=== PATIENT | female | born 1950 | race Caucasian/White ===

== ENCOUNTER 2020-11-04 17:17 | Outpatient (CLI) | payer MEDICARE, SELFPAY ==
--- NOTE | ~2020-11-04 | MM_ITS ---
EXAMINATION: MM screening norris BI w moni HISTORY: Screening TECHNIQUE: Craniocaudal and mediolateral oblique 3-D tomosynthesis images were obtained and synthetic 2-D images were generated. CAD analysis was submitted and interpreted. COMPARISON: No prior mammogram is available for comparison at this institution. BREAST PARENCHYMAL COMPOSITION: There are scattered areas of fibroglandular density. FINDINGS: There is a low-density mass in the medial aspect of the right breast. There are scattered b enign-appearing relatively monomorphic breast calcifications. There are no suspicious areas of diana ectural distortion. IMPRESSION: 1. Low-density mass right breast. 2. Additional spot compression and mediolateral views with follow-up breast ultrasound recommended. BI-RADS Category 0: Incomplete: Needs additional imaging evaluation. Reviewed, dictated and finalized at location A. IMPRESSION: 1. Low-density mass right breast. 2. Additional spot compression and mediolateral views with follow-up breast ult rasound recommended. BI-RADS Category 0: Incomplete: Needs additional imaging evaluation.
== END 2020-11-04 17:18 | disposition home or self-care (01) ==
DX: Z12.31 Encounter for screening mammogram for malignant neoplasm of breast (principal); R92.8 Other abnormal and inconclusive findings on diagnostic imaging of breast
CPT/HCPCS: 77063; 77067

== ENCOUNTER 2020-11-20 12:40 | Outpatient (CLI) | payer MEDICARE, SELFPAY ==
--- NOTE | ~2020-11-20 | MMUS_ITS ---
EXAMINATION: MM diagnostic mammo unilat RT, US breast RT complete HISTORY: Low density right breast mass reported in medial aspect right breast on 11/04/2020 screening mammogram TECHNIQUE: Additional 3-D tomosynthesis images of the right breast were performed and synthetic 2-D i mages were generated. CAD analysis was submitted and interpreted. High resolution complete right tianna st ultrasound was performed. COMPARISON: 11/04/2020 bilateral digital screening mammogram FINDINGS: MAMMOGRAPHIC FINDINGS: Approximately 12 x 16 mm low-density circumscribed opacity is noted in the central right breast. Scattered benign calcifications. There is a biopsy marker. ULTRASOUND: There are several cysts: 12:00 1 cm from nipple: 16 x 17 x 6.4 mm parallel sonolucency with through transmission, consistent w ith cyst 8:00 3 cm from nipple: 4.9 x 4.8 x 4.7 mm cyst with through transmission posterior enhancement 10:00 1 cm from nipple: 4.7 x 3.9 x 4.0 mm simple cyst with through transmission and posterior enhanc ement. No suspicious solid lesion or suspicious shadowing is identified. IMPRESSION: 1. No mammographic evidence of malignancy 2. Annual mammographic screening is recommended BI-RADS Category 2: Benign finding(s). Reviewed, dictated and finalized at location A. IMPRESSION: 1. No mammographic evidence of malignancy 2. Annual mammographic screening is recommended BI-RADS Category 2: Benign finding(s).
== END 2020-11-20 12:41 | disposition home or self-care (01) ==
DX: R92.8 Other abnormal and inconclusive findings on diagnostic imaging of breast (principal)
CPT/HCPCS: 76641; 77065

== ENCOUNTER 2020-11-28 07:43 | Outpatient (CLI) | payer MEDICARE, SELFPAY ==
--- NOTE | ~2020-11-28 | DEXA_ITS ---
Bone Density Report Name: Sophia Sánchez I Age: 70 Sex: Female Ethnicity: White Date of : 1950 Indication: postmenopausal; prior fracture; asthma or emphysema; Referring Provider: Ervin Clark Study: Bone densitometry was performed. Exam Date: November 28, 2020 Accession number: [id number] Bone Density: Region BMD T-score Z-score Classification AP Spine (L2, L3) 0.844 -1.9 0.2 Osteopenia Femoral Neck (Left) 0.573 -2.5 -0.7 Osteoporosis Total Hip (Left) 0.735 -1.7 -0.2 Osteopenia Total Hip Bilateral Avg 0.769 -1.5 0.1 Osteopenia Femoral Neck (Right) 0.707 -1.3 0.5 Osteopenia Total Hip (Right) 0.801 -1.2 0.3 Osteopenia World Health Organization criteria for BMD impression classify patients as: Normal (T-score at or above -1.0), Osteopenia (T-score between -1.0 and -2.5), or Osteoporosis (T-score at or below -2.5). 10-year Fracture Risk: FRAX not reported because: Some T-score for Spine Total or Hip Total or Femoral Neck at or below -2.5 Clinical Information Provided by Patient: Has had a low trauma fracture Has used the following medications: Vitamin D Has the following medical conditions: Asthma or Emphysema Patient maximum height was 65 Menopause Age: 58 No regular weight bearing exercise Onset of menses at age 17 Number of children 3 Impression: The patient has established osteoporosis, based on the Left Femoral Neck T-score and the existence of a prior fracture. The patient has risk factors, including: previous fracture. Discussion: HIGH RISK OF FRACTURE. BONE DENSITY IS UNDESIRABLY LOW AT ONE OR MORE SKELETAL SITES, CONSISTENT WITH POSTMENOPAUSAL OSTEOPOROSIS. This patient's lowest T-score, in a patient who has previously fractured, meets the World Health Organization's (WHO) criteria for severe osteoporosis. In untreated patients, the risk of osteoporotic fracture increases approximately two-fold for each 1.0 SD decrease in T-score. Low bone density is not the only risk factor for fracture; also consider factors such as patient's age, frailty or poor health, risk of falling, risk of injury, previous osteoporotic fracture, family history of osteoporosis, cigarette smoking, low body weight, etc. Not everyone with low bone mineral density has osteoporosis; osteomalacia and other metabolic bone disorders should also be considered. Patients who have osteoporosis should be evaluated for specific diseases and conditions (secondary causes) that may cause or contribute to bone loss. The [place] [employer]ocrinologists (AACE) and National Osteoporosis Foundation (NOF) recommend pharmacologic intervention for all postmenopausal women whose T-score is in this range. The patient should follow a healthful lifestyle (good nutrition with adequate calcium and vitamin D, and appropriate weight-bearing exercise).
== END 2020-11-28 07:44 | disposition home or self-care (01) ==
DX: Z78.0 Asymptomatic menopausal state (principal); M85.89 Other specified disorders of bone density and structure, multiple sites; M81.0 Age-related osteoporosis without current pathological fracture
CPT/HCPCS: 77080

== ENCOUNTER 2021-10-28 18:26 | Emergency (ER) | payer MEDICARE, MEDICAID, SELFPAY ==
[2021-10-28] VITALS (15 sets, daily range): BP systolic 119–170; BP diastolic 67–104; PULSE 85–94; RESP 13–21; TEMP 36.6; O2SAT 90–98
--- NOTE | ~2021-10-28 | CT_ITS ---
EXAMINATION: CT abdomen pelvis w con DATE: 10/28/2021 20:02 INDICATION: epigastric pain TECHNIQUE: Computed tomography (CT) of the abdomen and pelvis was performed with 100 mL Omnipaque-350 intravenous contrast. Automated exposure control and iterative reconstruction technique were employe d. The dose-length product was 1240.17 mGy-cm. COMPARISON: None FINDINGS: Lower thorax: Mild senescent changes, otherwise clear lungs. Mild coronary artery calcifications. Sma ll hiatal hernia. Liver: Normal. Biliary/Gallbladder: Cholelithiasis. No bile duct dilation. Spleen: Normal. Pancreas: No mass or duct dilation. Adrenals:No mass. Kidneys: Subcentimeter right upper pole angiomyolipoma. 1.3 cm nephrolith and a right lower pole evangelista x multiple additional punctate calcifications present in the right lower pole. GI tract: Distal esophageal wall edema as can be seen with esophagitis. No small or large bowel dilat ion. Appendix not confidently visualized and possibly surgically absent. Mesentery/Peritoneum: No ascites, mass, or free air. Retroperitoneum: No mass. Pelvis: Pelvic organs are within normal limits. Bones/Soft Tissues: Soft tissues and body wall unremarkable. Moderate wedge compression deformity of L1. Additional Findings: None. IMPRESSION: Esophagitis. Right nephrolithiasis, without obstructive uropathy. Moderate L1 compression fracture, l ikely chronic unless accompanied by acute pain/tenderness. Reviewed, dictated and finalized at location K. IMPRESSION: Esophagitis. Right nephrolithiasis, without obstructive uropathy. Moderate L1 c ompression fracture, likely chronic unless accompanied by acute pain/tenderness .
--- NOTE | 2021-10-28 18:46 | ECG_ITS ---
Measurements Intervals [place] Rate: 90 P: 55 [place]: 150 QRS: 25 QRSD: 81 T: 85 QT: 350 QTc: 430 Interpretive Statements SINUS RHYTHM NONSPECIFIC T-WAVE ABNORMALITY NO PREVIOUS ECG AVAILABLE FOR COMPARISON Electronically Signed On 10-28-2021 21:21:33 CDT by Jenny Simons M.D.
[2021-10-28 18:59] LABS: Basophils Absolute Auto 0.1 K/mm3 (0.0-0.1); Basophils Percent Auto 0.8 % (0.2-1.2); Eosinophils Absolute Auto 0.2 K/mm3 (0-0.3); Eosinophils Percent Auto 2.8 % (0-4.4); Hematocrit 38.8 % (37.0-47.0); Hemoglobin 12.4 g/dL (12.0-15.0); Immature Granulocyte Absolute 0.05 K/mm3 (0.00-0.031); Immature Granulocyte Percent A 0.6 % (0-0.5); Lymphocytes Absolute Auto 2.73 K/mm3 (0.9-3.2); Lymphocytes Percent Auto 31.5 % (18.3-44.2); Mean Corpuscular Hemoglobin 31.7 pg (26-34); Mean Corpuscular Volume 99.2 fl (80-100); Mean Platelet Volume 9.2 fl (7.4-10.4); Monocytes Absolute Auto 0.9 K/mm3 (0.1-0.6); Monocytes Percent Auto 10.3 % (2.6-8.5); Neutrophils Absolute Auto 4.7 K/mm3 (1.3-6.7); Platelet Count Result 264 k/mm3 (150-375); Red Blood Count 3.91 M/mm3 (4.2-5.4); Red Cell Distribution Width 11.9 % (11.5-14.5); White Blood Count 8.7 K/mm3 (4.5-10.0)
[2021-10-28 19:11] LABS: Alanine Aminotransferase 32 U/L (4-35); Alkaline Phosphatase 102 U/L (38-126); Anion Gap 6 mmol/L (8-16); Aspartate Amino Transferase 36 U/L (14-36); Bilirubin,Total 0.1 mg/dL (0.2-1.3); Blood Urea Nitrogen 17 mg/dL (7-17); Calcium 8.6 mg/dL (8.4-10.2); Carbon Dioxide 27 mmol/L (22-30); Chloride 104 mmol/L (98-107); Estimated CRCL calculation 74 ml/min; Estimated Glomerular Filt Rate > 60; Glucose 125 mg/dL (65-110); Lipase 62 U/L (23-300); Sodium 137 mmol/L (137-145)
[2021-10-28 19:55] LABS: Add Urine Microscopic? YES; Appearance Urine Cloudy (Clear); Bacteria Urine Trace /hpf; Bilirubin Urine Negative (Negative); Blood Urine Negative (Negative); Color Urine Yellow (Yellow); Glucose Urine UA Negative (Negative); Ketones Urine Trace mg/dL (Negative); Leukocyte Esterase Ur 2+ LEU/UL (Negative); Mucus Urine Rare /lpf; Nitrate Urine Negative (Negative); Protein Urine 1+ mg/dL (Negative); Specific Grav Ur 1.025 (1.001-1.035); Squamous Epithelial Cell Urine Few /hpf (Few); WBC Urine 31-50 /hpf
[2021-10-28 20:10] LABS: Troponin I < 0.012 ng/mL (0.000-0.034)
--- NOTE | 2021-10-28 20:51 | ED.ABDPAIN ---
HPI - Abdominal Pain General Chief Complaint: Abdominal Pain Stated Complaint: RUQ pain x 2 days Time Seen by Provider: 10/28/21 18:44 Source: patient and family Mode of arrival: EMS Limitations: no limitations History of Present Illness HPI narrative: 70-year-old with a history of hypertension, hyperlipidemia, GERD, anxiety chr. back pain here with complaints of having upper abdominal pain for past 2 days. She denies any nausea or vomiting. She states that pain starts in the epigastric area wraps around her right upper abdomen. No history of fever or chills. Denies any cough or shortness of breath. Pertinent past history: other (GERD) Location: epigastric and RUQ Quality: aching Radiation: RUQ Associated symptoms: denies other symptoms Related Data Allergies Allergy/AdvReac Type Severity Reaction Status Date / Time No Known Allergies Allergy Verified 10/28/21 19:23 Review of Systems Review of Systems: All systems reviewed & are unremarkable except as noted in HPI and below Constitutional: Constitutional: Reports no additional constitutional complaints Eyes: Eyes: Reports no additional eye complaints ENT: Reports system reviewed and no additional complaints, except as documented Cardiovascular: Cardiovascular: Reports no additional cardiovascular complaints Respiratory: Respiratory: Reports no additional respiratory complaints Gastrointestinal: Gastrointestinal: Reports as per HPI Genitourinary: Genitourinary: Reports no additional female genitourinary complaints Musculoskeletal: Musculoskeletal: Reports no additional musculoskeletal complaints Neurologic: Reports system reviewed and no additional complaints, except as documented Exam Narrative: GENERAL: Well-appearing, well-nourished, and in no acute distress. HEAD: Normocephalic, atraumatic. EYES: PERRLA and EOMI. NECK: Supple. CHEST: Clear to auscultation. No respiratory distress. HEART: Regular rate and rhythm. No murmur heard. Normal peripheral pulses. ABDOMEN: Soft, Mild Epigastric tenderness , nondistended, normal active bowel sounds. EXTREMITIES: Normal range of motion. No edema. SKIN: Warm, dry, no rash. NEURO: No focal deficits. Alert and oriented x3. PSYCH: Normal mood and affect. Course Course Emergency Course: Patient comfortably laying on bed in no discomfort she presently has no pain. I discussed lab work, CT findings with the patient and her daughter who is at the bedside. She is presently taking omeprazole daily for her GERD I recommended her that she needs to follow-up with the gastroenterology for upper GI. Also recommended her to continue home medications. Vital Signs Vital signs: Vital Signs Temperature 36.6 C 10/28/21 18:36 Pulse Rate 88 10/28/21 18:36 Respiratory Rate 20 10/28/21 18:36 Blood Pressure 131/67 10/28/21 18:36 Pulse Oximetry 95 10/28/21 18:36 Temperature 36.6 C 10/28/21 18:36 Pulse Rate 91 10/28/21 18:47 Respiratory Rate 16 10/28/21 18:47 Blood Pressure 154/78 H 10/28/21 18:47 Pulse Oximetry 98 10/28/21 18:47 MDM - Abdominal Pain Lab Data Result diagrams: 10/28/21 18:51 10/28/21 18:51 Labs: Lab Results 10/28/21 10/28/21 10/28/21 Range/Units 18:49 18:51 18:51 WBC 8.7 (4.5-10.0) K/mm3 RBC 3.91 L (4.2-5.4) M/mm3 Hgb 12.4 (12.0-15.0) g/dL Hct 38.8 (37.0-47.0) % MCV 99.2 (80-100) fl MCH 31.7 (26-34) pg MCHC 32.0 (32-36) g/dl RDW 11.9 (11.5-14.5) % Plt Count 264 (150-375) k/mm3 MPV 9.2 (7.4-10.4) fl Immature Gran % (Auto) 0.6 H (0-0.5) % Neut % (Auto) 54.0 (45.5-73.1) % Lymph % (Auto) 31.5 (18.3-44.2) % [place] % (Auto) 10.3 H (2.6-8.5) % Eos % (Auto) 2.8 (0-4.4) % Baso % (Auto) 0.8 (0.2-1.2) % Lymph # (Auto) 2.73 (0.9-3.2) K/mm3 [place] # (Auto) 0.9 H (0.1-0.6) K/mm3 Eos # (Auto) 0.2 (0-0.3) K/mm3 Baso # (Auto) 0.1 (0.0-0.1) K/mm3 Abs Immat G
== END 2021-10-28 21:10 ==
PROVIDERS: Emergency Provider Family Medicine
DX: K20.90 Esophagitis, unspecified without bleeding (principal); R10.13 Epigastric pain; I10 Essential (primary) hypertension; E78.5 Hyperlipidemia, unspecified; K21.9 Gastro-esophageal reflux disease without esophagitis
CPT/HCPCS: 36415; 74177; 80053; 81001; 83690; 84484; 85025; 87086; 93005; 99284; Q9967

== ENCOUNTER 2022-02-09 00:13 | Day surgery (SDC) | payer MEDICARE, MEDICAID, SELFPAY ==
[2022-01-21 15:48] VITALS: BMI 37.6
[2022-02-09 06:24] VITALS: BP 151/102; PULSE 106; RESP 18; TEMP 36.4; O2SAT 94
[2022-02-09] MEDS: LACTATED RINGERS 1,000 ML 150 ML IV CONT (06:39)
--- NOTE | 2022-02-09 07:23 | WPDANESEPPF ---
Anes - Initial Pre Proc Eval Procedure: Operation Date: 02/09/22 07:30 Proposed Procedures p Esophagogastroduodenoscopy & Screening Colonoscopy - Timbo Morales MD Date/Time: 02/09/22 07:23 Surgeon: Timbo Morales MD Pre Op Diagnosis: epophagitis, neoplasm screening Patient Data Age: 71 Gender: F Height: 1.65 m Weight: 104.5 kg Last Vital Signs Temp 97.5 F L 02/09/22 06:24 Pulse 106 H 02/09/22 06:24 Resp 18 02/09/22 06:24 BP 151/102 H 02/09/22 06:24 Pulse Ox 94 02/09/22 06:24 O2 Del Method Room Air 02/09/22 06:24 Allergies Allergy/AdvReac Type Severity Reaction Status Date / Time No Known Allergies Allergy Verified 02/09/22 06:22 Home Medications Medication Instructions Recorded Confirmed Type albuterol sulfate 90 mcg/actuation 1 inh inhalation Q4H PRN Dyspnea 12/03/21 01/21/22 History aerosol inhaler alendronate 70 mg tablet 70 mg PO WEEKLY 12/03/21 01/21/22 History aspirin 81 mg tablet,delayed 81 mg PO DAILY 12/03/21 01/21/22 History release atorvastatin 20 mg tablet 20 mg PO DAILY 12/03/21 01/21/22 History calcium carbonate-vitamin D3 500 1 tablet PO DAILY 12/03/21 01/21/22 History mg(1,250 mg)-600 unit chewable tablet celecoxib 100 mg capsule 100 mg PO BID 12/03/21 01/21/22 History duloxetine 60 mg capsule,delayed 60 mg PO DAILY 12/03/21 01/21/22 History release gabapentin 300 mg capsule 300 mg PO TID 12/03/21 01/21/22 History nitroglycerin 0.4 mg sublingual 0.4 mg sublingual Q5M PRN Chest 12/03/21 01/21/22 History tablet Pain oxybutynin chloride 15 mg 15 mg PO DAILY 12/03/21 01/21/22 History tablet,extended release 24 hr risperidone 1 mg tablet 1 mg PO HS 12/03/21 01/21/22 History tramadol 50 mg tablet 50 mg PO BID 12/03/21 01/21/22 History sodium sul 1.479 gram-potas ch See Rx Instructions PO PER PKG DIR 12/04/21 01/21/22 Rx 0.188 gram-magnes sul 0.225 gram #24 tabs tablet (Sutab) cyclobenzaprine 5 mg tablet 5 mg PO TID 01/21/22 01/21/22 History metoprolol tartrate 25 mg tablet 25 mg PO DAILY 01/21/22 01/21/22 History omeprazole 40 mg capsule,delayed 40 mg PO DAILY 01/21/22 01/21/22 History release trazodone 150 mg tablet 150 mg PO HS 01/21/22 01/21/22 History Patient hx anesthesia problems: none Family hx anesthesia problems: none Results Review: All pre-operative results and documents have been reviewed as part of the pre-operative evaluation. [facility] Past Medical History Medical History (Updated 12/03/21 @ 14:19 by Timbo Morales MD) Abnormal CT of the chest Anxiety Arthritis Colon cancer screening Depression Osteoporosis Thyroid disorder Vertigo Family History Family History (Updated 12/03/21 @ 13:59 by Fanny Combs CMA) Father Hypertension Mother Heart disease Depression Social History Social History (Updated 12/03/21 @ 14:00 by Fanny Combs CMA) Smoking status: Never smoker Alcohol intake: current Drinks per week: 1 Alcohol use details: very rare Substance use: never Substance use type: does not use Living arrangements: assisted living Spiritual care concerns: No Anes - Eval Final PreProcedure Day of Procedure 02/09/22 07:23 Patient weight: obese Heart: regular rate and rhythm Lungs: clear to auscultation Airway: Mallampati scale class III Neurological: alert and oriented Last oral intake: >/= 8 hours ASA classification: III Emergent: no Anesthetic plan: proceed Anesthesia type and monitoring: general GIVS and standard monitoring Results Review: All pre-operative results and documents have been reviewed as part of the pre-operative evaluation. Informed Consent: The patient's anesthetic plan and its attendant risks and benefits were discussed with the patient/family/POA. Questions were solicited and answers provided to the satisfaction of the patient/family/POA.
--- NOTE | 2022-02-09 07:30 | PM.HPGS ---
History of Present Illness History of Present Illness Consent: Risks, benefits, and alternatives have been discussed and questions answered. Patient agrees to proceed with procedure. Chief complaint: epophagitis, neoplasm screening Narrative: Sophia Sánchez is a 71 year old female with chest pain, CT scan showed esophagitis but better with pepcid and omeprazole, also due to have colonoscopy Review of Systems Constitutional: Constitutional: Denies headache(s) and Denies weakness Eyes: Eyes: Denies blurry vision ENT: Reports Normal hearing present, Denies headache(s) and Denies neck pain Cardiovascular: Cardiovascular: Denies chest pain and Denies dyspnea Respiratory: Respiratory: Denies dyspnea Gastrointestinal: Gastrointestinal: Reports no additional gastrointestinal complaints Genitourinary: Genitourinary: Denies dysuria Musculoskeletal: Musculoskeletal: Denies neck pain Integumentary/Breasts: Skin/Breast: Denies dry skin Neurologic: Reports Normal hearing present, Denies headache(s) and Denies weakness Psychiatric: Psychiatric: Denies anxiety Endocrine: Endocrine: Denies change in body appearance Hematologic/Lymphatic: Hematologic/Lymphatic: Denies easy bleeding Allergic/Immunologic: Allergic/Immunologic: Denies urticaria PMFSH Past Medical History Medical History (Updated 12/03/21 @ 14:19 by Timbo Morales MD) Abnormal CT of the chest Anxiety Arthritis Colon cancer screening Depression Osteoporosis Thyroid disorder Vertigo Family History Family History (Updated 12/03/21 @ 13:59 by Fanny Combs CMA) Father Hypertension Mother Heart disease Depression Social History Social History (Updated 12/03/21 @ 14:00 by Fanny Combs CMA) Smoking status: Never smoker Alcohol intake: current Drinks per week: 1 Alcohol use details: very rare Substance use: never Substance use type: does not use Living arrangements: assisted living Spiritual care concerns: No Meds Home Medications and Allergies Home Medications Medication Instructions Recorded Confirmed Type albuterol sulfate 90 mcg/actuation 1 inh inhalation Q4H PRN Dyspnea 12/03/21 01/21/22 History aerosol inhaler alendronate 70 mg tablet 70 mg PO WEEKLY 12/03/21 01/21/22 History aspirin 81 mg tablet,delayed 81 mg PO DAILY 12/03/21 01/21/22 History release atorvastatin 20 mg tablet 20 mg PO DAILY 12/03/21 01/21/22 History calcium carbonate-vitamin D3 500 1 tablet PO DAILY 12/03/21 01/21/22 History mg(1,250 mg)-600 unit chewable tablet celecoxib 100 mg capsule 100 mg PO BID 12/03/21 01/21/22 History duloxetine 60 mg capsule,delayed 60 mg PO DAILY 12/03/21 01/21/22 History release gabapentin 300 mg capsule 300 mg PO TID 12/03/21 01/21/22 History nitroglycerin 0.4 mg sublingual 0.4 mg sublingual Q5M PRN Chest 12/03/21 01/21/22 History tablet Pain oxybutynin chloride 15 mg 15 mg PO DAILY 12/03/21 01/21/22 History tablet,extended release 24 hr risperidone 1 mg tablet 1 mg PO HS 12/03/21 01/21/22 History tramadol 50 mg tablet 50 mg PO BID 12/03/21 01/21/22 History sodium sul 1.479 gram-potas ch See Rx Instructions PO PER PKG DIR 12/04/21 01/21/22 Rx 0.188 gram-magnes sul 0.225 gram #24 tabs tablet (Sutab) cyclobenzaprine 5 mg tablet 5 mg PO TID 01/21/22 01/21/22 History metoprolol tartrate 25 mg tablet 25 mg PO DAILY 01/21/22 01/21/22 History omeprazole 40 mg capsule,delayed 40 mg PO DAILY 01/21/22 01/21/22 History release trazodone 150 mg tablet 150 mg PO HS 01/21/22 01/21/22 History Allergies Allergy/AdvReac Type Severity Reaction Status Date / Time No Known Allergies Allergy Verified 02/09/22 06:22 Vital Signs Vital Signs - 24 hr 02/09/22 06:24 Temperature 97.5 F L Pulse Rate 106 H Respiratory Rate 18 Blood Pressure 151/102 H Pulse Oximetry 94 Oxygen Delivery Room Air Exam Const: General: comfortable and no acute distress HE
[2022-02-09 07:57] VITALS: BP 135/78; PULSE 94; RESP 14; O2SAT 98
[2022-02-09 08:07] VITALS: BP 135/74; PULSE 91; RESP 14; O2SAT 98
[2022-02-09 08:17] VITALS: BP 155/81; PULSE 87; RESP 15; O2SAT 98
--- NOTE | 2022-02-09 09:04 | SUR.OPER ---
EGD: Start 07:34 End 07:38 Colon: Start 07:43 End 07:55
== END 2022-02-09 08:49 | disposition home or self-care (01) ==
PROVIDERS: Visit Provider Internal Medicine Gastroenterology
PROC: 0DJ08ZZ Inspection of Upper Intestinal Tract, Via Natural or Artificial Opening Endoscopic (ICD-10-PCS; CPT 43235; principal; 2022-02-09 07:30)
DX: Z12.11 Encounter for screening for malignant neoplasm of colon (principal); K21.9 Gastro-esophageal reflux disease without esophagitis; R07.89 Other chest pain; K21.00 Gastro-esophageal reflux disease with esophagitis, without bleeding; K44.9 Diaphragmatic hernia without obstruction or gangrene; K31.84 Gastroparesis; K29.60 Other gastritis without bleeding; K64.8 Other hemorrhoids; Z79.82 Long term (current) use of aspirin; Z79.51 Long term (current) use of inhaled steroids; M81.0 Age-related osteoporosis without current pathological fracture; F41.9 Anxiety disorder, unspecified; F32.A Depression, unspecified; E07.9 Disorder of thyroid, unspecified; E66.9 Obesity, unspecified; Z68.38 Body mass index [BMI] 38.0-38.9, adult
CPT/HCPCS: 43239; G0121; 88305; J2704; J7120

== ENCOUNTER 2022-03-13 15:53 | Emergency (ER) | payer MEDICARE, MEDICAID, SELFPAY ==
[2022-03-13] VITALS (10 sets, daily range): BP systolic 111–127; BP diastolic 63–76; PULSE 78–85; RESP 11–18; TEMP 36.4; O2SAT 90–97
--- NOTE | ~2022-03-13 | XR_ITS ---
EXAM: XR hip LT 2V w AP pelvis DATE: 03/13/2022 17:22 HISTORY: FALL 1 WEEK AGO, LT HIP PAINS . COMPARISON: CT abdomen pelvis 10/28/2021. FINDINGS: Decreased mineralization. No fracture or dislocation. No lytic or blastic lesion. Mild art hritic change in the bilateral hips. Chondrocalcinosis at the symphysis pubis. Degenerative change in the lumbar spine. No erosion or periosteal change. Soft tissues within normal limits. IMPRESSION: No acute osseous finding in the left hip or pelvis. Reviewed, dictated and finalized at location K.
--- NOTE | 2022-03-13 17:16 | ED.GENADULT ---
HPI - General Adult General Chief complaint: Weakness Stated complaint: I feel like I'm going to fall when I stand up Time Seen by Provider: 03/13/22 16:33 History of Present Illness HPI narrative: 71-year-old female presenting to the emergency department for evaluation of intermittent left leg weakness. Patient states that she does have a childhood history of polio and did require a leg brace for a significant period of time. Patient states when she walks she does use a walker. Patient states that approximately 3 times a day she feels that her leg gives out. Patient states that her leg did give out today and she is complaining of a funny feeling of the left hip. Patient denies actually falling and patient denies having any left hip pain. Patient denies striking head denies loss consciousness. Related Data Home Medications Medication Instructions Recorded Confirmed albuterol sulfate 90 mcg/actuation 1 inh inhalation Q4H PRN Dyspnea 12/03/21 01/21/22 aerosol inhaler alendronate 70 mg tablet 70 mg PO WEEKLY 12/03/21 01/21/22 aspirin 81 mg tablet,delayed 81 mg PO DAILY 12/03/21 01/21/22 release atorvastatin 20 mg tablet 20 mg PO DAILY 12/03/21 01/21/22 calcium carbonate-vitamin D3 500 1 tablet PO DAILY 12/03/21 01/21/22 mg(1,250 mg)-600 unit chewable tablet celecoxib 100 mg capsule 100 mg PO BID 12/03/21 01/21/22 duloxetine 60 mg capsule,delayed 60 mg PO DAILY 12/03/21 01/21/22 release gabapentin 300 mg capsule 300 mg PO TID 12/03/21 01/21/22 nitroglycerin 0.4 mg sublingual 0.4 mg sublingual Q5M PRN Chest 12/03/21 01/21/22 tablet Pain oxybutynin chloride 15 mg 15 mg PO DAILY 12/03/21 01/21/22 tablet,extended release 24 hr risperidone 1 mg tablet 1 mg PO HS 12/03/21 01/21/22 tramadol 50 mg tablet 50 mg PO BID 12/03/21 01/21/22 cyclobenzaprine 5 mg tablet 5 mg PO TID 01/21/22 01/21/22 metoprolol tartrate 25 mg tablet 25 mg PO DAILY 01/21/22 01/21/22 omeprazole 40 mg capsule,delayed 40 mg PO DAILY 01/21/22 01/21/22 release trazodone 150 mg tablet 150 mg PO HS 01/21/22 01/21/22 Allergies Allergy/AdvReac Type Severity Reaction Status Date / Time No Known Allergies Allergy Verified 03/13/22 16:10 Review of Systems Review of Systems: CONSTITUTIONAL: Denies fever, chills, or sweats. EYES: Denies visual changes, redness, or discharge. ENT: Denies rhinorrhea, congestion, sore throat, or otalgia. CARDIOVASCULAR: Denies chest pain, palpitations, or edema. RESPIRATORY: Denies cough or dyspnea. GASTROINTESTINAL: Denies abdominal pain, nausea, vomiting, or diarrhea. GENITOURINARY: Denies dysuria or hematuria. SKIN: Denies rash or itching. MUSCULOSKELETAL: Intermittent left leg weakness NEUROLOGIC: Denies headache, numbness, or weakness. PSYCHIATRIC: Denies anxiety or depression. [facility] Past Medical History Medical History (Updated 03/13/22 @ 18:32 by Gui Gerardo MD) Abnormal CT of the chest Anxiety Arthritis Colon cancer screening Depression Osteoporosis Thyroid disorder Vertigo Family History Family History (Updated 12/03/21 @ 13:59 by Fanny Combs CMA) Father Hypertension Mother Heart disease Depression Social History Social History (Updated 12/03/21 @ 14:00 by Fanny Combs CMA) Smoking status: Never smoker Alcohol intake: current Drinks per week: 1 Alcohol use details: very rare Substance use: never Substance use type: does not use Spiritual care concerns: No Exam Narrative: APPEARANCE: Well appearing, no pain, no distress, well-nourished. HEAD: normocephalic, atraumatic. EYES: PERRLA/EOMI, conjunctivae clear. NOSE: Normal no drainage NECK: Supple. No adenopathy, no masses. RESPIRATORY: Airway patent, respirations nonlabored. Clear to auscultation bilaterally, no rales, rhonchi, wheezing. CARDIOVASCULAR: Regular rate and rhythm without murmurs rubs or gallops. ABDOMINAL: Soft, nontender, nondistended, normal bowel sounds MUSCULOSKELETAL:
[2022-03-13 18:05] LABS: Basophils Absolute Auto 0.1 K/mm3 (0.0-0.1); Basophils Percent Auto 1.1 % (0.2-1.2); Eosinophils Absolute Auto 0.3 K/mm3 (0-0.3); Eosinophils Percent Auto 4.5 % (0-4.4); Hematocrit 40.5 % (37.0-47.0); Immature Granulocyte Absolute 0.06 K/mm3 (0.00-0.031); Immature Granulocyte Percent A 0.8 % (0-0.5); Lymphocytes Absolute Auto 2.24 K/mm3 (0.9-3.2); Lymphocytes Percent Auto 31.4 % (18.3-44.2); Mean Corpuscular HGB Conc 32.1 g/dl (32-36); Mean Corpuscular Hemoglobin 30.7 pg (26-34); Mean Corpuscular Volume 95.5 fl (80-100); Mean Platelet Volume 9.3 fl (7.4-10.4); Monocytes Absolute Auto 0.8 K/mm3 (0.1-0.6); Monocytes Percent Auto 10.8 % (2.6-8.5); Neutrophils Absolute Auto 3.7 K/mm3 (1.3-6.7); Neutrophils Percent Auto 51.4 % (45.5-73.1); Platelet Count Result 275 k/mm3 (150-375); Red Blood Count 4.24 M/mm3 (4.2-5.4); Red Cell Distribution Width 12.5 % (11.5-14.5); White Blood Count 7.1 K/mm3 (4.5-10.0)
[2022-03-13 18:17] LABS: Lactic Acid Reflex 1.9 mmol/L (0.7-2.0)
[2022-03-13 18:18] LABS: Alanine Aminotransferase 71 U/L (6-35); Albumin Level 4.2 g/dL (3.5-5.1); Alkaline Phosphatase 105 U/L (38-126); Anion Gap 9 mmol/L (8-16); Aspartate Amino Transferase 58 U/L (14-36); Bilirubin,Total 0.3 mg/dL (0.2-1.3); Blood Urea Nitrogen 18 mg/dL (7-17); Calcium 9.1 mg/dL (8.4-10.2); Carbon Dioxide 29 mmol/L (22-30); Chloride 100 mmol/L (98-107); Estimated CRCL calculation 68 ml/min; Estimated Glomerular Filt Rate > 60; Glucose 131 mg/dL (65-110); Potassium 4.1 mmol/L (3.4-5.0); Sodium 138 mmol/L (137-145)
== END 2022-03-13 19:10 | disposition home or self-care (01) ==
PROVIDERS: Emergency Provider Emergency Medicine
DX: R53.1 Weakness (principal); M25.552 Pain in left hip; E07.9 Disorder of thyroid, unspecified; M19.90 Unspecified osteoarthritis, unspecified site; M81.0 Age-related osteoporosis without current pathological fracture; F32.A Depression, unspecified; F41.9 Anxiety disorder, unspecified; Z86.12 Personal history of poliomyelitis; Z79.82 Long term (current) use of aspirin
CPT/HCPCS: 36415; 73502; 80053; 83605; 85025; 99283

== ENCOUNTER 2023-04-03 09:02 | Observation (INO) | payer MEDICARE, MEDICAID, SELFPAY ==
[2023-04-03] VITALS (36 sets, daily range): BP systolic 140–171; BP diastolic 60–117; PULSE 88–108; RESP 11–22; TEMP 36.2–37.7; O2SAT 90–96; BMI 39.6
--- NOTE | ~2023-04-03 | CT_ITS ---
EXAMINATION: CT brain wo con DATE: 04/03/2023 10:50 INDICATION: Altered mental status TECHNIQUE: Computed tomography (CT) of the head was performed without intravenous contrast. The mA wa s adjusted according to patient size. Iterative reconstruction technique was employed. Exam dose: 60 5.33 mGy-cm total exam DLP. COMPARISON: None FINDINGS: Bilateral carotid siphon internal carotid artery calcifications. Nonspecific diminished att enuation cerebral white matter, likely due to chronic small vessel ischemic changes. No intracranial mass lesion or hemorrhage or cerebrovascular accident, midline shift or mass effect i s evident. No subdural or epidural hematoma. No fracture or bone destruction of the cranial vault. IMPRESSION: Cerebral atherosclerosis and chronic small vessel ischemic changes of the cerebral white matter No skull fracture or acute intracranial finding Reviewed, dictated and finalized at [facility]. Reviewed, dictated and finalized at [facility].
--- NOTE | ~2023-04-03 | XR_ITS ---
XR chest 1V portable DATE: 04/03/2023 10:21 INDICATION: Altered mental status, weakness TECHNIQUE: Portable AP chest on 04/03/2023 at 1014 hours COMPARISON: None FINDINGS: clinical research monitor device overlies the left chest. Normal heart size. Aortic arch calcification. No pulmonary infiltrate or consolidation, pleural effusion or pulmonary vascular congestion or pneumo thorax is detected. Osteopenia. IMPRESSION: No active cardiopulmonary disease Aortic atherosclerosis Osteopenia Reviewed, dictated and finalized at [facility].
--- NOTE | 2023-04-03 09:15 | ECG_ITS ---
Measurements Intervals [place] Rate: 106 P: 42 CT: 149 QRS: -6 QRSD: 83 T: 50 QT: 333 QTc: 443 Interpretive Statements SINUS TACHYCARDIA BORDERLINE R WAVE PROGRESSION, ANTERIOR LEADS NONSPECIFIC ST & T-WAVE ABNORMALITY- DIFFUSE LEADS BASELINE ARTIFACT- II, III, AVF BORDERLINE ECG COMPARED TO ECG 10/28/2021 18:48:20 SINUS TACHYCARDIA NOW PRESENT Electronically Signed On 04-03-2023 12:24:54 CDT by Paulino Jung D.O.
[2023-04-03 09:38] LABS: Basophils Absolute Auto 0.1 K/mm3 (0.0-0.1); Basophils Percent Auto 0.4 % (0.2-1.2); Eosinophils Percent Auto 0.2 % (0-4.4); Hematocrit 39.4 % (37.0-47.0); Hemoglobin 12.9 g/dL (12.0-15.0); Immature Granulocyte Absolute 0.06 K/mm3 (0.00-0.031); Immature Granulocyte Percent A 0.4 % (0-0.5); Lymphocytes Absolute Auto 1.02 K/mm3 (0.9-3.2); Lymphocytes Percent Auto 7.2 % (18.3-44.2); Mean Corpuscular HGB Conc 32.7 g/dl (32-36); Mean Corpuscular Hemoglobin 31.3 pg (26-34); Mean Corpuscular Volume 95.6 fl (80-100); Mean Platelet Volume 9.5 fl (7.4-10.4); Monocytes Absolute Auto 1.1 K/mm3 (0.1-0.6); Monocytes Percent Auto 7.6 % (2.6-8.5); Neutrophils Absolute Auto 11.9 K/mm3 (1.3-6.7); Neutrophils Percent Auto 84.2 % (45.5-73.1); Platelet Count Result 237 k/mm3 (150-375); Red Blood Count 4.12 M/mm3 (4.2-5.4); Red Cell Distribution Width 12.4 % (11.5-14.5); White Blood Count 14.1 K/mm3 (4.5-10.0)
[2023-04-03 09:48] LABS: Prothrombin Time 13.6 Seconds (11.1-14.7)
[2023-04-03 09:49] LABS: Partial Thromboplastin Time 29.2 SECONDS (22.3-36.8)
[2023-04-03 09:53] LABS: Alanine Aminotransferase 64 U/L (6-35); Albumin Level 4.1 g/dL (3.5-5.1); Alkaline Phosphatase 128 U/L (38-126); Anion Gap 6 mmol/L (8-16); Aspartate Amino Transferase 48 U/L (14-36); Bilirubin,Total 0.7 mg/dL (0.2-1.3); Blood Urea Nitrogen 15 mg/dL (7-17); Calcium 9.7 mg/dL (8.4-10.2); Carbon Dioxide 31 mmol/L (22-30); Chloride 99 mmol/L (98-107); Estimated CRCL calculation 76 ml/min; Estimated Glomerular Filt Rate > 60; Glucose 145 mg/dL (65-110); Sodium 136 mmol/L (137-145)
--- NOTE | 2023-04-03 10:03 | ED.AMS ---
HPI - Altered Mental Status General Chief Complaint: Altered Mental Status Stated Complaint: altered mentsal status Time Seen by Provider: 04/03/23 10:02 Source: patient and EMS Mode of arrival: EMS History of Present Illness HPI narrative: 72 years old white female came from [facility] by ambulance complaining of change of mental status over the last 24 hours. Patient was found wandering in the hallway. Currently patient is alert and oriented to her name and age only and that was his baseline. Patient denies any fever, chills, nausea, vomiting, chest pain, shortness of breath, back pain or abdominal pain or urinary symptoms. Related Data Home Medications Medication Instructions Recorded Confirmed albuterol sulfate 90 mcg/actuation 1 inh inhalation Q4H PRN Dyspnea 12/03/21 01/21/22 aerosol inhaler alendronate 70 mg tablet 70 mg PO WEEKLY 12/03/21 01/21/22 aspirin 81 mg tablet,delayed 81 mg PO DAILY 12/03/21 01/21/22 release atorvastatin 20 mg tablet 20 mg PO DAILY 12/03/21 01/21/22 calcium carbonate-vitamin D3 500 1 tablet PO DAILY 12/03/21 01/21/22 mg(1,250 mg)-600 unit chewable tablet celecoxib 100 mg capsule 100 mg PO BID 12/03/21 01/21/22 duloxetine 60 mg capsule,delayed 60 mg PO DAILY 12/03/21 01/21/22 release gabapentin 300 mg capsule 300 mg PO TID 12/03/21 01/21/22 nitroglycerin 0.4 mg sublingual 0.4 mg sublingual Q5M PRN Chest 12/03/21 01/21/22 tablet Pain oxybutynin chloride 15 mg 15 mg PO DAILY 12/03/21 01/21/22 tablet,extended release 24 hr risperidone 1 mg tablet 1 mg PO HS 12/03/21 01/21/22 tramadol 50 mg tablet 50 mg PO BID 12/03/21 01/21/22 cyclobenzaprine 5 mg tablet 5 mg PO TID 01/21/22 01/21/22 metoprolol tartrate 25 mg tablet 25 mg PO DAILY 01/21/22 01/21/22 omeprazole 40 mg capsule,delayed 40 mg PO DAILY 01/21/22 01/21/22 release trazodone 150 mg tablet 150 mg PO HS 01/21/22 01/21/22 Allergies Allergy/AdvReac Type Severity Reaction Status Date / Time No Known Allergies Allergy Verified 03/13/22 16:10 Review of Systems Review of Systems: All systems reviewed & are unremarkable except as noted in HPI and below PMFSH Past Medical History Medical History Abnormal CT of the chest Anxiety Arthritis Colon cancer screening Depression Osteoporosis Thyroid disorder Vertigo Family History Family History (Updated 12/03/21 @ 13:59 by Fanny Combs CMA) Father Hypertension Mother Heart disease Depression Social History Social History (Updated 12/03/21 @ 14:00 by Fanny Combs CMA) Smoking status: Never smoker Alcohol intake: current Drinks per week: 1 Alcohol use details: very rare Substance use: never Substance use type: does not use Living arrangements: assisted living Spiritual care concerns: No Exam Narrative: General appearance: Well-developed, well-nourished Skin: Normal color Head: Normocephalic, nontraumatic Eyes: Clear conjunctiva ENT: Oropharynx normal, ears normal, nose normal Neck: Supple, nontender Chest and respiratory: Airway patent, no respiratory distress, no accessory muscle use Heart: Regular rate/rhythm Abdomen: Soft, nontender, no organomegaly, quiet bowel sounds Vascular: Normal peripheral pulses, normal capillary refill. Musculoskeletal: Normal range of motion, nontender back Neurologic: Alert and oriented ?3, ORTHOPAEDIC DOCTOR is normal as tested, no gross motor deficit Course Reevaluation(s) Reevaluation #1: Patient still asymptomatic since arrival to the ED until the time of admission Date: 04/03/23 Time: 12:01 Vital Signs Vital signs: Vital Signs Pulse Oximetry
[2023-04-03 10:07] LABS: Appearance Urine Cloudy (Clear); Bacteria Urine 3+ /hpf; Bilirubin Urine Negative (Negative); Blood Urine 1+ (Negative); Color Urine Yellow (Yellow); Glucose Urine UA Negative (Negative); Ketones Urine 1+ mg/dL (Negative); Leukocyte Esterase Ur 2+ LEU/UL (Negative); Need Manual Microscopic Reviewed; Nitrate Urine Negative (Negative); Protein Urine 1+ mg/dL (Negative); Specific Grav Ur 1.019 (1.001-1.035); Squamous Epithelial Cell Urine None seen /hpf (Few); WBC Urine >100 /hpf; pH Urine 6.5 (5.0-9.0)
[2023-04-03 10:09] LABS: Add Urine Microscopic? YES
[2023-04-03] MEDS: SODIUM CHLORIDE 0.9% IV 1,000 ML 999 ML IV CONT (10:32)
[2023-04-03 10:45] LABS: Lactic Acid Reflex 2.3 mmol/L (0.7-2.0)
[2023-04-03 10:47] LABS: Creatine Kinase 73 U/L (30-135)
[2023-04-03 11:02] LABS: Troponin I < 0.012 ng/mL (0.000-0.034)
[2023-04-03 13:33] LABS: Reflex Lactic Acid Yes or No Add Lactic
--- NOTE | 2023-04-03 15:08 | PM.IMHP ---
H&P: HPI History of Present Illness Date/Time: 04/03/23 14:45 Chief Complaint: Altered mental status. Narrative: This is a 72-year-old female with history of syncope status post loop recorder insertion, hypertension, hyperlipidemia, obstructive sleep apnea on CPAP, gastroesophageal reflux disease, stress incontinence, anxiety, and depression who presented to the emergency department via EMS from [facility] for evaluation of altered mental status. She is not able to provide much in the way of history given her confusion and thus some of the following is supplemented via a review of her EMR as well as discussions with her daughter. The patient moved to the area from [place] a couple of years ago and she has progressively declined since that time. Daughter has noted that she has become increasingly confused, forgetful, and at times she has difficulties getting out the words that she is trying to say. Daughter is concerned that she has dementia however that has not been investigated fully. The last couple of days she has apparently been more confused than usual. This morning staff at her assisted living facility found her wandering in the arana, wearing only 1 shoe and with her shirt on backwards and inside-out. She was attempting to get into the [employer] [facility] which was not yet open and she was sent in for evaluation due to the confusion. She was afebrile on arrival to the ED with stable vital signs. Preliminary workup was significant for a WBC count of 14.1, lactic acid 2.3, and urinalysis positive for 2+ leukocyte esterase, 3+ bacteria, greater than [address] and chest x-ray were without acute findings. In the ED she was given a fluid bolus and 1 g of ceftriaxone and she is being admitted in this setting for further treatment. At the time of my evaluation she does endorse dysuria, mild suprapubic discomfort, decreased appetite, nausea, chills, and shakes. She does not believe that she has run a fever. She denies headache, sinus congestion, sore throat, chest pain, shortness a breath, cough, vomiting, and diarrhea. Review of Systems Review of Systems: Twelve systems were reviewed and are negative except for as per HPI. [facility] Past Medical History Medical History (Updated 04/03/23 @ 15:18 by Shirley Orta PA-C) Anxiety Arthritis Depression Gastroesophageal reflux disease Hyperlipidemia Hypertension Obstructive sleep apnea on CPAP Osteoporosis Polio Stress incontinence Vertigo Surgical History Surgical History (Updated 04/03/23 @ 22:54 by Shirley Orta PA-C) History of colonoscopy (01/2022) Internal hemorrhoids. History of esophagogastroduodenoscopy (01/2022) Reflux esophagitis, hiatal hernia, gastric retention, gastritis. History of foot surgery Multiple foot and toe surgeries, reportedly related to polio. History of loop recorder History of open reduction and internal fixation (ORIF) procedure Repair left ankle fracture. Family History Family History Father Hypertension Mother Heart disease Depression Social History Social History (Updated 04/03/23 @ 15:16 by Shirley Orta PA-C) Social History: Surrogate medical decision maker: Sharron Vickers, daughter. Code status: Full code. Smoking status: Never smoker Alcohol intake: current Drinks per week: 1 Alcohol use details: very rare Substance use: never Substance use type: does not use Lack of Transportation: No Lack of Food: Never True Current Housing: I Have Housing Concerned About Future Housing: No Difficulty Paying Gas/Electric Bills: No Difficulty Paying for Meds: No Currently Unemployed: No Education: Don't Know Difficulty w/ Childcare or Family Care: No Living arrangements: assisted living Additional living arrangements comments: [facility]. Occupation/Education: retired Spiritual care concerns: No Meds Home Medications and Al
[2023-04-03] MEDS: ACETAMINOPHEN 325 MG TABLET 650 MG PO (15:47)
[2023-04-03] MEDS: SODIUM CHLORIDE 0.9% IV 1,000 ML 100 ML IV CONT (15:48)
--- NOTE | 2023-04-03 15:52 | ADMGEN ---
This patient, Sophia Sánchez, was admitted to 3 Med Surg Room 306-01 @ 1440. Patient/family oriented to hospital policies and general routines including ID bracelet, bed and alarms, visiting hours, pain management, procedures, bathroom and other care routines, personal items, smoking policy, room service/diet, and visiting hours. Information on how to activate the Rapid Response Team has been discussed. Patient/Family are encouraged to report perceived risks to care and to ask questions if they do not understand what they are told or what they should do.
[2023-04-03 16:10] LABS: Lactic Acid 2.2 mmol/L (0.7-2.0)
[2023-04-03] MEDS: WATER FOR IRRIGATION, STERILE 1,000 ML BOTTLE 1000 ML (23:50)
[2023-04-03] MEDS: traZODone HCL 50 MG TABLET 150 MG PO (23:50)
[2023-04-03] MEDS: GABAPENTIN 300 MG CAPSULE PO (23:50)
[2023-04-03] MEDS: traMADol HCL (*CRX) 50 MG TABLET PO (23:50)
[2023-04-03] MEDS: risperiDONE 1 MG TABLET PO (23:50)
[2023-04-04] VITALS (8 sets, daily range): BP systolic 144–154; BP diastolic 74–78; PULSE 81–104; RESP 12–18; TEMP 35.9–36.5; O2SAT 91–97
[2023-04-04 06:51] LABS: Basophils Percent Auto 0.4 % (0.2-1.2); Eosinophils Percent Auto 0.2 % (0-4.4); Hematocrit 35.4 % (37.0-47.0); Hemoglobin 11.4 g/dL (12.0-15.0); Immature Granulocyte Absolute 0.08 K/mm3 (0.00-0.031); Immature Granulocyte Percent A 0.8 % (0-0.5); Lymphocytes Absolute Auto 1.24 K/mm3 (0.9-3.2); Lymphocytes Percent Auto 12.5 % (18.3-44.2); Mean Corpuscular HGB Conc 32.2 g/dl (32-36); Mean Corpuscular Hemoglobin 31.3 pg (26-34); Mean Corpuscular Volume 97.3 fl (80-100); Mean Platelet Volume 9.6 fl (7.4-10.4); Monocytes Percent Auto 10.5 % (2.6-8.5); Neutrophils Absolute Auto 7.5 K/mm3 (1.3-6.7); Neutrophils Percent Auto 75.6 % (45.5-73.1); Platelet Count Result 220 k/mm3 (150-375); Red Blood Count 3.64 M/mm3 (4.2-5.4); Red Cell Distribution Width 12.7 % (11.5-14.5); White Blood Count 9.9 K/mm3 (4.5-10.0)
[2023-04-04 07:04] LABS: Alanine Aminotransferase 47 U/L (6-35); Albumin Level 3.6 g/dL (3.5-5.1); Alkaline Phosphatase 109 U/L (38-126); Anion Gap 7 mmol/L (8-16); Aspartate Amino Transferase 33 U/L (14-36); Blood Urea Nitrogen 12 mg/dL (7-17); Calcium 8.5 mg/dL (8.4-10.2); Carbon Dioxide 26 mmol/L (22-30); Chloride 100 mmol/L (98-107); Estimated CRCL calculation 87 ml/min; Estimated Glomerular Filt Rate > 60; Glucose 127 mg/dL (65-110); Magnesium 1.5 mg/dL (1.6-2.3); Potassium 3.5 mmol/L (3.4-5.0); Sodium 133 mmol/L (137-145)
--- NOTE | 2023-04-04 07:52 | PM.IMPN ---
Progress Note: A&P Assessment and Plan (1) Confusion: Code(s): R41.0 - Disorientation, unspecified Status: Acute Assessment and Plan: Possible worsening dementia vs UTI A&O x4 but has periods of confusion (2) Urinary tract infection: Qualifiers: Hematuria presence: without hematuria Urinary tract infection type: site unspecified Qualified Code(s): N39.0 - Urinary tract infection, site not specified Code(s): N39.0 - Urinary tract infection, site not specified Status: Acute Assessment and Plan: Patient endorses dysuria, has an elevated WBC count, and an abnormal urine. Continue ceftriaxone Pending urine culture. Add Pyridium for pain. (3) Elevated lactic acid level: Code(s): R79.89 - Other specified abnormal findings of blood chemistry Status: Acute Assessment and Plan: Lactic acid is mildly elevated 2.3. Possibly related to lab draw technique, doubt sepsis however blood in urine cultures pending. Vital signs are stable. (4) Hypertension: Code(s): I10 - Essential (primary) hypertension Status: Acute Assessment and Plan: Blood pressures were reviewed and they have been stable, in fact a bit high in the 150s to 160s systolic. Continue antihypertensives and monitor blood pressures closely. (5) Obstructive sleep apnea on CPAP: Code(s): G47.33 - Obstructive sleep apnea (adult) (pediatric) Status: Acute Assessment and Plan: CPAP will be provided for the patient to use while hospitalized. Plan IV fluids IV antibiotics Pyridium for pain Neuro checks Q shift PT/OT consult Feeding:heart healthy diet Analgesia:tylenol Thromboembolic prophylaxis: lovenox Ulcer prophylaxis: N/A Glycemic control: N/A not a DM Bowel regimen: miralax Lines: PIV Antibiotics: Rocephin Subjective Date/time seen: 04/04/23 07:52 Interval history: HPI obtained from chart, This is a 72-year-old female with history of syncope status post loop recorder insertion, hypertension, hyperlipidemia, obstructive sleep apnea on CPAP, gastroesophageal reflux disease, stress incontinence, anxiety, and depression who presented to the emergency department via EMS from [facility] for evaluation of altered mental status. She is not able to provide much in the way of history given her confusion and thus some of the following is supplemented via a review of her EMR as well as discussions with her daughter. The patient moved to the area from [place] a couple of years ago and she has progressively declined since that time. Her daughter has noted that she has become increasingly confused, forgetful, and time she has difficulties getting out the words that she is trying to say. Daughter is concerned that she has dementia however that has not been investigated fully. The last couple of days she has apparently been more confused than usual. This morning staff at her assisted living facility found her wandering in the arana wearing only 1 shoe and with her shirt on backwards an inside-out. She was attempting to get into the [employer] which was not yet open and she was sent in for evaluation due to the confusion. She was afebrile on arrival to the ED with stable vital signs. Preliminary workup was significant for a WBC count of 14.1, lactic acid 2.3, and urinalysis positive for 2+ leukocyte esterase, 3+ bacteria, greater than [address] and chest x-ray were without acute findings. In the ED she was given a fluid bolus and 1 g of ceftriaxone and she is being admitted in this setting for further treatment. At the time my evaluation she does endorse dysuria, mild suprapubic discomfort, decreased appetite, nausea, chills, and shakes. She does not believe that she has run a fever. She denies headache, sinus congestion, sore throat, chest pain, shortness a breath, cough, vomiting, and diarrhea. 04/04: Seen this morning with her daughter
[2023-04-04] MEDS: METOPROLOL TARTRATE 25 MG TABLET PO (09:09)
[2023-04-04] MEDS: traMADol HCL (*CRX) 50 MG TABLET PO ×2 (09:09→16:16)
[2023-04-04] MEDS: ASPIRIN 81 MG ENTERIC TABLET PO (09:09)
[2023-04-04] MEDS: GABAPENTIN 300 MG CAPSULE PO ×3 (09:09→16:16)
[2023-04-04] MEDS: CELECOXIB 100 MG CAPSULE PO ×2 (09:09→16:16)
[2023-04-04] MEDS: ATORVASTATIN 20 MG TABLET PO (09:10)
[2023-04-04] MEDS: DULoxetine HCL 60 MG CAPSULE.DR PO (09:10)
[2023-04-04] MEDS: PANTOPRAZOLE 40 MG TABLET PO (09:10)
[2023-04-04] MEDS: oxyBUTYnin CHLORIDE XL 5 MG TAB.ER.24 15 MG PO (09:10)
[2023-04-04] MEDS: SODIUM CHLORIDE 0.9% IV 1,000 ML 50 ML IV CONT (12:53)
[2023-04-04] MEDS: PHENAZOPYRIDINE HCL 100 MG TABLET 200 MG PO (16:11)
[2023-04-04] MEDS: MAGNESIUM OXIDE 400 MG TABLET PO (16:30)
[2023-04-04] MEDS: risperiDONE 1 MG TABLET PO (20:26)
[2023-04-04] MEDS: traZODone HCL 50 MG TABLET 150 MG PO (20:26)
[2023-04-05] MEDS: ACETAMINOPHEN 325 MG TABLET 650 MG PO ×2 (05:04→10:35)
[2023-04-05 06:00] VITALS: BP 144/89; PULSE 89; RESP 14; TEMP 36.3; O2SAT 93
[2023-04-05 06:59] LABS: Anion Gap 7 mmol/L (8-16); Blood Urea Nitrogen 11 mg/dL (7-17); Calcium 8.9 mg/dL (8.4-10.2); Carbon Dioxide 29 mmol/L (22-30); Chloride 100 mmol/L (98-107); Estimated CRCL calculation 75 ml/min; Estimated Glomerular Filt Rate > 60; Glucose 117 mg/dL (65-110); Magnesium 1.7 mg/dL (1.6-2.3); Potassium 3.8 mmol/L (3.4-5.0); Sodium 136 mmol/L (137-145)
[2023-04-05 07:06] LABS: Basophils Absolute Auto 0.1 K/mm3 (0.0-0.1); Basophils Percent Auto 0.7 % (0.2-1.2); Eosinophils Absolute Auto 0.1 K/mm3 (0-0.3); Hematocrit 36.1 % (37.0-47.0); Hemoglobin 11.5 g/dL (12.0-15.0); Immature Granulocyte Absolute 0.07 K/mm3 (0.00-0.031); Immature Granulocyte Percent A 0.8 % (0-0.5); Lymphocytes Absolute Auto 1.59 K/mm3 (0.9-3.2); Lymphocytes Percent Auto 17.2 % (18.3-44.2); Mean Corpuscular HGB Conc 31.9 g/dl (32-36); Mean Corpuscular Volume 97.3 fl (80-100); Mean Platelet Volume 9.5 fl (7.4-10.4); Monocytes Absolute Auto 1.4 K/mm3 (0.1-0.6); Monocytes Percent Auto 14.8 % (2.6-8.5); Neutrophils Absolute Auto 6.1 K/mm3 (1.3-6.7); Neutrophils Percent Auto 65.5 % (45.5-73.1); Platelet Count Result 212 k/mm3 (150-375); Red Blood Count 3.71 M/mm3 (4.2-5.4); Red Cell Distribution Width 12.6 % (11.5-14.5); White Blood Count 9.2 K/mm3 (4.5-10.0)
--- NOTE | 2023-04-05 07:46 | PM.IMPN ---
Progress Note: A&P Assessment and Plan (1) Confusion: Code(s): R41.0 - Disorientation, unspecified Status: Acute Assessment and Plan: Possible worsening dementia vs UTI A&O x4 but has periods of confusion (2) Urinary tract infection: Qualifiers: Hematuria presence: without hematuria Urinary tract infection type: site unspecified Qualified Code(s): N39.0 - Urinary tract infection, site not specified Code(s): N39.0 - Urinary tract infection, site not specified Status: Acute Assessment and Plan: Patient endorses dysuria, has an elevated WBC count, and an abnormal urine. Leukocytosis has improved. Continue ceftriaxone Pending urine culture. Add Pyridium for pain. (3) Elevated lactic acid level: Code(s): R79.89 - Other specified abnormal findings of blood chemistry Status: Acute Assessment and Plan: Lactic acid was mildly elevated 2.3. Possibly related to lab draw technique, doubt sepsis however blood in urine cultures pending. Blood cultures with NGTD Vital signs are stable. (4) Hypertension: Code(s): I10 - Essential (primary) hypertension Status: Acute Assessment and Plan: Blood pressures were reviewed and they have been stable, in fact a bit high in the 150s to 160s systolic. Continue antihypertensives and monitor blood pressures closely. (5) Obstructive sleep apnea on CPAP: Code(s): G47.33 - Obstructive sleep apnea (adult) (pediatric) Status: Acute Assessment and Plan: CPAP will be provided for the patient to use while hospitalized. Plan IV antibiotics Pyridium for pain Neuro checks Q shift PT/OT consult recommending SNF. Patient is from [facility] and family anticipates her going back there. They are requesting outpatient therapy at d/c. Feeding:heart healthy diet Analgesia:tylenol Thromboembolic prophylaxis: lovenox Ulcer prophylaxis: N/A Glycemic control: N/A not a DM Bowel regimen: miralax Lines: PIV Antibiotics: Rocephin Subjective Date/time seen: 04/05/23 07:46 Interval history: HPI obtained from chart, This is a 72-year-old female with history of syncope status post loop recorder insertion, hypertension, hyperlipidemia, obstructive sleep apnea on CPAP, gastroesophageal reflux disease, stress incontinence, anxiety, and depression who presented to the emergency department via EMS from [facility] for evaluation of altered mental status. She is not able to provide much in the way of history given her confusion and thus some of the following is supplemented via a review of her EMR as well as discussions with her daughter. The patient moved to the area from [place] a couple of years ago and she has progressively declined since that time. Her daughter has noted that she has become increasingly confused, forgetful, and time she has difficulties getting out the words that she is trying to say. Daughter is concerned that she has dementia however that has not been investigated fully. The last couple of days she has apparently been more confused than usual. This morning staff at her assisted living facility found her wandering in the arana wearing only 1 shoe and with her shirt on backwards an inside-out. She was attempting to get into the [employer] salon which was not yet open and she was sent in for evaluation due to the confusion. She was afebrile on arrival to the ED with stable vital signs. Preliminary workup was significant for a WBC count of 14.1, lactic acid 2.3, and urinalysis positive for 2+ leukocyte esterase, 3+ bacteria, greater than [address] and chest x-ray were without acute findings. In the ED she was given a fluid bolus and 1 g of ceftriaxone and she is being admitted in this setting for further treatment. At the time my evaluation she does endorse dysuria, mild suprapubic discomfort, decreased appetite, nausea, chills, and shakes. She does not bel
[2023-04-05 09:14] VITALS: O2SAT 94
[2023-04-05] MEDS: traMADol HCL (*CRX) 50 MG TABLET PO ×2 (10:23→17:25)
[2023-04-05] MEDS: oxyBUTYnin CHLORIDE XL 5 MG TAB.ER.24 15 MG PO (10:23)
[2023-04-05 10:24] VITALS: PULSE 88
[2023-04-05] MEDS: CELECOXIB 100 MG CAPSULE PO ×2 (10:24→17:26)
[2023-04-05] MEDS: METOPROLOL TARTRATE 25 MG TABLET PO (10:24)
[2023-04-05] MEDS: ATORVASTATIN 20 MG TABLET PO (10:25)
[2023-04-05] MEDS: DULoxetine HCL 60 MG CAPSULE.DR PO (10:25)
[2023-04-05] MEDS: ASPIRIN 81 MG ENTERIC TABLET PO (10:25)
[2023-04-05] MEDS: ENOXAPARIN 40 MG/0.4 ML SYRINGE SUB-Q (10:26)
[2023-04-05] MEDS: GABAPENTIN 300 MG CAPSULE PO ×3 (10:26→17:25)
[2023-04-05] MEDS: PANTOPRAZOLE 40 MG TABLET PO (10:26)
[2023-04-05] MEDS: PHENAZOPYRIDINE HCL 100 MG TABLET 200 MG PO ×3 (10:26→17:25)
[2023-04-05] MEDS: TOLNAFTATE 1% POWDER 45 GM BTL 1 APPLIC TOPICAL ×2 (13:11→20:35)
[2023-04-05 14:00] VITALS: BP 113/68; PULSE 64; RESP 18; TEMP 36.2; O2SAT 95
[2023-04-05] MEDS: risperiDONE 1 MG TABLET PO (20:32)
[2023-04-05] MEDS: traZODone HCL 50 MG TABLET 150 MG PO (20:32)
[2023-04-05 22:00] VITALS: BP 130/84; PULSE 75; RESP 12; TEMP 35.9; O2SAT 90
[2023-04-05 23:35] VITALS: PULSE 73; RESP 12; O2SAT 92
[2023-04-06 06:00] VITALS: BP 176/82; PULSE 87; RESP 16; TEMP 36.3; O2SAT 92
[2023-04-06 06:36] LABS: Basophils Absolute Auto 0.1 K/mm3 (0.0-0.1); Basophils Percent Auto 0.7 % (0.2-1.2); Eosinophils Absolute Auto 0.3 K/mm3 (0-0.3); Eosinophils Percent Auto 3.9 % (0-4.4); Immature Granulocyte Absolute 0.04 K/mm3 (0.00-0.031); Immature Granulocyte Percent A 0.5 % (0-0.5); Lymphocytes Absolute Auto 1.55 K/mm3 (0.9-3.2); Lymphocytes Percent Auto 20.7 % (18.3-44.2); Mean Corpuscular HGB Conc 31.4 g/dl (32-36); Mean Corpuscular Hemoglobin 31.1 pg (26-34); Mean Corpuscular Volume 98.9 fl (80-100); Mean Platelet Volume 9.8 fl (7.4-10.4); Monocytes Percent Auto 13.4 % (2.6-8.5); Neutrophils Absolute Auto 4.6 K/mm3 (1.3-6.7); Neutrophils Percent Auto 60.8 % (45.5-73.1); Platelet Count Result 220 k/mm3 (150-375); Red Blood Count 3.54 M/mm3 (4.2-5.4); Red Cell Distribution Width 12.4 % (11.5-14.5); White Blood Count 7.5 K/mm3 (4.5-10.0)
[2023-04-06 06:48] LABS: Anion Gap 6 mmol/L (8-16); Blood Urea Nitrogen 13 mg/dL (7-17); Calcium 8.5 mg/dL (8.4-10.2); Carbon Dioxide 29 mmol/L (22-30); Chloride 102 mmol/L (98-107); Estimated CRCL calculation 76 ml/min; Estimated Glomerular Filt Rate > 60; Glucose 105 mg/dL (65-110); Magnesium 1.8 mg/dL (1.6-2.3); Potassium 3.6 mmol/L (3.4-5.0); Sodium 137 mmol/L (137-145)
--- NOTE | 2023-04-06 09:50 | PM.DS ---
DS: Admitting Diagnosis Discharge Date 04/06/2023 Admitting Diagnosis Confusion, urinary tract infection, elevated lactic acid level, hypertension, RAMA on CPAP DS: Discharge Diagnosis Discharge Diagnosis (1) Confusion: Code(s): R41.0 - Disorientation, unspecified Status: Acute (2) Urinary tract infection: Qualifiers: Hematuria presence: without hematuria Urinary tract infection type: site unspecified Qualified Code(s): N39.0 - Urinary tract infection, site not specified Code(s): N39.0 - Urinary tract infection, site not specified Status: Acute (3) Obstructive sleep apnea on CPAP: Code(s): G47.33 - Obstructive sleep apnea (adult) (pediatric) Status: Acute (4) Hypertension: Code(s): I10 - Essential (primary) hypertension Status: Acute (5) Sepsis: Qualifiers: Sepsis acute organ dysfunction status: unspecified Sepsis type: sepsis due to unspecified organism Qualified Code(s): A41.9 - Sepsis, unspecified organism Code(s): A41.9 - Sepsis, unspecified organism Status: Acute DS: Summary Hospital Course Reason for hospitalization: Patient admitted for increased confusion concern for recurrent urinary tract infection with concern for sepsis Hospital Course: Patient was admitted to the hospital treated with IV antibiotics and fluids. Condition has improved but she remains baseline confused difficulty finding the name of the facility she lives in. Patient appears to dementia that has been slowly worsening over the last couple of years. Patient is afebrile. Her labs have improved. Urine culture was ultimately negative or at least growing a nonpathologic mix of bacteria. However, due to improvement with IV antibiotics we will continue oral antibiotics upon discharge. Status at Discharge Cognitive/behavioral status at discharge: Awake alert extremely pleasant, appears to have chronic dementia changes Functional status at discharge: uses cane/walker Overall status at discharge: patient is progressing back to baseline Time Spent with Patient Time attestation: Total time spent providing and/or coordinating discharge services: Time spent: Greater than 30 minutes Exam Narrative: General: well appearing, well developed, well nourished, appears stated age. HEENT: normocephalic, atraumatic. Mucous membranes moist. EOMI, PERRLA, bilateral sclera anicteric, no conjunctival injection. Neck supple without JVD, lymphadenopathy, or bruit. Respiratory: clear to auscultation bilaterally. No rales/rhonic/wheezes. Cardiovascular: Regular rate and rhythm, normal S1-S2 upon auscultation. No murmurs, rubs, or clicks. PMI is nondisplaced, capillary re-fill less than 3 second. Abdomen: Soft, round, no pulsatile masses, non-distended and non-tender. No rebound, no guarding. No CVA tenderness, no hepatosplenomegaly. Bowel sounds present to all four quadrants. No high pitch or tinkling sounds, resonant to percussion. Extremities: No cyanosis, clubbing, or edema present. Pulses are palpable 2/2. Active ROM to all four extremities. Neuro: Alert and orientated x 3-4 but periods of confusion. PERRLA. Cranial nerves 2-12 intact without focal deficit. Skin: Warm, dry, and intact, without rash, erythema, or lesion. Psych: pleasant, cooperative, normal speech, normal affect, no hallucinations, no dysarthria DS: Data Data Completed and Pending Completed studies during hospitalization: Chest x-ray and head CT Labs on day of discharge: Labs from last 24 hours 04/06/23 05:56 WBC 7.5 RBC 3.54 L Hgb 11.0 L Hct 35.0 L MCV 98.9 MCH 31.1 MCHC 31.4 L RDW 12.4 Plt Count 220 MPV 9.8 Immature Gran % (Auto) 0.5 Neut % (Auto) 60.8 Lymph % (Auto) 20.7 Lee % (Auto) 13.4 H Eos % (Auto) 3.9 Baso % (Auto) 0.7 Lymph # (Auto) 1.55 Lee # (Auto) 1.0 H Eos # (Auto) 0.3 Baso # (Auto) 0.1 Abs Immat Gran (auto) 0.04 H Absolute Neuts (auto) 4.6 Abs
[2023-04-06] MEDS: ENOXAPARIN 40 MG/0.4 ML SYRINGE SUB-Q (10:56)
[2023-04-06] MEDS: PHENAZOPYRIDINE HCL 100 MG TABLET 200 MG PO ×2 (10:56→12:14)
[2023-04-06 10:57] VITALS: PULSE 88
[2023-04-06] MEDS: ATORVASTATIN 20 MG TABLET PO (10:57)
[2023-04-06] MEDS: oxyBUTYnin CHLORIDE XL 5 MG TAB.ER.24 15 MG PO (10:57)
[2023-04-06] MEDS: METOPROLOL TARTRATE 25 MG TABLET PO (10:57)
[2023-04-06] MEDS: DULoxetine HCL 60 MG CAPSULE.DR PO (10:57)
[2023-04-06] MEDS: PANTOPRAZOLE 40 MG TABLET PO (10:57)
[2023-04-06] MEDS: GABAPENTIN 300 MG CAPSULE PO ×2 (10:57→12:14)
[2023-04-06] MEDS: CELECOXIB 100 MG CAPSULE PO (10:57)
[2023-04-06] MEDS: ASPIRIN 81 MG ENTERIC TABLET PO (10:57)
[2023-04-06] MEDS: traMADol HCL (*CRX) 50 MG TABLET PO (10:57)
[2023-04-06] MEDS: TOLNAFTATE 1% POWDER 45 GM BTL 1 APPLIC TOPICAL (11:00)
[2023-04-06] MEDS: ACETAMINOPHEN 325 MG TABLET 650 MG PO (11:06)
[2023-04-06 12:51] LABS: SARS-CoV-2 RNA PCR Negative (Negative)
--- NOTE | 2023-04-07 13:07 | PC.NURSE ---
Daughter Sharron Vickers called to say that Dr Calix is not taking any new patients at this time. Discussed this with Mayo Hull. He stated it was for routine cognitive testing and advised daughter to reach out to primary doctor and get a referral from him. Daughter notified [phone] and states that she will do that.
== END 2023-04-06 13:25 ==
LOC: ANHED 12:07 → ANH3MEDSUR 14:37
PROVIDERS: Nurse Practitioner; Nurse Practitioner Acute Care; Physician Assistant; Admitting Provider Internal Medicine; Emergency Provider Emergency Medicine; Visit Provider Internal Medicine
DX: R41.0 Disorientation, unspecified (principal); N39.0 Urinary tract infection, site not specified; A41.9 Sepsis, unspecified organism; R00.0 Tachycardia, unspecified; R06.00 Dyspnea, unspecified; Z20.822 Contact with and (suspected) exposure to COVID-19; M85.80 Other specified disorders of bone density and structure, unspecified site; I67.2 Cerebral atherosclerosis; I10 Essential (primary) hypertension; R07.9 Chest pain, unspecified; Z99.89 Dependence on other enabling machines and devices; G47.33 Obstructive sleep apnea (adult) (pediatric); K21.9 Gastro-esophageal reflux disease without esophagitis; N39.3 Stress incontinence (female) (male); R42 Dizziness and giddiness; E78.5 Hyperlipidemia, unspecified; R79.89 Other specified abnormal findings of blood chemistry; I70.0 Atherosclerosis of aorta; F41.9 Anxiety disorder, unspecified; F32.A Depression, unspecified; M81.0 Age-related osteoporosis without current pathological fracture; E07.9 Disorder of thyroid, unspecified; M19.90 Unspecified osteoarthritis, unspecified site; Z86.12 Personal history of poliomyelitis; F10.90 Alcohol use, unspecified, uncomplicated; Z79.51 Long term (current) use of inhaled steroids; Z79.82 Long term (current) use of aspirin; Z79.891 Long term (current) use of opiate analgesic; Z79.899 Other long term (current) drug therapy; Z81.8 Family history of other mental and behavioral disorders
CPT/HCPCS: 36415; 70450; 71045; 80048; 80053; 81001; 82550; 82607; 83605; 83735; 84443; 84484; 85025; 85610; 85730; 87040; 87086; 87088; 87635; 93005; 96361; 96365; 96366; 96372; 97110; 97161; 97165; 97530; 97535; 99285; A9270; G0378; J0696; J1650; J7030

== ENCOUNTER 2023-04-19 12:47 | Emergency (ER) | payer MEDICARE, MEDICAID, SELFPAY ==
--- NOTE | ~2023-04-19 | CT_ITS ---
EXAMINATION: CT cervical spine wo con DATE: 04/19/2023 13:17 INDICATION: Head injury post fall with lower limb weakness. TECHNIQUE: Computed tomography (CT) of the cervical spine was performed without intravenous contrast. Automated exposure control and iterative reconstruction technique were employed. The dose-length pro duct was 515.39 mGy-cm. COMPARISON: None FINDINGS: Straightening of the normal cervical lordosis. Vertebral body heights are normal. No fracture. Mild d isc height loss at C5-C6 and C6-C7 and minimal at C3-C4 and C4-C5. Disc bulges resulting in mild cent ral canal stenosis at each of these levels. Moderate uncovertebral osteoarthritis on the right at C3- C4 and mild at the remaining cervical uncovertebral joints. Severe facet osteoarthritis on the right at C2-C3 and moderate at many of the remaining bilateral cervical facet joints. Together this contrib utes to mild neural from stenosis on the right at C2-C3 and bilaterally at C3-C4 and minimal at a few additional cervical neural foramina. Small amount of atherosclerotic calcific location at the bilate ral carotid bulbs. Cervical soft tissues are otherwise unremarkable. Visualized apices of lungs are c lear. IMPRESSION: 1. Mild cervical spondylosis. No acute osseous abnormality. Reviewed, dictated and finalized at location A.
--- NOTE | ~2023-04-19 | CT_ITS ---
EXAMINATION: CT brain wo con DATE: 04/19/2023 13:17 INDICATION: Head injury. Weakness. TECHNIQUE: Computed tomography (CT) of the head was performed without intravenous contrast. The mA wa s adjusted according to patient size. Iterative reconstruction technique was employed. The dose-lengt h product was 605.33 mGy-cm. COMPARISON: Head CT 04/03/2023 FINDINGS: There are scattered areas of low attenuation in the cerebral white matter. There is no intr acranial hemorrhage, acute infarction, or abnormal intracranial mass lesion. The ventricles are zelalem l in size. The orbits are normal. There is mucosal thickening in the paranasal sinuses. The mastoid a ir cells are normal. IMPRESSION: 1. Stable mild nonspecific cerebral white matter disease, which likely represents chronic small vesse l ischemic disease. Reviewed, dictated and finalized at location A. IMPRESSION: 1. Stable mild nonspecific cerebral white matter disease, which likely represen ts chronic small vessel ischemic disease.
[2023-04-19 12:52] VITALS: BP 120/64; PULSE 77; RESP 20; TEMP 36.8; O2SAT 95
--- NOTE | 2023-04-19 13:44 | ED.FALL ---
HPI - Fall General Chief Complaint: Fall Stated Complaint: fall Time Seen by Provider: 04/19/23 12:58 History of Present Illness HPI Narrative: 72-year-old female presented the ED for evaluation after having a ground-level fall. Patient reports she was continued to walk to the cafeteria when her legs got weak and she fell backwards and struck her head. Patient denies loss of consciousness. Patient reports she does often have leg weakness due to her polio. Patient denies any recent illnesses coughs colds or fevers. Patient states that she was feeling fine this morning before the fall. Patient denies any complaints at this time. Related Data Home Medications Medication Instructions Recorded Confirmed albuterol sulfate 90 mcg/actuation 1 inh inhalation Q4H PRN Dyspnea 12/03/21 04/03/23 aerosol inhaler alendronate 70 mg tablet 70 mg PO WEEKLY 12/03/21 04/03/23 aspirin 81 mg tablet,delayed 81 mg PO DAILY 12/03/21 04/03/23 release atorvastatin 20 mg tablet 20 mg PO DAILY 12/03/21 04/03/23 calcium carbonate-vitamin D3 500 1 tablet PO DAILY 12/03/21 04/03/23 mg(1,250 mg)-600 unit chewable tablet celecoxib 100 mg capsule 100 mg PO BID 12/03/21 04/03/23 duloxetine 60 mg capsule,delayed 60 mg PO DAILY 12/03/21 04/03/23 release gabapentin 300 mg capsule 300 mg PO TID 12/03/21 04/03/23 oxybutynin chloride 15 mg 15 mg PO DAILY 12/03/21 04/03/23 tablet,extended release 24 hr risperidone 1 mg tablet 1 mg PO HS 12/03/21 04/03/23 tramadol 50 mg tablet 50 mg PO BID 12/03/21 04/03/23 metoprolol tartrate 25 mg tablet 25 mg PO DAILY 01/21/22 04/03/23 trazodone 150 mg tablet 150 mg PO HS 01/21/22 04/03/23 acetaminophen 325 mg tablet 325 mg PO PRN PRN Pain (Scale 04/03/23 04/03/23 Score 1-3) ergocalciferol (vitamin D2) 1,250 50,000 unit PO DIRECTED 04/03/23 04/03/23 mcg (50,000 unit) capsule omeprazole 20 mg capsule,delayed 20 mg PO QAM 04/03/23 04/04/23 release Allergies Allergy/AdvReac Type Severity Reaction Status Date / Time No Known Allergies Allergy Verified 04/19/23 12:56 Review of Systems Review of Systems: All systems reviewed & are unremarkable except as noted in HPI and below PMFSH Past Medical History Medical History (Updated 04/20/23 @ 00:00 by Elizabeth Gee) Anxiety Arthritis Depression Gastroesophageal reflux disease Hyperlipidemia Hypertension Obstructive sleep apnea on CPAP Osteoporosis Polio Stress incontinence Vertigo Surgical History Surgical History (Updated 04/03/23 @ 22:54 by Shirley Orta PA-C) History of colonoscopy (01/2022) Internal hemorrhoids. History of esophagogastroduodenoscopy (01/2022) Reflux esophagitis, hiatal hernia, gastric retention, gastritis. History of foot surgery Multiple foot and toe surgeries, reportedly related to polio. History of loop recorder History of open reduction and internal fixation (ORIF) procedure Repair left ankle fracture. Family History Family History Father Hypertension Mother Heart disease Depression Social History Social History (Updated 04/03/23 @ 15:16 by Shirley Orta PA-C) Social History: Surrogate medical decision maker: Sharron Vickers, daughter. Code status: Full code. Smoking status: Never smoker Alcohol intake: current Drinks per week: 1 Alcohol use details: very rare Substance use: never Substance use type: does not use Lack of Transportation: No Lack of Food: Never True Current Housing: I Have Housing Concerned About Future Housing: No Difficulty Paying Gas/Electric Bills: No Difficulty Paying for Meds: No Currently Unemployed: No Education: Don't Know Difficulty w/ Childcare or Family Care: No Living arrangements: assisted living Additional living arrangements comments: [facility]. Occupation/Education: retired Spiritual care concerns: No Exam Narrative: APPEARANCE: We
[2023-04-19 14:14] VITALS: BP 132/78; PULSE 78; RESP 18; TEMP 36.8; O2SAT 100
== END 2023-04-19 14:15 ==
PROVIDERS: Emergency Provider Emergency Medicine
DX: S09.90XA Unspecified injury of head, initial encounter (principal); E78.5 Hyperlipidemia, unspecified; I10 Essential (primary) hypertension; G47.33 Obstructive sleep apnea (adult) (pediatric); K21.9 Gastro-esophageal reflux disease without esophagitis; M81.0 Age-related osteoporosis without current pathological fracture; M19.90 Unspecified osteoarthritis, unspecified site; F32.A Depression, unspecified; F41.9 Anxiety disorder, unspecified; Z86.12 Personal history of poliomyelitis; Z79.82 Long term (current) use of aspirin; W18.39XA Other fall on same level, initial encounter
CPT/HCPCS: 70450; 72125; 99284

== ENCOUNTER 2023-07-14 19:06 | Observation (INO) | payer MEDICARE, MEDICAID, SELFPAY ==
--- NOTE | ~2023-07-14 | XR_ITS ---
Portable chest x-ray Comparison: 04/03/2023 Clinical History: Hypoxia, Covid Findings: Lungs are clear, without focal consolidation or pleural effusion. Cardiomediastinal silho uette is stable, with loop recorder. Bones and soft tissues are unremarkable. Impression: Clear lungs. Reviewed, dictated and finalized at location . [employer] TE[employer]ER Impression: Clear lungs.
--- NOTE | ~2023-07-14 | CT_ITS ---
EXAMINATION: CT brain wo con DATE: 07/14/2023 22:56 INDICATION: head injury . TECHNIQUE: Computed tomography (CT) of the head was performed without intravenous contrast. The mA wa s adjusted according to patient size. Iterative reconstruction technique was employed. The dose-lengt h product was 605.33 mGy-cm. COMPARISON: 04/19/2023. FINDINGS: No acute intracranial hemorrhage or extra-axial fluid collection. No hydrocephalus, mass, or herniation. No acute ischemic infarct. Unremarkable dural venous sinus attenuation. No acute osseous abnormality. The aerated spaces are clear. Scattered mild chronic white matter change. IMPRESSION: No acute intracranial process. Reviewed, dictated and finalized at location K. MONIUM NITRATE CRYSTALLIZER
--- NOTE | ~2023-07-14 | US_ITS ---
EXAMINATION: US right upper quadrant DATE: 07/15/2023 15:23 INDICATION: Elevated liver function tests TECHNIQUE: Multiple grayscale and Doppler ultrasound images of the abdomen were obtained. COMPARISON: 10/28/2021 FINDINGS: Bowel gas obscures visualization of the pancreas. The liver is normal with normal echogenic ity and echotexture. No surface nodularity. Normal hepatopetal flow in the main portal vein. There ar e stones in the nondistended gallbladder. No gallbladder wall thickening or pericholecystic fluid aly ntified. The normal common bile duct measures 3 mm. There was no sonographic Larkin sign. IMPRESSION: 1. Cholelithiasis without additional findings of cholecystitis. Reviewed, dictated and finalized at location B. MAKER
[2023-07-14 19:11] VITALS: BP 150/88; PULSE 101; RESP 16; TEMP 37.1; O2SAT 95
--- NOTE | 2023-07-14 22:41 | ECG_ITS ---
Measurements Intervals [place] Rate: 98 P: 45 GA: 156 QRS: -10 QRSD: 85 T: 64 QT: 361 QTc: 461 Interpretive Statements SINUS RHYTHM NONSPECIFIC T-WAVE ABNORMALITY ABNORMAL ECG COMPARED TO ECG 04/03/2023 09:19:57 HEART RATE IS REDUCED NO OTHER SIGNIFICANT CHANGE Electronically Signed On 07-15-2023 15:07:00 [facility] by Michael Salas M.D.
[2023-07-14 23:18] LABS: Basophils Absolute Auto 0.1 K/mm3 (0.0-0.1); Basophils Percent Auto 0.8 % (0.2-1.2); Eosinophils Absolute Auto 0.1 K/mm3 (0-0.3); Eosinophils Percent Auto 0.9 % (0-4.4); Hematocrit 40.3 % (37.0-47.0); Hemoglobin 12.4 g/dL (12.0-15.0); Immature Granulocyte Absolute 0.11 K/mm3 (0.00-0.031); Immature Granulocyte Percent A 1.3 % (0-0.5); Lymphocytes Absolute Auto 1.56 K/mm3 (0.9-3.2); Lymphocytes Percent Auto 18.2 % (18.3-44.2); Mean Corpuscular HGB Conc 30.8 g/dl (32-36); Mean Corpuscular Volume 97.6 fl (80-100); Mean Platelet Volume 9.2 fl (7.4-10.4); Monocytes Absolute Auto 0.9 K/mm3 (0.1-0.6); Monocytes Percent Auto 10.4 % (2.6-8.5); Neutrophils Absolute Auto 5.9 K/mm3 (1.3-6.7); Neutrophils Percent Auto 68.4 % (45.5-73.1); Platelet Count Result 266 k/mm3 (150-375); Red Blood Count 4.13 M/mm3 (4.2-5.4); Red Cell Distribution Width 12.9 % (11.5-14.5); White Blood Count 8.6 K/mm3 (4.5-10.0)
[2023-07-14 23:37] LABS: Alanine Aminotransferase 125 U/L (6-35); Albumin Level 4.1 g/dL (3.5-5.1); Alkaline Phosphatase 150 U/L (38-126); Anion Gap 8 mmol/L (8-16); Aspartate Amino Transferase 170 U/L (14-36); Bilirubin,Total 0.5 mg/dL (0.2-1.3); Blood Urea Nitrogen 15 mg/dL (7-17); Calcium 9.9 mg/dL (8.4-10.2); Carbon Dioxide 28 mmol/L (22-30); Chloride 98 mmol/L (98-107); Estimated CRCL calculation 66 ml/min; Estimated Glomerular Filt Rate > 60; Glucose 142 mg/dL (65-110); Sodium 134 mmol/L (137-145)
[2023-07-14 23:51] LABS: Influenza A QL RT-PCR Negative (Negative); Influenza B QL RT-PCR Negative (Negative); RSV RNA, RT-PCR Negative (Negative); SARS-CoV-2 RNA PCR Positive (Negative)
[2023-07-15] VITALS (11 sets, daily range): BP systolic 138–179; BP diastolic 70–82; PULSE 93–102; RESP 15–20; TEMP 36.5–37.1; O2SAT 92–97; BMI 38.5
--- NOTE | 2023-07-15 00:08 | ED.GENADULT ---
HPI - General Adult General Chief complaint: Weakness Stated complaint: weakness,tremors Time Seen by Provider: 07/14/23 22:39 History of Present Illness HPI narrative: 72-year-old female presents to the emergency department for evaluation of increased generalized weakness, altered mental status. patient resides at a local assisted living but patient does not feel that she is able to take care for self at the assisted living and daughter is not able to state the assisted-living to help take care were. Related Data Home Medications Medication Instructions Recorded Confirmed albuterol sulfate 90 mcg/actuation 1 inh inhalation Q4H PRN Dyspnea 12/03/21 07/15/23 aerosol inhaler alendronate 70 mg tablet 70 mg PO WEEKLY 12/03/21 07/15/23 aspirin 81 mg tablet,delayed 81 mg PO DAILY 12/03/21 07/15/23 release atorvastatin 20 mg tablet 20 mg PO DAILY 12/03/21 07/15/23 calcium carbonate-vitamin D3 500 1 tablet PO DAILY 12/03/21 07/15/23 mg(1,250 mg)-600 unit chewable tablet celecoxib 100 mg capsule 100 mg PO BID 12/03/21 07/15/23 duloxetine 60 mg capsule,delayed 60 mg PO DAILY 12/03/21 07/15/23 release gabapentin 300 mg capsule 300 mg PO TID 12/03/21 07/15/23 oxybutynin chloride 15 mg 15 mg PO DAILY 12/03/21 07/15/23 tablet,extended release 24 hr risperidone 1 mg tablet 1 mg PO HS 12/03/21 07/15/23 tramadol 50 mg tablet 50 mg PO BID 12/03/21 07/15/23 metoprolol tartrate 25 mg tablet 25 mg PO DAILY 01/21/22 07/15/23 trazodone 150 mg tablet 150 mg PO HS 01/21/22 07/15/23 acetaminophen 325 mg tablet 325 mg PO QID PRN Pain (Scale 04/03/23 07/15/23 Score 1-3) ergocalciferol (vitamin D2) 1,250 50,000 unit PO DIRECTED 04/03/23 07/15/23 mcg (50,000 unit) capsule omeprazole 20 mg capsule,delayed 20 mg PO BID 04/03/23 07/15/23 release Allergies Allergy/AdvReac Type Severity Reaction Status Date / Time No Known Allergies Allergy Verified 04/19/23 12:56 Review of Systems Review of Systems: All systems reviewed & are unremarkable except as noted in HPI and below PMFSH Past Medical History Medical History (Updated 07/15/23 @ 02:57 by Gui Gerardo MD) Anxiety Arthritis Depression Gastroesophageal reflux disease Hyperlipidemia Hypertension Obstructive sleep apnea on CPAP Osteoporosis Polio Stress incontinence Vertigo Surgical History Surgical History (Updated 04/03/23 @ 22:54 by Shirley Orta PA-C) History of colonoscopy (01/2022) Internal hemorrhoids. History of esophagogastroduodenoscopy (01/2022) Reflux esophagitis, hiatal hernia, gastric retention, gastritis. History of foot surgery Multiple foot and toe surgeries, reportedly related to polio. History of loop recorder History of open reduction and internal fixation (ORIF) procedure Repair left ankle fracture. Family History Family History Father Hypertension Mother Heart disease Depression Social History Social History (Updated 04/03/23 @ 15:16 by Shirley Orta PA-C) Social History: Surrogate medical decision maker: Sharron Vickers, daughter. Code status: Full code. Smoking status: Never smoker Second hand tobacco smoke exposure: No Alcohol intake: current Drinks per week: 1 Alcohol use details: very rare Substance use: never Substance use type: does not use Lack of Transportation: No Lack of Food: Never True Current Housing: I Have Housing Concerned About Future Housing: No Difficulty Paying Gas/Electric Bills: No Difficulty Paying for Meds: No Currently Unemployed: No Education: Don't Know Difficulty w/ Childcare or Family Care: No Living arrangements: assisted living Additional living arrangements comments: [facility]. Occupation/Education: retired Spiritual care concerns: No Exam Narrative: APPEARANCE: Ill-appearing HEAD: normocephalic, atraumatic. EYES: PERRLA/EOMI, conjunctivae jesse
[2023-07-15 00:42] LABS: Appearance Urine Cloudy (Clear); Bacteria Urine Rare /hpf; Bilirubin Urine Negative (Negative); Calcium Oxalate Crystals Urine Present /hpf; Color Urine Yellow (Yellow); Glucose Urine UA Negative (Negative); Ketones Urine Trace mg/dL (Negative); Leukocyte Esterase Ur 3+ LEU/UL (Negative); Nitrate Urine Negative (Negative); Protein Urine 2+ mg/dL (Negative); Specific Grav Ur 1.018 (1.001-1.035); Squamous Epithelial Cell Urine None seen /hpf (Few); WBC Urine >100 /hpf; pH Urine 6.5 (5.0-9.0)
[2023-07-15 00:44] LABS: Add Urine Microscopic? YES
[2023-07-15 09:22] LABS: Alanine Aminotransferase 135 U/L (6-35); Albumin Level 3.9 g/dL (3.5-5.1); Alkaline Phosphatase 148 U/L (38-126); Anion Gap 9 mmol/L (8-16); Aspartate Amino Transferase 176 U/L (14-36); Bilirubin,Total 0.5 mg/dL (0.2-1.3); Blood Urea Nitrogen 13 mg/dL (7-17); Calcium 9.5 mg/dL (8.4-10.2); Carbon Dioxide 28 mmol/L (22-30); Chloride 99 mmol/L (98-107); Estimated CRCL calculation 67 ml/min; Estimated Glomerular Filt Rate > 60; Glucose 120 mg/dL (65-110); Potassium 3.9 mmol/L (3.4-5.0); Sodium 136 mmol/L (137-145)
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
[2023-07-15] MEDS: ENOXAPARIN 40 MG/0.4 ML SYRINGE SUB-Q (11:00)
[2023-07-15] MEDS: REMDESIVIR 200 MG/NS 250 ML 200 MG/250 ML BAG 250 MG IVPB (11:00)
[2023-07-15 11:27] LABS: Hepatitis B Surface Antigen Negative (Negative)
[2023-07-15 11:33] LABS: HAV RESULT Negative (Negative); Hepatitis B Core IgM Result Negative (Negative)
[2023-07-15 11:45] LABS: Hepatitis C Virus Antibody Negative (Negative)
[2023-07-15] MEDS: ALBUTEROL SULFATE (*SP) AEROSOL 1 PUFF 2 PUFF INHALATION ×2 (12:55→20:33)
[2023-07-15] MEDS: ALBUTEROL SULFATE (*SP) INHALER 1 PUFF (12:55)
[2023-07-16] MEDS: PANTOPRAZOLE SOD SESQUIHYDRATE 20 MG TAB PO ×3 (01:07→22:15)
[2023-07-16] MEDS: ALBUTEROL SULFATE (*SP) AEROSOL 1 PUFF 2 PUFF INHALATION ×4 (02:05→20:55)
[2023-07-16 06:00] VITALS: BP 155/94; PULSE 79; RESP 18; TEMP 36.8; O2SAT 93
[2023-07-16 06:34] LABS: Basophils Percent Auto 0.3 % (0.2-1.2); Hematocrit 37.9 % (37.0-47.0); Hemoglobin 12.4 g/dL (12.0-15.0); Immature Granulocyte Absolute 0.06 K/mm3 (0.00-0.031); Immature Granulocyte Percent A 0.9 % (0-0.5); Lymphocytes Absolute Auto 1.45 K/mm3 (0.9-3.2); Lymphocytes Percent Auto 21.7 % (18.3-44.2); Mean Corpuscular HGB Conc 32.7 g/dl (32-36); Mean Corpuscular Hemoglobin 30.9 pg (26-34); Mean Corpuscular Volume 94.5 fl (80-100); Mean Platelet Volume 9.2 fl (7.4-10.4); Monocytes Absolute Auto 0.9 K/mm3 (0.1-0.6); Monocytes Percent Auto 13.2 % (2.6-8.5); Neutrophils Absolute Auto 4.3 K/mm3 (1.3-6.7); Neutrophils Percent Auto 63.9 % (45.5-73.1); Platelet Count Result 290 k/mm3 (150-375); Red Blood Count 4.01 M/mm3 (4.2-5.4); Red Cell Distribution Width 12.9 % (11.5-14.5); White Blood Count 6.7 K/mm3 (4.5-10.0)
[2023-07-16 07:37] LABS: Alanine Aminotransferase 143 U/L (6-35); Albumin Level 3.9 g/dL (3.5-5.1); Alkaline Phosphatase 136 U/L (38-126); Anion Gap 10 mmol/L (8-16); Aspartate Amino Transferase 150 U/L (14-36); Bilirubin,Total 0.4 mg/dL (0.2-1.3); Blood Urea Nitrogen 15 mg/dL (7-17); Calcium 9.2 mg/dL (8.4-10.2); Carbon Dioxide 27 mmol/L (22-30); Chloride 100 mmol/L (98-107); Estimated CRCL calculation 87 ml/min; Estimated Glomerular Filt Rate > 60; Glucose 116 mg/dL (65-110); Potassium 3.9 mmol/L (3.4-5.0); Sodium 137 mmol/L (137-145)
[2023-07-16 08:42] VITALS: O2SAT 92
[2023-07-16 09:20] VITALS: PULSE 77
[2023-07-16] MEDS: METOPROLOL SUCCINATE EXT REL 25 MG TABCR PO (09:20)
[2023-07-16] MEDS: GABAPENTIN 300 MG CAPSULE PO ×3 (09:20→16:34)
[2023-07-16] MEDS: ATORVASTATIN 20 MG TABLET PO (09:21)
[2023-07-16] MEDS: traMADol HCL (*CRX) 50 MG TABLET PO ×2 (09:22→16:34)
[2023-07-16] MEDS: ACETAMINOPHEN 325 MG TABLET PO ×4 (09:22→22:20)
[2023-07-16] MEDS: oxyBUTYnin CHLORIDE XL 5 MG TAB.ER.24 15 MG PO (09:22)
[2023-07-16] MEDS: ASPIRIN 81 MG ENTERIC TABLET PO (09:22)
[2023-07-16] MEDS: DULoxetine HCL 60 MG CAPSULE.DR PO (09:22)
[2023-07-16] MEDS: ENOXAPARIN 40 MG/0.4 ML SYRINGE SUB-Q (09:23)
[2023-07-16] MEDS: CELECOXIB 100 MG CAPSULE PO ×2 (09:23→16:37)
[2023-07-16] MEDS: TOLNAFTATE 1% POWDER 45 GM BTL 1 APPLIC TOPICAL ×2 (09:24→22:16)
[2023-07-16] MEDS: REMDESIVIR 100 MG/NS 250 ML 100 MG/250 ML BAG 250 MG IVPB (10:34)
--- NOTE | 2023-07-16 10:39 | PM.IMPN ---
Progress Note: A&P Assessment and Plan (1) COVID: Code(s): U07.1 - COVID-19 Status: Acute Assessment and Plan: Patient was seen in the emergency room for cough and weakness. She was found to have COVID. She was on 2 L but unclear if she was hypoxic but this is assumed since oxygen was started. No chest x-ray performed on admission but checked 07/15 showing clear lung olivares. Started on Remdesivir and Dexamethasone. Albuterol MDI added. Able to be weaned to room air today. Follow (2) Nausea: Code(s): R11.0 - Nausea Status: Acute Assessment and Plan: Patient with complaints of nausea and epigastric pain. Consider gastritis from steroids and recent infection. She is on Protonix. Gallbladder ultrasound does not show cholecystitis. Will check lipase. Add Mylanta and Tums prn. Elevate head of bed. (3) UTI (urinary tract infection): Code(s): N39.0 - Urinary tract infection, site not specified Status: Acute Assessment and Plan: UA is consistent with UTI. UCx collected. Rocephin started. UCx pending. Follow up on UCx results. (4) Hypoxia: Code(s): R09.02 - Hypoxemia Status: Acute Assessment and Plan: Related to above (5) Elevated LFTs: Code(s): R79.89 - Other specified abnormal findings of blood chemistry Status: Acute Assessment and Plan: AST and ALT elevated on admission. Hepatitis panel negative. Right quadrant ultrasound shows cholelithiasis but no evidence of cholecystitis AST trending downward. ALT slightly higher but probably lagging behind. Suspect overall elevated LFTs related to COVID. Continue to monitor. (6) Obstructive sleep apnea on CPAP: Code(s): G47.33 - Obstructive sleep apnea (adult) (pediatric) Status: Acute Assessment and Plan: Patient with RAMA and was recently set up with BiPAP. BiPAP resumed here. Patient refusing treatment. (7) Hypertension: Code(s): I10 - Essential (primary) hypertension Status: Acute Assessment and Plan: Patient's blood pressure was reviewed on 07/16 Blood pressure elevated at times be related to steroids. Will continue to monitor Plan DVT Prophylaxis - Lovenox Code status - full Subjective Date/time seen: 07/16/23 10:39 Interval history: 72yo female with RAMA, HTN and polio as a child here for cough and weakness.?? Patient feeling nausea yesterday and overnight. Did not eat dinner or breakfast. Complains of sharp upper abdominal pain. Also with diarrhea x 2 days. She is orineted but appears to have trouble providing coherent hx. Exam Narrative: AF 98.3 155/94 77 18 92% ra Gen - NARD Chest - CTA bilaterally CV - RRR S1/S2 Abd - soft, obese, mild epigastric pain without guarding or rebound Ext - no pedal edema. Neuro - patient is alert and oriented x4 but provides contradictory hx and appears unsure of prior conversation. Speech is clear. Psych - normal mood and affect. Skin - warm and dry. Objective Data Vital Signs Vital Signs: Vital Signs - 24 hr 07/15/23 12:55 07/15/23 12:55 07/15/23 14:00 Temperature 97.7 F Pulse Rate 93 93 93 Respiratory Rate 18 18 18 Blood Pressure 138/70 Pulse Oximetry 93 94 Oxygen Delivery Nasal Cannula Oxygen Flow Rate 2 07/15/23 20:00 07/15/23 20:37 07/15/23 21:55 Temperature 98 F Pulse Rate 93 93 98 Respiratory Rate 18 18 Blood Pressure 179/82 H Pulse Oximetry 94 94 95 Oxygen Delivery Nasal Cannula Nasal Cannula Oxygen Flow Rate 2 2 07/16/23 06:00 07/16/23 08:42 07/16/23 09:20 Temperature 98.3 F Pulse Rate 79 77 Respiratory Rate 18 Blood Pressure 155/94 H Pulse Oximetry 93 92 Oxygen Delivery Room Air Oxygen Flow Rate 07/16/23 09:15 07/16/23 10:12 Temperature Pulse Rate Respiratory Rate Blood Pressure Pulse Oximetry Oxygen Delivery Room Air Room Air Oxygen Flow Rate In
[2023-07-16] MEDS: CALCIUM CARBONATE (TUMS) 500 MG (200 MG ELEMENTAL) PO (12:11)
[2023-07-16 14:00] VITALS: BP 150/83; PULSE 94; RESP 16; TEMP 36.8; O2SAT 92
[2023-07-16 22:00] VITALS: BP 157/88; PULSE 87; RESP 16; TEMP 36.6; O2SAT 90
[2023-07-16] MEDS: risperiDONE 1 MG TABLET PO (22:15)
[2023-07-16] MEDS: traZODone HCL 50 MG TABLET 150 MG PO (22:15)
[2023-07-17] MEDS: ALBUTEROL SULFATE (*SP) AEROSOL 1 PUFF 2 PUFF INHALATION ×3 (01:35→22:02)
[2023-07-17 05:55] VITALS: BP 152/86; PULSE 62; RESP 20; TEMP 36.9; O2SAT 90
[2023-07-17 07:01] LABS: Alanine Aminotransferase 125 U/L (6-35); Albumin Level 3.7 g/dL (3.5-5.1); Alkaline Phosphatase 114 U/L (38-126); Anion Gap 7 mmol/L (8-16); Aspartate Amino Transferase 112 U/L (14-36); Bilirubin,Total 0.3 mg/dL (0.2-1.3); Blood Urea Nitrogen 21 mg/dL (7-17); Calcium 8.9 mg/dL (8.4-10.2); Carbon Dioxide 31 mmol/L (22-30); Chloride 101 mmol/L (98-107); Estimated CRCL calculation 75 ml/min; Estimated Glomerular Filt Rate > 60; Glucose 100 mg/dL (65-110); Potassium 4.1 mmol/L (3.4-5.0); Sodium 139 mmol/L (137-145)
[2023-07-17 07:19] LABS: INR 1.1
[2023-07-17 09:47] VITALS: PULSE 65
[2023-07-17] MEDS: oxyBUTYnin CHLORIDE XL 5 MG TAB.ER.24 15 MG PO (09:47)
[2023-07-17] MEDS: DULoxetine HCL 60 MG CAPSULE.DR PO (09:47)
[2023-07-17] MEDS: METOPROLOL SUCCINATE EXT REL 25 MG TABCR PO (09:47)
[2023-07-17] MEDS: traMADol HCL (*CRX) 50 MG TABLET PO ×2 (09:47→16:17)
[2023-07-17] MEDS: ASPIRIN 81 MG ENTERIC TABLET PO (09:47)
[2023-07-17] MEDS: ATORVASTATIN 20 MG TABLET PO (09:47)
[2023-07-17] MEDS: CALCIUM CARBONATE (TUMS) 500 MG (200 MG ELEMENTAL) PO (09:47)
[2023-07-17] MEDS: CELECOXIB 100 MG CAPSULE PO ×2 (09:47→16:17)
[2023-07-17] MEDS: ACETAMINOPHEN 325 MG TABLET PO ×4 (09:47→22:36)
[2023-07-17] MEDS: TOLNAFTATE 1% POWDER 45 GM BTL 1 APPLIC TOPICAL ×2 (09:48→22:44)
[2023-07-17] MEDS: GABAPENTIN 300 MG CAPSULE PO ×3 (09:48→16:17)
[2023-07-17] MEDS: PANTOPRAZOLE SOD SESQUIHYDRATE 20 MG TAB PO ×2 (09:48→22:40)
[2023-07-17] MEDS: ENOXAPARIN 40 MG/0.4 ML SYRINGE SUB-Q (09:48)
[2023-07-17 11:07] VITALS: O2SAT 92
--- NOTE | 2023-07-17 11:44 | PM.IMPN ---
Progress Note: A&P Assessment and Plan (1) COVID: Code(s): U07.1 - COVID-19 Status: Acute Assessment and Plan: Patient was seen in the emergency room for cough and weakness. She was found to have COVID. She was on 2 L but unclear if she was hypoxic but this is assumed since oxygen was started. No chest x-ray performed on admission but checked 07/15 showing clear lung olivares. Started on Remdesivir and Dexamethasone. Albuterol MDI added. Able to be weaned to room air 07/15 Follow (2) Nausea: Code(s): R11.0 - Nausea Status: Acute Assessment and Plan: Patient with complaints of nausea and epigastric pain. Consider gastritis from steroids and recent infection. She is on Protonix. Gallbladder ultrasound does not show cholecystitis. Lipase normal Added Mylanta and Tums prn. Elevated head of bed. Symptoms better today. Follow (3) UTI (urinary tract infection): Code(s): N39.0 - Urinary tract infection, site not specified Status: Acute Assessment and Plan: UA is consistent with UTI. UCx collected. Rocephin started. UCx pending. Follow up on UCx results. (4) Hypoxia: Code(s): R09.02 - Hypoxemia Status: Acute Assessment and Plan: Related to above (5) Elevated LFTs: Code(s): R79.89 - Other specified abnormal findings of blood chemistry Status: Acute Assessment and Plan: AST and ALT elevated on admission. Hepatitis panel negative. Right quadrant ultrasound shows cholelithiasis but no evidence of cholecystitis AST/ALT trending down. Suspect overall elevated LFTs related to COVID. Continue to monitor. (6) Obstructive sleep apnea on CPAP: Code(s): G47.33 - Obstructive sleep apnea (adult) (pediatric) Status: Acute Assessment and Plan: Patient with RAMA and was recently set up with BiPAP. BiPAP resumed here. Patient refusing treatment. (7) Hypertension: Code(s): I10 - Essential (primary) hypertension Status: Acute Assessment and Plan: Patient's blood pressure was reviewed on 07/17 Blood pressure elevated at times be related to steroids. Will continue to monitor Plan DVT Prophylaxis - Lovenox Code status - full Disposition - can be discharged at any time once SNF set up Subjective Date/time seen: 07/17/23 11:44 Interval history: 72yo female with RAMA, HTN and polio as a child here for cough and weakness.?? Abdominal pain much better. +BMs. No CP or SOB. Walking to the bathroom. Feels well. Exam Narrative: AF 98.4 152/86 65 20 92% ra Gen - NARD Chest - CTA bilaterally CV - RRR S1/S2 Abd - soft, obese, NT, +BS Ext - no pedal edema. Neuro - alert, confused at times Psych - normal mood and affect. Skin - warm and dry. Objective Data Vital Signs Vital Signs: Vital Signs - 24 hr 07/16/23 14:00 07/16/23 22:00 07/16/23 20:00 Temperature 98.3 F 97.8 F Pulse Rate 94 87 Respiratory Rate 16 16 Blood Pressure 150/83 H 157/88 H Pulse Oximetry 92 90 Oxygen Delivery Room Air 07/17/23 05:55 07/17/23 09:47 07/17/23 11:07 Temperature 98.4 F Pulse Rate 62 65 Respiratory Rate 20 Blood Pressure 152/86 H Pulse Oximetry 90 92 Oxygen Delivery Room Air Intake/Output Intake/Output: Intake & Output 07/14/23 07/15/23 07/16/23 07/17/23 23:59 23:59 23:59 23:59 Intake Total 1100 500 368 Output Total 200 Balance 1100 300 368 Meds/Results Medications: Active Medications Generic Name Dose Route Start Last Admin Trade Name Freq PRN Reason Stop Dose Admin Acetaminophen 325 mg 07/16/23 07:32 07/17/23 09:47 Acetaminophen 325 Mg Tablet PO 325 mg QID PRN Administration Pain (Scale Score 1-3) Al Hydrox/Mg Hydrox/Simethicone 30 ml 07/16/23 10:52 Mag Hydrox/Al Hydrox/Simeth 30 Ml Udc PO Q6H PRN Indigestion Albuterol 2 puff 07/15/23 14:00 07/17/23 11:06 Albuterol
[2023-07-17 14:00] VITALS: BP 122/78; PULSE 77; RESP 18; TEMP 36.6; O2SAT 92
[2023-07-17] MEDS: REMDESIVIR 100 MG/NS 250 ML 100 MG/250 ML BAG 250 MG IVPB (15:29)
--- NOTE | 2023-07-17 16:59 | PCRCNOTE ---
Window of time for administration has passed. See next scheduled administration.
[2023-07-17 21:36] VITALS: BP 157/67; PULSE 72; RESP 18; TEMP 36.2; O2SAT 92
[2023-07-17] MEDS: traZODone HCL 50 MG TABLET 150 MG PO (22:39)
[2023-07-17] MEDS: risperiDONE 1 MG TABLET PO (22:39)
[2023-07-18] VITALS (8 sets, daily range): BP systolic 119–130; BP diastolic 53–75; PULSE 65–76; RESP 18; TEMP 36.2–36.5; O2SAT 93–94
[2023-07-18] MEDS: ALBUTEROL SULFATE (*SP) AEROSOL 1 PUFF 2 PUFF INHALATION ×4 (02:32→21:05)
--- NOTE | 2023-07-18 09:20 | PM.IMPN ---
Progress Note: A&P Assessment and Plan (1) COVID: Code(s): U07.1 - COVID-19 Status: Acute Assessment and Plan: Patient was seen in the emergency room for cough and weakness. She was found to have COVID. She was on 2 L but unclear if she was hypoxic but this is assumed since oxygen was started. No chest x-ray performed on admission but checked 07/15 showing clear lung olivares. Started on Remdesivir and Dexamethasone. Albuterol MDI added. Able to be weaned to room air 07/15 Follow (2) Nausea: Code(s): R11.0 - Nausea Status: Acute Assessment and Plan: Patient with complaints of nausea and epigastric pain. Consider gastritis from steroids and recent infection. Gallbladder ultrasound does not show cholecystitis. Lipase. AST/ALT elevated felt related to COIVD She is on Protonix. Added Mylanta and Tums prn. Elevated head of bed. Symptoms improved Follow (3) UTI (urinary tract infection): Code(s): N39.0 - Urinary tract infection, site not specified Status: Acute Assessment and Plan: UA is consistent with UTI. UCx collected. Rocephin started. UCx growing 100K non-uropathogenic organisms. BCx NGTD Completed 3 days of Rocephin. Will stop rocephin now (4) Hypoxia: Code(s): R09.02 - Hypoxemia Status: Acute Assessment and Plan: Related to above Resolved (5) Elevated LFTs: Code(s): R79.89 - Other specified abnormal findings of blood chemistry Status: Acute Assessment and Plan: AST and ALT elevated on admission. Hepatitis panel negative. Right quadrant ultrasound shows cholelithiasis but no evidence of cholecystitis AST/ALT trending down. Suspect overall elevated LFTs related to COVID. Continue to monitor. (6) Obstructive sleep apnea on CPAP: Code(s): G47.33 - Obstructive sleep apnea (adult) (pediatric) Status: Acute Assessment and Plan: Patient with RAMA and was recently set up with BiPAP. BiPAP resumed here. Patient refusing treatment. (7) Hypertension: Code(s): I10 - Essential (primary) hypertension Status: Acute Assessment and Plan: Patient's blood pressure was reviewed on 07/18 Blood pressure elevated at times that may be related to steroids. Will continue to monitor Plan DVT Prophylaxis - Lovenox Code status - full Disposition - can be discharged at any time once SNF set up Subjective Date/time seen: 07/18/23 09:20 Interval history: 72yo female with RAMA, HTN and polio as a child here for cough and weakness.?? No complaints. No CP or SOB. Still with cough. Walking to the BR with walker. She is wanting to go back to [facility] Exam Narrative: AF 97.7 119/53 65 18 94% ra Gen - NARD Chest - CTA bilaterally CV - RRR S1/S2 Abd - soft, obese, NT, +BS Ext - no pedal edema. Psych - normal mood and affect. Skin - warm and dry. Objective Data Vital Signs Vital Signs: Vital Signs - 24 hr 07/17/23 09:47 07/17/23 11:07 07/17/23 09:30 Temperature Pulse Rate 65 Respiratory Rate Blood Pressure Pulse Oximetry 92 Oxygen Delivery Room Air Room Air 07/17/23 14:00 07/17/23 21:36 07/18/23 05:38 Temperature 97.8 F 97.1 F L 97.7 F Pulse Rate 77 72 65 Respiratory Rate 18 18 18 Blood Pressure 122/78 157/67 H 119/53 L Pulse Oximetry 92 92 94 Oxygen Delivery Intake/Output Intake/Output: Intake & Output 07/15/23 07/16/23 07/17/23 07/18/23 23:59 23:59 23:59 23:59 Intake Total 2998 349 1543 350 Output Total 200 Balance 1313 872 6948 350 Meds/Results Medications: Active Medications Generic Name Dose Route Start Last Admin Trade Name Nelia PRN Reason Stop Dose Admin Acetaminophen 325 mg 07/16/23 07:32 07/17/23 22:36 Acetaminophen 325 Mg Tablet PO 325 mg QID PRN Administration Pain (Scale Score 1-3) Al Hydrox/Mg Hydrox/Simethicone 30 ml 07/16/23 10:52 Mag
[2023-07-18] MEDS: DULoxetine HCL 60 MG CAPSULE.DR PO (09:38)
[2023-07-18] MEDS: CELECOXIB 100 MG CAPSULE PO ×2 (09:38→16:56)
[2023-07-18] MEDS: oxyBUTYnin CHLORIDE XL 5 MG TAB.ER.24 15 MG PO (09:38)
[2023-07-18] MEDS: GABAPENTIN 300 MG CAPSULE PO ×3 (09:38→16:57)
[2023-07-18] MEDS: ASPIRIN 81 MG ENTERIC TABLET PO (09:39)
[2023-07-18] MEDS: PANTOPRAZOLE SOD SESQUIHYDRATE 20 MG TAB PO ×2 (09:39→22:06)
[2023-07-18] MEDS: traMADol HCL (*CRX) 50 MG TABLET PO ×2 (09:39→16:57)
[2023-07-18] MEDS: ATORVASTATIN 20 MG TABLET PO (09:39)
[2023-07-18] MEDS: METOPROLOL SUCCINATE EXT REL 25 MG TABCR PO (09:39)
[2023-07-18] MEDS: TOLNAFTATE 1% POWDER 45 GM BTL 1 APPLIC TOPICAL ×2 (09:46→22:06)
[2023-07-18] MEDS: ENOXAPARIN 40 MG/0.4 ML SYRINGE SUB-Q (09:47)
[2023-07-18] MEDS: REMDESIVIR 100 MG/NS 250 ML 100 MG/250 ML BAG 250 MG IVPB (10:27)
[2023-07-18] MEDS: traZODone HCL 50 MG TABLET 150 MG PO (22:06)
[2023-07-18] MEDS: risperiDONE 1 MG TABLET PO (22:06)
[2023-07-18] MEDS: ACETAMINOPHEN 325 MG TABLET PO (22:07)
[2023-07-19] VITALS (7 sets, daily range): BP systolic 120–139; BP diastolic 66–75; PULSE 60–71; RESP 16–18; TEMP 36.6–36.9; O2SAT 92–95
[2023-07-19] MEDS: ALBUTEROL SULFATE (*SP) AEROSOL 1 PUFF 2 PUFF INHALATION ×4 (03:04→20:29)
[2023-07-19] MEDS: ENOXAPARIN 40 MG/0.4 ML SYRINGE SUB-Q (09:15)
[2023-07-19 09:16] LABS: INR 1.2; Prothrombin Time 15.6 Seconds (11.1-14.7)
[2023-07-19] MEDS: ATORVASTATIN 20 MG TABLET PO (09:16)
[2023-07-19] MEDS: CELECOXIB 100 MG CAPSULE PO ×2 (09:16→17:27)
[2023-07-19] MEDS: traMADol HCL (*CRX) 50 MG TABLET PO ×2 (09:16→17:27)
[2023-07-19] MEDS: PANTOPRAZOLE SOD SESQUIHYDRATE 20 MG TAB PO ×2 (09:16→20:52)
[2023-07-19] MEDS: METOPROLOL SUCCINATE EXT REL 25 MG TABCR PO (09:16)
[2023-07-19] MEDS: oxyBUTYnin CHLORIDE XL 5 MG TAB.ER.24 15 MG PO (09:16)
[2023-07-19] MEDS: ASPIRIN 81 MG ENTERIC TABLET PO (09:16)
[2023-07-19] MEDS: ACETAMINOPHEN 325 MG TABLET PO (09:17)
[2023-07-19] MEDS: GABAPENTIN 300 MG CAPSULE PO ×2 (09:17→17:27)
[2023-07-19] MEDS: DULoxetine HCL 60 MG CAPSULE.DR PO (09:17)
[2023-07-19] MEDS: TOLNAFTATE 1% POWDER 45 GM BTL 1 APPLIC TOPICAL ×2 (09:18→20:52)
[2023-07-19 09:20] LABS: Alanine Aminotransferase 77 U/L (6-35); Albumin Level 3.8 g/dL (3.5-5.1); Alkaline Phosphatase 109 U/L (38-126); Aspartate Amino Transferase 59 U/L (14-36); Bilirubin,Total 0.4 mg/dL (0.2-1.3)
[2023-07-19 09:22] LABS: Alanine Aminotransferase 78 U/L (6-35); Albumin Level 3.8 g/dL (3.5-5.1); Alkaline Phosphatase 108 U/L (38-126); Anion Gap 12 mmol/L (8-16); Aspartate Amino Transferase 58 U/L (14-36); Bilirubin,Total 0.4 mg/dL (0.2-1.3); Blood Urea Nitrogen 21 mg/dL (7-17); Calcium 8.9 mg/dL (8.4-10.2); Carbon Dioxide 24 mmol/L (22-30); Chloride 102 mmol/L (98-107); Estimated CRCL calculation 75 ml/min; Estimated Glomerular Filt Rate > 60; Glucose 133 mg/dL (65-110); Potassium 3.6 mmol/L (3.4-5.0); Sodium 138 mmol/L (137-145)
[2023-07-19] MEDS: REMDESIVIR 100 MG/NS 250 ML 100 MG/250 ML BAG 250 MG IVPB (10:36)
--- NOTE | 2023-07-19 17:05 | PM.IMPN ---
Progress Note: A&P Assessment and Plan (1) COVID: Code(s): U07.1 - COVID-19 Status: Acute Assessment and Plan: Patient was seen in the emergency room for cough and weakness. She was found to have COVID. She was on 2 L but unclear if she was hypoxic but this is assumed since oxygen was started. No chest x-ray performed on admission but checked 07/15 showing clear lung olivares. Started on Remdesivir and Dexamethasone. Albuterol MDI added. Able to be weaned to room air 07/15 Completed Remdesivir course. Stop Dexamethasone at discharge. Follow (2) Nausea: Code(s): R11.0 - Nausea Status: Acute Assessment and Plan: Patient with complaints of nausea and epigastric pain. Consider gastritis from steroids and recent COVID infection. Gallbladder ultrasound does not show cholecystitis. Lipase normal. AST/ALT elevated felt related to COVID She is on Protonix. Added Mylanta and Tums prn. Elevated head of bed. Symptoms improved Follow (3) UTI (urinary tract infection): Code(s): N39.0 - Urinary tract infection, site not specified Status: Acute Assessment and Plan: UA is consistent with UTI. UCx collected. Rocephin started. UCx growing 100K non-uropathogenic organisms. BCx NGTD Completed 3 days of Rocephin. (4) Hypoxia: Code(s): R09.02 - Hypoxemia Status: Acute Assessment and Plan: Related to above Resolved (5) Elevated LFTs: Code(s): R79.89 - Other specified abnormal findings of blood chemistry Status: Acute Assessment and Plan: AST and ALT elevated on admission. Hepatitis panel negative. Right quadrant ultrasound shows cholelithiasis but no evidence of cholecystitis AST/ALT trending down. Suspect overall elevated LFTs related to COVID. Continue to monitor. (6) Obstructive sleep apnea on CPAP: Code(s): G47.33 - Obstructive sleep apnea (adult) (pediatric) Status: Acute Assessment and Plan: Patient with RAMA and was recently set up with BiPAP. BiPAP resumed here. Patient refusing treatment. (7) Hypertension: Code(s): I10 - Essential (primary) hypertension Status: Acute Assessment and Plan: Patient's blood pressure was reviewed on 07/19 Blood pressure well controlled Will continue to monitor Plan DVT Prophylaxis - Lovenox Code status - full Disposition - can be discharged at any time once SNF set up or back to assisted living. Subjective Date/time seen: 07/19/23 17:05 Interval history: 72yo female with RAMA, HTN and polio as a child here for cough and weakness.?? No CP or SOB. No n/v. Walking to the bathroom. Exam Narrative: AF 97.8 120/66 60 18 93% ra Gen - NARD Chest - distant, clear BS. nml RR CV - RRR S1/S2 Abd - soft, obese, NT, +BS Ext - no pedal edema. Negativ Cristela's Psych - normal mood and affect. Skin - warm and dry. Objective Data Vital Signs Vital Signs: Vital Signs - 24 hr 07/18/23 21:05 07/18/23 21:33 07/18/23 20:00 Temperature 97.4 F L Pulse Rate 75 65 65 Respiratory Rate 18 18 18 Blood Pressure 130/75 Pulse Oximetry 93 93 Oxygen Delivery Room Air 07/19/23 03:08 07/19/23 06:00 07/19/23 09:16 Temperature 97.8 F Pulse Rate 65 60 60 Respiratory Rate 18 18 Blood Pressure 120/66 Pulse Oximetry 93 Oxygen Delivery 07/19/23 08:00 Temperature Pulse Rate Respiratory Rate Blood Pressure Pulse Oximetry Oxygen Delivery Room Air Intake/Output Intake/Output: Intake & Output 07/16/23 07/17/23 07/18/23 07/19/23 23:59 23:59 23:59 23:59 Intake Total 750 1705 1062 630 Output Total 200 Balance 550 1705 1062 630 Meds/Results Medications: Active Medications Generic Name Dose Route Start Last Admin Trade Name Freq PRN Reason Stop Dose Admin Acetaminophen 325 mg 07/16/23 07:32 07/19/23 09:17 Acetaminophen 325 Mg Tablet PO 325 mg QID PRN Admi
[2023-07-19] MEDS: traZODone HCL 50 MG TABLET 150 MG PO (20:52)
[2023-07-19] MEDS: risperiDONE 1 MG TABLET PO (20:52)
[2023-07-20] VITALS (7 sets, daily range): BP systolic 125; BP diastolic 64; PULSE 61–68; RESP 16–18; TEMP 35.9–36.2; O2SAT 93–94
[2023-07-20] MEDS: ALBUTEROL SULFATE (*SP) AEROSOL 1 PUFF 2 PUFF INHALATION ×3 (02:54→14:30)
[2023-07-20] MEDS: oxyBUTYnin CHLORIDE XL 5 MG TAB.ER.24 15 MG PO (09:54)
[2023-07-20] MEDS: CELECOXIB 100 MG CAPSULE PO (09:55)
[2023-07-20] MEDS: traMADol HCL (*CRX) 50 MG TABLET PO (09:55)
[2023-07-20] MEDS: PANTOPRAZOLE SOD SESQUIHYDRATE 20 MG TAB PO (09:55)
[2023-07-20] MEDS: ATORVASTATIN 20 MG TABLET PO (09:55)
[2023-07-20] MEDS: ASPIRIN 81 MG ENTERIC TABLET PO (09:55)
[2023-07-20] MEDS: METOPROLOL SUCCINATE EXT REL 25 MG TABCR PO (09:55)
[2023-07-20] MEDS: GABAPENTIN 300 MG CAPSULE PO ×2 (09:55→12:38)
[2023-07-20] MEDS: DULoxetine HCL 60 MG CAPSULE.DR PO (09:56)
[2023-07-20] MEDS: TOLNAFTATE 1% POWDER 45 GM BTL 1 APPLIC TOPICAL (09:57)
[2023-07-20] MEDS: ENOXAPARIN 40 MG/0.4 ML SYRINGE SUB-Q (10:00)
--- NOTE | 2023-07-20 12:02 | PM.DS ---
DS: Admitting Diagnosis Discharge Date 07/20/23 Admitting Diagnosis cough and weakness DS: Discharge Diagnosis Discharge Diagnosis (1) COVID: Code(s): U07.1 - COVID-19 Status: Acute Assessment and Plan: Patient was seen in the emergency room for cough and weakness. She was found to have COVID. She was on 2 L but unclear if she was hypoxic but this is assumed since oxygen was started. No chest x-ray performed on admission but checked 07/15 showing clear lung olivares. Started on Remdesivir and Dexamethasone. Albuterol MDI added. Able to be weaned to room air 07/15 Completed Remdesivir course. Stop Dexamethasone at discharge. Follow (2) Nausea: Code(s): R11.0 - Nausea Status: Acute Assessment and Plan: Patient with complaints of nausea and epigastric pain. Consider gastritis from steroids and recent COVID infection. Gallbladder ultrasound does not show cholecystitis. Lipase normal. AST/ALT elevated felt related to COVID She is on Protonix. Added Mylanta and Tums prn. Elevated head of bed. Symptoms improved Follow (3) UTI (urinary tract infection): Code(s): N39.0 - Urinary tract infection, site not specified Status: Acute Assessment and Plan: UA is consistent with UTI. UCx collected. Rocephin started. UCx growing 100K non-uropathogenic organisms. BCx NGTD Completed 3 days of Rocephin. (4) Hypoxia: Code(s): R09.02 - Hypoxemia Status: Acute Assessment and Plan: Related to above Resolved (5) Elevated LFTs: Code(s): R79.89 - Other specified abnormal findings of blood chemistry Status: Acute Assessment and Plan: AST and ALT elevated on admission. Hepatitis panel negative. Right quadrant ultrasound shows cholelithiasis but no evidence of cholecystitis AST/ALT trending down. Suspect overall elevated LFTs related to COVID. Continue to monitor. (6) Obstructive sleep apnea on CPAP: Code(s): G47.33 - Obstructive sleep apnea (adult) (pediatric) Status: Acute Assessment and Plan: Patient with RAMA and was recently set up with BiPAP. BiPAP resumed here. Patient refusing treatment. (7) Hypertension: Code(s): I10 - Essential (primary) hypertension Status: Acute Assessment and Plan: Patient's blood pressure was reviewed on 07/19 Blood pressure well controlled Will continue to monitor Plan DVT Prophylaxis - Lovenox Code status - full Disposition - can be discharged at any time once SNF set up or back to assisted living. DS: Summary Hospital Course Hospital Course: 72yo female with RAMA, HTN and polio as a child here for cough and weakness.?? Patient was seen in the emergency room for cough and weakness.? She was found to have COVID.? She was on 2 L but unclear if she was hypoxic but this is assumed since oxygen was started.? No chest x-ray performed on admission but checked 07/15 showing clear lung olivares. Started on Remdesivir and Dexamethasone. Albuterol MDI added.? Able to be weaned to room air 07/15 Completed Remdesivir course. Stop Dexamethasone at discharge. Patient with complaints of nausea and epigastric pain.? Consider gastritis from steroids and recent COVID infection.? Gallbladder ultrasound does not show cholecystitis.? Lipase normal.? AST/ALT elevated felt related to COVID She is on Protonix. Added Mylanta and Tums prn.? Elevated head of bed. Symptoms improved UA is consistent with UTI. UCx collected. Rocephin started. UCx growing 100K non-uropathogenic organisms. BCx NGTD Completed 3 days of Rocephin Please see above and med rec for details. Patient was discharged in stable condition with close outpatient follow-up. Time Spent with Patient Time attestation: Total time spent providing and/or coordinating discharge services: Exam Narrative: AF 97.8 120/66 60 18 93% ra Gen - NARD Chest - distant, clear BS. nml RR CV -
== END 2023-07-20 16:21 ==
LOC: ANHED 23:35 → ANH3MEDSUR 07-15 02:57
PROVIDERS: Internal Medicine; Admitting Provider Internal Medicine; Emergency Provider Emergency Medicine; Visit Provider Student in an Organized Health Care Education/Training Program
DX: U07.1 COVID-19 (principal); N39.0 Urinary tract infection, site not specified; R09.02 Hypoxemia; R79.89 Other specified abnormal findings of blood chemistry; R74.01 Elevation of levels of liver transaminase levels; G47.33 Obstructive sleep apnea (adult) (pediatric); I10 Essential (primary) hypertension; K80.20 Calculus of gallbladder without cholecystitis without obstruction; F41.9 Anxiety disorder, unspecified; M19.90 Unspecified osteoarthritis, unspecified site; R06.00 Dyspnea, unspecified; F32.A Depression, unspecified; K21.9 Gastro-esophageal reflux disease without esophagitis; E78.5 Hyperlipidemia, unspecified; R94.31 Abnormal electrocardiogram [ECG] [EKG]; N39.3 Stress incontinence (female) (male); M81.0 Age-related osteoporosis without current pathological fracture; Z86.12 Personal history of poliomyelitis; Z79.51 Long term (current) use of inhaled steroids; Z79.1 Long term (current) use of non-steroidal anti-inflammatories (NSAID); Z79.82 Long term (current) use of aspirin; Z79.891 Long term (current) use of opiate analgesic; Z79.899 Other long term (current) drug therapy; Z82.49 Family history of ischemic heart disease and other diseases of the circulatory system
CPT/HCPCS: 36415; 70450; 71045; 76705; 80053; 80074; 80076; 81001; 85025; 85610; 87040; 87086; 87088; 87637; 93005; 94640; 96365; 96366; 96367; 96372; 97161; 97165; 99285; A9270; G0378; J0248; J0696; J1100; J1650

== ENCOUNTER 2024-02-07 13:34 | Emergency (ER) | payer MEDICARE, MEDICAID, SELFPAY ==
[2024-02-07] VITALS (22 sets, daily range): BP systolic 123–151; BP diastolic 57–96; PULSE 67–87; RESP 11–16; TEMP 36.7; O2SAT 92–96
--- NOTE | ~2024-02-07 | CT_ITS ---
CT head without contrast Indication: Altered mental status COMPARISON: 07/14/2023 Technique: Serial scans were obtained through the brain without the administration of contrast. Dose reduction technique was used on this scan by utilizing automated exposure control and iterative recon struction technique. The dose-length product (DLP) was 605.33 mGy-cm. Findings: There is no evidence of intracranial hemorrhage, mass lesion, or acute infarct. The ventri cles and subarachnoid spaces are dilated, consistent with mild atrophy. Low attenuation regions are seen within the periventricular white matter bilaterally, likely representing changes from chronic mi crovascular ischemic disease. There is no evidence of edema, mass effect or midline shift. The visu alized paranasal sinuses and mastoid air cells are clear. Impression: No intracranial hemorrhage, mass, or acute infarct. Atrophy and chronic white matter changes, as above. Reviewed, dictated and finalized at [facility]. Impression: No intracranial hemorrhage, mass, or acute infarct. Atrophy and chronic white matter changes, as above.
--- NOTE | ~2024-02-07 | XR_ITS ---
EXAMINATION: XR chest 1V DATE: 02/07/2024 14:20 INDICATION: Altered mental status and weakness TECHNIQUE: frontal view of the chest was obtained. COMPARISON: Chest radiograph dated 07/15/2023 FINDINGS: The lungs are clear with no focal airspace opacities, pulmonary edema, pleural effusion or pneumothor ax. Heart size is normal. Small to moderate-sized hiatal hernia. Left pectoral implantable cardiac mo nitor. IMPRESSION: 1. No acute cardiopulmonary disease. 2. Small to moderate-sized hiatal hernia. Reviewed, dictated and finalized at location A.
--- NOTE | 2024-02-07 13:43 | ECG_ITS ---
Test Date: 2024-02-07 13:53:21 Measurements Intervals [place] Rate: 76 P: 53 MA: 148 QRS: 4 QRSD: 88 T: 111 QT: 389 QTc: 440 Interpretive Statements SINUS RHYTHM MODERATE T-WAVE ABNORMALITY, CONSIDER ANTEROLATERAL ISCHEMIA BASELINE ARTIFACT- I, II, V6 ABNORMAL ECG No previous ECG available for comparison Electronically Signed On 02-07-2024 13:58:38 CDT by Paulino Jung D.O.
[2024-02-07 14:04] LABS: Basophils Absolute Auto 0.1 K/mm3 (0.0-0.1); Basophils Percent Auto 0.9 % (0.2-1.2); Eosinophils Absolute Auto 0.2 K/mm3 (0-0.3); Eosinophils Percent Auto 2.2 % (0-4.4); Hematocrit 41.5 % (37.0-47.0); Hemoglobin 13.4 g/dL (12.0-15.0); Immature Granulocyte Absolute 0.04 K/mm3 (0.00-0.031); Immature Granulocyte Percent A 0.5 % (0-0.5); Mean Corpuscular HGB Conc 32.3 g/dl (32-36); Mean Corpuscular Hemoglobin 31.2 pg (26-34); Mean Corpuscular Volume 96.7 fl (80-100); Mean Platelet Volume 9.3 fl (7.4-10.4); Monocytes Absolute Auto 0.6 K/mm3 (0.1-0.6); Neutrophils Absolute Auto 5.2 K/mm3 (1.3-6.7); Neutrophils Percent Auto 60.4 % (45.5-73.1); Platelet Count Result 251 k/mm3 (150-375); Red Blood Count 4.29 M/mm3 (4.2-5.4); White Blood Count 8.6 K/mm3 (4.5-10.0)
[2024-02-07 14:15] LABS: Alanine Aminotransferase 71 U/L (6-35); Albumin Level 4.3 g/dL (3.5-5.1); Alkaline Phosphatase 100 U/L (38-126); Anion Gap 10 mmol/L (4-12); Aspartate Amino Transferase 80 U/L (14-36); Bilirubin,Total 0.6 mg/dL (0.2-1.3); Blood Urea Nitrogen 15 mg/dL (7-17); Calcium 9.1 mg/dL (8.4-10.2); Carbon Dioxide 28 mmol/L (22-30); Chloride 99 mmol/L (98-107); Estimated CRCL calculation 73 ml/min; Estimated Glomerular Filt Rate > 60; Glucose 112 mg/dL (65-110); INR 1.1; Potassium 4.4 mmol/L (3.4-5.0); Prothrombin Time 14.3 Seconds (11.1-14.7); Sodium 137 mmol/L (137-145)
[2024-02-07 14:16] LABS: Partial Thromboplastin Time 26.1 Seconds (22.3-36.8)
[2024-02-07 14:30] LABS: Appearance Urine Cloudy (Clear); Bacteria Urine 1+ /hpf; Bilirubin Urine Negative (Negative); Blood Urine Non-Hemolyzed Trace (Negative); Color Urine Yellow (Yellow); Glucose Urine UA Negative (Negative); Ketones Urine Trace mg/dL (Negative); Leukocyte Esterase Ur 2+ LEU/UL (Negative); Need Manual Microscopic Reviewed; Nitrate Urine Negative (Negative); Protein Urine 1+ mg/dL (Negative); Squamous Epithelial Cell Urine Few /hpf (Few); WBC Urine 51-100 /hpf (0-3); pH Urine 7.5 (5.0-9.0)
[2024-02-07 14:31] LABS: Add Urine Microscopic? YES
[2024-02-07 15:16] LABS: Lactic Acid Reflex 1.9 mmol/L (0.7-2.0)
[2024-02-07 15:17] LABS: Ethanol < 10 mg/dL (<10)
[2024-02-07 15:18] LABS: INR 1.1; Lipase 60 U/L (23-300); Magnesium 1.7 mg/dL (1.6-2.3); Phosphorus 3.1 mg/dL (2.5-4.5); Prothrombin Time 15.1 Seconds (11.1-14.7)
[2024-02-07 15:20] LABS: Partial Thromboplastin Time 29.8 Seconds (22.3-36.8)
[2024-02-07 15:20] LABS: Amphetamine Screen Urine Negative (Negative); Barbiturate Screen Urine Negative (Negative); Benzodiazepines Screen Urine Negative (Negative); Cannabinoid Screen Urine Negative (Negative); Cocaine Screen Urine Negative (Negative); Methadone Screen Urine Negative (Negative); Opiate Screen Urine Negative (Negative); Phencyclidine Screen Urine Negative (Negative)
[2024-02-07 15:31] LABS: Troponin I < 0.012 ng/mL (0.000-0.034)
[2024-02-07 15:32] LABS: Influenza A QL RT-PCR Negative (Negative); Influenza B QL RT-PCR Negative (Negative); RSV RNA, RT-PCR Negative (Negative); SARS-CoV-2 RNA PCR Negative (Negative)
--- NOTE | 2024-02-07 16:15 | ED.GENADULT ---
HPI - General Adult General Chief complaint: Altered Mental Status Stated complaint: AMS Time Seen by Provider: 02/07/24 13:42 History of Present Illness HPI narrative: This is a 73-year-old female from the skilled nursing presenting for altered mental status. 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 At this time the patient is A&O times 2-3 which is her baseline. She is denying any complaints outside of dysuria. Related Data Home Medications Medication Instructions Recorded Confirmed albuterol sulfate 90 mcg/actuation 1 inh inhalation Q4H PRN Dyspnea 12/03/21 07/15/23 aerosol inhaler alendronate 70 mg tablet 70 mg PO WEEKLY 12/03/21 07/15/23 aspirin 81 mg tablet,delayed 81 mg PO DAILY 12/03/21 07/15/23 release atorvastatin 20 mg tablet 20 mg PO DAILY 12/03/21 07/15/23 calcium carbonate-vitamin D3 500 1 tablet PO DAILY 12/03/21 07/15/23 mg(1,250 mg)-600 unit chewable tablet celecoxib 100 mg capsule 100 mg PO BID 12/03/21 07/15/23 duloxetine 60 mg capsule,delayed 60 mg PO DAILY 12/03/21 07/15/23 release gabapentin 300 mg capsule 300 mg PO TID 12/03/21 07/15/23 oxybutynin chloride 15 mg 15 mg PO DAILY 12/03/21 07/15/23 tablet,extended release 24 hr risperidone 1 mg tablet 1 mg PO HS 12/03/21 07/15/23 tramadol 50 mg tablet 50 mg PO BID 12/03/21 07/15/23 trazodone 150 mg tablet 150 mg PO HS 01/21/22 07/15/23 acetaminophen 325 mg tablet 325 mg PO QID PRN Pain (Scale 04/03/23 07/15/23 Score 1-3) ergocalciferol (vitamin D2) 1,250 50,000 unit PO DIRECTED 04/03/23 07/15/23 mcg (50,000 unit) capsule omeprazole 20 mg capsule,delayed 20 mg PO BID 04/03/23 07/15/23 release Allergies Allergy/AdvReac Type Severity Reaction Status Date / Time No Known Allergies Allergy Verified 04/19/23:56 [facility] Past Medical History Medical History Anxiety Arthritis Depression Gastroesophageal reflux disease Hyperlipidemia Hypertension Obstructive sleep apnea on CPAP Osteoporosis Polio Stress incontinence Vertigo Surgical History Surgical History History of colonoscopy (01/2022) Internal hemorrhoids. History of esophagogastroduodenoscopy (01/2022) Reflux esophagitis, hiatal hernia, gastric retention, gastritis. History of foot surgery Multiple foot and toe surgeries, reportedly related to polio. History of loop recorder History of open reduction and internal fixation (ORIF) procedure Repair left ankle fracture. Family History Family History Father Hypertension Mother Heart disease Depression Social History Social History Social History: Surrogate medical decision maker: Sharron Vickers, daughter. Code status: Full code. Smoking status: Never smoker Second hand tobacco smoke exposure: No Alcohol intake: current Drinks per week: 1 Alcohol use details: very rare Substance use: never Substance use type: does not use Lack of Transportation: No Lack of Food: Never True Current Housing: I Have Housing Concerned About Future Housing: No Difficulty Paying Gas/Electric Bills: No Difficulty Paying for Meds: No Currently Unemployed: No Education: Don't Know Difficulty w/ Childcare or Family Care: No Living arrangements: assisted living Additional living arrangements comments: [facility]. Occupation/Education: retired Spiritual care concerns: No Exam Narrative: APPEARANCE: No apparent distress. Head: atraumatic. EYES: EOMI, NOSE: Atraumatic NECK: Trachea midline RESPIRATORY: No increased rate of breathing CTAB CARDIOVASCULAR: RRR, no peripheral edema ABDOMINAL: Non-distended soft nontende
[2024-02-07] MEDS: cefTRIAXone 1 GM/NS 50 ML BAG IVPB (16:38)
== END 2024-02-07 17:22 ==
PROVIDERS: Emergency Provider Emergency Medicine
DX: N39.0 Urinary tract infection, site not specified (principal); F05 Delirium due to known physiological condition; Z20.822 Contact with and (suspected) exposure to COVID-19; I10 Essential (primary) hypertension; E78.00 Pure hypercholesterolemia, unspecified; J44.9 Chronic obstructive pulmonary disease, unspecified; K21.9 Gastro-esophageal reflux disease without esophagitis; M19.90 Unspecified osteoarthritis, unspecified site; M81.0 Age-related osteoporosis without current pathological fracture; G47.30 Sleep apnea, unspecified; F32.A Depression, unspecified; Z86.12 Personal history of poliomyelitis; Z79.82 Long term (current) use of aspirin; Z79.899 Other long term (current) drug therapy
CPT/HCPCS: 36415; 70450; 71045; 80053; 80307; 81001; 83605; 83690; 83735; 84100; 84443; 84484; 85025; 85610; 85730; 87040; 87086; 87637; 93005; 96365; 99284; J0696

== ENCOUNTER 2024-03-24 16:16 | Inpatient (IN) | payer MEDICARE, MEDICAID, SELFPAY ==
[2024-03-24] VITALS (12 sets, daily range): BP systolic 112–140; BP diastolic 66–79; PULSE 78–87; RESP 10–20; TEMP 35.9–36.8; O2SAT 89–98; BMI 37.0
--- NOTE | ~2024-03-24 | CT_ITS ---
EXAMINATION: CTA chest PE protocol DATE: 03/25/2024 19:49 INDICATION: Hypoxia TECHNIQUE: Computed tomography (CT) pulmonary angiogram of the chest was performed with 100 mL Omnipa que-350 intravenous contrast. Additional 3D reconstructions utilizing coronal maximum intensity proje ction (MIP) were performed. Automated exposure control and iterative reconstruction technique were em ployed. The dose-length product was 918.87 mGy-cm. COMPARISON: CT abdomen pelvis dated 03/25/24 and 10/28/2021 FINDINGS: There is suboptimal contrast opacification of the pulmonary arteries with peak the contrast bolus hav ing passed into the aorta. No evident pulmonary embolism with sensitivity decreased in the segmental and subsegmental pulmonary arteries. No pneumonia, pulmonary edema or pleural effusion. There is mild atelectasis at the medial left lower lobe along side a small sliding-type hiatal hernia. Heart size is normal. No pericardial effusion. Thoracic aorta is normal in caliber with no dissection. No pathol ogically enlarged thoracic lymphadenopathy. Multiple peripherally calcified gallstones in the normal- appearing gallbladder. Chronic L1 compression fracture.. IMPRESSION: 1. No pulmonary embolism or other acute cardiopulmonary disease. Sensitivity decreased in the segment al and subsegmental pulmonary arteries due to suboptimal timing of the contrast bolus. 2. Small sliding-type hiatal hernia. 3. Cholelithiasis. Reviewed, dictated and finalized at location A. IMPRESSION: 1. No pulmonary embolism or other acute cardiopulmonary disease. Sensitivity de creased in the segmental and subsegmental pulmonary arteries due to suboptimal timing of the contrast bolus. 2. Small sliding-type hiatal hernia. 3. Cholelithiasis.
--- NOTE | ~2024-03-24 | XR_ITS ---
EXAMINATION: XR chest 2V DATE: 03/24/2024 17:18 INDICATION: Weakness TECHNIQUE: frontal and lateral views of the chest were obtained. COMPARISON: Chest radiograph dated 02/07/2024 FINDINGS: The lungs remain clear with no focal airspace opacities, pulmonary edema, pleural effusion or pneumot horax. Heart size is normal. Again seen is a small to moderate-sized hiatal hernia. 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 Moderate osteoarthritis at the bilateral shoulders. IMPRESSION: 1. No acute cardiopulmonary disease. 2. Small to moderate-sized hiatal hernia. Reviewed, dictated and finalized at location A.
--- NOTE | ~2024-03-24 | CT_ITS ---
Non-contrast CT scan of the Abdomen and Pelvis Clinical indication: Recurrent UTI Technique: 2.5 mm axial scans were obtained through the abdomen and pelvis without intravenous or or al contrast. Dose reduction technique was used on this scan by utilizing automated exposure control a nd iterative reconstruction technique. The dose-length product (DLP) was 1443.11 mGy-cm. COMPARISON: 10/28/2021 Findings: Images through the lung bases reveal no abnormalities. There is a 1.7 x 1.5 cm ovoid stone at the right renal pelvis. There is additional 1.3 x 0.8 cm right lower pole renal stone. Probable minimal right hydronephrosis. Punctate nonobstructing left renal st one present. No left hydronephrosis. The liver, spleen, pancreas, and adrenals appear normal. Multiple calcified gallstones are present. T here is no aortic aneurysm. There is no evidence of bowel obstruction. Images through the pelvis were performed. There is no evidence of ascites or lymphadenopathy. Urinary bladder collapsed runner Padilla catheter. No adnexal mass seen. Chronic L1 compression fracture noted . Impression: 1.7 x 1.5 cm right renal pelvis stone, an additional 1.3 x 0.8 cm right lower pole renal stone. Proba ble minimal right hydronephrosis. Correlate clinically for pyelonephritis/UTI. Cholelithiasis. Punctate nonobstructing left renal stone. Reviewed, dictated and finalized at [facility]. Impression: 1.7 x 1.5 cm right renal pelvis stone, an additional 1.3 x 0.8 cm right lower p ole renal stone. Probable minimal right hydronephrosis. Correlate clinically fo r pyelonephritis/UTI. Cholelithiasis. Punctate nonobstructing left renal stone.
--- NOTE | ~2024-03-24 | XR_ITS ---
EXAMINATION: XR retrograde pyelo w/stent RT DATE: 03/27/2024 11:12 INDICATION: Right ureteral stone. TECHNIQUE: 5 intraoperative fluoroscopic views of the abdomen and pelvis were obtained. I was not pre sent. Fluoroscopy exposure time was 18 seconds. COMPARISON: CT abdomen and pelvis 03/25/2024 FINDINGS: The right-sided retrograde pyelogram demonstrates a 17 mm stone in right renal pelvis. Ther e is a right internal ureteral stent in expected position. IMPRESSION: 1. 17 mm stone in right renal pelvis. 2. Right internal ureteral stent in expected position. Reviewed, dictated and finalized at location A.
--- NOTE | ~2024-03-24 | XR_ITS ---
Supine and upright views of the abdomen Clinical history: Right renal stone Findings: Bowel gas pattern is nonspecific. No evidence for obstruction or free air. There is a 2.1 x 1.2 cm ovoid stone at the right kidney, possibly the right renal pelvis. Additional right lower pole renal stone measures 1.6 x 0.5 cm. No definite left renal stone. Calcified gallstones are present. O sseous structures are intact. Impression: Right nephrolithiasis, as detailed above. Cholelithiasis. Reviewed, dictated and finalized at location M. Impression: Right nephrolithiasis, as detailed above. Cholelithiasis.
--- NOTE | ~2024-03-24 | CT_ITS ---
CT head without contrast Indication: Confusion, weakness COMPARISON: 02/07/2024 Technique: Serial scans were obtained through the brain without the administration of contrast. Dose reduction technique was used on this scan by utilizing automated exposure control and iterative recon struction technique. The dose-length product (DLP) was 605.33 mGy-cm. Findings: There is no evidence of intracranial hemorrhage, mass lesion, or acute infarct. The ventri cles and subarachnoid spaces are dilated, consistent with mild atrophy. Low attenuation regions are seen within the periventricular white matter bilaterally, likely representing changes from chronic mi crovascular ischemic disease. There is no evidence of edema, mass effect or midline shift. The visu alized paranasal sinuses and mastoid air cells are clear. Impression: No intracranial hemorrhage, mass, or acute infarct. Atrophy and chronic white matter changes, as above. Reviewed, dictated and finalized at location . Impression: No intracranial hemorrhage, mass, or acute infarct. Atrophy and chronic white matter changes, as above.
--- NOTE | 2024-03-24 16:21 | ECG_ITS ---
Test Date: 2024-03-24 16:22:32 Measurements Intervals [place] Rate: 82 P: 42 MI: 151 QRS: -8 QRSD: 85 T: 102 QT: 365 QTc: 428 Interpretive Statements SINUS RHYTHM DELAYED PRECORDIAL R/S TRANSITION MINIMAL Q WAVES- HIGH LATERAL LEADS NONSPECIFIC ST-T WAVE ABNORMALITY- ANTEROLAT/HIGH LAT LEADS BORDERLINE ECG Compared to ECG 02/07/2024 13:53:21 NO SIGNIFICANT CHANGE Electronically Signed On 03-25-2024 08:02:46 CDT by Paulino Jung D.O.
[2024-03-24 16:32] LABS: Basophils Percent Auto 0.3 % (0.2-1.2); Eosinophils Percent Auto 0.2 % (0-4.4); Hemoglobin 14.5 g/dL (12.0-15.0); Immature Granulocyte Percent A 0.8 % (0-0.5); Lymphocytes Absolute Auto 1.71 K/mm3 (0.9-3.2); Lymphocytes Percent Auto 12.9 % (18.3-44.2); Mean Corpuscular Hemoglobin 31.7 pg (26-34); Mean Corpuscular Volume 96.1 fl (80-100); Mean Platelet Volume 9.4 fl (7.4-10.4); Monocytes Absolute Auto 0.8 K/mm3 (0.1-0.6); Monocytes Percent Auto 5.9 % (2.6-8.5); Neutrophils Absolute Auto 10.6 K/mm3 (1.3-6.7); Neutrophils Percent Auto 79.9 % (45.5-73.1); Platelet Count Result 298 k/mm3 (150-375); Red Blood Count 4.58 M/mm3 (4.2-5.4); White Blood Count 13.2 K/mm3 (4.5-10.0)
[2024-03-24 16:45] LABS: Alanine Aminotransferase 77 U/L (6-35); Albumin Level 4.5 g/dL (3.5-5.1); Alkaline Phosphatase 134 U/L (38-126); Anion Gap 9 mmol/L (4-12); Aspartate Amino Transferase 78 U/L (14-36); Bilirubin,Total 0.8 mg/dL (0.2-1.3); Blood Urea Nitrogen 16 mg/dL (7-17); Carbon Dioxide 29 mmol/L (22-30); Chloride 99 mmol/L (98-107); Estimated CRCL calculation 44 ml/min; Estimated Glomerular Filt Rate 44; Glucose 109 mg/dL (65-110); Potassium 4.8 mmol/L (3.4-5.0); Sodium 137 mmol/L (137-145)
--- NOTE | 2024-03-24 16:46 | ED.WEAKNESS ---
HPI - Weakness General Chief complaint: Weakness Stated complaint: weakness & more confused Time Seen by Provider: 03/24/24 16:24 History of Present Illness HPI Narrative: Patient is a 73-year-old female who presents ER with weakness and confusion. She reports that she has shortness of breath and has been ongoing over last couple months. Denies fevers or chills or sweats. Patient is falling asleep while we talked about her illness. She has no complaints of pain. Patient hypoxic on arrival and has been placed on 2 L O2 via nasal cannula. Related Data Home Medications Medication Instructions Recorded Confirmed albuterol sulfate 90 mcg/actuation 1 inh inhalation Q4H PRN Dyspnea 12/03/21 07/15/23 aerosol inhaler alendronate 70 mg tablet 70 mg PO WEEKLY 12/03/21 07/15/23 aspirin 81 mg tablet,delayed 81 mg PO DAILY 12/03/21 07/15/23 release atorvastatin 20 mg tablet 20 mg PO DAILY 12/03/21 07/15/23 calcium carbonate-vitamin D3 500 1 tablet PO DAILY 12/03/21 07/15/23 mg(1,250 mg)-600 unit chewable tablet celecoxib 100 mg capsule 100 mg PO BID 12/03/21 07/15/23 duloxetine 60 mg capsule,delayed 60 mg PO DAILY 12/03/21 07/15/23 release gabapentin 300 mg capsule 300 mg PO TID 12/03/21 07/15/23 oxybutynin chloride 15 mg 15 mg PO DAILY 12/03/21 07/15/23 tablet,extended release 24 hr risperidone 1 mg tablet 1 mg PO HS 12/03/21 07/15/23 tramadol 50 mg tablet 50 mg PO BID 12/03/21 07/15/23 trazodone 150 mg tablet 150 mg PO HS 01/21/22 07/15/23 acetaminophen 325 mg tablet 325 mg PO QID PRN Pain (Scale 04/03/23 07/15/23 Score 1-3) ergocalciferol (vitamin D2) 1,250 50,000 unit PO DIRECTED 04/03/23 07/15/23 mcg (50,000 unit) capsule omeprazole 20 mg capsule,delayed 20 mg PO BID 04/03/23 07/15/23 release Allergies Allergy/AdvReac Type Severity Reaction Status Date / Time No Known Allergies Allergy Verified 03/24/24 16:23 Review of Systems Review of Systems: All systems reviewed & are unremarkable except as noted in HPI and below Constitutional: Constitutional: Denies chills, Reports fatigue, Denies fever(s) and Reports weakness ENT: Reports system reviewed and no additional complaints, except as documented Cardiovascular: Cardiovascular: Reports no additional cardiovascular complaints Respiratory: Respiratory: Denies cough, Reports dyspnea and Denies wheezing Gastrointestinal: Gastrointestinal: Reports no additional gastrointestinal complaints PMFSH Past Medical History Medical History Anxiety Arthritis Depression Gastroesophageal reflux disease Hyperlipidemia Hypertension Obstructive sleep apnea on CPAP Osteoporosis Polio Stress incontinence Vertigo Surgical History Surgical History History of colonoscopy (01/2022) Internal hemorrhoids. History of esophagogastroduodenoscopy (01/2022) Reflux esophagitis, hiatal hernia, gastric retention, gastritis. History of foot surgery Multiple foot and toe surgeries, reportedly related to polio. History of loop recorder History of open reduction and internal fixation (ORIF) procedure Repair left ankle fracture. Family History Family History Father Hypertension Mother Heart disease Depression Social History Social History Social History: Surrogate medical decision maker: Sharron Vickers, daughter. Code status: Full code. Smoking status: Never smoker Second hand tobacco smoke exposure: No Alcohol intake: current Drinks per week: 1 Alcohol use details: very rare Substance use: never Substance use type: does not use Lack of Transportation: No Lack of Food: Never True Current Housing: I Have Housing Concerned About Future Housing: No Difficulty Paying Gas/Electric Bills: No Difficulty Paying for Meds:
[2024-03-24 16:50] LABS: Alveolar/Arterial O2 Gradient 49.5 mmHg; Base Excess ABG 1.8 mEq/l (+/-2.0); Carboxyhemoglobin 0.7 % THb (0-2.0); Device NASAL CANNULA; Fractional Inspired Oxygen 28 %; HCO3 ABG 27.8 mEq/l (22.0-26.0); Methemoglobin ABG 0.1 %THb (0-1.5); Modified Allen's Test Pass; Oxygen Content ABG 19.7 %vol (16.0-22.0); Oxygen Saturation ABG 96.8 % (95.0-100.0); Oxyhemoglobin 96.4 % THb (90.0-100.0); PCO2 ABG 48.9 mmHg (35.0-45.0); PO2 ABG 92.4 mmHg (80.0-100.0); Reduced Hemoglobin 2.8 %THb (0-5.0); Site Drawn RIGHT RADIAL; Total Hemoglobin 14.5 g/dL (12.0-18.0); pH ABG 7.373 (7.350-7.450)
[2024-03-24 17:25] LABS: Appearance Urine Sl Cloudy (Clear); Color Urine Yellow (Yellow); Specific Grav Ur 1.025 (1.001-1.035)
[2024-03-24 17:26] LABS: Blood Urine Trace-intact (Negative); Glucose Urine UA Negative (Negative); Ketones Urine Trace mg/dL (Negative); Protein Urine 2+ mg/dL (Negative)
[2024-03-24 17:27] LABS: Add Urine Microscopic? YES; Bilirubin Urine 1+ (Negative); Leukocyte Esterase Ur 1+ LEU/UL (Negative); Nitrate Urine Negative (Negative)
[2024-03-24 17:29] LABS: RBC Urine 0-2 /hpf (0-2)
[2024-03-24 17:30] LABS: WBC Urine 51-100 /hpf (0-3)
[2024-03-24 17:31] LABS: Squamous Epithelial Cell Urine Rare /hpf (Few)
[2024-03-24 17:32] LABS: Bacteria Urine 2+ /hpf
[2024-03-24 17:33] LABS: Hyaline Casts Urine 0-2 /lpf
[2024-03-24] MEDS: IPRATROPIUM 0.5 MG/ALBUTEROL SULFATE 2.5 MG AMPUL.NEB 3 ML INHALATION ×2 (17:49→21:16)
--- NOTE | 2024-03-24 18:30 | ADMGEN ---
This patient, Sophia Sánchez, was admitted to Medical Room 256-. Patient/family oriented to hospital policies and general routines including ID bracelet, bed and alarms, visiting hours, pain management, procedures, bathroom and other care routines, personal items, smoking policy, room service/diet, and visiting hours. Information on how to activate the Rapid Response Team has been discussed. Patient/Family are encouraged to report perceived risks to care and to ask questions if they do not understand what they are told or what they should do.
[2024-03-24 18:46] LABS: Influenza A QL RT-PCR Negative (Negative); Influenza B QL RT-PCR Negative (Negative); SARS-CoV-2 RNA PCR Negative (Negative)
--- NOTE | 2024-03-24 20:10 | PM.IMHP ---
H&P: HPI History of Present Illness Date/Time: 03/24/24 20:10 Chief Complaint: Weakness and altered mental status. Narrative: This is a 73-year-old female with hypertension, hyperlipidemia, obstructive sleep apnea on BiPAP, gastroesophageal reflux disease, stress incontinence, anxiety, depression, and polio as a child who presented to the emergency department via EMS from [facility] for evaluation of weakness and altered mental status. She is not able to provide a good history due to her confusion and some of the following is supplemented via a review of her EMR and information provided by her daughter. She has had issues with recurrent urinary tract infections for the last 4 to 5 months and she was last on antibiotics 2 weeks ago. She seems to have gone downhill since that time however over the past 1 week or so she has been increasingly weak and confused. It does not sound as though she has been wearing her BiPAP at home because she keeps telling her daughter it does not fit right. She seems to be getting more short of breath lesser and lesser activity as well. With regards to confusion, this is been an ongoing issue and she is being evaluated for dementia. Her short-term memory seems to be affected the most however she does get periods of confusion in the evenings. There were no reports of fever, vomiting, diarrhea, or sick contacts. She does not know if she has had dysuria. The patient denies headache, vertigo, vision changes, focal weakness, paresthesias, difficulties swallowing and speaking, facial droop, chest pain, cough, abdominal pain, and back pain. No recent head injury. No recent change in medications. In the ED: She was afebrile on arrival with stable blood pressures. SpO2 was 89% on room air. Labs are significant for WBC count of 13.2, BUN 16, creatinine 1.20, AST 78, ALT 77, alkaline phosphatase 134. Urinalysis showed 2+ protein, trace ketones, trace blood, 1+ bilirubin, 1+ leukocyte esterase, 51 to 100 WBC, and 2+ bacteria on microscopy. She tested negative for influenza and COVID. Chest x-ray showed no acute cardiopulmonary disease and small to moderate size hiatal hernia. She was given ceftriaxone 1 g and she is being admitted in this setting for further treatment and evaluation. Review of Systems Review of Systems: 12 systems were reviewed and are negative except for as per HPI. FORMERLY [facility] Past Medical History Medical History (Updated 03/24/24 @ 23:52 by Shirley Orta PA-C) Anxiety Arthritis Depression Gastroesophageal reflux disease Hyperlipidemia Hypertension Obstructive sleep apnea treated with BiPAP Osteoporosis Polio Stress incontinence Vertigo Surgical History Surgical History History of colonoscopy (01/2022) Internal hemorrhoids. History of esophagogastroduodenoscopy (01/2022) Reflux esophagitis, hiatal hernia, gastric retention, gastritis. History of foot surgery Multiple foot and toe surgeries, reportedly related to polio. History of loop recorder History of open reduction and internal fixation (ORIF) procedure Repair left ankle fracture. Family History Family History Father Hypertension Cerebrovascular accident Mother Depression Heart disease Cerebrovascular accident Grandparent Diabetes mellitus Sibling Lung cancer Social History Social History Social History: Surrogate medical decision maker: Sharron Vickers, daughter. Code status: Full code. Smoking status: Never smoker Second hand tobacco smoke exposure: No Alcohol intake: never Drinks per week: 1 Alcohol use details: very rare Substance use: never Substance use type: does not use Do You Feel Safe in your Home?: Yes Lack of Transportation: No Lack of Food: Never True Current Housing: I Have Housing Concerned About Future [place]
[2024-03-25] VITALS (12 sets, daily range): BP systolic 131–139; BP diastolic 66–76; PULSE 71–97; RESP 12–19; TEMP 36.4–36.9; O2SAT 92–96
[2024-03-25] MEDS: SODIUM CHLORIDE 0.9% IV 1,000 ML 100 ML IV CONT (00:37)
[2024-03-25 06:38] LABS: Hematocrit 41.1 % (37.0-47.0); Hemoglobin 12.7 g/dL (12.0-15.0); Mean Corpuscular HGB Conc 30.9 g/dl (32-36); Mean Corpuscular Hemoglobin 30.7 pg (26-34); Mean Corpuscular Volume 99.3 fl (80-100); Mean Platelet Volume 9.5 fl (7.4-10.4); Platelet Count Result 237 k/mm3 (150-375); Red Blood Count 4.14 M/mm3 (4.2-5.4); White Blood Count 8.2 K/mm3 (4.5-10.0)
[2024-03-25 06:57] LABS: Alanine Aminotransferase 69 U/L (6-35); Albumin Level 3.8 g/dL (3.5-5.1); Alkaline Phosphatase 102 U/L (38-126); Anion Gap 10 mmol/L (4-12); Aspartate Amino Transferase 66 U/L (14-36); Bilirubin,Total 0.8 mg/dL (0.2-1.3); Blood Urea Nitrogen 18 mg/dL (7-17); Calcium 8.8 mg/dL (8.4-10.2); Carbon Dioxide 29 mmol/L (22-30); Chloride 100 mmol/L (98-107); Estimated CRCL calculation 58 ml/min; Estimated Glomerular Filt Rate > 60; Glucose 105 mg/dL (65-110); Potassium 3.8 mmol/L (3.4-5.0); Sodium 139 mmol/L (137-145)
[2024-03-25] MEDS: ENOXAPARIN 40 MG/0.4 ML SYRINGE SUB-Q (08:59)
[2024-03-25] MEDS: DONEPEZIL HCL 10 MG TABLET PO (09:00)
[2024-03-25] MEDS: PANTOPRAZOLE 40 MG TABLET PO ×2 (09:00→20:37)
[2024-03-25] MEDS: oxyBUTYnin CHLORIDE XL 5 MG TAB.ER.24 15 MG PO (09:00)
[2024-03-25] MEDS: ATORVASTATIN 20 MG TABLET PO (09:00)
[2024-03-25] MEDS: CALCIUM/VITAMIN D 500 MG/5 MCG (200 I.U.) TABLET PO ×2 (09:00→17:44)
[2024-03-25] MEDS: GABAPENTIN 300 MG CAPSULE PO ×3 (09:00→17:44)
[2024-03-25] MEDS: DULoxetine HCL 30 MG CAPSULE.DR PO (09:00)
[2024-03-25] MEDS: DULoxetine HCL 60 MG CAPSULE.DR PO (09:01)
[2024-03-25] MEDS: METOPROLOL TARTRATE 25 MG TABLET PO (09:01)
[2024-03-25] MEDS: PYRIDOXINE HCL 25 MG TABLET PO (09:02)
[2024-03-25] MEDS: TOLNAFTATE 1% POWDER 45 GM BTL 1 APPLIC TOPICAL ×2 (09:02→20:37)
--- NOTE | 2024-03-25 14:30 | PM.IMPN ---
Progress Note: A&P Assessment and Plan (1) Abnormal urinalysis: Code(s): R82.90 - Unspecified abnormal findings in urine Status: Acute Assessment and Plan: The patient presented to the emergency department for evaluation weakness and confusion. UA is concerning for UTI. UCx collected. Rocephin started. CT Abd/Pelvis showing a 1.7 x 1.5 cm ovoid stone at the right renal pelvis. There is additional 1.3 x 0.8 cm right lower pole renal stone. Probable minimal right hydronephrosis. Punctate nonobstructing left renal stone present. No left hydronephrosis. Does not appear septic. WBC 13K but normal now. Urology consult since may need stent if this worsens. UCx pending. Follow up on UCx results. Check BCx. No old positive cultures. Continue Rocephin (2) Nephrolithiasis: Code(s): N20.0 - Calculus of kidney Status: Acute Assessment and Plan: As above (3) Mild dehydration: Code(s): E86.0 - Dehydration Status: Acute Assessment and Plan: Cr 1.2 with normal BUN. Not on diuretics chronically. Related to poor oral intake. Treated with IV fluids and Cr normal now. Add supplements (4) Hypoxia: Code(s): R09.02 - Hypoxemia Status: Acute Assessment and Plan: Patient with RAMA but not O2 at home. She has been off her CPAP for awhile (if accurate). Was SOB on admission and noted to be hypoxic ABG 7.37/49/92 on 2L. CXR showing no acute cardiopulmonary disease. 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 She probably has underlying dementia since already on Aricept. CT brain showing no acute findings but does show atrophy. TSH normal. Continue to re-orient. Consider polypharmacy and this was addressed with family. Check B12, Folate, VitD (6) Elevated LFTs: Code(s): R79.89 - Other specified abnormal findings of blood chemistry Status: Acute Assessment and Plan: Patient has chronically elevated LFTs which are stable. Viral hepatitis panel negative Jun 2023. Liver appeared normal on CT. Multiple gallstones noted. Hold statin for now to see if this helps with her elevated LFTs. (7) Obstructive sleep apnea treated with BiPAP: Code(s): G47.33 - Obstructive sleep apnea (adult) (pediatric) Status: Acute Assessment and Plan: Resume auto-BiPAP Plan Polio - She had polio as a child and daughter reports that she seems to have gotten progressively weak in her legs over the years but more so over the last 5 months. She does not have focal weakness or deficits on exam. Hold statin and check TCK. Start PT/OT DVT prophylaxis - Lovenox Code status - full Subjective Date/time seen: 03/25/24 14:30 Interval history: 73yo female with hypertension, hyperlipidemia, obstructive sleep apnea on BiPAP, gastroesophageal reflux disease, stress incontinence, anxiety, depression, and polio as a child who presented to the emergency department via EMS from [facility] for evaluation of weakness and altered mental status. She slept poorly last night. Has had trouble walking for 6 months but has not sought help for her inability to get around. She is SOB but has been not wearing her CPAP at night. SHe does not use o2 at home. Has chronic lumbar pain but no new back lamont symptoms. Occasional cough that is nonproductive. No Chest pain. Exam Narrative: AF 97.7 131/76 71 12 96% 2L Gen - NARD Chest - distant clear BS. nml RR CV - RRR S1/S2 Abd - Soft, NT/ND, Positive BS - Padilla secured draining clear yellow urine Ext - No pedal edema. 2+ DP pulses bilaterally. Neuro - Alert but confused. Strength 5-/5 bilateral LE Psych - Nml mood and affect Skin - Warm and dry Objective Data Vital Signs Vital Signs: Vital Sig
[2024-03-25] MEDS: ACETAMINOPHEN 325 MG TABLET 650 MG PO (20:37)
[2024-03-25] MEDS: risperiDONE 1 MG TABLET PO (20:37)
[2024-03-26] VITALS (12 sets, daily range): BP systolic 117–148; BP diastolic 60–70; PULSE 68–102; RESP 13–18; TEMP 36.3–36.7; O2SAT 92–96
[2024-03-26 04:57] LABS: Basophils Absolute Auto 0.1 K/mm3 (0.0-0.1); Basophils Percent Auto 0.7 % (0.2-1.2); Eosinophils Absolute Auto 0.2 K/mm3 (0-0.3); Eosinophils Percent Auto 2.8 % (0-4.4); Hematocrit 39.3 % (37.0-47.0); Hemoglobin 12.5 g/dL (12.0-15.0); Immature Granulocyte Absolute 0.03 K/mm3 (0.00-0.031); Immature Granulocyte Percent A 0.4 % (0-0.5); Lymphocytes Absolute Auto 2.52 K/mm3 (0.9-3.2); Lymphocytes Percent Auto 33.8 % (18.3-44.2); Mean Corpuscular HGB Conc 31.8 g/dl (32-36); Mean Corpuscular Hemoglobin 31.3 pg (26-34); Mean Corpuscular Volume 98.5 fl (80-100); Mean Platelet Volume 9.5 fl (7.4-10.4); Monocytes Absolute Auto 0.7 K/mm3 (0.1-0.6); Neutrophils Percent Auto 53.3 % (45.5-73.1); Platelet Count Result 226 k/mm3 (150-375); Red Blood Count 3.99 M/mm3 (4.2-5.4); Red Cell Distribution Width 12.9 % (11.5-14.5); White Blood Count 7.5 K/mm3 (4.5-10.0)
[2024-03-26 05:17] LABS: Alanine Aminotransferase 83 U/L (6-35); Albumin Level 3.7 g/dL (3.5-5.1); Alkaline Phosphatase 95 U/L (38-126); Anion Gap 5 mmol/L (4-12); Aspartate Amino Transferase 85 U/L (14-36); Bilirubin,Total 0.8 mg/dL (0.2-1.3); Blood Urea Nitrogen 17 mg/dL (7-17); Calcium 9.2 mg/dL (8.4-10.2); Carbon Dioxide 33 mmol/L (22-30); Chloride 99 mmol/L (98-107); Creatine Kinase 173 U/L (30-135); Estimated CRCL calculation 65 ml/min; Estimated Glomerular Filt Rate > 60; Glucose 100 mg/dL (65-110); Phosphorus 3.5 mg/dL (2.5-4.5); Potassium 3.8 mmol/L (3.4-5.0); Sodium 137 mmol/L (137-145)
[2024-03-26 05:27] LABS: Vitamin D 25 Hydroxy 33.2 ng/mL
[2024-03-26 06:14] LABS: Folic Acid 3.3 ng/mL (2.76->20)
[2024-03-26] MEDS: oxyBUTYnin CHLORIDE XL 5 MG TAB.ER.24 15 MG PO (08:53)
[2024-03-26] MEDS: DULoxetine HCL 60 MG CAPSULE.DR PO (08:54)
[2024-03-26] MEDS: METOPROLOL TARTRATE 25 MG TABLET PO (08:54)
[2024-03-26] MEDS: PANTOPRAZOLE 40 MG TABLET PO ×2 (08:54→20:40)
[2024-03-26] MEDS: DULoxetine HCL 30 MG CAPSULE.DR PO (08:54)
[2024-03-26] MEDS: CALCIUM/VITAMIN D 500 MG/5 MCG (200 I.U.) TABLET PO ×2 (08:54→17:38)
[2024-03-26] MEDS: DONEPEZIL HCL 10 MG TABLET PO (08:54)
[2024-03-26] MEDS: PYRIDOXINE HCL 25 MG TABLET PO (08:54)
[2024-03-26] MEDS: GABAPENTIN 300 MG CAPSULE PO ×3 (08:54→17:38)
[2024-03-26] MEDS: TOLNAFTATE 1% POWDER 45 GM BTL 1 APPLIC TOPICAL ×2 (08:55→20:40)
[2024-03-26] MEDS: ENOXAPARIN 40 MG/0.4 ML SYRINGE SUB-Q (08:55)
--- NOTE | 2024-03-26 11:22 | PM.IMPN ---
Progress Note: A&P Assessment and Plan (1) Abnormal urinalysis: Code(s): R82.90 - Unspecified abnormal findings in urine Status: Acute Assessment and Plan: The patient presented to the emergency department for evaluation weakness and confusion. UA is concerning for UTI. UCx collected. Rocephin started. CT Abd/Pelvis showing a 1.7 x 1.5 cm ovoid stone at the right renal pelvis. There is additional 1.3 x 0.8 cm right lower pole renal stone. Probable minimal right hydronephrosis. Punctate nonobstructing left renal stone present. No left hydronephrosis. Does not appear septic. WBC was 13K but normal now. Urology consulted and appreciate their input. UCx negative. BCx pending Continue Rocephin since clinically better but will stop if BCx negative. (2) Nephrolithiasis: Code(s): N20.0 - Calculus of kidney Status: Acute Assessment and Plan: As above (3) Mild dehydration: Code(s): E86.0 - Dehydration Status: Acute Assessment and Plan: Cr 1.2 with normal BUN. Not on diuretics chronically. Related to poor oral intake. Treated with IV fluids and Cr normal now. Off IVF. Add supplements (4) Hypoxia: Code(s): R09.02 - Hypoxemia Status: Acute Assessment and Plan: Patient with RAMA but not O2 at home. She has been off her CPAP for awhile (if accurate). Was SOB on admission and noted to be hypoxic. ABG 7.37/49/92 on 2L. CXR showing no acute cardiopulmonary disease. CTA chest was negative for PE or acute cardiopulmonary disease. Weaned to room air. Follow. (5) Confusion: Code(s): R41.0 - Disorientation, unspecified Status: Acute Assessment and Plan: Patient is alert but confused. She probably has underlying dementia since already on Aricept. CT brain showing no acute findings but does show atrophy. TSH normal. B12, Folate, VitD were normal. Continue to re-orient. Consider polypharmacy and this was addressed with family. (6) Elevated LFTs: Code(s): R79.89 - Other specified abnormal findings of blood chemistry Status: Acute Assessment and Plan: Patient has chronically elevated LFTs which are stable. Viral hepatitis panel negative Jun 2023. Liver appeared normal on CT. Multiple gallstones noted. Holding statin for now to see if this helps with her elevated LFTs. (7) Obstructive sleep apnea treated with BiPAP: Code(s): G47.33 - Obstructive sleep apnea (adult) (pediatric) Status: Acute Assessment and Plan: Resumed auto-BiPAP which she tolerated overnight. Plan Polio - She had polio as a child and daughter reports that she seems to have gotten progressively weak in her legs over the years but more so over the last 5 months. She does not have focal weakness or deficits on exam. CT brain okay. TCK mildly elevated. Holding statin therapy. She was able to ambulate to the BR. Continue PT/OT DVT prophylaxis - Lovenox Code status - full Subjective Date/time seen: 03/26/24 11:22 Interval history: 73yo female with hypertension, hyperlipidemia, obstructive sleep apnea on BiPAP, gastroesophageal reflux disease, stress incontinence, anxiety, depression, and polio as a child who presented to the emergency department via EMS from [facility] for evaluation of weakness and altered mental status. She wore her mask last night. Slept off and on. No Cp or SOB. No n/v. Eating some. Was able to walk to the bathroom. Exam Narrative: AF 97.3 148/69 102 18 95% RA Gen - NARD Chest - CTA bilaterally, nml RR CV - RRR S1/S2. Tele showing no significant dysrhythmias Abd - Soft, NT/ND, Positive BS - Padilla secured draining clear yellow urine Ext - No pedal edema Psych - Nml mood and affect Skin - Warm and dry Objective Data Vital Signs Vital Signs: Vital Signs - 24 hr 03/25/24 14:00 03/25/24 16:00 03/25/24 12:00 Temperature 97.7 F Pulse Rate 71 71
--- NOTE | 2024-03-26 12:30 | WPDURCON ---
Assessment and Plan Assessment and plan (1) Nephrolithiasis: Code(s): N20.0 - Calculus of kidney Status: Acute Assessment and Plan: Given the size of the stones these would require multiple lithotripsies. Have discussed placing a stent to help dilate the ureter and then coming back with the new CVAC ureteral scope which can allow us to suction out fragments at the same time as lithotripsy. She is under agreement at this time will go ahead and schedule a cysto right retrograde right stent for tomorrow. NPO after midnight. 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 Her white count is normal at 7.5 creatinine 0.8. Her urine culture from 03/24 was negative. During her evaluation with a CT scan she was found have a 1.7 x 1.5 cm right renal pelvic stone with mild hydro. She also has a 1.3 x 0.8 right lower pole stone. She really denies any significant flank pain associated with it. Denies any prior history of stones. Review of Systems Review of Systems: All systems reviewed & are unremarkable except as noted in HPI and below PMFSH Past Medical History Medical History Anxiety Arthritis Depression Gastroesophageal reflux disease Hyperlipidemia Hypertension Obstructive sleep apnea treated with BiPAP Osteoporosis Polio Stress incontinence Vertigo Surgical History Surgical History History of colonoscopy (01/2022) Internal hemorrhoids. History of esophagogastroduodenoscopy (01/2022) Reflux esophagitis, hiatal hernia, gastric retention, gastritis. History of foot surgery Multiple foot and toe surgeries, reportedly related to polio. History of loop recorder History of open reduction and internal fixation (ORIF) procedure Repair left ankle fracture. Family History Family History Father Hypertension Cerebrovascular accident Mother Depression Heart disease Cerebrovascular accident Grandparent Diabetes mellitus Sibling Lung cancer Social History Social History Social History: Surrogate medical decision maker: Sharron Vickers, daughter. Code status: Full code. Smoking status: Never smoker Second hand tobacco smoke exposure: No Alcohol intake: never Drinks per week: 1 Alcohol use details: very rare Substance use: never Substance use type: does not use Do You Feel Safe in your Home?: Yes Lack of Transportation: No Lack of Food: Never True Current Housing: I Have Housing Concerned About Future Housing: No Difficulty Paying Gas/Electric Bills: No Difficulty Paying for Meds: No Currently Unemployed: No Education: Trade/Vocational Certificate Difficulty w/ Childcare or Family Care: No Living arrangements: assisted living Additional living arrangements comments: [facility]. Occupation/Education: retired Spiritual care concerns: No Meds Home Medications and Allergies Home Medications Medication Instructions Recorded Confirmed Type alendronate 70 mg tablet 70 mg PO WEEKLY 12/03/21 03/24/24 History atorvastatin 20 mg tablet 20 mg PO DAILY 12/03/21 03/24/24 History celecoxib 100 mg capsule 100 mg PO BID 12/03/21 03/24/24 History duloxetine 60 mg capsule,delayed 60 mg PO DAILY 12/03/21 03/24/24 History release gabapentin 300 mg capsule 300 mg PO TID 12/03/21 03/24/24 History oxybutynin chloride 15 mg 15 mg PO DAILY 12/03/21 03/24/24 History tablet,extended release 24 hr risperidone 1 mg tablet 1 mg PO HS 12/03/21
[2024-03-26 13:41] LABS: Rapid Plasma Reagin Non-Reactive (NonReactive)
[2024-03-26] MEDS: ACETAMINOPHEN 325 MG TABLET 650 MG PO (20:40)
[2024-03-26] MEDS: risperiDONE 1 MG TABLET PO (20:40)
[2024-03-27] VITALS (14 sets, daily range): BP systolic 127–168; BP diastolic 75–98; PULSE 66–88; RESP 10–18; TEMP 36.3–37.2; O2SAT 92–96
[2024-03-27 06:21] LABS: Alanine Aminotransferase 82 U/L (6-35); Albumin Level 3.9 g/dL (3.5-5.1); Alkaline Phosphatase 98 U/L (38-126); Anion Gap 8 mmol/L (4-12); Aspartate Amino Transferase 74 U/L (14-36); Bilirubin,Total 0.8 mg/dL (0.2-1.3); Blood Urea Nitrogen 17 mg/dL (7-17); Calcium 9.5 mg/dL (8.4-10.2); Carbon Dioxide 31 mmol/L (22-30); Chloride 99 mmol/L (98-107); Estimated CRCL calculation 73 ml/min; Estimated Glomerular Filt Rate > 60; Glucose 108 mg/dL (65-110); Potassium 3.8 mmol/L (3.4-5.0); Sodium 138 mmol/L (137-145)
[2024-03-27] MEDS: METOPROLOL TARTRATE 25 MG TABLET PO (09:01)
[2024-03-27] MEDS: GABAPENTIN 300 MG CAPSULE PO ×3 (09:02→17:34)
[2024-03-27] MEDS: DULoxetine HCL 60 MG CAPSULE.DR PO (09:02)
[2024-03-27] MEDS: TOLNAFTATE 1% POWDER 45 GM BTL 1 APPLIC TOPICAL (09:03)
[2024-03-27] MEDS: DONEPEZIL HCL 10 MG TABLET PO (09:03)
[2024-03-27] MEDS: DULoxetine HCL 30 MG CAPSULE.DR PO (09:03)
--- NOTE | 2024-03-27 09:25 | WPDUROPN2 ---
Progress Note: A&P Assessment and Plan (1) Nephrolithiasis: Code(s): N20.0 - Calculus of kidney Status: Acute Assessment and Plan: Given the size of the stones these would require multiple lithotripsies. Have discussed placing a stent to help dilate the ureter and then coming back with the new CVAC ureteral scope which can allow us to suction out fragments at the same time as lithotripsy. KUB with visible right renal stones. Proceed with cystoscopy, right retrograde pyelogram, and right ureteral stent placement today with Dr. Palm. Continue NPO diet. Subjective Subjective Date/Time Seen: 03/27/24 09:25 Interval history: Sophia is doing well today. Reports no concerns. Denies flank pain or back pain. No nausea, vomiting, fever, or chills. Tolerating Padilla catheter without difficulty, draining clear yellow urine. Review of Systems Review of Systems: All systems reviewed & are unremarkable except as noted in HPI and below Exam Narrative: General: Awake, alert, comfortable, no acute distress HEENT: Normocephalic, atraumatic, sclerae anicteric Respiratory: Normal respiratory effort, no accessory muscle use Abdomen: Nondistended, soft, nontender : Padilla catheter draining clear yellow urine Skin: Normal coloration, warm and dry Neurologic: No focal neuro deficits noted Psychiatric: Appropriate mood and affect, judgment and insight intact Objective Data Vital Signs Vital Signs: Vital Signs - 24 hr 03/26/24 12:00 03/26/24 14:00 03/26/24 20:00 Temperature 98.1 F Pulse Rate 75 74 76 Respiratory Rate 16 17 Blood Pressure 117/70 Pulse Oximetry 94 95 Oxygen Delivery Room Air Fraction of Inspired Oxygen 21 03/26/24 20:44 03/26/24 22:49 03/27/24 02:33 Temperature 97.3 F L Pulse Rate 76 92 87 Respiratory Rate 16 13 16 Blood Pressure 136/60 Pulse Oximetry 93 96 96 Oxygen Delivery Autopap Autopap Fraction of Inspired Oxygen 03/27/24 05:23 03/27/24 07:48 03/27/24 08:15 Temperature 97.3 F L Pulse Rate 82 Respiratory Rate 18 Blood Pressure 135/77 Pulse Oximetry 93 94 Oxygen Delivery Room Air Room Air Fraction of Inspired Oxygen 03/27/24 09:01 03/27/24 09:10 Temperature Pulse Rate 88 88 Respiratory Rate Blood Pressure 150/80 H Pulse Oximetry Oxygen Delivery Fraction of Inspired Oxygen Intake/Output Intake/Output: Intake & Output 03/24/24 03/25/24 03/26/24 03/27/24 23:59 23:59 23:59 23:59 Intake Total 50 1770 1202 50 Output Total 50 825 850 500 Balance 0 945 352 -450 Meds/Results Medications: Active Medications Generic Name Dose Route Start Last Admin Trade Name Freq PRN Reason Stop Dose Admin Acetaminophen 650 mg 03/24/24 23:57 03/26/24 20:40 Acetaminophen 325 Mg Tablet PO 650 mg Q6H PRN Administration Mild Pain (1-3) or Fever Albuterol/Ipratropium 3 ml 03/24/24 23:57 Ipratropium 0.5 Mg/Albuterol Sulfate 2.5 Mg Ampul.Neb 3 Ml INHALATION Q6HRT PRN Shortness Of Breath Or Wheezing Atorvastatin Calcium 20 mg 03/25/24 09:00 03/25/24 09:00 Atorvastatin 20 Mg Tablet PO 20 mg DAILY ILDEFONSO Administration Calcium Carbonate 500 mg 03/25/24 09:00 03/27/24 07:28 Calcium/Vitamin D 500 Mg/5 Mcg (200 I.U.) Tablet PO 04/24/24 08:59 Not Given BID ILDEFONSO Donepezil HCl 10 mg 03/25/24 09:00 03/27/24 09:03 Donepezil Hcl 10 Mg Tablet PO 10 mg DAILY ILDEFONSO Administration Duloxetine HCl 30 mg 03/25/24 09:00 03/27/24 09:03 Duloxetine Hcl 30 Mg Capsule. PO 30 mg DAILY ILDEFONSO Administration Duloxetine HCl 60 mg 03/25/24 09:00 03/27/24 09:02 Duloxetine Hcl 60 Mg Capsule. PO 60 mg DAILY ILDEFONSO Administration Enoxaparin Sodium 40 mg 03/25/24 09:00 03/27/24 07:29 Enoxaparin 40 Mg/0.4 Ml Syringe SUB-Q Not Given DAILY ILDEFONSO Gabapentin 300 mg 03/25/24 09:00 03/27/24 09:02 Gabapentin 300 Mg Capsule PO 300 mg TID ILDEFONSO Administration Cef
--- NOTE | 2024-03-27 09:35 | PC.NURSE ---
Patient off floor to OR via bed. Report given to Ninfa CORTES.
--- NOTE | 2024-03-27 09:39 | WPDHPUPDATE1 ---
History and Physical Update Update Date/Time: 03/27/24 09:39 History and Physical has been reviewed, including an updated exam of the patient. There are NO changes in the patient's condition. Risks, benefits, and alternatives have been discussed and questions answered. Patient agrees to proceed with procedure. Proceed with cysto, right retrograde, right stent placement
[2024-03-27] MEDS: LACTATED RINGERS 1,000 ML 30 ML IV CONT (09:40)
--- NOTE | 2024-03-27 10:43 | WPDANESEPPF ---
Anes - Initial Pre Proc Eval Procedure: Operation Date: 03/27/24 11:00 Proposed Procedures p Cystoscopy, Right Retrograde Pyelogram, Right Stent Placement - Wilder Palm MD Date/Time: 03/27/24 10:43 Surgeon: Mello Tripp MD Pre Op Diagnosis: hypoxia,uti Patient Data Age: 73 Gender: F Height: 1.65 m Weight: 102.8 kg Last Vital Signs Temp 37.0 C 03/27/24 09:56 Pulse 85 03/27/24 09:56 Resp 18 03/27/24 09:56 BP 160/89 H 03/27/24 09:56 Pulse Ox 92 03/27/24 09:56 O2 Del Method Room Air 03/27/24 09:56 O2 Flow Rate 2 03/25/24 20:00 FiO2 21 03/26/24 20:00 Allergies Allergy/AdvReac Type Severity Reaction Status Date / Time No Known Allergies Allergy Verified 03/27/24 09:54 Home Medications Medication Instructions Recorded Confirmed Type alendronate 70 mg tablet 70 mg PO WEEKLY 12/03/21 03/24/24 History atorvastatin 20 mg tablet 20 mg PO DAILY 12/03/21 03/24/24 History celecoxib 100 mg capsule 100 mg PO BID 12/03/21 03/24/24 History duloxetine 60 mg capsule,delayed 60 mg PO DAILY 12/03/21 03/24/24 History release gabapentin 300 mg capsule 300 mg PO TID 12/03/21 03/24/24 History oxybutynin chloride 15 mg 15 mg PO DAILY 12/03/21 03/24/24 History tablet,extended release 24 hr risperidone 1 mg tablet 1 mg PO HS 12/03/21 03/24/24 History tramadol 50 mg tablet 50 mg PO BID PRN Pain 12/03/21 03/24/24 History trazodone 150 mg tablet 150 mg PO HS PRN Sleep 01/21/22 03/24/24 History acetaminophen 325 mg tablet 650 mg PO QID PRN Pain (Scale 04/03/23 03/24/24 History Score 1-3) omeprazole 20 mg capsule,delayed 20 mg PO BID 04/03/23 03/24/24 History release tolnaftate 1 % topical powder 1 applic topical Q12HR #45 grams 04/06/23 03/24/24 Rx albuterol sulfate 90 mcg/actuation 2 puff inhalation Q6HRT PRN 07/20/23 03/24/24 Rx aerosol inhaler (Proventil HFA) shortness of breath or wheezing #8.5 grams bismuth subsalicylate 262 mg/15 mL 524 mg PO QID PRN Indigestion 03/24/24 03/24/24 History oral suspension (Stomach Relief) calcium carbonate 600 mg-vitamin 1 tablet PO BID 03/24/24 03/24/24 History D3 20 mcg (800 unit) tablet cyclobenzaprine 5 mg tablet 5 mg PO TID PRN Muscle Spasm 03/24/24 03/24/24 History donepezil 10 mg tablet 10 mg PO DAILY 03/24/24 03/24/24 History duloxetine 30 mg capsule,delayed 30 mg PO DAILY 03/24/24 03/24/24 History release ergocalciferol (vitamin D2) 1,250 1,250 mcg PO WEEKLY 03/24/24 03/24/24 History mcg (50,000 unit) capsule metoprolol tartrate 25 mg tablet 25 mg PO DAILY 03/24/24 03/24/24 History nitroglycerin 0.4 mg sublingual 0.4 mg sublingual Q5MIN 03/24/24 03/24/24 History tablet oxycodone-acetaminophen 5 mg-325 1 tablet PO Q4H PRN Pain 03/24/24 03/24/24 History mg tablet polyethylene glycol 3350 17 gram 17 g PO DAILY PRN Constipation 03/24/24 03/24/24 History oral powder packet pyridoxine (vitamin B6) 50 mg 25 mg PO DAILY 03/24/24 03/24/24 History tablet (Vitamin B-6) Laboratory Tests 03/26/24 03/27/24 04:36 06:02 Sodium 138 mmol/L (137-145) Potassium 3.8 mmol/L (3.4-5.0) Chloride 99 mmol/L (98-107) Carbon Dioxide 31 H mmol/L (22-30) Anion Gap 8 mmol/L (4-12) BUN 17 mg/dL (7-17) Creatinine 0.70 mg/dL (0.7-1.0) Estim Creat Clear Calc 73 ml/min Estimated GFR > 60 (59 - ) Glucose 108 mg/dL (65-110) Calcium 9.5 mg/dL (8.4-10.2) Total Bilirubin 0.8 mg/dL (0.2-1.3) AST 74 H U/L (14-36) ALT 82 H U/L (6-35) Alkaline Phosphatase 98 U/L (38-126) Total Protein 7.0 g/dL (6.3-8.2) Albumin 3.9 g/dL (3.5-5.1) RPR Non-reactive (NonReactive) Patient hx anesthesia problems: none Family hx anesthesia problems: none Results Review: All pre-operative results and documents have been reviewed as part of the pre-operative evaluation. PMF Past Me
[2024-03-27] MEDS: LIDOCAINE HCL 2% GEL UROJET 10 ML PKG MUCOUS MEM (11:07)
--- NOTE | 2024-03-27 11:13 | P.OP_ITS ---
Procedure Note - Detailed Date of Procedure 03/27/24 Pre-op Diagnosis Right renal calculi Post-op Diagnosis Same Procedure Performed Cystoscopy, right retrograde pyelogram, right ureteral stent placement 6 [place] contour Surgeon Wilder Palm MD Anesthesia General Description of Procedure Patient was taken to the operative suite correctly identified. Once anesthesia was obtained she was placed in dorsal lithotomy position and prepped draped usual sterile fashion. Prior Padilla was removed. Twenty-two [place]i scope was inserted into the bladder. There were no tumors noted. Right ureteral orifice was cannulated with a [place] and a pyelogram was performed. Contrast made its way up into the kidney. Six [place]i contour stent was then passed over a Sensor wire. The proximal end was coiled in pelvis bladder. Bladder was drained. Sixteen [place] Padilla was placed with 10 cc in the balloon. She was taken recovery stable condition. Plan is to address the stones in a couple of weeks. This completes dictation. Please send a copy of op note to my office. Estimated Blood Loss 0 Urine Output 50 Drains Yes Packing No Pathology None sent Complications No immediate complications Condition Stable Disposition PACU
--- NOTE | 2024-03-27 15:12 | PC.NURSE ---
On 03/27/24, the student, [Margaret Herrmann], provided care and completed [facility] documentation on this patient. I have reviewed the student's documentation and agree with the findings.
--- NOTE | 2024-03-27 15:42 | PM.DS ---
DS: Admitting Diagnosis Discharge Date 03/27/24 Admitting Diagnosis Weakness DS: Discharge Diagnosis Discharge Diagnosis (1) Abnormal urinalysis: Code(s): R82.90 - Unspecified abnormal findings in urine Status: Acute (2) Nephrolithiasis: Code(s): N20.0 - Calculus of kidney Status: Acute (3) Mild dehydration: Code(s): E86.0 - Dehydration Status: Acute (4) Hypoxia: Code(s): R09.02 - Hypoxemia Status: Acute (5) Confusion: Code(s): R41.0 - Disorientation, unspecified Status: Acute (6) Elevated LFTs: Code(s): R79.89 - Other specified abnormal findings of blood chemistry Status: Acute (7) Obstructive sleep apnea treated with BiPAP: Code(s): G47.33 - Obstructive sleep apnea (adult) (pediatric) Status: Acute DS: Summary Hospital Course Reason for hospitalization: 73yo female with hypertension, hyperlipidemia, obstructive sleep apnea on BiPAP, gastroesophageal reflux disease, stress incontinence, anxiety, depression, and polio as a child who presented to the emergency department via EMS from [facility] for evaluation of weakness and altered mental status. Please see H&P for details. Hospital Course: The patient presented to the emergency department for evaluation weakness and confusion. UA is concerning for UTI. UCx collected. Rocephin started. CT Abd/Pelvis showing a 1.7 x 1.5 cm ovoid stone at the right renal pelvis. There is additional 1.3 x 0.8 cm right lower pole renal stone. Probable minimal right hydronephrosis. Punctate nonobstructing left renal stone present. No left hydronephrosis. She was not septic. WBC was 13K but normalized. Urology consulted and appreciate their input. Padilla catheter placed for urine retention. UCx negative. BCx NGTD. She had mild dehydration with Cr 1.2 with normal BUN. Not on diuretics chronically. [place] related to poor oral intake. Treated with IV fluids and Cr normal now. Supplements were added. Patient with RAMA but not O2 at home. She has been off her CPAP for awhile. Was SOB on admission and noted to be hypoxic. ABG 7.37/49/92 on 2L. CXR showing no acute cardiopulmonary disease. CTA chest was negative for PE or acute cardiopulmonary disease. No evidence of weak diaphragm. Weaned to room air. Resumed auto-BiPAP which she tolerated. Patient is alert but confused. She probably has underlying dementia since already on Aricept. CT brain showing no acute findings but does show atrophy. TSH normal. B12, Folate, VitD were normal. Consider polypharmacy and this was addressed with family. Patient has chronically elevated LFTs which are stable. Viral hepatitis panel negative Jun 2023. Liver appeared normal on CT. Multiple gallstones noted. She had polio as a child and daughter reports that she seems to have become progressively weak in her legs over the years but more so over the last 5 months. She does not have focal weakness or deficits on exam. CT brain okay. TCK mildly elevated. Holding statin therapy. She was able to ambulate to the BR with therapy. We removed the Padilla and she was able to void. Bladder scan (PVR) was 15mL. She overall did well and was able to be discharged home on 03/27/24. Status at Discharge Cognitive/behavioral status at discharge: stable Time Spent with Patient Time attestation: Total time spent providing and/or coordinating discharge services: 34 minutes Time spent: Greater than 30 minutes Exam Narrative: AF 98.7 155/98 71 15 95% Gen - NARD Chest - CTA bilaterally, nml RR CV - RRR S1/S2 Abd - Soft, NT/ND, Positive BS - Padilla secured draining clear yellow urine Ext - No pedal edema Psych - Nml mood and affect Skin - Warm and dry DS: Data Data Completed and Pending Labs on day of discharge: Labs from last 24 hours 03/27/24 06:02 Sodium 138 Potassium 3.8 Chloride 99 Carbon Dioxide 31 H Anion Gap 8 BUN 17 Creatinine 0.70 Estim Creat Clear
[2024-03-27] MEDS: CALCIUM/VITAMIN D 500 MG/5 MCG (200 I.U.) TABLET PO (17:34)
== END 2024-03-27 18:40 | DRG 661 ==
LOC: ANHED 17:49 → ANH2MED 18:01
PROVIDERS: Emergency Medicine; Physician Assistant; Urology; Admitting Provider General Practice; Emergency Provider Emergency Medicine; Visit Provider Internal Medicine
PROC: 0T768DZ Dilation of Right Ureter with Intraluminal Device, Via Natural or Artificial Opening Endoscopic (ICD-10-PCS; CPT 52352; principal; 2024-03-27 11:00)
DX: N13.2 Hydronephrosis with renal and ureteral calculous obstruction (principal); E86.0 Dehydration; R09.02 Hypoxemia; R41.0 Disorientation, unspecified; R79.89 Other specified abnormal findings of blood chemistry; G47.33 Obstructive sleep apnea (adult) (pediatric); R82.90 Unspecified abnormal findings in urine; I10 Essential (primary) hypertension; K21.9 Gastro-esophageal reflux disease without esophagitis; N39.3 Stress incontinence (female) (male); E66.9 Obesity, unspecified; K80.20 Calculus of gallbladder without cholecystitis without obstruction; F03.90 Unspecified dementia, unspecified severity, without behavioral disturbance, psychotic disturbance, mood disturbance, and anxiety; M19.90 Unspecified osteoarthritis, unspecified site; M81.0 Age-related osteoporosis without current pathological fracture; E78.5 Hyperlipidemia, unspecified; Z68.37 Body mass index [BMI] 37.0-37.9, adult; Z86.12 Personal history of poliomyelitis; Z20.822 Contact with and (suspected) exposure to COVID-19
CPT/HCPCS: 36415; 36600; 70450; 71046; 71275; 74018; 74176; 74420; 80053; 81001; 82306; 82375; 82550; 82607; 82746; 82805; 83050; 83735; 84100; 84443; 85025; 85027; 86592; 87040; 87086; 87636; 93005; 94640; 96361; 96365; 96372; 97161; 97165; 99285; A9270; C1758; C1769; C2617; G0378; J0696; J1650; J2405; J2704; J3010; J7030; J7120; Q9966; Q9967

== ENCOUNTER 2024-05-09 12:31 | Emergency (ER) | payer MEDICARE, MEDICAID, SELFPAY ==
[2024-05-09] VITALS (8 sets, daily range): BP systolic 139–154; BP diastolic 73–100; PULSE 77–86; RESP 12–19; TEMP 36.6; O2SAT 93–100
--- NOTE | ~2024-05-09 | XR_ITS ---
XR wrist RT min 3V Ordering provider: Modesto Hooper APRN History: . Right wrist pain . Comparison: None. FINDINGS: BONES: No acute fracture or dislocation. No definite scaphoid fracture. Slight widening of the dista nce between the scaphoid and lunate which may indicate ligamentous injury. JOINT SPACES: Narrowing of the radiocarpal joint. SOFT TISSUES: Normal. IMPRESSION: No acute osseous abnormality right wrist. Widening of the distance between the lunate and scaphoid which may indicate ligamentous injury. Reviewed, dictated and finalized at location A. IMPRESSION: No acute osseous abnormality right wrist. Widening of the distance between the lunate and scaphoid which may indicate lig amentous injury.
--- NOTE | 2024-05-09 13:09 | ED.GENADULT ---
HPI - General Adult General Chief complaint: Altered Mental Status Stated complaint: AMS Time Seen by Provider: 05/09/24 12:57 History of Present Illness HPI narrative: 73-year-old female presents accompanied by daughter after patient sustained the same level fall today. Patient states she was walking with her walker outside and hit a curb which caused her to fall. Patient denies hitting head or LOC. patient is complaining of right wrist pain. Patient denies any other pain. Daughter's concern patient has UTI due to increased confusion over the last couple days. Patient has a history of UTIs and is scheduled to have urology procedure to help decrease these at the end of the month Related Data Home Medications Medication Instructions Recorded Confirmed alendronate 70 mg tablet 70 mg PO WEEKLY 12/03/21 03/24/24 atorvastatin 20 mg tablet 20 mg PO DAILY 12/03/21 03/24/24 celecoxib 100 mg capsule 100 mg PO BID 12/03/21 03/24/24 duloxetine 60 mg capsule,delayed 60 mg PO DAILY 12/03/21 03/24/24 release gabapentin 300 mg capsule 300 mg PO TID 12/03/21 03/24/24 oxybutynin chloride 15 mg 15 mg PO DAILY 12/03/21 03/24/24 tablet,extended release 24 hr risperidone 1 mg tablet 1 mg PO HS 12/03/21 03/24/24 tramadol 50 mg tablet 50 mg PO BID PRN Pain 12/03/21 03/24/24 trazodone 150 mg tablet 150 mg PO HS PRN Sleep 01/21/22 03/24/24 acetaminophen 325 mg tablet 650 mg PO QID PRN Pain (Scale 04/03/23 03/24/24 Score 1-3) omeprazole 20 mg capsule,delayed 20 mg PO BID 04/03/23 03/24/24 release bismuth subsalicylate 262 mg/15 mL 524 mg PO QID PRN Indigestion 03/24/24 03/24/24 oral suspension (Stomach Relief) calcium 600 mg (as 1 tablet PO BID 03/24/24 03/24/24 carbonate)-vitamin D3 20 mcg (800 unit) tablet cyclobenzaprine 5 mg tablet 5 mg PO TID PRN Muscle Spasm 03/24/24 03/24/24 donepezil 10 mg tablet 10 mg PO DAILY 03/24/24 03/24/24 duloxetine 30 mg capsule,delayed 30 mg PO DAILY 03/24/24 03/24/24 release ergocalciferol (vitamin D2) 1,250 1,250 mcg PO WEEKLY 03/24/24 03/24/24 mcg (50,000 unit) capsule metoprolol tartrate 25 mg tablet 25 mg PO DAILY 03/24/24 03/24/24 nitroglycerin 0.4 mg sublingual 0.4 mg sublingual Q5MIN 03/24/24 03/24/24 tablet oxycodone-acetaminophen 5 mg-325 1 tablet PO Q4H PRN Pain 03/24/24 03/24/24 mg tablet polyethylene glycol 3350 17 gram 17 g PO DAILY PRN Constipation 03/24/24 03/24/24 oral powder packet pyridoxine (vitamin B6) 50 mg 25 mg PO DAILY 03/24/24 03/24/24 tablet (Vitamin B-6) Allergies Allergy/AdvReac Type Severity Reaction Status Date / Time No Known Allergies Allergy Verified 03/27/24 09:54 Review of Systems Review of Systems: A 10 system review of systems was completed on the patient and is negative except for what is stated in the HPI. Nursing and ancillary documentation was reviewed. [facility] Past Medical History Medical History Anxiety Arthritis Depression Gastroesophageal reflux disease Hyperlipidemia Hypertension Obstructive sleep apnea treated with BiPAP Osteoporosis Polio Stress incontinence Vertigo Surgical History Surgical History History of colonoscopy (01/2022) Internal hemorrhoids. History of esophagogastroduodenoscopy (01/2022) Reflux esophagitis, hiatal hernia, gastric retention, gastritis. History of foot surgery Multiple foot and toe surgeries, reportedly related to polio. History of loop recorder History of open reduction and internal fixation (ORIF) procedure Repair left ankle fracture. Family History Family History Father Hypertension Cerebrovascular accident Mother Depression Heart disease Cerebrovascular accident Grandparent Diabetes mellitus Sibling Lung cancer Social History Social History (Reviewed 03/27/24 @ 10:43 by Cory
[2024-05-09 13:45] LABS: Basophils Absolute Auto 0.1 K/mm3 (0.0-0.1); Basophils Percent Auto 0.8 % (0.2-1.2); Eosinophils Absolute Auto 0.1 K/mm3 (0-0.3); Eosinophils Percent Auto 0.9 % (0-4.4); Hematocrit 42.1 % (37.0-47.0); Hemoglobin 13.7 g/dL (12.0-15.0); Immature Granulocyte Absolute 0.05 K/mm3 (0.00-0.031); Immature Granulocyte Percent A 0.5 % (0-0.5); Lymphocytes Absolute Auto 2.19 K/mm3 (0.9-3.2); Lymphocytes Percent Auto 23.7 % (18.3-44.2); Mean Corpuscular HGB Conc 32.5 g/dl (32-36); Mean Corpuscular Hemoglobin 31.4 pg (26-34); Mean Corpuscular Volume 96.6 fl (80-100); Mean Platelet Volume 9.6 fl (7.4-10.4); Monocytes Absolute Auto 0.8 K/mm3 (0.1-0.6); Monocytes Percent Auto 8.8 % (2.6-8.5); Neutrophils Percent Auto 65.3 % (45.5-73.1); Platelet Count Result 273 k/mm3 (150-375); Red Blood Count 4.36 M/mm3 (4.2-5.4); Red Cell Distribution Width 12.6 % (11.5-14.5); White Blood Count 9.2 K/mm3 (4.5-10.0)
[2024-05-09 13:53] LABS: Alanine Aminotransferase 65 U/L (6-35); Albumin Level 4.3 g/dL (3.5-5.1); Alkaline Phosphatase 91 U/L (38-126); Anion Gap 7 mmol/L (4-12); Aspartate Amino Transferase 72 U/L (14-36); Bilirubin,Total 0.6 mg/dL (0.2-1.3); Blood Urea Nitrogen 15 mg/dL (7-17); Calcium 9.6 mg/dL (8.4-10.2); Carbon Dioxide 31 mmol/L (22-30); Chloride 100 mmol/L (98-107); Estimated Glomerular Filt Rate > 60; Glucose 106 mg/dL (65-110); Magnesium 1.8 mg/dL (1.6-2.3); Potassium 4.4 mmol/L (3.4-5.0); Sodium 138 mmol/L (137-145)
--- NOTE | 2024-05-09 14:17 | PC.NURSE ---
patient was only able to provide a small amount of urine for UA. lab states it was not enough for a sample. bladder scanned patient multiple times and it stated only 3ml of urine in the bladder. applied purwick for patient comfort because they have urinary frequency and dribbling.
--- NOTE | 2024-05-09 15:30 | PC.NURSE ---
the ED does not supply wrist stabilizing splint. provider okayed applying meggan wrap to the right wrist. educated family where they are able to find a wrist splint for purchase. cms intact after intervention.
[2024-05-09] MEDS: SODIUM CHLORIDE 0.9% IV 500 ML 999 ML IV CONT (15:38)
[2024-05-09 15:40] LABS: Add Urine Microscopic? YES; Appearance Urine Clear (Clear); Bacteria Urine None Seen /hpf; Bilirubin Urine Negative (Negative); Blood Urine 3+ (Negative); Color Urine Yellow (Yellow); Glucose Urine UA Negative (Negative); Ketones Urine Negative (Negative); Leukocyte Esterase Ur 2+ LEU/UL (Negative); Nitrate Urine Negative (Negative); Non Pathogenic Casts 0-2; Protein Urine 2+ mg/dL (Negative); RBC Urine >100 /hpf (0-2); Specific Grav Ur 1.016 (1.001-1.035); Squamous Epithelial Cell Urine None Seen /hpf (Few); Urobilinogen Urine 0.2 mg/dL (<2.0); WBC Urine 21-50 /hpf (0-3); pH Urine 7.5 (5.0-9.0)
--- NOTE | 2024-05-09 15:40 | PC.NURSE ---
patient has only produced a small amount of urine in the suction canister. assessed purwick that it is still in the right place and collecting urine as it should. provider ordered IV fluid bolus in attempt to assist hydrating patient and producing urine for a UA.
== END 2024-05-09 16:15 | disposition home or self-care (01) ==
PROVIDERS: Emergency Provider Nurse Practitioner Family
DX: S69.91XA Unspecified injury of right wrist, hand and finger(s), initial encounter (principal); N39.0 Urinary tract infection, site not specified; W10.1XXA Fall (on)(from) sidewalk curb, initial encounter
CPT/HCPCS: 29125; 36415; 73110; 80053; 81001; 83735; 85025; 87086; 96360; 99283; J7030

== ENCOUNTER 2024-05-22 00:33 | Day surgery (SDC) | payer MEDICARE, MEDICAID, SELFPAY ==
[2024-05-11 15:25] VITALS: BMI 37.4
--- NOTE | 2024-05-11 15:44 | PC.NURSE ---
Addendum entered by Karen Velásquez RN 05/11/24 16:16: faxed this to [facility] for their instructions. Original Note: Report to the Outpatient Waiting Room, entrance under the green pavilion located off [facility], at time __06:00am_ on date 05/22/24 . Planned Procedure Time: __07:30am .? Time changes happen often and if your time is changed the preop area will call you the afternoon before. - You and your visitor will be asked to self-screen and do not enter if you have any COVID symptoms. Please call surgeon if you need to reschedule. - A mask is optional within the hospital at this time. Patients may have clear liquids (water, carbonated beverages, clear teas, apple juice) until 3 hours prior to surgery with a maximum of 20 ounces. - No food from midnight until time of surgery and no smoking Take only the following medications with a SIP of water on the morning of surgery: ___Metoprolol, Duloxetine, Gabapentin, Oxycodone or Tramadol as needed, albuteral if needed DO NOT STOP ANY OF YOUR OTHER PRESCRIPTION MEDICATIONS PRIOR TO SURGERY EXCEPT THE FOLLOWING Medications to discontinue per physician ____Hold all vitamins and supplements 3 days prior per Anesthesia Date to take last dose____05/18/24 Please no make-up, nail nepali, hairspray, perfume, deodorant, or body powder the day of surgery.? No jewelry (including any body piercings) or valuables the day of surgery, leave them at home.? Please take a shower or bath the night before, or the morning of, surgery with an antibacterial soap.? Wear comfortable, loose fitting clothing.? - Jewelry must be removed prior to entering the operating room.? Rings and piercings that are not removed may be cut off. - The hospital will not accept responsibility for valuables.? - Please leave all valuables, including medications, at home the day of surgery. If you are going home after surgery, a licensed hazmat cdl driver must drive you home.? - NO public transportation without another adult if you receive anesthesia. - We recommend that an adult stay with you for 24 hours following discharge. - We also recommend that you do not drive, make important decision, drink alcoholic beverages, or take any drugs that were not prescribed by your health care provider for at least 24 hours after your discharge time. Follow any additional instructions given to you from your surgeon. Telephone instructions given to __Daughter- Sharron and asked if any additional questions and then verbalized understanding. Patient advised to call surgeon office or pre surgery nurse liaison [phone] if any additional questions.
[2024-05-22] VITALS (10 sets, daily range): BP systolic 134–172; BP diastolic 64–91; PULSE 81–102; RESP 12–20; TEMP 36.1–36.3; O2SAT 91–97
--- NOTE | ~2024-05-22 | XR_ITS ---
EXAMINATION: XR retrograde pyelo w/stent RT DATE: 05/22/2024 09:03 INDICATION: Right kidney stone. TECHNIQUE: 7 intraoperative fluoroscopic views of the abdomen and pelvis were obtained. I was not pre sent. Fluoroscopy exposure time was 21 seconds. COMPARISON: CT abdomen and pelvis 03/25/2024 FINDINGS: The initial images demonstrate a right internal ureteral stent in expected position. There is an 18 mm stone in right renal pelvis. The right-sided retrograde pyelogram demonstrates mild hydro nephrosis. Images demonstrate removal of the stone. The final images demonstrate a right internal ure teral stent in expected position. IMPRESSION: 1. Right kidney stone status post extraction. 2. Right internal ureteral stent in expected position. Reviewed, dictated and finalized at location B.
[2024-05-22] MEDS: LACTATED RINGERS 1,000 ML 30 ML IV CONT (07:00)
--- NOTE | 2024-05-22 07:19 | P.PNAN_ITS ---
Anes - Initial Pre Proc Eval Procedure: Operation Date: 05/22/24 07:30 Proposed Procedures p Cystoscopy, Right Ureteroscopy, Right Retrograde Pyelogram, Right Stone Extraction, Right Stent Exchange with CVac - Wilder aPlm MD Date/Time: 05/22/24 07:19 Surgeon: Wilder Palm MD Pre Op Diagnosis: Renal Kidney Stone Patient Data Age: 73 Gender: F Height: 1.65 m Weight: 100.7 kg Last Vital Signs Temp 36.1 C L 05/22/24 06:30 Pulse 94 05/22/24 06:30 Resp 14 05/22/24 06:30 BP 153/91 H 05/22/24 06:30 Pulse Ox 95 05/22/24 06:30 O2 Del Method Room Air 05/22/24 06:30 Allergies Allergy/AdvReac Type Severity Reaction Status Date / Time No Known Allergies Allergy Verified 05/22/24 07:19 Home Medications Medication Instructions Recorded Confirmed Type alendronate 70 mg tablet 70 mg PO WEEKLY 12/03/21 05/11/24 History atorvastatin 20 mg tablet 20 mg PO DAILY 12/03/21 05/11/24 History celecoxib 100 mg capsule 100 mg PO BID 12/03/21 05/11/24 History duloxetine 60 mg capsule,delayed 60 mg PO DAILY 12/03/21 05/11/24 History release gabapentin 300 mg capsule 300 mg PO TID 12/03/21 05/11/24 History oxybutynin chloride 15 mg 15 mg PO DAILY 12/03/21 05/11/24 History tablet,extended release 24 hr risperidone 1 mg tablet 1 mg PO HS 12/03/21 05/11/24 History tramadol 50 mg tablet 50 mg PO BID PRN Pain 12/03/21 05/11/24 History trazodone 150 mg tablet 150 mg PO HS PRN Sleep 01/21/22 05/11/24 History acetaminophen 325 mg tablet 650 mg PO QID PRN Pain (Scale 04/03/23 05/11/24 History Score 1-3) omeprazole 20 mg capsule,delayed 20 mg PO BID 04/03/23 05/11/24 History release tolnaftate 1 % topical powder 1 applic topical Q12HR #45 grams 04/06/23 05/11/24 Rx albuterol sulfate 90 mcg/actuation 2 puff inhalation Q6HRT PRN 07/20/23 05/11/24 Rx aerosol inhaler (Proventil HFA) shortness of breath or wheezing #8.5 grams calcium 600 mg (as 1 tablet PO BID 03/24/24 05/11/24 History carbonate)-vitamin D3 20 mcg (800 unit) tablet cyclobenzaprine 5 mg tablet 5 mg PO TID PRN Muscle Spasm 03/24/24 05/11/24 History donepezil 10 mg tablet 10 mg PO DAILY 03/24/24 05/11/24 History duloxetine 30 mg capsule,delayed 30 mg PO DAILY 03/24/24 05/11/24 History release ergocalciferol (vitamin D2) 1,250 1,250 mcg PO WEEKLY 03/24/24 05/11/24 History mcg (50,000 unit) capsule metoprolol tartrate 25 mg tablet 25 mg PO DAILY 03/24/24 05/11/24 History nitroglycerin 0.4 mg sublingual 0.4 mg sublingual Q5MIN 03/24/24 05/11/24 History tablet oxycodone-acetaminophen 5 mg-325 1 tablet PO Q4H PRN Pain 03/24/24 05/11/24 History mg tablet polyethylene glycol 3350 17 gram 17 g PO DAILY PRN Constipation 03/24/24 05/11/24 History oral powder packet pyridoxine (vitamin B6) 50 mg 25 mg PO DAILY 03/24/24 05/11/24 History tablet (Vitamin B-6) cephalexin 500 mg capsule 500 mg PO Q12H #14 caps 05/09/24 05/11/24 Rx folic acid 1 mg tablet 1 mg PO DAILY 05/11/24 05/11/24 History Patient hx anesthesia problems: none Family hx anesthesia problems: none Results Review: All pre-operative results and documents have been reviewed as part of the pre- operative evaluation. [facility] Past Medical History Medical History Anxiety Arthritis Depression Gastroesophageal reflux disease Hyperlipidemia Hypertension Obstructive sleep apnea treated with BiPAP Osteoporosis Polio Stress incontinence Vertigo Surgical History Surgical History History of colonoscopy (01/2022) Internal hemorrhoids. History of esophagogastroduodenoscopy (01/2022) Reflux esophagitis, hiatal hernia, gastric retention, gastritis. History of foot surgery Multiple foot and toe surgeries, reportedly related to polio. History of loop recorder History of open reduction and internal fixation (ORIF) procedure Repair left ankle fracture. Family History Family History Father Hypertension Cerebrovascular accident Mother Depression Heart disease Cerebrovascular accident Grandparent Diabetes mellitus Sibling Lung cancer Social History Social History Social History: Surrogate medical decision maker: Sharron Vickers, daughter. Code status: Full code. Smoking status: Never smoker Second hand tobacco smoke exposure: No Alcohol intake: never Drinks per week: 1 Alcohol use details: very rare Substance use: never Substance use type: does not use Do You Feel Safe in your Home?: Yes Lack of Transportation: No Lack of Food: Never True Current Housing: I Have Housing Concerned About Future Housing: No Difficulty Paying Gas/Electric Bills: No Difficulty Paying for Meds: No Currently Unemployed: No Education: Trade/Vocational Certificate Difficulty w/ Childcare or Family Care: No Living arrangements: assisted living Additional living arrangements comments: [facility] Occupation/Education: retired Spiritual care concerns: No Anes - Eval Final PreProcedure Day of Procedure 05/22/24 07:19 Patient weight: obese Heart: regular rate and rhythm (loop recorder to r/o syncope) Lungs: clear to auscultation and normal air movement Airway: Mallampati scale class III Neurological: alert and oriented (hx of dementia) Last oral intake: >/= 8 hours ASA classification: III Emergent: no Anesthetic plan: proceed Anesthesia type and monitoring: general LMA Results Review: All pre-operative results and documents have been reviewed as part of the pre- operative evaluation. Informed Consent: The patient's anesthetic plan and its attendant risks and benefits were discussed with the patient/family/POA. Questions were solicited and answers provided to the satisfaction of the patient/family/POA.
--- NOTE | 2024-05-22 07:36 | WPDHPUPDATE1 ---
History and Physical Update Update Date/Time: 05/22/24 07:36 History and Physical has been reviewed, including an updated exam of the patient. There are NO changes in the patient's condition. Risks, benefits, and alternatives have been discussed and questions answered. Patient agrees to proceed with procedure.
[2024-05-22] MEDS: ceFAZolin 2 GM/D5W 50 ML 2 GM/50 ML BAG IVPB (07:40)
[2024-05-22] MEDS: LIDOCAINE HCL 2% GEL UROJET 10 ML PKG MUCOUS MEM (08:59)
--- NOTE | 2024-05-22 09:03 | W.PM.PROC2 ---
Procedure Note - Detailed Date of Procedure 05/22/24 Pre-op Diagnosis Renal Kidney Stone 1.7 cm Post-op Diagnosis Same Procedure Performed Cystoscopy, right retrograde, right ureteroscopy with laser lithotripsy steerable vacuum stone extraction retrograde pyelogram and stent exchange Surgeon Wilder Palm MD Anesthesia General Description of Procedure Patient was taken to the operating and correctly identified. Once anesthesia was obtained she was placed in dorsal lithotomy position prepped draped usual sterile fashion. Twenty-two Montenegrin scope was inserted the bladder there are no tumors noted. The prior stent was grasped and cannulated with a guidewire. Safety wire was placed via dual-lumen catheter. Ureteral access sheath was placed. Single use disposable cvac aspiration ureteral scope was inserted. The stone was visualized. This measured approximately 1.7 cm. Using the laser fiber we dusted and broke the stone. Full collecting system was surveyed with the ureteral scope. Exhaustive steerable vacuum aspiration was performed using continuous fluid irrigation, increased fluid flow to mobilize stones, and intermittent vacuum aspiration. The full collecting system was surveyed with the ureteral scope there was no significant stone fragments seen. Pyelogram was then performed. 4.8 Montenegrin contour stent was then placed with the proximal end coiled in the renal pelvis and the distal in the bladder. Bladder was drained. 2% viscous lidocaine was inserted into the urethra the patient is taken recovery stable condition. She will follow-up in a week's time for stent removal. This completes dictation. Please send a copy of op note to my office. Drains Yes Packing No Pathology Yes Complications No immediate complications Condition Stable Disposition PACU
== END 2024-05-22 10:50 | disposition home or self-care (01) ==
PROVIDERS: PCP Family Medicine; Visit Provider Urology
PROC: (CPT 52352; principal; 2024-05-22 07:30)
DX: N20.0 Calculus of kidney (principal); I10 Essential (primary) hypertension; E78.5 Hyperlipidemia, unspecified; G47.33 Obstructive sleep apnea (adult) (pediatric); K21.9 Gastro-esophageal reflux disease without esophagitis; F41.9 Anxiety disorder, unspecified; F32.A Depression, unspecified; M81.0 Age-related osteoporosis without current pathological fracture; E66.9 Obesity, unspecified; Z68.36 Body mass index [BMI] 36.0-36.9, adult; Z79.51 Long term (current) use of inhaled steroids
CPT/HCPCS: C9761; 74420; 82365; 88300; C1769; C1894; C2617; J0690; J1100; J2003; J2405; J2704; J3010; J7120; Q9966

== ENCOUNTER 2024-10-03 09:35 | Observation (INO) | payer MEDICARE, MEDICAID, SELFPAY ==
[2024-10-03] VITALS (11 sets, daily range): BP systolic 124–179; BP diastolic 63–92; PULSE 66–95; RESP 13–19; TEMP 36.4–36.8; O2SAT 76–98; BMI 35.9
--- NOTE | ~2024-10-03 | CT_ITS ---
Non-contrast Head CT History: Altered mental status COMPARISON: 03/25/2024 Technique: Axial non-contrast imaging of the brain was performed. Dose reduction technique was used on this scan by utilizing automated exposure control and iterative reconstruction technique. The dose -length product (DLP) was 605.00 mGy-cm. Findings: There is no evidence of intracranial hemorrhage, mass lesion, or acute infarct. Brain par enchyma appears normal. The ventricles and subarachnoid spaces are normal in size. The calvarium ap pears normal. The visualized paranasal sinuses and mastoid air cells are clear. Impression: No significant abnormality seen. Reviewed, dictated and finalized at location . Impression: No significant abnormality seen.
--- NOTE | ~2024-10-03 | CT_ITS ---
EXAMINATION: CT abdomen pelvis wo con DATE: 10/03/2024 10:22 INDICATION: Kidney stone. TECHNIQUE: Computed tomography (CT) of the abdomen and pelvis was performed without intravenous contr ast. Automated exposure control and iterative reconstruction technique were employed. The dose-length product was 876.28 mGy-cm. COMPARISON: CT abdomen and pelvis 03/25/2024 FINDINGS: The lungs demonstrate mild atelectasis. No pleural effusion. The heart size is normal. No p ericardial effusion. There is a small sliding hiatal hernia. The liver is normal. There are gallstone s in the gallbladder, which is normal in size. The spleen, pancreas, and adrenal glands are normal. T here are five stones in right kidney measuring up to 5 mm. There are three stones in left kidney dania uring up to 4 mm. There is mild left hydronephrosis. There is a 2 mm stone in proximal left ureter. T here is diverticulosis of the colon without evidence of diverticulitis. There are no dilated loops of bowel. The appendix is not visualized. There are no pathologically enlarged lymph nodes. There is no free intraperitoneal fluid. There is severe lumbar spondylosis. There is a chronic burst fracture of L1. IMPRESSION: 1. 2 mm stone in proximal left ureter with mild left hydronephrosis. 2. Bilateral nonobstructing kidney stones. Reviewed, dictated and finalized at location B.
--- NOTE | ~2024-10-03 | MR_ITS ---
EXAMINATION: MR brain/brain stem wo/w con DATE: 10/05/2024 14:00 INDICATION: Altered mental status. TECHNIQUE: Magnetic resonance imaging (MRI) of the brain and brainstem was performed without and with 20 mL ProHance intravenous contrast. COMPARISON: Head CT 10/03/2024 FINDINGS: There are scattered areas of nonspecific increased T2-weighted signal intensity in the cere bral white matter. There is a small old infarct in right cerebellum. There is no intracranial hemorrh age, acute infarction, or abnormal intracranial mass lesion. The ventricles are normal in size. There is mucosal thickening in the paranasal sinuses. Right maxillary sinus is small. The orbits are zelalem l. The mastoid air cells are normal. IMPRESSION: 1. Small old infarct in right cerebellum. 2. Mild nonspecific cerebral white matter disease, which likely represents chronic small vessel ische eli disease. Reviewed, dictated and finalized at location L. IMPRESSION: 1. Small old infarct in right cerebellum. 2. 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
--- NOTE | ~2024-10-03 | XR_ITS ---
EXAMINATION: XR chest 1V DATE: 10/03/2024 10:24 INDICATION: Altered mental status. TECHNIQUE: A single frontal view of the chest was obtained. COMPARISON: Chest 2 views 03/24/2024, CT abdomen and pelvis 10/03/2024 FINDINGS: There is no pneumonia, pleural effusion, or pneumothorax. The heart size is normal. There i s electronic implant overlying left chest wall. IMPRESSION: 1. No acute cardiopulmonary disease. Reviewed, dictated and finalized at location B.
--- NOTE | 2024-10-03 09:40 | ECG_ITS ---
Test Date: 2024-10-03 09:43:56 Measurements Intervals [place] Rate: 84 P: 52 HI: 145 QRS: 9 QRSD: 89 T: 102 QT: 374 QTc: 443 Interpretive Statements SINUS RHYTHM NONSPECIFIC ST AND T-WAVE ABNORMALITY Compared to ECG 03/24/2024 16:22:32 NO SIGNIFICANT CHANGES Electronically Signed On 10-03-2024 13:43:30 CDT by Hermila Christian M.D.
--- NOTE | 2024-10-03 10:27 | PCRCNOTE ---
Arrived to draw ABG and patient was not in room.
[2024-10-03] MEDS: SODIUM CHLORIDE 0.9% IV 2,000 ML 999 ML IV CONT (10:43)
--- NOTE | 2024-10-03 10:43 | ED.GENADULT ---
HPI - General Adult General Chief complaint: Altered Mental Status Stated complaint: more confused than normal Time Seen by Provider: 10/03/24 09:49 History of Present Illness HPI narrative: Patient is somnolent and requires repeated questioning to obtain answers. This is a 73-year-old female sent from [facility] for complaints of altered mental status. They said she has been more confused than usual. They said that she was moving furniture around the house and not acting like herself. My evaluation the patient is complaining pain on urination x1 day, nausea vomiting crampy abdominal pain. She is also complaining of chest pain/shortness of breath/left shoulder pain. She says she always has the chest pain and difficulty breathing. Related Data Home Medications ?Medication ?Instructions ?Recorded ?Confirmed ?Last Taken ?Type alendronate 70 mg tablet 70 mg PO WEEKLY 12/03/21 05/11/24 03/21/24 History atorvastatin 20 mg tablet 20 mg PO DAILY 12/03/21 05/11/24 Unknown History celecoxib 100 mg capsule 100 mg PO BID 12/03/21 05/11/24 Unknown History duloxetine 60 mg capsule,delayed 60 mg PO DAILY 12/03/21 05/11/24 Unknown History release gabapentin 300 mg capsule 300 mg PO TID 12/03/21 05/11/24 Unknown History oxybutynin chloride 15 mg 15 mg PO DAILY 12/03/21 05/11/24 Unknown History tablet,extended release 24 hr risperidone 1 mg tablet 1 mg PO HS 12/03/21 05/11/24 Unknown History tramadol 50 mg tablet 50 mg PO BID PRN Pain 12/03/21 05/11/24 07/14/23 17:00 History trazodone 150 mg tablet 150 mg PO HS PRN Sleep 01/21/22 05/11/24 07/14/23 17:00 History acetaminophen 325 mg tablet 650 mg PO QID PRN Pain (Scale 04/03/23 05/11/24 Unknown History Score 1-3) omeprazole 20 mg capsule,delayed 20 mg PO BID 04/03/23 05/11/24 Unknown History release calcium 600 mg (as 1 tablet PO BID 03/24/24 05/11/24 Unknown History carbonate)-vitamin D3 20 mcg (800 unit) tablet cyclobenzaprine 5 mg tablet 5 mg PO TID PRN Muscle Spasm 03/24/24 05/11/24 Unknown History donepezil 10 mg tablet 10 mg PO DAILY 03/24/24 05/11/24 Unknown History duloxetine 30 mg capsule,delayed 30 mg PO DAILY 03/24/24 05/11/24 Unknown History release ergocalciferol (vitamin D2) 1,250 1,250 mcg PO WEEKLY 03/24/24 05/11/24 03/21/24 History mcg (50,000 unit) capsule metoprolol tartrate 25 mg tablet 25 mg PO DAILY 03/24/24 05/11/24 Unknown History nitroglycerin 0.4 mg sublingual 0.4 mg sublingual Q5MIN 03/24/24 05/11/24 Unknown History tablet oxycodone-acetaminophen 5 mg-325 1 tablet PO Q4H PRN Pain 03/24/24 05/11/24 Unknown History mg tablet polyethylene glycol 3350 17 gram 17 g PO DAILY PRN Constipation 03/24/24 05/11/24 Unknown History oral powder packet pyridoxine (vitamin B6) 50 mg 25 mg PO DAILY 03/24/24 05/11/24 Unknown History tablet (Vitamin B-6) folic acid 1 mg tablet 1 mg PO DAILY 05/11/24 05/11/24 Unknown History Allergies Allergy/AdvReac Type Severity Reaction Status Date / Time No Known Allergies Allergy Verified 05/22/24 07:19 [facility] Past Medical History Medical History Obstructive sleep apnea treated with BiPAP Polio Stress incontinence Hyperlipidemia Hypertension Gastroesophageal reflux disease Depression Vertigo Osteoporosis Arthritis Anxiety Surgical History Surgical History History of foot surgery Multiple foot and toe surgeries, reportedly related to polio. History of loop recorder History of open reduction and internal fixation (ORIF) procedure Repair left ankle fracture. History of esophagogastroduodenoscopy (01/2022) Reflux esophagitis, hiatal hernia, gastric retention, gastritis. History of colonoscopy (01/2022) Internal hemorrhoids. Family History Family History Father Hypertension Cerebrovascular accident Mother Depression Heart disease Cerebrovascular accident Grandparent Diabetes mellitus Sibling Lung cancer Social History Social History Social History: Surrogate medical decision maker: Sharron Vickers, daughter. Code status: Full code. Smoking status: Never smoker Second hand tobacco smoke exposure: No Alcohol intake: never Drinks per week: 1 Alcohol use details: very rare Substance use: never Substance use type: does not use Do You Feel Safe in your Home?: Yes Lack of Transportation: No Lack of Food: Never True Current Housing: I Have Housing Concerned About Future Housing: No Difficulty Paying Gas/Electric Bills: No Difficulty Paying for Meds: No Currently Unemployed: No Education: Trade/Vocational Certificate Difficulty w/ Childcare or Family Care: No Living arrangements: assisted living Additional living arrangements comments: [facility] Occupation/Education: retired Spiritual care concerns: No Exam Narrative: APPEARANCE: Somnolent Head: atraumatic. EYES: EOMI, NOSE: Atraumatic NECK: Trachea midline RESPIRATORY: No increased rate of breathing clear to auscultation CARDIOVASCULAR: RRR, no peripheral edema ABDOMINAL: Soft nontender no guarding rebound MUSCULOSKELETAl: No obvious deformities NEURO: Alert. Moving 4/4 extremities SKIN:: Warm, dry. Normal color PSYCHIATRIC: Normal affect Course Vital Signs Vital signs: Vital Signs Temperature 98.3 F 10/03/24 09:36 Pulse Rate 95 10/03/24 09:36 Respiratory Rate 13 10/03/24 09:36 Blood Pressure 162/92 H 10/03/24 09:36 Pulse Oximetry 93 10/03/24 09:36 Oxygen Delivery Room Air 10/03/24 09:36 Temperature 98.3 F 10/03/24 09:36 Pulse Rate 95 10/03/24 09:36 Respiratory Rate 13 10/03/24 09:36 Blood Pressure 162/92 H 10/03/24 09:36 Pulse Oximetry 93 10/03/24 09:44 Oxygen Delivery Room Air 10/03/24 09:44 Medical Decision Making MDM Narrative Medical decision making narrative: -Course: 73-year-old female with dementia presenting for mental status. Patient is somnolent during the interview. Patient essentially has a garcia positive review of systems including chest pain difficulty breathing shoulder pain abdominal pain nausea and vomiting. Patient then later denied these things the nurse and drained of itching in her groin. Broad workup obtained due to unclear presentation. CT abdomen pelvis showed a 2 mm stone in the left proximal ureter with mild hydronephrosis. Urine is not indicative of infection. White count is 11.0. The rest of her infectious workup was unremarkable. CT head, chest x-ray unremarkable. Lactic 2.6. Creatinine at baseline. patient given fluid resuscitation. No clear infectious Initial troponin mildly elevated at 0.036. EKG shows nonspecific ST changes that are unchanged from previous EKGs. Will continue to trend. Unclear etiology the patient's altered mental status. Patient will be hospital for further management. -DDX includes but is not limited to: Sepsis, UTI, septic stone, pneumonia, viral syndrome Vital Signs Vital Signs: Vital Signs Temperature 98.3 F 10/03/24 09:36 Pulse Rate 95 10/03/24 09:36 Respiratory Rate 13 10/03/24 09:36 Blood Pressure 162/92 H 10/03/24 09:36 Pulse Oximetry 93 10/03/24 09:36 Oxygen Delivery Room Air 10/03/24 09:36 Temperature 98.3 F 10/03/24 09:36 Pulse Rate 95 10/03/24 09:36 Respiratory Rate 13 10/03/24 09:36 Blood Pressure 162/92 H 10/03/24 09:36 Pulse Oximetry 93 10/03/24 09:44 Oxygen Delivery Room Air 10/03/24 09:44 Critical Care Time Critical Care Time Critical Care Time: Yes Total Critical Care Time: 35 Discharge Plan Discharge Clinical Impression: Altered mental status, Kidney stone Patient Disposition: Still a Patient Condition: Stable Patient Language: Mongolian Prescriptions: No Action alendronate 70 mg tablet 70 mg PO WEEKLY Rx Instructions: Take on Wednesdays atorvastatin 20 mg tablet 20 mg PO DAILY celecoxib 100 mg capsule 100 mg PO BID duloxetine 60 mg capsule,delayed release(DR/EC) 60 mg PO DAILY Rx Instructions: Take with 30mg capsule to equal 90mg daily. gabapentin 300 mg capsule 300 mg PO TID oxybutynin chloride 15 mg tablet extended release 24 hr 15 mg PO DAILY risperidone 1 mg tablet 1 mg PO HS tramadol 50 mg tablet 50 mg PO BID PRN (Reason: Pain) acetaminophen 325 mg tablet 650 mg PO QID PRN (Reason: Pain (Scale Score 1-3)) omeprazole 20 mg capsule,delayed release(DR/EC) 20 mg PO BID tolnaftate 1 % Powder 1 applic topical Q12HR Qty: 45 3RF Rx Instructions: To affected areas. albuterol sulfate [Proventil HFA] 90 mcg/actuation Hfa Aerosol Inhaler 2 puff inhalation Q6HRT PRN (Reason: shortness of breath or wheezing) Qty: 8.5 0RF polyethylene glycol 3350 17 gram Powder In Packet 17 g PO DAILY PRN (Reason: Constipation) donepezil 10 mg tablet 10 mg PO DAILY oxycodone-acetaminophen 5-325 mg tablet 1 tablet PO Q4H PRN (Reason: Pain) nitroglycerin 0.4 mg tablet, sublingual 0.4 mg sublingual Q5MIN Rx Instructions: Dissolve 1 tab under the tongue every 5 minutes up to 3 times as needed for chest pain. pyridoxine (vitamin B6) [Vitamin B-6] 50 mg tablet 25 mg PO DAILY Rx Instructions: Take 1/2 tablet daily. ergocalciferol (vitamin D2) 1,250 mcg (50,000 unit) capsule 1,250 mcg PO WEEKLY Rx Instructions: Take on Tuesday cyclobenzaprine 5 mg Tablet 5 mg PO TID PRN (Reason: Muscle Spasm) metoprolol tartrate 25 mg tablet 25 mg PO DAILY duloxetine 30 mg capsule,delayed release(DR/EC) 30 mg PO DAILY Rx Instructions: Take with 60mg for a total dose of 90mg. calcium carbonate-vitamin D3 600 mg-20 mcg (800 unit) tablet 1 tablet PO BID cephalexin 500 mg capsule 500 mg PO Q12H Qty: 14 0RF trazodone 150 mg Tablet 150 mg PO HS PRN (Reason: Sleep) folic acid 1 mg tablet 1 mg PO DAILY Follow-up/Referrals: Eduardo,Ervin Johnson MD [Primary Care Provider] -
[2024-10-03 10:45] LABS: Alveolar/Arterial O2 Gradient 23.3 mmHg; Base Excess ABG 1.9 mEq/l (+/-2.0); Device ROOM AIR; Fractional Inspired Oxygen 21 %; HCO3 ABG 27.5 mEq/l (22.0-26.0); Modified Allen's Test Pass; Oxygen Content ABG 17.7 %vol (16.0-22.0); Oxygen Saturation ABG 93.9 % (95.0-100.0); Oxyhemoglobin 93.4 % THb (90.0-100.0); PCO2 ABG 46.8 mmHg (35.0-45.0); PO2 ABG 70.4 mmHg (80.0-100.0); PO2 FiO2 Ratio Arterial Blood 3.35 %; Site Drawn RIGHT RADIAL; Total Hemoglobin 13.5 g/dL (12.0-18.0); pH ABG 7.387 (7.350-7.450)
--- OUTSIDE RECORDS SUMMARY | 2024-10-03 10:55 | XMS_ITS | Encounter Summary ---
Author Organization [facility] Healthcare Address [address] [place] [address] Care Team Providers Care Cdl Service Technician Name Role Phone Ervin Clark MD Primary Care Provider Michael Chacon MD Unavailable [phone] Linda Akbar MD PhD Unavaila ble Cecilia Harley LPN Unavailable [phone] Encounter Details Date Type Department Care Team (Late st Contact Info) Description 09/02/2023 Telephone [facility] [address] [place] [address] Cristine Obando RN Social History Tobacco Use Types Packs/Day Years Used Date Smoking Tobacco: Never Smokeless Tobacco: Never PHQ-2 Answer Date Recorded PHQ-2 Total Score (If total score is 3 or more points, staff should administer the PHQ-9) 4 06/14/2023 Personal Safety Answer Date Recorded Getting School Help Needed Not on file 07/11 Comments No Sex and Gender Information Value Date Recorded Sex Assigned at Not on file Legal Sex Female 2:38 PM CDT Gender Identity Not on file Sexual Orientation Not on file documented as of this encounter Plan of Treatment Not on file documented as of this encounter Visit Diagnoses Not on filedocumented in this encounter Care Teams Cdl Service Technician Relationship Specialty Start Date End Date Ervin Clark MD PCP - General Family Medicine 10/27/20 Michael Chacon MD [address] [place] [address] [address] [place] [address] Consulting Physician Neurology 09/22/23 Linda Akbar MD PhD [phone] [place] [address] Surgeon Surgical Oncology 10/13/23 Cecilia Harley, FILIPPO [address] [place] [address] Circuit Designer 03/30/24 04/01/24 documented as of this encounter
--- OUTSIDE RECORDS SUMMARY | 2024-10-03 10:55 | XMS_ITS | Clinical Summary ---
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 Encouraged to eat a diet richer in fruits/veggies and decrease the intake of sugars and fats. Full code status 11/06/2020 Overview (11/06/2020): Patient elects to get CPR, full medical treatment, prison nutrition support. Other hyperlipidemia 10/30/2020 Assessment & Plan (07/23/2024 9:07 AM OPERATIONS AND INTELLIGENCE ASSISTANT): -chronic, stable -currently prescribed atorvastatin 20 mg -Discussed importance of well-balanced diet -will recheck lab values -continue current treatment plan Assessment & Plan (06/14/2023 9:35 AM OPERATIONS AND INTELLIGENCE ASSISTANT): - chronic, stable - hx of hyperlipidemia - Currently on Lipitor 20 mg daily - most recent LDL as shown below - no hx of CVA, CAD, DM, goal LDL < 100 - continue with current medications Lab Results Component Value Date CHOL 172 08/04/2022 CHOL 164 07/29/2021 CHOL 158 10/30/2020 Lab Results Component Value Date HDL 40 08/04/2022 HDL 37 (L) 07/29/2021 HDL 40 10/30/2020 Lab Results Component Value Date LDLCALC 95 08/04/2022 LDLCALC 49 07/29/2021 LDLCALC 86 10/30/2020 Lab Results Component Value Date TRIG 214 (H) 08/04/2022 TRIG 391 (H) 07/29/2021 TRIG 188 (H) 10/30/2020 Assessment & Plan (03/16/2023 8:53 AM CDT): - chronic, stable - hx of hyperlipidemia - Currently on Lipitor 20 mg daily - most recent LDL as shown below - no hx of CVA, CAD, DM, goal LDL < 100 - continue with current medications Lab Results Component Value Date CHOL 172 08/04/2022 CHOL 164 07/29/2021 CHOL 158 10/30/2020 Lab Results Component Value Date HDL 40 08/04/2022 HDL 37 (L) 07/29/2021 HDL 40 10/30/2020 Lab Results Component Value Date LDLCALC 95 08/04/2022 LDLCALC 49 07/29/2021 LDLCALC 86 10/30/2020 Lab Results Component Value Date TRIG 214 (H) 08/04/2022 TRIG 391 (H) 07/29/2021 TRIG 188 (H) 10/30/2020 Assessment & Plan (11/09/2022 9:10 AM CDT): - chronic, stable - hx of hyperlipidemia - Currently on Lipitor 20 mg daily - most recent LDL as shown below - no hx of CVA, CAD, DM, goal LDL < 100 - continue with current medications Lab Results Component Value Date CHOL 172 08/04/2022 CHOL 164 07/29/2021 CHOL 158 10/30/2020 Lab Results Component Value Date HDL 40 08/04/2022 HDL 37 (L) 07/29/2021 HDL 40 10/30/2020 Lab Results Component Value Date LDLCALC 95 08/04/2022 LDLCALC 49 07/29/2021 LDLCALC 86 10/30/2020 Lab Results Component Value Date TRIG 214 (H) 08/04/2022 TRIG 391 (H) 07/29/2021 TRIG 188 (H) 10/30/2020 Assessment & Plan (08/18/2022 2:10 PM OPERATIONS AND INTELLIGENCE ASSISTANT): - chronic, stable - hx of hyperlipidemia - Currently on Lipitor 20 mg daily - most recent LDL as shown below - no hx of CVA, CAD, DM, goal LDL < 100 - continue with current medications Lab Results Component Value Date CHOL 172 08/04/2022 CHOL 164 07/29/2021 CHOL 158 10/30/2020 Lab Results Component Value Date HDL 40 08/04/2022 HDL 37 (L) 07/29/2021 HDL 40 10/30/2020 Lab Results Component Value Date LDLCALC 95 08/04/2022 LDLCALC 49 07/29/2021 LDLCALC 86 10/30/2020 Lab Results Component Value Date TRIG 214 (H) 08/04/2022 TRIG 391 (H) 07/29/2021 TRIG 188 (H) 10/30/2020 Assessment & Plan (07/29/2021 10:02 AM OPERATIONS AND INTELLIGENCE ASSISTANT): - chronic, stable - hx of hyperlipidemia - Currently on Lipitor 20 mg daily - most recent LDL as shown below Lab Results Component Value Date LDLCALC 86 10/30/2020 - no hx of CVA, CAD, DM, goal LDL < 100 - continue with current medications - recheck lipid panel Assessment & Plan (03/18/2021 10:46 AM CDT): - hx of hyperlipidemia - Currently on Lipitor 20 mg daily - most recent LDL as shown below Lab Results Component Value Date LDLCALC 86 10/30/2020 - no hx of CVA, CAD, DM, goal LDL < 100 - continue with current medications Assessment & Plan (10/30/2020 8:29 AM CDT): - hx of hyperlipidemia - Currently on Lipitor 20 mg daily - No recent Lipid panel - Will obtain lipid panel - no hx of CVA, CAD, DM KARRIE (generalized anxiety disorder) 10/30/2020 Assessment & Plan (07/23/2024 9:22 AM OPERATIONS AND INTELLIGENCE ASSISTANT): -chronic, at goal -patient currently takes Cymbalta 90 mg, risperidone 1 mg -also has trazodone 150 mg as needed for insomnia -previously unable to tolerate -patient denies any worsening of depressed mood, thoughts of harming herself or others, or worsening anxiety -continue current treatment plan Assessment & Plan (06/14/2023 9:34 AM OPERATIONS AND INTELLIGENCE ASSISTANT): - chronic condition, controlled with medications - currently on Cymbalta 60 mg daily and Trazodone 200 mg nightly - she is also on Risperidone 1mg daily which she takes for anxiety and sleep - multiple family hx of depression/anxiety in her children - no prior diagnosis of Bipolar disorder, schizophrenia - no SI, Hi, hallucinations, manic episodes - continue current medications Assessment & Plan (03/16/2023 8:52 AM CDT): - chronic condition, controlled with medications - currently on Cymbalta 60 mg daily and Trazodone 200 mg nightly - she is also on Risperidone 1mg daily which she takes for anxiety and sleep - multiple family hx of depression/anxiety in her children - no prior diagnosis of Bipolar disorder, schizophrenia - no SI, Hi, hallucinations, manic episodes - continue current medications Assessment & Plan (11/09/2022 9:20 AM CDT): - chronic condition, controlled with medications - currently on Cymbalta 60 mg daily and Trazodone 200 mg nightly - she is also on Risperidone 1mg daily which she takes for anxiety and sleep - multiple family hx of depression/anxiety in her children - no prior diagnosis of Bipolar disorder, schizophrenia - no SI, Hi, hallucinations, manic episodes - continue current medications Assessment & Plan (02/02/2022 10:01 AM CDT): - chronic condition, controlled with medications - currently on Cymbalta 60 mg daily and Trazodone 200 mg nightly - she is also on Risperidone 1mg daily which she takes for anxiety and sleep - multiple family hx of depression/anxiety in her children - no prior diagnosis of Bipolar disorder, schizophrenia - no SI, Hi, hallucinations, manic episodes - recommend counseling support - provided list of local resources - continue current medications Assessment & Plan (11/09/2021 10:08 AM CDT): - chronic condition, controlled with medications - currently on Cymbalta 60 mg daily and Trazodone 150 mg nightly - she is also on Risperidone 1mg daily which she takes for anxiety and sleep - multiple family hx of depression/anxiety in her children - no prior diagnosis of Bipolar disorder, schizophrenia - no SI, Hi, hallucinations, manic episodes - continue current medications Assessment & Plan (07/29/2021 9:57 AM OPERATIONS AND INTELLIGENCE ASSISTANT): - chronic condition, controlled with medications - currently on Cymbalta 60 mg daily and Trazodone 150 mg nightly - she is also on Risperidone 1mg daily which she takes for anxiety and sleep - multiple family hx of depression/anxiety in her children - no prior diagnosis of Bipolar disorder, schizophrenia - no SI, Hi, hallucinations, manic episodes - continue current medications Assessment & Plan (10/30/2020 8:31 AM CDT): - chronic condition, controlled with medications - currently on Cymbalta 60 mg daily and Trazodone 150 mg nightly - she is also on Risperidone 1mg daily which she takes for anxiety and sleep - multiple family hx of depression/anxiety in her children - no prior diagnosis of Bipolar disorder, schizophrenia - no SI, Hi, hallucinations, manic episodes Low bone mass 10/30/2020 Assessment & Plan (07/23/2024 9:21 AM OPERATIONS AND INTELLIGENCE ASSISTANT): -chronic, stable -last DEXA bone scan was November 2021 -currently takes Fosamax 70 mg weekly, calcium/vitamin D3 supplement -encourage patient to continue weight-bearing exercises and vitamin-D/calcium supplement -repeat DEXA bone scan ordered -continue current treatment plan Assessment & Plan (03/16/2023 9:07 AM CDT): - chronic, improved - Bone density scan on 11/2020 - Showed osteoporosis with a T-score of -2.5 over the left femoral neck. Showed osteopenia in several locations which includes left total hip, right femoral neck, right total hip and AP spine - she has been on Aldendrate 70 mg weekly, started by prior provider - maybe around 2017, discussed need to stop it in 1-2 years in future - currently on vitamin D supplementation 2000 IU daily, as well as calcium supplementation - continue with Alendronate use once weekly - DEXA 11/2021 - AP LUMBAR SPINE L1-L4: T-score is -1.6 LEFT HIP:T-score is -1.3 Femoral neck - T-score is -2.0 Lab Results Component Value Date TSH 2.900 08/04/2022 Lab Results Component Value Date CALCIUM 9.3 09/11/2022 Lab Results Component Value Date [id number] 46 07/29/2021 Assessment & Plan (04/20/2022 9:55 AM CDT): - chronic, improved - Bone density scan on 11/2020 - Showed osteoporosis with a T-score of -2.5 over the left femoral neck. Showed osteopenia in several locations which includes left total hip, right femoral neck, right total hip and AP spine - she has been on Aldendrate 70 mg weekly, started by prior provider - maybe around 2018, discussed need to stop it in 1-2 years in future - currently on vitamin D supplementation 2000 IU daily, as well as calcium supplementation - continue with Alendronate use once weekly - DEXA 11/2021 - AP LUMBAR SPINE L1-L4: T-score is -1.6 LEFT HIP:T-score is -1.3 Femoral neck - T-score is -2.0 Lab Results Component Value Date TSH 2.97 07/29/2021 Lab Results Component Value Date CALCIUM 9.6 07/29/2021 Assessment & Plan (02/02/2022 11:31 AM CDT): - chronic, improved - Bone density scan on 11/2020 - Showed osteoporosis with a T-score of -2.5 over the left femoral neck. Showed osteopenia in several locations which includes left total hip, right femoral neck, right total hip and AP spine - she has been on Aldendrate 70 mg weekly, started by prior provider - maybe around 2018, discussed need to stop it in 1-2 years in future - continue with Alendronate use once weekly - currently on vitamin D supplementation 2000 IU daily, as well as calcium supplementation - DEXA 11/2021 - AP LUMBAR SPINE L1-L4: T-score is -1.6 LEFT HIP:T-score is -1.3 Femoral neck - T-score is -2.0 Lab Results Component Value Date TSH 2.97 07/29/2021 Lab Results Component Value Date CALCIUM 9.6 07/29/2021 Assessment & Plan (07/29/2021 10:18 AM OPERATIONS AND INTELLIGENCE ASSISTANT): - chronic, not at goal - Bone density scan on 11/2020 - Showed osteoporosis with a T-score of -2.5 over the left femoral neck. Showed osteopenia in several locations which includes left total hip, right femoral neck, right total hip and AP spine - used to be on Aldendrate 70 mg weekly, started by prior provider - about 3 years - maybe around 2018, discussed need to stop it in 1-2 years - restart Alendronate, refill provided - currently on vitamin D supplementation 2000 IU daily, as well as calcium supplementation Assessment & Plan (03/18/2021 10:54 AM CDT): - Bone density scan on 11/2020 - Showed osteoporosis with a T-score of -2.5 over the left femoral neck. Showed osteopenia in several locations which includes left total hip, right femoral neck, right total hip and AP spine - currently on Aldendrate 70 mg weekly, started by prior provider - about 3 years - maybe around 2018, discussed need to stop it in 1-2 years - currently on vitamin D supplementation 2000 IU daily, need to be on calcium supplementation Assessment & Plan (12/02/2020 11:22 AM CDT): - unclear if she has osteopenia or osteoporosis - she is currently on alendronate 70 mg weekly - on Vitamin D3 2000iu daily supplementation along with calcium supplementation - will obtain bone density scan results which was recently done on 11/2020 Assessment & Plan (10/30/2020 8:33 AM CDT): - unclear if she has osteopenia or osteoporosis - she is currently on alendronate 70 mg weekly - on Vitamin D3 2000iu daily supplementation along with calcium supplementation - will obtain bone density scan History of poliomyelitis 10/30/2020 Overview (10/30/2020): - she had polio as a child, was unable to walk for a period of time Other insomnia 10/30/2020 Assessment & Plan (07/23/2024 9:20 AM OPERATIONS AND INTELLIGENCE ASSISTANT): -chronic, stable -patient currently prescribed trazodone 150 mg nightly p.r.n. -patient reports an increase in fatigue and sleeping more -patient reports she has not been taking her trazodone due to her facility not providing it since she has been sleeping more than usual -will check lab work for possible deficiency contributing to increased fatigue -continue current treatment plan Assessment & Plan (08/10/2022 3:20 PM OPERATIONS AND INTELLIGENCE ASSISTANT): - chronic issue, not at goal - worse, over sleeping - currently on Trazodone 200 mg nightly ---> decrease to 150 Trazodone, new script sent in - she is also on Risperidone 1 mg daily - continue with current management for now - however she also takes naps during the day and also also drinks 6 cups of coffee daily Assessment & Plan (02/02/2022 9:42 AM CDT): - chronic issue, not at goal - currently on Trazodone 200 mg nightly - she is also on Risperidone 1 mg daily - continue with current management for now - however she also takes naps during the day and also also drinks 6 cups of coffee daily Assessment & Plan (07/29/2021 10:03 AM OPERATIONS AND INTELLIGENCE ASSISTANT): - chronic issue, stable - currently on Trazodone 150 mg nightly - she is also on Risperidone 1 mg daily - continue with current management Assessment & Plan (10/30/2020 8:38 AM CDT): - chronic issue but at this time she is having excessive sleeping - currently on Trazodone 150 mg nightly - she is also on Risperidone 1 mg daily - on next visit we will need to adjust her medications Gastroesophageal reflux disease 10/29/2020 Assessment & Plan (07/23/2024 9:10 AM OPERATIONS AND INTELLIGENCE ASSISTANT): -chronic, stable -patient currently takes omeprazole 20 mg b.i.d. -patient encouraged to continue avoiding trigger foods and remaining upright at least 30 minutes after eating or drinking -continue current treatment plan Assessment & Plan (03/16/2023 9:06 AM CDT): - chronic, controlled - has had Endoscopy in the past 5-6 years - currently on Omeprazole 40 mg daily - she used to be on Zegerid - omeprazole and sodium bicarbonate on a daily basis - CT abdomen pelvis 10/2021 that was done for epigastric pain showed esophagitis, right nephrolithiasis without obstructive uropathy, moderate L1 compression fracture which is likely chronic - established with [facility] at [facility] - continue current medication in mean time - still drinks soda multiple times a day - s/p EGD 01/2022 - noted to have reflux esophagitis, hiatal hernia, gastric retention, gastritis - follows with GI Dr. Warren Recommend the following changes: - Avoid trigger foods (such as spicy foods, fried foods, onions, peppermints, chocolate, high acid foods and juices, caffeinated beverages, carbonated beverages, and tomato based products). - Avoid alcohol take. - Avoid routine use of NSAIDs. - Avoid lying down for 2-3 hours after eating. - Weight loss encouraged. - Eat smaller meals. - Avoid tobacco use. - Sleep on left side. - may sleep with bed propped. - Avoid wearing tight clothing that puts pressure on the stomach. Lab Results Component Value Date VITB12 07/29/2021 Lab Results Component Value Date IRON 82 08/04/2022 TIBC 306 08/04/2022 FERRITIN 360 (H) 08/04/2022 Assessment & Plan (08/18/2022 2:11 PM OPERATIONS AND INTELLIGENCE ASSISTANT): - chronic, controlled - has had Endoscopy in the past 5-6 years - currently on Omeprazole 40 mg daily - no longer famotidine 40 mg daily - she used to be on Zegerid - omeprazole and sodium bicarbonate on a daily basis - recently was in hospital due to chest pain CT abdomen pelvis 10/2021 that was done for epigastric pain showed esophagitis, right nephrolithiasis without obstructive uropathy, moderate L1 compression fracture which is likely chronic - established with [facility] at [facility] - continue current medication in mean time - still drinks soda multiple times a day - s/p EGD 01/2022 - noted to have reflux esophagitis, hiatal hernia, gastric retention, gastritis Recommend the following changes: - Avoid trigger foods (such as spicy foods, fried foods, onions, peppermints, chocolate, high acid foods and juices, caffeinated beverages, carbonated beverages, and tomato based products). - Avoid alcohol take. - Avoid routine use of NSAIDs. - Avoid lying down for 2-3 hours after eating. - Weight loss encouraged. - Eat smaller meals. - Avoid tobacco use. - Sleep on left side. - may sleep with bed propped. - Avoid wearing tight clothing that puts pressure on the stomach. Lab Results Component Value Date VITB12 1,224 07/29/2021 Lab Results Component Value Date IRON 82 08/04/2022 TIBC 306 08/04/2022 FERRITIN 360 (H) 08/04/2022 Assessment & Plan (04/20/2022 11:19 AM CDT): - chronic, controlled - has had Endoscopy in the past 5-6 years - currently on Omeprazole 40 mg daily - no longer famotidine 40 mg daily - she used to be on Zegerid - omeprazole and sodium bicarbonate on a daily basis - recently was in hospital due to chest pain CT abdomen pelvis 10/2021 that was done for epigastric pain showed esophagitis, right nephrolithiasis without obstructive uropathy, moderate L1 compression fracture which is likely chronic - established with [facility] at [facility] - continue current medication in mean time - still drinks soda multiple times a day - s/p EGD 01/2022 - noted to have reflux esophagitis, hiatal hernia, gastric retention, gastritis Recommend the following changes: - Avoid trigger foods (such as spicy foods, fried foods, onions, peppermints, chocolate, high acid foods and juices, caffeinated beverages, carbonated beverages, and tomato based products). - Avoid alcohol take. - Avoid routine use of NSAIDs. - Avoid lying down for 2-3 hours after eating. - Weight loss encouraged. - Eat smaller meals. - Avoid tobacco use. - Sleep on left side. - may sleep with bed propped. - Avoid wearing tight clothing that puts pressure on the stomach. Assessment & Plan (02/02/2022 9:47 AM CDT): - chronic, controlled - has had Endoscopy in the past 5-6 years - currently on Omeprazole 40 mg daily - no longer famotidine 40 mg daily - she used to be on Zegerid - omeprazole and sodium bicarbonate on a daily basis - recently was in hospital due to chest pain CT abdomen pelvis 10/2021 that was done for epigastric pain showed esophagitis, right nephrolithiasis without obstructive uropathy, moderate L1 compression fracture which is likely chronic - established with [facility] already at [facility] and has been scheduled for Endoscopy and Colonoscopy - continue current medication in mean time - still drinks soda multiple times a day Recommend the following changes: - Avoid trigger foods (such as spicy foods, fried foods, onions, peppermints, chocolate, high acid foods and juices, caffeinated beverages, carbonated beverages, and tomato based products). - Avoid alcohol take. - Avoid routine use of NSAIDs. - Avoid lying down for 2-3 hours after eating. - Weight loss encouraged. - Eat smaller meals. - Avoid tobacco use. - Sleep on left side. - may sleep with bed propped. - Avoid wearing tight clothing that puts pressure on the stomach. Assessment & Plan (11/21/2021 10:29 PM CDT): - chronic, not at goal control - has had Endoscopy in the past 5-6 years - currently on Omeprazole 40 mg daily - discontinue famotidine 40 mg daily, tried it without success - she used to be on Zegerid - omeprazole and sodium bicarbonate on a daily basis - recently was in hospital due to chest pain CT abdomen pelvis 10/2021 that was done for epigastric pain showed esophagitis, right nephrolithiasis without obstructive uropathy, moderate L1 compression fracture which is likely chronic - She has an appointment with a [facility] for December 03 in [place]. She was there may be a gallbladder issue. To potentially get an EGD due to heartburn and evaluate for esophagitis. - continue current medication in mean time - still drinks soda multiple times a day Recommend the following changes: - Avoid trigger foods (such as spicy foods, fried foods, onions, peppermints, chocolate, high acid foods and juices, caffeinated beverages, carbonated beverages, and tomato based products). - Avoid alcohol take. - Avoid routine use of NSAIDs. - Avoid lying down for 2-3 hours after eating. - Weight loss encouraged. - Eat smaller meals. - Avoid tobacco use. - Sleep on left side. - may sleep with bed propped. - Avoid wearing tight clothing that puts pressure on the stomach. Assessment & Plan (07/29/2021 9:59 AM OPERATIONS AND INTELLIGENCE ASSISTANT): - chronic, stable - has had Endoscopy in the past 5-6 years - currently on Omeprazole 40 mg daily - discontinue famotidine 40 mg daily, tried it without success - she used to be on Zegerid - omeprazole and sodium bicarbonate on a daily basis Assessment & Plan (12/01/2020 4:45 PM CDT): - has had Endoscopy in the past 5-6 years - has symptoms heartburn - recently has been worsening - currently on Omeprazole 40 mg daily - discussed to start using Pepcid 40 mg at nighttime - she used to be on Zegerid - omeprazole and sodium bicarbonate on a daily basis Assessment & Plan (10/29/2020 4:26 PM CDT): - has had Endoscopy in the past 5-6 years - has symptoms heartburn - well controlled with current medications - currently on Omeprazole 40 mg daily - currently also on Zegerid - omeprazole and sodium bicarbonate on a daily basis Iron deficiency 10/29/2020 Assessment & Plan (07/23/2024 9:11 AM OPERATIONS AND INTELLIGENCE ASSISTANT): -chronic, stable -previously required daily supplement replacement -patient does endorse an increase in fatigue -will recheck iron level -continue current treatment plan Assessment & Plan (06/14/2023 9:35 AM OPERATIONS AND INTELLIGENCE ASSISTANT): - chronic, stable - no longer on Ferrous sulfate DR 324 mg BID - last Hgb as shown below - doing well, will monitor iron level in future - continue current therapy - recheck labs and if still normal will resolve this problem list Lab Results Component Value Date HGB 14.1 08/04/2022 - doing well, continue with current therapy - check CBC and Iron studies Lab Results Component Value Date HGB 14.1 08/04/2022 Lab Results Component Value Date WBC 8.3 08/04/2022 HGB 14.1 08/04/2022 HCT 42.1 08/04/2022 MCV 93 08/04/2022 LABPLAT 290 08/04/2022 Lab Results Component Value Date IRON 82 08/04/2022 TIBC 306 08/04/2022 FERRITIN 360 (H) 08/04/2022 Assessment & Plan (03/16/2023 8:54 AM CDT): - chronic, stable - no longer on Ferrous sulfate DR 324 mg BID - last Hgb as shown below - doing well, will monitor iron level in future - continue current therapy - recheck labs and if still normal will resolve this problem list Lab Results Component Value Date HGB 14.1 08/04/2022 - doing well, continue with current therapy - check CBC and Iron studies Lab Results Component Value Date HGB 14.1 08/04/2022 Lab Results Component Value Date WBC 8.3 08/04/2022 HGB 14.1 08/04/2022 HCT 42.1 08/04/2022 MCV 93 08/04/2022 LABPLAT 290 08/04/2022 Lab Results Component Value Date IRON 82 08/04/2022 TIBC 306 08/04/2022 FERRITIN 360 (H) 08/04/2022 Assessment & Plan (11/09/2022 9:10 AM CDT): - chronic, stable - no longer on Ferrous sulfate DR 324 mg BID - last Hgb as shown below - doing well, will monitor iron level in future - continue current therapy Lab Results Component Value Date HGB 14.1 08/04/2022 - doing well, continue with current therapy - check CBC and Iron studies Lab Results Component Value Date HGB 14.1 08/04/2022 Lab Results Component Value Date WBC 8.3 08/04/2022 HGB 14.1 08/04/2022 HCT 42.1 08/04/2022 MCV 93 08/04/2022 LABPLAT 290 08/04/2022 Lab Results Component Value Date IRON 82 08/04/2022 TIBC 306 08/04/2022 FERRITIN 360 (H) 08/04/2022 Assessment & Plan (08/18/2022 2:09 PM OPERATIONS AND INTELLIGENCE ASSISTANT): - chronic, stable - no longer on Ferrous sulfate DR 324 mg BID - last Hgb as shown below - doing well, will monitor iron level in future - continue current therapy Lab Results Component Value Date HGB 14.1 08/04/2022 - doing well, continue with current therapy - check CBC and Iron studies Lab Results Component Value Date HGB 14.1 08/04/2022 Lab Results Component Value Date WBC 8.3 08/04/2022 HGB 14.1 08/04/2022 HCT 42.1 08/04/2022 MCV 93 08/04/2022 LABPLAT 290 08/04/2022 Lab Results Component Value Date IRON 82 08/04/2022 TIBC 306 08/04/2022 FERRITIN 360 (H) 08/04/2022 Assessment & Plan (04/20/2022 11:12 AM CDT): - chronic, stable - no longer on Ferrous sulfate DR 324 mg BID - last Hgb as shown below - doing well, will monitor iron level in future - continue current therapy Lab Results Component Value Date HGB 12.4 07/29/2021 - doing well, continue with current therapy - check CBC and Iron studies Lab Results Component Value Date HGB 12.4 07/29/2021 Lab Results Component Value Date WBC 8.3 07/29/2021 HGB 12.4 07/29/2021 HCT 38.8 07/29/2021 MCV 100.8 (H) 07/29/2021 LABPLAT 326 07/29/2021 Lab Results Component Value Date IRON 71 07/29/2021 TIBC 298 07/29/2021 FERRITIN 446 (H) 07/29/2021 Assessment & Plan (11/09/2021 9:53 AM CDT): - chronic, stable - no longer on Ferrous sulfate DR 324 mg BID - last Hgb as shown below - doing well, will monitor iron level in future Lab Results Component Value Date HGB 12.4 07/29/2021 - doing well, continue with current therapy - check CBC and Iron studies Lab Results Component Value Date HGB 12.4 07/29/2021 Lab Results Component Value Date WBC 8.3 07/29/2021 HGB 12.4 07/29/2021 HCT 38.8 07/29/2021 MCV 100.8 (H) 07/29/2021 LABPLAT 326 07/29/2021 Lab Results Component Value Date IRON 71 07/29/2021 TIBC 298 07/29/2021 FERRITIN 446 (H) 07/29/2021 Assessment & Plan (07/29/2021 9:56 AM OPERATIONS AND INTELLIGENCE ASSISTANT): - chronic, stable - no longer on Ferrous sulfate DR 324 mg BID - last Hgb as shown below - doing well, will monitor iron level in future Lab Results Component Value Date HGB 12.7 10/30/2020 - doing well, continue with current therapy - check CBC and Iron studies Assessment & Plan (03/18/2021 10:49 AM CDT): - currently on Ferrous sulfate DR 324 mg once daily - last Hgb as shown below Lab Results Component Value Date HGB 12.7 10/30/2020 - doing well, continue with current therapy Assessment & Plan (10/29/2020 4:29 PM CDT): - currently on Ferrous sulfate DR 324 mg once daily - she was supposed to be taking it twice daily - will check CBC and Iron studies Lumbar spondylosis 10/29/2020 Assessment & Plan (06/14/2023 9:49 AM OPERATIONS AND INTELLIGENCE ASSISTANT): - chronic, stable - currently taking Celebrex 100 mg BID ---> long time use - currently on Gabapentin 600 mg TID - currently on tramadol 50 mg Q12 hrs for pain - she is also on Flexeril 5 mg TID - also takes tylenol 650 2 tablets TID PRN - discussed to try to lower intake to 1 tablets TID PRN - hx of surgery - radiofrequency lumbar bilateral - she has hx of median nerve root block procedure done in the past in 2018 - she used to follow with pain management - pain management agreement signed with me on 02/02/2022 - continue current therapy - most recent CT of lumbar spine had showed hx of L4-L5 posterior herniated disc, mild canal stenosis from 2018, awaiting full records XR Lumbar spine 03/14 1. Age-indeterminate compression deformity of the L1 vertebral body with approximately 45% anterocentral maximal vertebral body height loss and slight retropulsion of the superior aspect of the posterior cortical margin superimposed on spondylosis and degenerative disc disease of the lumbar spine. Assessment & Plan (03/16/2023 8:54 AM CDT): - chronic, stable - currently taking Celebrex 100 mg BID ---> long time use - currently on Gabapentin 600 mg TID - currently on tramadol 50 mg Q12 hrs for pain - she is also on Flexeril 5 mg TID - also takes tylenol 650 2 tablets TID PRN - discussed to try to lower intake to 1 tablets TID PRN - hx of surgery - radiofrequency lumbar bilateral - she has hx of median nerve root block procedure done in the past in 2018 - she used to follow with pain management - pain management agreement signed with me on 02/02/2022 - continue current therapy - most recent CT of lumbar spine had showed hx of L4-L5 posterior herniated disc, mild canal stenosis from 2018, awaiting full records XR Lumbar spine 03/14 1. Age-indeterminate compression deformity of the L1 vertebral body with approximately 45% anterocentral maximal vertebral body height loss and slight retropulsion of the superior aspect of the posterior cortical margin superimposed on spondylosis and degenerative disc disease of the lumbar spine. Assessment & Plan (02/02/2022 10:02 AM CDT): - chronic, stable - currently taking Celebrex 100 mg BID ---> long time use - currently on Gabapentin 600 mg TID - currently on tramadol 50 mg Q12 hrs for pain - she is also on Flexeril 5 mg TID - also takes tylenol 650 2 tablets TID PRN - discussed to try to lower intake to 1 tablets TID PRN - hx of surgery - radiofrequency lumbar bilateral - she has hx of median nerve root block procedure done in the past in 2018 - she used to follow with pain management - pain management agreement signed with me on 02/02/2022 - continue current therapy - most recent CT of lumbar spine had showed hx of L4-L5 posterior herniated disc, mild canal stenosis from 2018, awaiting full records XR Lumbar spine 03/14 1. Age-indeterminate compression deformity of the L1 vertebral body with approximately 45% anterocentral maximal vertebral body height loss and slight retropulsion of the superior aspect of the posterior cortical margin superimposed on spondylosis and degenerative disc disease of the lumbar spine. Assessment & Plan (11/09/2021 10:07 AM CDT): - chronic, stable - currently taking Celebrex 100 mg BID ---> long time use - currently on Gabapentin 600 mg TID - currently on tramadol 50 mg Q12 hrs for pain - she is also on Flexeril 5 mg TID - also takes tylenol 650 2 tablets TID PRN - discussed to try to lower intake to 1 tablets TID PRN - hx of surgery - radiofrequency lumbar bilateral - she has hx of median nerve root block procedure done in the past in 2018 - she used to follow with pain management - continue current therapy - most recent CT of lumbar spine had showed hx of L4-L5 posterior herniated disc, mild canal stenosis from 2018, awaiting full records XR Lumbar spine 03/14 1. Age-indeterminate compression deformity of the L1 vertebral body with approximately 45% anterocentral maximal vertebral body height loss and slight retropulsion of the superior aspect of the posterior cortical margin superimposed on spondylosis and degenerative disc disease of the lumbar spine. Assessment & Plan (07/29/2021 10:13 AM OPERATIONS AND INTELLIGENCE ASSISTANT): - chronic, stable - currently taking Celebrex 100 mg BID ---> long time - currently on Gabapentin 900mg TID --> taper down to 600 mg TID gradually - currently on tramadol 50 mg Q6 hrs for pain - taking it BID - she is also on Flexeril 5 mg TID - also takes tylenol 650 2 tablets TID PRN - discussed to try to lower intake to 1 tablets TID PRN - hx of surgery - radiofrequency lumbar bilateral - she has hx of median nerve root block procedure done in the past in 2018 - she used to follow with pain management - most recent CT of lumbar spine had showed hx of L4-L5 posterior herniated disc, mild canal stenosis from 2019, awaiting full records XR Lumbar spine 03/14 1. Age-indeterminate compression deformity of the L1 vertebral body with approximately 45% anterocentral maximal vertebral body height loss and slight retropulsion of the superior aspect of the posterior cortical margin superimposed on spondylosis and degenerative disc disease of the lumbar spine. Assessment & Plan (03/18/2021 12:45 PM CDT): - currently taking Celebrex 100 mg BID - long time - currently on Gabapentin 900mg TID - currently on tramadol 50 mg Q6 hrs for pain - will likely need pain agreement with me - hx of surgery - radiofrequency lumbar bilateral - start taking flexeril 5 mg nightly for muscle spasms - she has hx of median nerve root block procedure done in the past in 2018 - she used to follow with pain management - most recent CT of lumbar spine had showed hx of L4-L5 posterior herniated disc, mild canal stenosis from 2019, awaiting full records Assessment & Plan (12/02/2020 11:24 AM CDT): - currently taking Celebrex 100 mg BID - long time - currently on Gabapentin 900mg TID - currently on tramadol 50 mg Q6 hrs for pain - hx of surgery - radiofrequency lumbar bilateral - she has hx of median nerve root block procedure done in the past in 2018 - she used to follow with pain management - most recent CT of lumbar spine had showed hx of L4-L5 posterior herniated disc, mild canal stenosis from 2019, awaiting full records Assessment & Plan (10/30/2020 8:39 AM CDT): - currently taking Celebrex 100 mg BID - long time - currently on Gabapentin 900mg TID - hx of surgery - radiofrequency - most recent surgery about 2 months ago - will request records - I think she used to follow with pain management - currently not on Tramadol but she used to be on one - not sure how frequently she used it Hypertension, essential 10/29/2020 Assessment & Plan (07/23/2024 9:07 AM OPERATIONS AND INTELLIGENCE ASSISTANT): BP Readings from Last 3 Encounters: 07/23/24 129/84 03/29/24 110/64 01/17/24 119/78 -chronic, at goal of <140/90 -currently takes metoprolol 25 mg -patient reports checking blood pressure semi regularly at home which has not been running high -encourage patient to continue low-sodium diet -continue current treatment plan Assessment & Plan (03/30/2024 6:48 AM CDT): BP Readings from Last 3 Encounters: 03/29/24 110/64 01/17/24 119/78 01/04/24 151/79 -chronic, stable -currently prescribed metoprolol 25 mg -patient reports she has not been taking her metoprolol since her recent hospitalization -patient reports checking blood pressure semi regularly at home which has not been running high -encourage patient to continue low-sodium diet -encourage patient to reach out to office if blood pressure starts to run higher -continue current treatment plan Assessment & Plan (10/17/2023 9:52 AM CDT): BP Readings from Last 3 Encounters: 10/17/23 130/88 09/22/23 150/82 06/14/23 126/80 - chronic, stable - has hx of hypertension - well controlled on current medications - currently on Lopressor 25mg daily - follow a low salt diet - check BP regularly at home - continue with current medication Lab Results Component Value Date POTASSIUM 4.1 09/11/2022 Assessment & Plan (06/14/2023 9:35 AM OPERATIONS AND INTELLIGENCE ASSISTANT): BP Readings from Last 3 Encounters: 06/14/23 126/80 05/03/23 136/74 03/16/23 132/84 - chronic, stable - has hx of hypertension - well controlled on current medications - currently on Lopressor 25mg daily - follow a low salt diet - check BP regularly at home - continue with current medication Lab Results Component Value Date POTASSIUM 4.1 09/11/2022 Assessment & Plan (05/03/2023 10:07 AM CDT): BP Readings from Last 3 Encounters: 05/03/23 136/74 03/16/23 132/84 11/09/22 136/94 - chronic, stable - has hx of hypertension - well controlled on current medications - currently on Lopressor 25mg daily - follow a low salt diet - check BP regularly at home - continue with current medication Lab Results Component Value Date POTASSIUM 4.1 09/11/2022 Assessment & Plan (03/16/2023 9:00 AM CDT): BP Readings from Last 3 Encounters: 03/16/23 132/84 11/09/22 136/94 08/10/22 114/68 - chronic, stable - has hx of hypertension - well controlled on current medications - currently on Lopressor 25mg daily - follow a low salt diet - check BP regularly at home - continue with current medication Lab Results Component Value Date POTASSIUM 4.1 09/11/2022 Assessment & Plan (11/09/2022 9:10 AM CDT): - chronic, stable - has hx of hypertension - well controlled on current medications - currently on Lopressor 25mg daily - follow a low salt diet - check BP regularly at home - continue with current medication Lab Results Component Value Date POTASSIUM 4.1 09/11/2022 Assessment & Plan (08/10/2022 3:21 PM OPERATIONS AND INTELLIGENCE ASSISTANT): - chronic, stable - has hx of hypertension - well controlled on current medications - currently on Lopressor 25mg daily - follow a low salt diet - check BP regularly at home - continue with current medication Lab Results Component Value Date POTASSIUM 4.4 07/29/2021 Assessment & Plan (04/20/2022 9:25 AM CDT): - chronic, stable - has hx of hypertension - well controlled on current medications - currently on Lopressor 25mg daily - follow a low salt diet - check BP regularly at home - continue with current medication Lab Results Component Value Date POTASSIUM 4.4 07/29/2021 Assessment & Plan (02/02/2022 9:38 AM CDT): - chronic, stable - has hx of hypertension - well controlled on current medications - currently on Lopressor 25mg daily - follow a low salt diet - check BP regularly at home - continue with current medication Assessment & Plan (11/09/2021 9:53 AM CDT): - chronic, stable - has hx of hypertension - well controlled on current medications - currently on Lopressor 25mg daily - follow a low salt diet - check BP regularly at home - continue with current medication Assessment & Plan (07/29/2021 9:53 AM OPERATIONS AND INTELLIGENCE ASSISTANT): - chronci, stable - has hx of hypertension - well controlled on current medications - currently on Lopressor 25mg daily - follow a low salt diet - check BP regularly at home - continue with current medication Assessment & Plan (03/18/2021 10:44 AM CDT): - has hx of hypertension - well controlled on current medications - currently on Lopressor 25mg daily - follow a low salt diet - check BP regularly at home - continue with current medication Assessment & Plan (12/01/2020 4:48 PM CDT): - has hx of hypertension - well controlled on current medications - currently on Lopressor 25mg daily Assessment & Plan (10/29/2020 4:33 PM CDT): - has hx of hypertension - currently on Lopressor 25mg daily - well controlled on current medications Overactive bladder 10/29/2020 Assessment & Plan (03/30/2024 6:53 AM CDT): -chronic, stable -currently prescribed oxybutynin -patient reports she was told to hold this medication during her recent hospitalization -patient reports she is going to be following up with Urology soon -patient utilizes incontinence pad/underwear regularly -continue current treatment plan Assessment & Plan (04/20/2022 9:42 AM CDT): - chronic, well controlled with current medications - currently on Oxybutynin XL 15mg daily - stress incontinence and urinary frequency - continue with current management Assessment & Plan (07/29/2021 10:03 AM OPERATIONS AND INTELLIGENCE ASSISTANT): - chronic, well controlled with current medications - currently on Oxybutynin XL 15mg daily - stress incontinence and urinary frequency Assessment & Plan (10/29/2020 4:34 PM CDT): - well controlled with current medications - currently on Oxybutynin XL 15mg daily - stress incontinence and urinary frequency RAMA (obstructive sleep apnea) 10/29/2020 Assessment & Plan (06/14/2023 9:47 AM OPERATIONS AND INTELLIGENCE ASSISTANT): - chronic, uncontrolled - diagnosed in over 7-8 years ago - had CPAP - inconsistent use in the past and at this time states has not been working well for her for months - device was over 7-8 years old per patient and is not working properly - Obtained a home sleep test which showed Sevre RAMA as shown below, then obtained sleep titration study with recommendation for BIPAP, see below - she has an BIPAP device but has not been using it --> discussed to start using device regularly on last visit but has not been using it HSAT 09/16 The apnea-hypopnea index was 34.5. The AHI was 35.2 in the supine position. There were 41 obstructive apneas and 283 hypopneas recorded. Baseline oxygen saturation 93%. Lowest oxygen saturation was 71%. Average oxygen saturation was 89%. There were 335 oxygen desaturation episodes recorded. The oxygen desaturation index was 35.6. Patient spent 2 hours and 56 minutes with oxygen saturation less than 88%. Pulse evaluation revealed a maximum 134 beats per minute, minimum 54 beats per minute, and average of 83 beats per minute. Impression: 1. Severe obstructive sleep apnea syndrome. 2. 2 hours and 56 minutes of oxygen saturation less than 88% documented. 3. Consider Positive Airway Pressure (PAP) devices such as continuous PAP (CPAP), auto-adjusting PAP (APAP), and bi-level PAP (Bi-PAP). 4. CPAP titration to determine optimal pressure required to alleviate sleep disordered breathing PSG Titration 09/2022 This overnight CPAP/BiPAP titration study revealed: 1. Alleviation of obstructive sleep apnea at BiPAP pressure of 15/11 cm of water. 2. BiPAP at 15/11 cm of water is recommended for use. 3. Resmed, Airfit, F20, medium, full face mask was used during the titration. Assessment & Plan (03/16/2023 9:02 AM CDT): - chronic, uncontrolled - diagnosed in over 7-8 years ago - had CPAP - inconsistent use in the past and at this time states has not been working well for her for months - device was over 7-8 years old per patient and is not working properly - Obtained a home sleep test which showed Sevre RAMA as shown below, then obtained sleep titration study with recommendation for BIPAP, see below - she has an BIPAP device but has not been using it --> discussed to start using device regularly HSAT 09/16 The apnea-hypopnea index was 34.5. The AHI was 35.2 in the supine position. There were 41 obstructive apneas and 283 hypopneas recorded. Baseline oxygen saturation 93%. Lowest oxygen saturation was 71%. Average oxygen saturation was 89%. There were 335 oxygen desaturation episodes recorded. The oxygen desaturation index was 35.6. Patient spent 2 hours and 56 minutes with oxygen saturation less than 88%. Pulse evaluation revealed a maximum 134 beats per minute, minimum 54 beats per minute, and average of 83 beats per minute. Impression: 1. Severe obstructive sleep apnea syndrome. 2. 2 hours and 56 minutes of oxygen saturation less than 88% documented. 3. Consider Positive Airway Pressure (PAP) devices such as continuous PAP (CPAP), auto-adjusting PAP (APAP), and bi-level PAP (Bi-PAP). 4. CPAP titration to determine optimal pressure required to alleviate sleep disordered breathing PSG Titration 09/2022 This overnight CPAP/BiPAP titration study revealed: 1. Alleviation of obstructive sleep apnea at BiPAP pressure of 15/11 cm of water. 2. BiPAP at 15/11 cm of water is recommended for use. 3. Resmed, Airfit, F20, medium, full face mask was used during the titration. Assessment & Plan (11/09/2022 12:36 PM CDT): - chronic, uncontrolled - diagnosed in over 7-8 years ago - had CPAP - inconsistent use in the past and at this time states has not been working well for her for months - device was over 7-8 years old per patient and is not working properly - Obtained a home sleep test which showed Sevre RAMA as shown below, then obtained sleep titration study with recommendation for BIPAP, see below - I have sent an order for the BIPAP device, will contact and see status of BIPAP HSAT 09/16 The apnea-hypopnea index was 34.5. The AHI was 35.2 in the supine position. There were 41 obstructive apneas and 283 hypopneas recorded. Baseline oxygen saturation 93%. Lowest oxygen saturation was 71%. Average oxygen saturation was 89%. There were 335 oxygen desaturation episodes recorded. The oxygen desaturation index was 35.6. Patient spent 2 hours and 56 minutes with oxygen saturation less than 88%. Pulse evaluation revealed a maximum 134 beats per minute, minimum 54 beats per minute, and average of 83 beats per minute. Impression: 1. Severe obstructive sleep apnea syndrome. 2. 2 hours and 56 minutes of oxygen saturation less than 88% documented. 3. Consider Positive Airway Pressure (PAP) devices such as continuous PAP (CPAP), auto-adjusting PAP (APAP), and bi-level PAP (Bi-PAP). 4. CPAP titration to determine optimal pressure required to alleviate sleep disordered breathing PSG Titration 09/2022 This overnight CPAP/BiPAP titration study revealed: 1. Alleviation of obstructive sleep apnea at BiPAP pressure of 15/11 cm of water. 2. BiPAP at 15/11 cm of water is recommended for use. 3. Resmed, Airfit, F20, medium, full face mask was used during the titration. Assessment & Plan (08/18/2022 2:08 PM OPERATIONS AND INTELLIGENCE ASSISTANT): - chronic, not at goal - diagnosed in over 7-8 years ago - has CPAP - inconsistent use int eh past and at thsi time states has not been working well for her - recommend usign it nightly , at least 4 hrs a night - she does not recall the device pressure settings - discussed importance of using device nightly, states she will start to do so - device is over 7-8 years old per patient and is not working properly - will obtain a home sleep test and based on that will order her a new CPAP device, HSAT order placed Assessment & Plan (04/20/2022 9:40 AM CDT): - chronic, not at goal - diagnosed in - has CPAP - has not been using it - recommend usign it nightly , at least 4 hrs a night - she does not recall the device pressure settings - discussed importance of using device nightly, states she will start to do so - to call in with serial number of CPAP device Assessment & Plan (07/29/2021 10:01 AM OPERATIONS AND INTELLIGENCE ASSISTANT): - chronic, not at goal - diagnosed in - has CPAP - has not been using it - recommend usign it nightly , at least 4 hrs a night - she does not recall the device pressure settings - discussed importance of using device nightly - will likely need to establish with sleep medicine down the road Assessment & Plan (03/18/2021 12:41 PM CDT): - diagnosed in - has CPAP that she typically used every night but has not been using it lately - discussed importance of using device nightly - will likely need to establish with sleep medicine down the road Assessment & Plan (10/30/2020 8:31 AM CDT): - diagnosed in - has CPAP that she uses every night - states she needs supplies for her CPAP Resolved Problems Problem Noted Date Diagnosed Date Resolved Date Memory difficulties 05/03/2023 10/17/19 24 Assessment & Plan (06/14/2023 11:21 AM OPERATIONS AND INTELLIGENCE ASSISTANT): - recent diagnosis - frequent falls at assisted living place, had UTI with confusion but jason santana noticed decline in memory, also ED doctor needs to be evaluated for dementia - evaluate for reversible causes of dementia - labs placed - no hearing imapirement - SLUSM done today 05/03/2023 - - SLUMS done today --- , shows some improvement - 05/16 - Low vitamin b6 noted, started supplementation and to continue with it - obtain MRI of the brain at this time for further evaluation, also has impairment of gait and balance - last visit, requested neurology referral and has an appointment set up in 08/2023 [facility] Mental Status Assesment Data: Able to state day of the week?: Yes Able to state year?: Yes Able to name state?: Yes able to state how much money spent?: Yes Able to state how much money is left?: No How many animals named in one minute?: 15 plus Number of items named?: one Able to state numbers backward?: one Hours marked correctly?: Yes Time marked correctly?: Yes Placed X in triangle?: Yes Able to idenify larger figure?: Yes Able to remember female name?: Yes Able to state what work she did?: Yes Able to state when she went back to work?: Yes Able to state what state she lived in?: No Total Score:: 21 Assessment & Plan (05/03/2023 10:53 AM CDT): - new diagnosis - frequent falls at assisted living place, had UTI with confusion but jason santana noticed decline in memory, also ED doctor needs to be evaluated for dementia - evaluate for reversible causes of dementia - labs placed - no hearing imapirement - SLUSM done today 05/03/2023 - - will repeat SLUMS in future visit - will review labs and order MRI of Brain for further evaluation [facility] Mental Status Assesment Data: Able to state day of the week?: Yes Able to state year?: Yes Able to name state?: Yes able to state how much money spent?: No Able to state how much money is left?: No How many animals named in one minute?: 10 to 14 Number of items named?: none (13) Able to state numbers backward?: all Hours marked correctly?: No Time marked correctly?: Yes Placed X in triangle?: Yes Able to idenify larger figure?: Yes Able to remember female name?: Yes Able to state what work she did?: Yes Able to state when she went back to work?: Yes Able to state what state she lived in?: Yes Total Score:: 19 Hypersomnia 04/20/2022 06/14/2023 Assessment & Plan (11/09/2022 9:27 AM CDT): - likely due to depression, and uncontrolled RAMA, awaiting to get BIPAP device Encounters Date Type Department Care Team Description 08/06/[address] [facility] Primary Care at [address] [phone] Emerson Clinton MD 08/02/2024 Orders Only [facility] Primary Care at [address] [phone] Michelle Obando, JONATHAN Other hyperlipidemia (Primary Dx) 08/01/2024 Telephone [facility] Primary Care at [address] [address] Michelle Obando NP 07/30/2024 Telephone [facility] Primary Care at [address] [address] Emerson Clinton MD 07/23/2024 8:50 AM OPERATIONS AND INTELLIGENCE ASSISTANT Lab [address] Preventative health care; Vitamin B6 deficiency; Folate deficiency; Iron deficiency; Low bone mass; Need for hepatitis B screening test; Other hyperlipidemia; Screening for thyroid disorder 07/23/2024 8:00 AM OPERATIONS AND INTELLIGENCE ASSISTANT Office Visit [facility] Primary Care at [address] [address] Michelle Obando, JONATHAN Preventative health care (Primary Dx); Hypertension, essential; Other hyperlipidemia; Low bone mass; Gastroesophageal reflux disease, unspecified whether esophagitis present; Moderate episode of recurrent major depressive disorder (HCC); KARRIE (generalized anxiety disorder); Other insomnia; Mild late onset Alzheimer's dementia without behavioral disturbance, psychotic disturbance, mood disturbance, or anxiety (HCC); Iron deficiency; Folate deficiency; Vitamin B6 deficiency; Class 2 obesity with body mass index (BMI) of 36.0 to 36.9 in adult, unspecified obesity type, unspecified whether serious comorbidity present; Need for hepatitis B screening test; Screening for thyroid disorder 07/23/[address] [facility] Primary Care at [address] [phone] Michelle Obando NP Osteoporosis screening (Primary Dx); Postmenopausal from Last 3 Months Immunizations Immunization Administration Dates Next Due Influenza, Quadrivalent, Hig h Dose, Preservative Free, Intrr 05/03/2023,04/20/2022,07/29/2021 Influenza, Trivalent, High D ose, Split, Preservative Free, Intramuscular 03/29/2024 Influenza, Trivalent, IM (MDV) 05/06/2014 Influenza, Unspecified 06/21/2020,2019(Deferred: Patient Refused) Pneumococcal Conjugate PCV 13 04/06/2016 Pneumococcal Polysaccharide PPV23 05/16/2017 Tdap 06/21/2017 ZOSTER Recombinant 04/22/2018,11/04/2017 Surgical History Surgery Date Site/Laterality Comments BACK SURGERY 07/25/2017 - 07/24/2018 KNEE SURGERY 07/25/1983 - 07/24/1984 Left FOOT SURGERY 07/25/2017 - 07/24/2018 Left BREAST BIOPSY 10/06/2023 Left Medical History Medical History Date Comments Arthritis Depression Hypertension Headache, tension-type Kidney stones Family History Medical History Relation Name Comments Lung cancer Brother Anxiety disorder Daughter 1 Depression Daughter 1 Anxiety disorder Daughter 2 Depression Daughter 2 No Known Problems Father Depression Mother Hypertension Mother Stroke Mother Breast cancer Mother's Sister age unknown Heart attack Paternal Grandfather No Known Problems Sister 1 No Known Problems Sister 2 Ovarian cancer Neg Hx Thyroid cancer Neg Hx Relation Name Status Comments Brother Daughter 1 Alive Daughter 2 Alive Father Mother Mother's Sister Paternal Grandfather Alive Sister 1 Alive Sister 2 Alive Social History Tobacco Use Types Packs/Day Years Used Date Smoking Tobacco: Never Smokeless Tobacco: Never Tobacco Cessation:Counseling Given: Yes AUDIT-C Answer Date Recorded Q1: How often do you have a drink containing alcohol? Never 07/23/2024 Q2: How many drinks containi ng alcohol do you have on a typical day when you are drinking? Patient does not drink Q3: How often do you have si x or more drinks on one occasion? Never 07/23/2024 PHQ-2 Answer Date Recorded PHQ-2 Total Score (If total score is 3 or more points, staff should administer the PHQ-9) 2 07/23/2024 Personal Safety Answer Date Recorded Have you ever been in or are you currently in a harmful physical or emotional relationship or is someone making you feel afraid or unsafe? Denies 01/04/2024 Comments No Sex and Gender Information Value Date Recorded Sex Assigned at Not on file Legal Sex Female 2:38 PM CDT Gender Identity Not on file Sexual Orientation Not on file Obstetrics History Para Term AB IAB SAB Ectopic Multiple Livin g Live Births 4 4 4 Date Outcome GA Total Labor Labor/2nd/3rd Weight Sex Type Anes PTL Colleen A1 A5 Name Clin Term Term Term Term Last Filed Vital Signs Vital Sign Reading Time Taken Comments Blood Pressure 129/84 07/23/2024 8:14 AM OPERATIONS AND INTELLIGENCE ASSISTANT Pulse 72 07/23/2024 8:14 AM OPERATIONS AND INTELLIGENCE ASSISTANT Temperature 36.5 C (97.7 F) 01/17/2024 2:50 PM CDT Respiratory Rate 16 07/23/2024 8:14 AM OPERATIONS AND INTELLIGENCE ASSISTANT Oxygen Saturation 93% 07/23/2024 8:14 AM OPERATIONS AND INTELLIGENCE ASSISTANT Inhaled Oxygen Concentration - - Weight 98.8 kg (217 lb 12.8 oz) 07/23/2024 8:14 AM OPERATIONS AND INTELLIGENCE ASSISTANT Height 165.1 cm (5' 5 ) 07/23/2024 8:14 AM OPERATIONS AND INTELLIGENCE ASSISTANT Body Mass Index 36.24 07/23/2024 8:14 AM OPERATIONS AND INTELLIGENCE ASSISTANT Plan of Treatment Health Maintenance Due Date Last Done Comments Osteoporosis Screening-Bone Density Scan 12/08/2023 12/07/2021 Breast Cancer Screening-Mammogram 08/31/2024 08/31/2023, 08/08/2023, 12/07/2021, Additional history exists Covid-19 Vaccine ( season) 2025 01/08/2022, 01/06/2021 Postponed from 03/25/2024 (Patient declined, but will receive in the future) Depression Screening 07/23/2025 07/23/2024, 03/29/2024, 10/17/2023, Additional history exists Fall Risk Assessment 07/23/2025 07/23/2024, 03/29/2024, 01/04/2024, Additional history exists Well Visit 65+ 07/23/2025 07/23/2024, 06/26, 06/14/2023, Additional history exists DTaP/Tdap/Td Vaccine (2 - Td or Tdap) 06/21/2027 06/21/2017 Colon Cancer Screening-Colonoscopy 02/10/2032 02/09/2022, 03/01/2018 Pneumococcal vaccine 65+ Completed 05/16/2017, 03/25 Zoster Vaccine Completed 04/22/2018, 11/04/2017 Hepatitis C Screening Completed 10/30/2020 Influenza Vaccine Completed 03/29/2024, , 04/20/2022, Additional history exists Hepatitis B Screening Completed 07/23/2024 Medical Devices Implanted Type Area Offset Press Operator Helper Device Identifier Shelf Expiration Date Model / Serial / Lot FedBid Marker Biopsy Site T3 Shape Hydromark Mammotome 10ga 8419-27-07-T3 - [id number] Implanted:Qty: 1 on 10/06/2023 at [facility] Left: Breast FedBid [id number] 0-T3 / / [id number] FedBid Marker Tissue Needle Delivery Spiral Capped Seed Radiopaque Skilled Nursing Stainless Steel Low Nickel Sentimag [id number] - [id number] Implanted:Qty: 1 on 01/03/2024 at [facility] FedBid 03/24/2027 [id number] / / Description:To be explanted during surgery 01/04/24 Procedures Procedure Name Priority Date/Time Associated Diagnosis Comments EGFR Routine 07/23/2024 8:53 AM OPERATIONS AND INTELLIGENCE ASSISTANT Preventative health care DIFFERENTIAL AUTO Routine 07/23/2024 8:5 3 AM OPERATIONS AND INTELLIGENCE ASSISTANT Preventative health care CBC WITH AUTO DIFFERENTIAL Routine 07/23/2024 8:53 AM OPERATIONS AND INTELLIGENCE ASSISTANT Preventative health care COMPREHENSIVE METABOLIC PANEL Routine 07/23/2024 8:53 AM OPERATIONS AND INTELLIGENCE ASSISTANT Preventative health care THYROID FUNCTION CASCADE Routine 07/23/2024 8:53 AM OPERATIONS AND INTELLIGENCE ASSISTANT Screening for thyroid disorder LIPID PANEL Routine 07/23/2024 8:53 AM OPERATIONS AND INTELLIGENCE ASSISTANT Other hyperlipidemia HEMOGLOBIN A1C Routine 07/23/2024 8:53 AM OPERATIONS AND INTELLIGENCE ASSISTANT Preventative health care VITAMIN D 25 HYDROXY Routine 07/23/2024 8:53 AM OPERATIONS AND INTELLIGENCE ASSISTANT Low bone mass IRON PROFILE W/ IBC Routine 07/23/2024 8 :53 AM OPERATIONS AND INTELLIGENCE ASSISTANT Iron deficiency FERRITIN Routine 07/23/2024 8:53 AM OPERATIONS AND INTELLIGENCE ASSISTANT Iron deficiency FOLATE Routine 07/23/2024 8:53 AM OPERATIONS AND INTELLIGENCE ASSISTANT Folate deficiency VITAMIN B6 Routine 07/23/2024 8:53 AM OPERATIONS AND INTELLIGENCE ASSISTANT Vitamin B6 deficiency VITAMIN B12 Routine 07/23/2024 8:53 AM OPERATIONS AND INTELLIGENCE ASSISTANT Preventative health care HEPATITIS B CORE ANTIBODY, TOTAL Routine 07/23/2024 8:53 AM OPERATIONS AND INTELLIGENCE ASSISTANT Need for hepatitis B screening test HEPATITIS B SURFACE ANTIBODY (IMMUNE STATUS) Routine 07/23/2024 8:53 AM OPERATIONS AND INTELLIGENCE ASSISTANT Need for hepatitis B screening test HEPATITIS B SURFACE ANTIGEN Routine 07/23/2024 8:53 AM OPERATIONS AND INTELLIGENCE ASSISTANT Need for hepatitis B screening test DIAGNOSTIC MAMMOGRAM BILATERAL W LAZ Schedule Routine, Read Routine (OP Routine) 08/31/2023 9:30 AM OPERATIONS AND INTELLIGENCE ASSISTANT Abnormal mammogram HM COLONOSCOPY Routine 02/09/2022 DEXA AXIAL SKELETON BONE DENSITY 1 OR MORE SITES Schedule Routine, Read Routine (OP Routine) 12/07/2021 8:26 AM CDT Postmenopausal HEPATITIS C ANTIBODY Routine 10/30/2020 1:00 PM CDT from Last 3 Months or Most Recently Relevant to Health Maintenance Results * eGFR (07/23/2024 8:53 AM OPERATIONS AND INTELLIGENCE ASSISTANT) Pathologist [facility] eGFR 71 >=60 mL/min/1. 73 m2 Comment: Interpretive Data Reference Interval Normal >/= 90 mL/min/1.73m2 Mildly decreased* 60 - 89 mL/min/1.73m2 Mildly to moderately decreased 45 - 59 mL/min/1.73m2 Moderately to severely decreased 30 - 44 mL/min/1.73m2 Severely decreased 15 - 29 mL/min/1.73m2 Kidney Failure < 15 mL/min/1.73m2 *Relative to young adult level Estimated glomerular filtration rate is determined by the 2020 CKD-EPI equation recommended by the National Kidney Foundation (A Unifying Approach to GFR Estimation: Recommendations of the NKF-ASK Task Force on Reassessing the Inclusion of Race in Diagnosing Kidney Disease, JASN 2020). The CKD-EPI equation should not be used for patients with unstable renal function and has not been validated in children and those over 70. Current interpretive data was last reviewed 2021. Blood 07/23/2024 8:53 AM OPERATIONS AND INTELLIGENCE ASSISTANT 07/23/2024 10:51 AM OPERATIONS AND INTELLIGENCE ASSISTANT us Michelle Obando NP LAB BLOOD ORDERABLES Fi nal Result [facility] ([place]) 1 [facility] Department [place] [address] * Differential, auto (07/23/2024 8:53 AM OPERATIONS AND INTELLIGENCE ASSISTANT) Neutrophil abs 4.5 1.5 - 6.5 K/cumm Imm gran abs 0.0 0.0 - 0.1 K/cumm [facility] ([place]) Lymphocyte abs 3.1 0.8 - 3.3 K/cumm [facility] ([place]) Monocyte abs 0.6 0.2 - 0.8 K/cumm [facility] ([place]) Eosinophil abs 0.3 0.0 - 0.5 K/cumm [facility] ([place]) Basophil abs 0.1 0.0 - 0.1 K/cumm [facility] ([place]) Neutrophil pct 51.6 % [facility] ([place]) Comment: Interpretive Data Percent cell count reference ranges are not reported, since discordance with absolute values may lead to misinterpretation of CBC data. Current Interpretive Data was last revised on 2017. Imm gran pct 0.5 % [facility] ([place]) Comment: Interpretive Data Percent cell count reference ranges are not reported, since discordance with absolute values may lead to misinterpretation of CBC data. Current Interpretive Data was last revised on 2017. Lymphocyte pct 35.7 % [facility] ([place]) Comment: Interpretive Data Percent cell count reference ranges are not reported, since discordance with absolute values may lead to misinterpretation of CBC data. Current Interpretive Data was last revised on 2017. Monocyte pct 7.4 % [facility] ([place]) Comment: Interpretive Data Percent cell count reference ranges are not reported, since discordance with absolute values may lead to misinterpretation of CBC data. Current Interpretive Data was last revised on 2017. Eosinophil pct 3.9 % [facility] ([place]) Comment: Interpretive Data Percent cell count reference ranges are not reported, since discordance with absolute values may lead to misinterpretation of CBC data. Current Interpretive Data was last revised on 2017. Basophil pct 0.9 % [facility] ([place]) Comment: Interpretive Data Percent cell count reference ranges are not reported, since discordance with absolute values may lead to misinterpretation of CBC data. Current Interpretive Data was last revised on 2017. Blood 07/23/2024 8:53 AM OPERATIONS AND INTELLIGENCE ASSISTANT 07/23/2024 10:51 AM OPERATIONS AND INTELLIGENCE ASSISTANT Michelle Obando IT NETWORK ARCHITECT LAB BLOOD ORDERABLES Fi nal Result [facility] ([place]) 1 [facility] Department [place] [address] * Thyroid Function [place] (07/23/2024 8:53 AM OPERATIONS AND INTELLIGENCE ASSISTANT) TSH 3.40 0.30 - 4.20 mcIUnit/mL Blood 07/23/2024 8:53 AM OPERATIONS AND INTELLIGENCE ASSISTANT 07/23/2024 10:51 AM OPERATIONS AND INTELLIGENCE ASSISTANT us Michelle Obando NP LAB BLOOD ORDERABLES Fi nal Result [facility] ([place]) 1 [facility] [email or web address] [address] * Iron profile w/ IBC (07/23/2024 8:53 AM OPERATIONS AND INTELLIGENCE ASSISTANT) Iron 88 35 - 145 mcg/dL TIBC 337 250 - 400 mcg/dL [facility] ([place]) Transferrin saturation 26 20 - 50 % [facility] ([place]) Blood 07/23/2024 8:53 AM OPERATIONS AND INTELLIGENCE ASSISTANT 07/23/2024 10:51 AM OPERATIONS AND INTELLIGENCE ASSISTANT Michelle Obando NP LAB BLOOD ORDERABLES Fi nal Result Performing Organization Address City/[facility]/ZIP Co de Phone Number [facility] ([place]) 1 [facility] [email or web address] [address] * (ABNORMAL) CBC with auto differential (07/23/2024 8:53 AM OPERATIONS AND INTELLIGENCE ASSISTANT) WBC 8.7 3.8 - 9.9 K/cumm Hgb 14.4 11.9 - 15.5 g/dL [facility] ([place]) Hct 45.1 35.6 - 45.5 % [facility] ([place]) Plt 321 150 - 400 K/cumm [facility] ([place]) MPV 9.9 9.1 - 12.3 fL [facility] ([place]) RBC 4.74 3.90 - 5.20 M/cumm [facility] ([place]) MCV 95.1 81.3 - 96.4 fL [facility] ([place]) MCH 30.4 27.1 - 33.3 pg [facility] ([place]) MCHC 31.9(L) 32.3 - 35.7 g/dL [facility] ([place]) RDW CV 12.5 11.1 - 14.9 % [facility] ([place]) RDW SD 43.3 35.7 - 48.1 fL [facility] ([place]) NRBC abs 0.00 0.00 - 0.01 K/cumm [facility] ([place]) Blood 07/23/2024 8:53 AM OPERATIONS AND INTELLIGENCE ASSISTANT 07/23/2024 10:51 AM OPERATIONS AND INTELLIGENCE ASSISTANT Michelle Obando NP LAB BLOOD ORDERABLES Fi nal Result [facility] ([place]) 1 [facility] [place] [address] * Hepatitis B core antibody, total Blood (07/23/2024 8:53 AM OPERATIONS AND INTELLIGENCE ASSISTANT) Pathologist [facility] Hep B core IgG/IgM Nonreactive Nonreactive Comment:Testing performed by : [facility], [address] [place]., [address] Blood 07/23/2024 8:53 AM OPERATIONS AND INTELLIGENCE ASSISTANT 07/23/2024 2:25 PM OPERATIONS AND INTELLIGENCE ASSISTANT Michelle Obando NP LAB MICROBIOLOGY - GENE RAL ORDERABLES Final Result Performing Organization Address [facility]/ZIP Co de Phone Number [facility] ([place]) 1 [facility] [place] [address] * Vitamin D 25 hydroxy (07/23/2024 8:53 AM OPERATIONS AND INTELLIGENCE ASSISTANT) Pathologist [facility] Vitamin D 25-OH 60 30 - 80 ng/mL Blood 07/23/2024 8:53 AM OPERATIONS AND INTELLIGENCE ASSISTANT 07/23/2024 10:51 AM OPERATIONS AND INTELLIGENCE ASSISTANT Michelle Obando NP LAB BLOOD ORDERABLES Fi nal Result [facility] ([place]) 1 [facility] [place] [address] * Hepatitis B surface antibody (immune status) Blood (07/23/2024 8:53 AM OPERATIONS AND INTELLIGENCE ASSISTANT) Pathologist [facility] HBsAb (immune status) Nonreactive Comment: Interpretive Data Nonreactive: This result is consistent with a lack of immunity to Hepatitis B Virus when used in the setting of routine screening. Equivocal: The immune status of the individual should be further assessed, if appropriate, after consideration of clinical status, risk factors, and additional diagnostic information. Reactive: This result is consistent with immunity to Hepatitis B Virus when used in the setting of routine screening. Current interpretive data was last revised on 19. Testing performed by: [address] [address] Blood 07/23/2024 8:53 AM OPERATIONS AND INTELLIGENCE ASSISTANT 07/23/2024 1:59 PM OPERATIONS AND INTELLIGENCE ASSISTANT Michelle Obando NP LAB MICROBIOLOGY - GENE RAL ORDERABLES Final Result Performing Organization Address [facility]/ZIP Co de Phone Number [facility] ([place]) 1 [facility] [email or web address] [address] * Hepatitis B Surface Antigen Blood (07/23/2024 8:53 AM OPERATIONS AND INTELLIGENCE ASSISTANT) HepBsAg Nonreactive Nonreactive Comment:Testing performed by : [facility], [address] [place] [address]., [id number] Blood 07/23/2024 8:53 AM OPERATIONS AND INTELLIGENCE ASSISTANT 07/23/2024 1:59 PM OPERATIONS AND INTELLIGENCE ASSISTANT Michelle Obando NP LAB MICROBIOLOGY - GENE RAL ORDERABLES Final Result Performing Organization Address City/[facility] Co de Phone Number [facility] ([place]) 1 [place] [address] * Vitamin B6 (07/23/2024 8:53 AM OPERATIONS AND INTELLIGENCE ASSISTANT) Pyridoxal phosphate (Vit B6) 42 5 - 50 mcg/L [facility] Comment: ADDITIONAL INFORMATION This test was developed and its performance characteristics determined by [facility] in a manner consistent with CLIA requirements. This test has not been cleared or approved by the U.S. Food and Drug Administration. Test Performed by: [facility] [address] [place], [place] [id number] Lamp Developer: Edgardo Mehta Ph.D.; IA# [id number] Blood 07/23/2024 8:53 AM OPERATIONS AND INTELLIGENCE ASSISTANT 07/23/2024 10:51 AM OPERATIONS AND INTELLIGENCE ASSISTANT Michelle Obando IT NETWORK ARCHITECT LAB BLOOD ORDERABLES Fi nal Result Performing Organization Address [facility] de Phone Number [facility] 1 [facility] [email or web address] [address] [facility] ref [facility] * Hemoglobin A1c (07/23/2024 8:53 AM OPERATIONS AND INTELLIGENCE ASSISTANT) Hgb A1C 5.4 4.0 - 5.6 % Estimated Average Glucose 108 mg/dL [facility] ([place]) Comment: The ADA recommends reporting an estimated Average Glucose (eAG) with all Hemoglobin A1c results using the equation derived from a study of 507 normal and diabetic adults. Minority populations were underrepresented and children were not included. (Diabetes Care 31:3372-2465, 2008). The eAG is not equivalent to a fasting glucose. Blood 07/23/2024 8:53 AM OPERATIONS AND INTELLIGENCE ASSISTANT 07/23/2024 10:51 AM OPERATIONS AND INTELLIGENCE ASSISTANT Michelle Obando NP LAB BLOOD ORDERABLES Fi nal Result Performing Organization Address [facility] de Phone Number [facility] ([place]) 1 [facility] [email or web address] [address] * Folate (07/23/2024 8:53 AM OPERATIONS AND INTELLIGENCE ASSISTANT) Folic acid >20.0 >=5.0 ng/mL Comment:Slightly Hemolyzed S pecimen. Results may be affected. Blood 07/23/2024 8:53 AM OPERATIONS AND INTELLIGENCE ASSISTANT 07/23/2024 10:51 AM OPERATIONS AND INTELLIGENCE ASSISTANT Michelle Obando NP LAB BLOOD ORDERABLES Fi nal Result Performing Organization Address [facility] Co de Phone Number [facility] 1 [facility] [email or web address] [address] * (ABNORMAL) Ferritin (07/23/2024 8:53 AM OPERATIONS AND INTELLIGENCE ASSISTANT) Ferritin 178(H) 15 - 150 ng/mL Blood 07/23/2024 8:53 AM OPERATIONS AND INTELLIGENCE ASSISTANT 07/23/2024 10:51 AM OPERATIONS AND INTELLIGENCE ASSISTANT Michelle Obando IT NETWORK ARCHITECT LAB BLOOD ORDERABLES Fi nal Result [facility] ([place] 1 [facility] [email or web address] [address] * Vitamin B12 (07/23/2024 8:53 AM OPERATIONS AND INTELLIGENCE ASSISTANT) Vitamin B12 585 230 - 1,250 pg/mL Blood 07/23/2024 8:53 AM OPERATIONS AND INTELLIGENCE ASSISTANT 07/23/2024 10:51 AM OPERATIONS AND INTELLIGENCE ASSISTANT Michelle Obando IT NETWORK ARCHITECT LAB BLOOD ORDERABLES Fi nal Result [facility] ([place]) 1 [facility] [email or web address] [address] * (ABNORMAL) Lipid panel (07/23/2024 8:53 AM OPERATIONS AND INTELLIGENCE ASSISTANT) Cholesterol 262(H) 30 - 199 mg/dL Comment: Interpretive Data Ages < or = 19 years Acceptable: <170 mg/dL Borderline high: 170-199 mg/dL High: >or= 200 mg/dL Ages > or = 20 years Desirable: <200 mg/dL Borderline high: 200-239 mg/dL High: >or= 240 mg/dL Literature References: 1. Expert Panel on Integrated Guidelines for Cardiovascular Health and Risk Reduction in Children and Adolescents. Pediatrics 2011;128:S213 2. NCEP Expert Panel. Circulation 2004;110:227 Current Interpretive Data was last revised on 2018. Triglycerides 188(H) <=149 mg/dL [facility] ([place]) Comment: Interpretive Data Ages < or = 9 years Acceptable: <75 mg/dL Borderline high: 75-99 mg/dL High: >or= 100 mg/dL Ages 10 to 20 years Acceptable: <90 mg/dL Borderline high: 90-129 mg/dL High: >or= 130 mg/dL Ages > or = 20 years Desirable: <150 mg/dL Borderline high: 150-199 mg/dL High: 200-499 mg/dL Very high: >or= 499 mg/dL Literature References: 1. Expert Panel on Integrated Guidelines for Cardiovascular Health and Risk Reduction in Children and Adolescents. Pediatrics 2011;128:S213 2. NCEP Expert Panel. Circulation 2004;110:227 Current Interpretive Data was last revised on 2018. HDL 46 >=40 mg/dL [facility]) Comment: Interpretive Data Ages < or = 19 years Acceptable: >45 mg/dL Borderline low: 40-45 mg/dL Low: <40 mg/dL Ages > or = 20 years Desirable: >or= 60 mg/dL Low: <40 mg/dL Literature References: 1. Expert Panel on Integrated Guidelines for Cardiovascular Health and Risk Reduction in Children and Adolescents. Pediatrics 2011;128:S213 2. NCEP Expert Panel. Circulation 2004;110:227 Current Interpretive Data was last revised on 2018. LDL, calculated 181(H) <=129 mg/dL [facility]) Comment: Interpretive Data Ages < or = 19 years Acceptable: <110 mg/dL Borderline high: 110-129 mg/dL High: >or= 130 mg/dL Ages > or = 20 years Optimal: <100 mg/dL Near optimal: 100-129 mg/dL Borderline high: 130-159 mg/dL High: >160 mg/dL Calculated using the Shlomo LDL-C estimating equation. This equation was implemented on 2024. Prior to this date LDL-C was estimated using the Friedewald equation. Literature References: 1. Expert Panel on Integrated Guidelines for Cardiovascular Health and Risk Reduction in Children and Adolescents. Pediatrics 2011;128:S213 2. NCEP Expert Panel. Circulation 2004;110:227 3. Shlomo Shepard al. VITALY Cardiol. 2020 November 22;5(5):540-548. doi: 10.1001/jamacardio.2020.0013 Current Interpretive Data was last revised on 2024. Non-HDL Cholesterol 216 mg/dL [facility] ([place]) Comment: Interpretive Data Ages < or = 19 years Acceptable: <120 mg/dL Borderline high: 120-144 mg/dL High: >145 mg/dL Ages > or = 20 years When triglycerides are >200 mg/dL, Non-HDL cholesterol is a secondary target of therapy with treatment goals that are 30 mg/dL greater than the LDL cholesterol target. Literature References: 1. Expert Panel on Integrated Guidelines for Cardiovascular Health and Risk Reduction in Children and Adolescents. Pediatrics 2011;128:S213 2. NCEP Expert Panel. Circulation 2004;110:227 Current Interpretive Data was last revised on 2018. Chol/HDL ratio 6 [facility] ([place]) Blood 07/23/2024 8:53 AM OPERATIONS AND INTELLIGENCE ASSISTANT 07/23/2024 10:51 AM OPERATIONS AND INTELLIGENCE ASSISTANT Narrative [facility] ([place]) - 07/23/2024 11:23 AM OPERATIONS AND INTELLIGENCE ASSISTANT Has the patient been fasting for 8 hours or more?->Yes Michelle Obando IT NETWORK ARCHITECT LAB BLOOD ORDERABLES Fi nal Result [facility] ([place] 1 [facility] Department [place] [address] * (ABNORMAL) Comprehensive metabolic panel (07/23/2024 8:53 AM OPERATIONS AND INTELLIGENCE ASSISTANT) Sodium 139 135 - 145 mmol/L Potassium, pl 4.1 3.3 - 4.9 mmol/L [facility] ([place]) Chloride 98 97 - 110 mmol/L [facility] CO2 25 22 - 32 mmol/L [facility] ([place]) Anion gap 16(H) 2 - 15 mmol/L [facility] ([place]) BUN 13 6 - 25 mg/dL [facility] ([place]) Creatinine 0.86 0.60 - 1.10 mg/dL [facility] ([place]) Glucose 112 70 - 199 mg/dL [facility] ([place]) Comment: Interpretive Data Fasting glucose >/= 126 mg/dl is diagnostic for diabetes. Fasting is defined as no caloric intake for at least 8 hours. Fasting glucose between 100 mg/dl to 125 mg/dl is diagnostic of prediabetes. In a patient with classic symptoms of hyperglycemia or hyperglycemic crisis, a random glucose >/= 200 mg/dl is diagnostic for diabetes. In the absence of unequivocal hyperglycemia, results should be confirmed by repeat testing. The classification and Diagnosis of Diabetes Diabetes Care 2021; 46: S19-S40. Current interpretive data was last revised 2022. Calcium 10.2 8.5 - 10.3 mg/dL [facility] ([place]) Bilirubin, total 0.5 0.1 - 1.2 mg/dL [facility] ([place]) Protein, pl 7.8 6.5 - 8.5 g/dL [facility] ([place]) Albumin 4.4 3.5 - 5.0 g/dL [facility] ([place]) Alk phos 122 40 - 130 Units/L [facility] ([place] ALT 64(H) 7 - 45 Units/L [facility] ([place] AST 58(H) 10 - 45 Units/L [facility] ([place] Blood 07/23/2024 8:53 AM OPERATIONS AND INTELLIGENCE ASSISTANT 07/23/2024 10:51 AM OPERATIONS AND INTELLIGENCE ASSISTANT us Michelle Obando NP LAB BLOOD ORDERABLES Fi nal Result [facility] ([place]) 1 [facility] Department [place] [address] * (ABNORMAL) Diagnostic Mammogram Bilateral W Laz (08/31/2023 9:30 AM OPERATIONS AND INTELLIGENCE ASSISTANT) Anatomical Region Laterality Modality Breast Bilateral Mammography 08/31/2023 10:4 9 AM OPERATIONS AND INTELLIGENCE ASSISTANT Impressions 08/31/2023 10:49 AM OPERATIONS AND INTELLIGENCE ASSISTANT Clustered microcalcifications at the 12 o'clock position of the left breast are at an intermediate level of suspicion for malignancy. Stereotactic core biopsy of the left breast is recommended. Complicated cysts in the right breast are probably benign. Follow-up right breast ultrasound advised in 6 months time. Results and recommendations were discussed with the patient at the time of the study. BI-RADS: 4 - Suspicious for malignancy. Biopsy is recommended. Electronically signed by: Jennifer Garza M.D. Narrative 08/31/2023 10:49 AM OPERATIONS AND INTELLIGENCE ASSISTANT EXAMINATION: DIAGNOSTIC MAMMOGRAM BILATERAL W LAZ, US BREAST BILATERAL LIMITED ORDERING HEALTHCARE PROVIDER: EMERSON CLINTON HISTORY: Abnormal screening study COMPARISON: 08/08/2023, 12/07/2021, 11/20/2020 TECHNIQUE: Spot compression CC and spot compression MLO views of the bilateral breasts were obtained with digital technique using breast tomosynthesis with C view. Additionally, full field 90 degrees tomographic images were performed. Additionally, magnification CC and magnification 90 degree views of the left breast were performed. Computer aided detection was utilized. FINDINGS: DENSITY: There are scattered fibroglandular elements in the bilateral breasts. BREASTS: Spot compression CC spot compression MLO and full field 90 degrees tomographic images of the right breast demonstrate circumscribed lesions, larger than on previous studies. Additionally, spot compression CC and spot compression MLO views of the left breast fail to demonstrate an underlying lesion for the microcalcifications noted. Magnification views demonstrate clustered microcalcifications at the approximately 12 o'clock position. These do not appear to represent vascular calcifications. They do not appear to layer on 90 degrees views. There may be associated architectural distortion appreciated with these microcalcifications. They appear to represent a change. TARGETED BILATERAL BREAST ULTRASOUND Targeted right breast ultrasound was performed in the region of interest. At the 12 o'clock position between 1 and 4 cm from the nipple are large anechoic cysts with dependent debris within them. Together this measures 2.6 x 2.7 x 1.6 cm. There is no evidence of abnormal color flow. There is posterior acoustical enhancement. This correlates with the mammographic finding and is probably benign. Targeted left breast ultrasound was performed in the region of interest. Left breast ultrasound in the region of the microcalcifications demonstrates no sonographic evidence of an underlying mass. Incidentally noted at the 12 o'clock position 6 cm from the nipple is a hypoechoic cyst within it calcification identified adjacent to it. This measures 1.2 cm. This correlates with a cyst within adjacent calcification on mammogram. Emerson Clinton MD IMG MAMMO PROCEDURES Fi nal Result * COLONOSCOPY (02/09/2022) Scribed Colonoscopy Normal 02/09/2022 Historical Provider HEALTH MAINTENANCE Final Result * Dexa Axial Skeleton Bone Density 1 or 2 Site (12/07/2021 8:26 AM CDT) Anatomical Region Laterality Modality Body N/A Other 12/07/2021 9:40 AM CDT Narrative 12/07/2021 9:41 AM CDT EXAM DESCRIPTION: DEXA AXIAL SKELETON BONE DENSITY 1 OR MORE SITES REASON FOR STUDY: 71 y/o year old F with given history of screening. 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 FINDINGS: AP LUMBAR SPINE L1-L4: Total BMD is 0.901 g/cm2 T-score is -1.6 LEFT HIP: Total BMD is 0.787 g/cm2 T-score is -1.3 Femoral neck BMD is 0.623 g/cm2 T-score is -2.0 IMPRESSION: Based on the left femoral neck bone mineral density (T-score -2.0) the patient has low bone mass. Fracture risk assessment (FRAX): 10 year risk for a major osteoporotic fracture is 14 % 10 year risk for a hip fracture is 3.0 % The FRAX tool has not been validated in patients currently or previously treated with pharmacotherapy for osteoporosis. In such patients, clinical judgement must be exercised in interpreting FRAX scores as the fracture risk may be overestimated. REFERENCE: Bone mineral density: Normal (T-score above or = -1.0) Low bone mass (T-score between -1.0 and -2.5) replaces the previously used term osteopenia Osteoporosis (T-score = or below -2.5) Medical evaluation for secondary causes of low bone mineral density may be appropriate. FRAX is a World Health Organization validated fracture risk assessment tool that calculates a person's 10 year probability of a major osteoporosis related fracture and hip fracture. According to the National Osteoporosis Foundation guidelines, postmenopausal women and men age 50 or older with low bone mass and a 10 year probability of a major osteoporosis related fracture = or greater than 20% or a 10 year probability of a hip fracture = or greater than 3% should be considered for treatment. For further information, including treatment recommendations, please refer to the 2013 ISCD Official Positions (http://www.iscd.org) and the NOF's Clinician's Guide to Prevention and Treatment of Osteoporosis (http://www.nof.org/professionals/clinical-guidelines) THIS IS AN ELECTRONICALLY VERIFIED FINAL REPORT 12/07/2021 9:41 AM - Electronically signed by Michael Decker M.D. MF: [email or web address] Report ID: [id number] Reading Location: [place] [address] Procedure Note Michael Decker MD - 12/07/2021 EXAM DESCRIPTION: DEXA AXIAL SKELETON BONE DENSITY 1 OR MORE SITES REASON FOR STUDY: 71 y/o year old F with given history ofscreening. 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 FINDINGS: AP LUMBAR SPINE L1-L4: Total BMD is 0.901 g/cm2 T-score is -1.6 LEFT HIP: Total BMD is 0.787 g/cm2 T-score is -1.3 Femoral neck BMD is 0.623 g/cm2 T-score is -2.0 IMPRESSION: Based on the left femoral neck bone mineral density (T-score -2.0) the patient has low bone mass. Fracture risk assessment (FRAX): 10 year risk for a major osteoporotic fracture is 14 % 10 year risk for a hip fracture is 3.0 % The FRAX tool has not been validated in patients currently or previously treated with pharmacotherapy for osteoporosis. In such patients, clinical judgement must be exercised in interpreting FRAX scores as the fracturerisk may be overestimated. REFERENCE: Bone mineral density: Normal (T-score above or = -1.0) Low bone mass (T-score between -1.0 and -2.5) replaces thepreviously used term osteopenia Osteoporosis (T-score = or below -2.5) Medical evaluation for secondary causes of low bone mineral density may be appropriate. FRAX is a World Health Organization validated fracture risk assessmenttool that calculates a person's 10 year probability of a major osteoporosisrelated fracture and hip fracture. According to the National OsteoporosisFoundation guidelines, postmenopausal women and men age 50 or older with low bonemass and a 10 year probability of a major osteoporosis related fracture = or greater than 20% or a 10 year probability of a hip fracture = or greaterthan 3% should be considered for treatment. For further information, including treatment recommendations, please referto the 2013 ISCD Official Positions (http://www.iscd.org) and the NOF's Clinician's Guide to Prevention and Treatment of Osteoporosis (http://www.nof.org/professionals/clinical-guidelines) THIS IS AN ELECTRONICALLY VERIFIED FINAL REPORT 12/07/2021 9:41 AM - Electronically signed by Michael Decker M.D. MF: [email or web address] Report ID: [id number] Reading Location: [place] [address] Emerson Clinton MD IMG DXA PROCEDURES Stephenie l Result * Hepatitis C antibody (10/30/2020 1:00 PM CDT) [facility] Hep C Ab <0.1 0.0 - 0.9 s/co ratio [facility] - 01 Comment: Negative: < 0.8 Indeterminate: 0.8 - 0.9 Positive: > 0.9 The CDC recommends that a positive HCV antibody result be followed up with a HCV Nucleic Acid Amplification test (533505). 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
--- OUTSIDE RECORDS SUMMARY | 2024-10-03 10:55 | XMS_ITS | Referral Summary ---
Author Organization [facility] Medical Office Building B Address [address] [place] [address] Care Team Providers Care Embryology Teacher Name Role Phone Emerson Clinton MD Primary Care Provider Michael Chacon MD Unavailable [phone] Linda Akbar MD PhD Unavaila ble Encounters Date Type Department Care Team Description 08/06/2024 Orders Only [facility] Primary Care at [address] [id number] Emerson Clinton MD 08/02/2024 Orders Only [facility] Primary Care at [address] [id number] Michelle Obando NP Other hyperlipidemia (Primary Dx) 08/01/2024 Telephone [facility] Primary Care at [address] [phone] Michelle Obando NP 07/30/2024 Telephone [facility] Primary Care at [address] [phone] Emerson Clinton MD 07/23/2024 Orders Only [facility] Primary Care at [address] [id number] Michelle Obando, JONATHAN Osteoporosis screening (Primary Dx); Postmenopausal 07/23/2024 8:50 AM HANDSTITCHING MACHINE COLLAR FELLER Lab [address] Preventative health care; Vitamin B6 deficiency; Folate deficiency; Iron deficiency; Low bone mass; Need for hepatitis B screening test; Other hyperlipidemia; Screening for thyroid disorder 07/23/2024 8:00 AM HANDSTITCHING MACHINE COLLAR FELLER Office Visit [facility] Primary Care at [address] [place] [address] Michelle Obadno NP Preventative health care (Primary Dx); Hypertension, essential; [...] B screening test; Screening for thyroid disorder from Last 3 Months Allergies No known active allergies Medications albuterol [...] 3 (three) times a day 180 capsule 021 Active alendronate (FOSAMAX) 70 mg tabletIndications :Post-Menopausal [...] tablet 1 022 Active cholecalciferol (VITAMIN D-3) 60964 unit tabletIndications :Vitamin D Deficiency Take 1 [...] with a glass of water 8 capsule Active tolnaftate (TINACTIN) 1 % powder Active DULoxetine DR (CYMBALTA) 60 mg capsule Take 1 capsule (60 mg total) by mouth daily Take with 30 mg to total 90 mg Active folic acid (FOLVITE) 1 mg tabletIndications [...] sent Assessment & Plan (07/23/2024 9:09 AM HANDSTITCHING MACHINE COLLAR FELLER): -chronic, improving -currently takes folate 1 mg [...] 09/22/2023 Assessment & Plan (07/23/2024 9:21 AM HANDSTITCHING MACHINE COLLAR FELLER): -chronic, stable -patient currently takes donepezil 10 [...] 09/22/2023 Assessment & Plan (07/23/2024 9:08 AM HANDSTITCHING MACHINE COLLAR FELLER): -chronic, stable -currently takes vitamin B6 supplement [...] to increased risk of developing breast cancer. [facility] health care 06/14/2023 Assessment & Plan (07/23/2024 9:18 AM HANDSTITCHING MACHINE COLLAR FELLER): - New or chronic worsening conditions: Recent [...] Postmenopausal Assessment & Plan (06/14/2023 11:17 AM HANDSTITCHING MACHINE COLLAR FELLER): - New or chronic worsening conditions: continued [...] plan Assessment & Plan (06/14/2023 11:20 AM HANDSTITCHING MACHINE COLLAR FELLER): - chronic, persistent - uses walker but [...] in 2018 - this was [place] in [place] - placed after a history of car [...] 02/18/2021 Assessment & Plan (07/23/2024 9:22 AM HANDSTITCHING MACHINE COLLAR FELLER): -chronic, at goal -patient currently takes Cymbalta 90 mg, risperidone 1 mg -also has trazodone 150 mg as needed for insomnia -previously unable to tolerate -patient denies any worsening of depressed mood, thoughts of harming herself or others, or worsening anxiety -continue current treatment plan Assessment & Plan (06/14/2023 9:35 AM HANDSTITCHING MACHINE COLLAR FELLER): - chronic condition, controlled with persistent mood [...] medications Assessment & Plan (08/18/2022 2:16 PM HANDSTITCHING MACHINE COLLAR FELLER): - chronic condition, not adequately controlled with [...] 10:59 PM CDT): - [facility] (in [place]) Also may try [facility] Referral to Dr. Parker in [place] also has been ordered Medications like Wellbutrin [...] 12/02/2020 Assessment & Plan (07/23/2024 9:07 AM HANDSTITCHING MACHINE COLLAR FELLER): Wt Readings from Last 3 Encounters: 07/23/24 [...] hypertension Assessment & Plan (06/14/2023 9:34 AM HANDSTITCHING MACHINE COLLAR FELLER): Wt Readings from Last 3 Encounters: 06/14/23 [...] fats. Assessment & Plan (08/18/2022 2:09 PM HANDSTITCHING MACHINE COLLAR FELLER): Wt Readings from Last 3 Encounters: 08/10/22 [...] fats. Assessment & Plan (07/29/2021 9:56 AM HANDSTITCHING MACHINE COLLAR FELLER): Wt Readings from Last 3 Encounters: 07/29/21 [...] elects to get CPR, full medical treatment, [place] [facility] nutrition support. Other hyperlipidemia 10/30/2020 Assessment & Plan (07/23/2024 9:07 AM HANDSTITCHING MACHINE COLLAR FELLER): -chronic, stable -currently prescribed atorvastatin 20 mg -Discussed importance of well-balanced diet -will recheck lab values -continue current treatment plan Assessment & Plan (06/14/2023 9:35 AM HANDSTITCHING MACHINE COLLAR FELLER): - chronic, stable - hx of hyperlipidemia [...] 10/30/2020 Assessment & Plan (08/18/2022 2:10 PM HANDSTITCHING MACHINE COLLAR FELLER): - chronic, stable - hx of hyperlipidemia [...] 10/30/2020 Assessment & Plan (07/29/2021 10:02 AM HANDSTITCHING MACHINE COLLAR FELLER): - chronic, stable - hx of hyperlipidemia [...] 10/30/2020 Assessment & Plan (07/23/2024 9:22 AM HANDSTITCHING MACHINE COLLAR FELLER): -chronic, at goal -patient currently takes Cymbalta 90 mg, risperidone 1 mg -also has trazodone 150 mg as needed for insomnia -previously unable to tolerate -patient denies any worsening of depressed mood, thoughts of harming herself or others, or worsening anxiety -continue current treatment plan Assessment & Plan (06/14/2023 9:34 AM HANDSTITCHING MACHINE COLLAR FELLER): - chronic condition, controlled with medications - [...] medications Assessment & Plan (07/29/2021 9:57 AM HANDSTITCHING MACHINE COLLAR FELLER): - chronic condition, controlled with medications - [...] 10/30/2020 Assessment & Plan (07/23/2024 9:21 AM HANDSTITCHING MACHINE COLLAR FELLER): -chronic, stable -last DEXA bone scan was [...] 07/29/2021 Assessment & Plan (07/29/2021 10:18 AM HANDSTITCHING MACHINE COLLAR FELLER): - chronic, not at goal - Bone [...] 10/30/2020 Assessment & Plan (07/23/2024 9:20 AM HANDSTITCHING MACHINE COLLAR FELLER): -chronic, stable -patient currently prescribed trazodone 150 [...] plan Assessment & Plan (08/10/2022 3:20 PM HANDSTITCHING MACHINE COLLAR FELLER): - chronic issue, not at goal - [...] daily Assessment & Plan (07/29/2021 10:03 AM HANDSTITCHING MACHINE COLLAR FELLER): - chronic issue, stable - currently on [...] 10/29/2020 Assessment & Plan (07/23/2024 9:10 AM HANDSTITCHING MACHINE COLLAR FELLER): -chronic, stable -patient currently takes omeprazole 20 [...] which is likely chronic - established with [employer] Teacher at [facility] - continue current medication in mean [...] stomach. Lab Results Component Value Date VITB12 224 07/29/2021 Lab Results Component Value Date IRON 82 08/04/2022 TIBC 306 08/04/2022 FERRITIN 360 (H) 08/04/2022 Assessment & Plan (08/18/2022 2:11 PM HANDSTITCHING MACHINE COLLAR FELLER): - chronic, controlled - has had Endoscopy [...] which is likely chronic - established with [employer] Teacher at [facility] - continue current medication in mean [...] which is likely chronic - established with [employer] Teacher at [facility] - continue current medication in mean [...] which is likely chronic - established with Arts And Crafts Teacher already at [facility] and has been scheduled for Endoscopy [...] - She has an appointment with a [employer] Craft[employer] Teacher for December 03 in [place]. She was there may be a gallbladder [...] stomach. Assessment & Plan (07/29/2021 9:59 AM HANDSTITCHING MACHINE COLLAR FELLER): - chronic, stable - has had Endoscopy [...] 10/29/2020 Assessment & Plan (07/23/2024 9:11 AM HANDSTITCHING MACHINE COLLAR FELLER): -chronic, stable -previously required daily supplement replacement -patient does endorse an increase in fatigue -will recheck iron level -continue current treatment plan Assessment & Plan (06/14/2023 9:35 AM HANDSTITCHING MACHINE COLLAR FELLER): - chronic, stable - no longer on [...] 08/04/2022 Assessment & Plan (08/18/2022 2:09 PM HANDSTITCHING MACHINE COLLAR FELLER): - chronic, stable - no longer on [...] 07/29/2021 Assessment & Plan (07/29/2021 9:56 AM HANDSTITCHING MACHINE COLLAR FELLER): - chronic, stable - no longer on [...] 10/29/2020 Assessment & Plan (06/14/2023 9:49 AM HANDSTITCHING MACHINE COLLAR FELLER): - chronic, stable - currently taking Celebrex [...] spine. Assessment & Plan (07/29/2021 10:13 AM HANDSTITCHING MACHINE COLLAR FELLER): - chronic, stable - currently taking Celebrex [...] canal stenosis from 2018, awaiting full records Assessment & Plan (12/02/2020 [...] 10/29/2020 Assessment & Plan (07/23/2024 9:07 AM HANDSTITCHING MACHINE COLLAR FELLER): BP Readings from Last 3 Encounters: 07/23/24 [...] 09/11/2022 Assessment & Plan (06/14/2023 9:35 AM HANDSTITCHING MACHINE COLLAR FELLER): BP Readings from Last 3 Encounters: 06/14/23 [...] 09/11/2022 Assessment & Plan (08/10/2022 3:21 PM HANDSTITCHING MACHINE COLLAR FELLER): - chronic, stable - has hx of [...] medication Assessment & Plan (07/29/2021 9:53 AM HANDSTITCHING MACHINE COLLAR FELLER): - chronci, stable - has hx of [...] management Assessment & Plan (07/29/2021 10:03 AM HANDSTITCHING MACHINE COLLAR FELLER): - chronic, well controlled with current medications - currently on Oxybutynin XL 15mg daily - stress incontinence and urinary frequency Assessment & Plan (10/29/2020 4:34 PM CDT): - well controlled with current medications - currently on Oxybutynin XL 15mg daily - stress incontinence and urinary frequency RAMA (obstructive sleep apnea) 10/29/2020 Assessment & Plan (06/14/2023 9:47 AM HANDSTITCHING MACHINE COLLAR FELLER): - chronic, uncontrolled - diagnosed in over [...] titration. Assessment & Plan (08/18/2022 2:08 PM HANDSTITCHING MACHINE COLLAR FELLER): - chronic, not at goal - diagnosed [...] device Assessment & Plan (07/29/2021 10:01 AM HANDSTITCHING MACHINE COLLAR FELLER): - chronic, not at goal - diagnosed [...] 24 Assessment & Plan (06/14/2023 11:21 AM HANDSTITCHING MACHINE COLLAR FELLER): - recent diagnosis - frequent falls at [...] has an appointment set up in 08/[address] [facility] Mental Status Assesment Data: Able to state [...] order MRI of Brain for further evaluation [facility] Mental Status Assesment Data: Able to state [...] uncontrolled RAMA, awaiting to get BIPAP device Immunizations Immunization Administration Dates Next Due Influenza, Quadrivalent, Hig h Dose, Preservative Free, Intrr 05/03/2023,04/20/2022,07/29/2021 Influenza, Trivalent, High D ose, Split, Preservative Free, Intramuscular 03/29/2024 Influenza, Trivalent, IM (MDV) 05/06/2014 Influenza, Unspecified 06/21/2020,2019(Deferred: Patient Refused) Pneumococcal Conjugate PCV 13 04/06/2016 Pneumococcal Polysaccharide PPV23 05/16/2017 Tdap 06/21/2017 ZOSTER Recombinant 04/22/2018,11/04/2017 Social History Tobacco Use Types Packs/Day Years [...] on file Sexual Orientation Not on file Last Filed Vital Signs Vital Sign Reading Time Taken Comments Blood Pressure 129/84 07/23/2024 8:14 AM HANDSTITCHING MACHINE COLLAR FELLER Pulse 72 07/23/2024 8:14 AM HANDSTITCHING MACHINE COLLAR FELLER Temperature 36.5 C (97.7 F) 01/17/2024 2:50 PM CDT Respiratory Rate 16 07/23/2024 8:14 AM HANDSTITCHING MACHINE COLLAR FELLER Oxygen Saturation 93% 07/23/2024 8:14 AM HANDSTITCHING MACHINE COLLAR FELLER Inhaled Oxygen Concentration - - Weight 98.8 kg (217 lb 12.8 oz) 07/23/2024 8:14 AM HANDSTITCHING MACHINE COLLAR FELLER Height 165.1 cm (5' 5 ) 07/23/2024 8:14 AM HANDSTITCHING MACHINE COLLAR FELLER Body Mass Index 36.24 07/23/2024 8:14 AM HANDSTITCHING MACHINE COLLAR FELLER Plan of Treatment Not on file Medical Devices Implanted Type Area Estate Planning Attorney Device Identifier Shelf Expiration Date Model / Serial / Lot [employer]el [employer] Marker Biopsy Site T3 Shape Hydromark Mammotome 10ga 4009-12-01-T3 - [id number] Implanted:Qty: 1 on 10/06/2023 at [facility] Left: Breast Impel [employer] [id number] 0-T3 / / [id number] Imp[employer] Marker Tissue Needle Delivery Spiral Capped Seed Radiopaque Automatic Clipper And Stripper Stainless Steel Low Nickel [employer] [id number] - [id number] Implanted:Qty: 1 on 01/03/2024 at [facility] Imp[employer] 03/24/2027 [id number] / / Description:To be explanted during surgery 01/04/24 Procedures Procedure Name Priority Date/Time Associated Diagnosis Comments EGFR Routine 07/23/2024 8:53 AM HANDSTITCHING MACHINE COLLAR FELLER Preventative health care DIFFERENTIAL AUTO Routine 07/23/2024 8:5 3 AM HANDSTITCHING MACHINE COLLAR FELLER Preventative health care CBC WITH AUTO DIFFERENTIAL Routine 07/23/2024 8:53 AM HANDSTITCHING MACHINE COLLAR FELLER Preventative health care COMPREHENSIVE METABOLIC PANEL Routine 07/23/2024 8:53 AM HANDSTITCHING MACHINE COLLAR FELLER Preventative health care THYROID FUNCTION CASCADE Routine 07/23/2024 8:53 AM HANDSTITCHING MACHINE COLLAR FELLER Screening for thyroid disorder LIPID PANEL Routine 07/23/2024 8:53 AM HANDSTITCHING MACHINE COLLAR FELLER Other hyperlipidemia HEMOGLOBIN A1C Routine 07/23/2024 8:53 AM HANDSTITCHING MACHINE COLLAR FELLER Preventative health care VITAMIN D 25 HYDROXY Routine 07/23/2024 8:53 AM HANDSTITCHING MACHINE COLLAR FELLER Low bone mass IRON PROFILE W/ IBC Routine 07/23/2024 8 :53 AM HANDSTITCHING MACHINE COLLAR FELLER Iron deficiency FERRITIN Routine 07/23/2024 8:53 AM HANDSTITCHING MACHINE COLLAR FELLER Iron deficiency FOLATE Routine 07/23/2024 8:53 AM HANDSTITCHING MACHINE COLLAR FELLER Folate deficiency VITAMIN B6 Routine 07/23/2024 8:53 AM HANDSTITCHING MACHINE COLLAR FELLER Vitamin B6 deficiency VITAMIN B12 Routine 07/23/2024 8:53 AM HANDSTITCHING MACHINE COLLAR FELLER Preventative health care HEPATITIS B CORE ANTIBODY, TOTAL Routine 07/23/2024 8:53 AM HANDSTITCHING MACHINE COLLAR FELLER Need for hepatitis B screening test HEPATITIS B SURFACE ANTIBODY (IMMUNE STATUS) Routine 07/23/2024 8:53 AM HANDSTITCHING MACHINE COLLAR FELLER Need for hepatitis B screening test HEPATITIS B SURFACE ANTIGEN Routine 07/23/2024 8:53 AM HANDSTITCHING MACHINE COLLAR FELLER Need for hepatitis B screening test DIAGNOSTIC MAMMOGRAM BILATERAL W LAZ Schedule Routine, Read Routine (OP Routine) 08/31/2023 9:30 AM HANDSTITCHING MACHINE COLLAR FELLER Abnormal mammogram HM COLONOSCOPY Routine 02/09/2022 DEXA AXIAL SKELETON BONE DENSITY 1 OR MORE SITES Schedule Routine, Read Routine (OP Routine) 12/07/2021 8:26 AM CDT Postmenopausal HEPATITIS C ANTIBODY Routine 10/30/2020 1:00 PM CDT from Last 3 Months or Most Recently Relevant to Health Maintenance Results * eGFR (07/23/2024 8:53 AM HANDSTITCHING MACHINE COLLAR FELLER) eGFR 71 >=60 mL/min/1. 73 m2 Comment: [...] last reviewed 2021. Blood 07/23/2024 8:53 AM HANDSTITCHING MACHINE COLLAR FELLER 07/23/2024 10:51 AM HANDSTITCHING MACHINE COLLAR FELLER us Michelle Obando NP LAB BLOOD ORDERABLES Fi nal Result [facility] ([place]) 1 [facility] Department [place] [address] * Differential, auto (07/23/2024 8:53 AM HANDSTITCHING MACHINE COLLAR FELLER) Neutrophil abs 4.5 1.5 - 6.5 K/cumm [...] Neutrophil pct 51.6 % [facility] ([place]) Comment: Interpretive [...] revised on 2017. Blood 07/23/2024 8:53 AM HANDSTITCHING MACHINE COLLAR FELLER 07/23/2024 10:51 AM HANDSTITCHING MACHINE COLLAR FELLER Michelle Obando PHYSICIST NUCLEAR LAB BLOOD ORDERABLES Fi nal Result Performing Organization Address [facility]/ZIP Co de Phone Number [facility] ([place]) 1 [facility] [place] [address] * Thyroid Function [place] (07/23/2024 8:53 AM HANDSTITCHING MACHINE COLLAR FELLER) TSH 3.40 0.30 - 4.20 mcIUnit/mL Blood 07/23/2024 8:53 AM HANDSTITCHING MACHINE COLLAR FELLER 07/23/2024 10:51 AM HANDSTITCHING MACHINE COLLAR FELLER Michelle Obando PHYSICIST NUCLEAR LAB BLOOD ORDERABLES Fi nal Result Performing Organization Address City/[facility]/ZIP Co de Phone Number [facility] ([place] 1 [facility] [place] [address] * Iron profile w/ IBC (07/23/2024 8:53 AM HANDSTITCHING MACHINE COLLAR FELLER) Iron 88 35 - 145 mcg/dL TIBC 337 250 - 400 mcg/dL [facility] ([place]) Transferrin saturation 26 20 - 50 % [facility] ([place]) Blood 07/23/2024 8:53 AM HANDSTITCHING MACHINE COLLAR FELLER 07/23/2024 10:51 AM HANDSTITCHING MACHINE COLLAR FELLER Michelle Obando PHYSICIST NUCLEAR LAB BLOOD ORDERABLES Fi nal Result [facility] ([place]) 1 [facility] Department [place] [address] * (ABNORMAL) CBC with auto differential (07/23/2024 8:53 AM HANDSTITCHING MACHINE COLLAR FELLER) WBC 8.7 3.8 - 9.9 K/cumm Hgb 14.4 11.9 - 15.5 g/dL [facility] ([place]) Hct 45.1 35.6 - 45.5 % [facility] ([place]) Plt 321 150 - 400 K/cumm [facility] [...] [facility] ([place]) Blood 07/23/2024 8:53 AM HANDSTITCHING MACHINE COLLAR FELLER 07/23/2024 10:51 AM HANDSTITCHING MACHINE COLLAR FELLER Michelle Obando PHYSICIST NUCLEAR LAB BLOOD ORDERABLES Fi nal Result Performing Organization Address City/[facility]/ZIP Co de Phone Number [facility] ([place]) 1 [facility] [place] [address] * Hepatitis B core antibody, total Blood (07/23/2024 8:53 AM HANDSTITCHING MACHINE COLLAR FELLER) Hep B core IgG/IgM Nonreactive Nonreactive Comment:Testing performed by : [facility], [address] [place] [address] Blood 07/23/2024 8:53 AM HANDSTITCHING MACHINE COLLAR FELLER 07/23/2024 2:25 PM HANDSTITCHING MACHINE COLLAR FELLER Michelle Obando NP LAB MICROBIOLOGY - GENE RAL ORDERABLES Final Result Performing Organization Address City/[facility]/ZIP Co de Phone Number [facility] ([place]) 1 [facility] [employer] [place] [address] * Vitamin D 25 hydroxy (07/23/2024 8:53 AM HANDSTITCHING MACHINE COLLAR FELLER) Pathologist [facility] Vitamin D 25-OH 60 30 - 80 ng/mL Blood 07/23/2024 8:53 AM HANDSTITCHING MACHINE COLLAR FELLER 07/23/2024 10:51 AM HANDSTITCHING MACHINE COLLAR FELLER Michelle Obando NP LAB BLOOD ORDERABLES Fi nal Result Performing Organization Address City/[facility] Co de Phone Number [facility] ([place]) 1 [facility] [employer] [place] [address] * Hepatitis B surface antibody (immune status) Blood (07/23/2024 8:53 AM HANDSTITCHING MACHINE COLLAR FELLER) Pathologist [facility] HBsAb (immune status) Nonreactive Comment: Interpretive Data [...] last revised on 19. Testing performed by: [facility], [address] [place] [address]., [id number] Blood 07/23/2024 8:53 AM HANDSTITCHING MACHINE COLLAR FELLER 07/23/2024 1:59 PM HANDSTITCHING MACHINE COLLAR FELLER Michelle Obando NP LAB MICROBIOLOGY - GENE RAL ORDERABLES Final Result Performing Organization Address [facility]/ZIP Co de Phone Number [facility] ([place]) 1 [facility] [place] [address] * Hepatitis B Surface Antigen Blood (07/23/2024 8:53 AM HANDSTITCHING MACHINE COLLAR FELLER) HepBsAg Nonreactive Nonreactive Comment:Testing performed by : [facility], [address] [place] [address], [id number] Blood 07/23/2024 8:53 AM HANDSTITCHING MACHINE COLLAR FELLER 07/23/2024 1:59 PM HANDSTITCHING MACHINE COLLAR FELLER Michelle Obando NP LAB MICROBIOLOGY - GENE RAL ORDERABLES Final Result Performing Organization Address [facility] de Phone Number [facility] ([place]) [address] [place] [address] * Vitamin B6 (07/23/2024 8:53 AM HANDSTITCHING MACHINE COLLAR FELLER) Pyridoxal phosphate (Vit B6) 42 5 - 50 mcg/L [place] ref Lab Comment: ADDITIONAL INFORMATION This test was developed and its performance characteristics determined by [facility] in a manner consistent with CLIA requirements. This test has not been cleared or approved by the U.S. Food and Drug Administration. Test Performed by: [facility] - [address] [address] Metal Wire Technician: Edgardo Mehta Ph.D.; CLIA# [id number] Blood 07/23/2024 8:53 AM HANDSTITCHING MACHINE COLLAR FELLER 07/23/2024 10:51 AM HANDSTITCHING MACHINE COLLAR FELLER Michelle Obando NP LAB BLOOD ORDERABLES Fi nal Result Performing Organization Address City/[facility] Co de Phone Number [facility] ([place]) 1 [facility] [place] [address] [place] ref [facility] * Hemoglobin A1c (07/23/2024 8:53 AM HANDSTITCHING MACHINE COLLAR FELLER) Hgb A1C 5.4 4.0 - 5.6 % Estimated Average Glucose 108 mg/dL [facility] ([place]) Comment: The ADA recommends reporting an estimated Average Glucose (eAG) with all Hemoglobin A1c results using the equation derived from a study of 507 normal and diabetic adults. Minority populations were underrepresented and children were not included. (Diabetes Care 31:0643-2724, 2008). The eAG is not equivalent to a fasting glucose. Blood 07/23/2024 8:53 AM HANDSTITCHING MACHINE COLLAR FELLER 07/23/2024 10:51 AM HANDSTITCHING MACHINE COLLAR FELLER Michelle Obando NP LAB BLOOD ORDERABLES Fi nal Result Performing Organization Address [facility] Co de Phone Number [facility] ([place]) [address] [place] [address] * Folate (07/23/2024 8:53 AM HANDSTITCHING MACHINE COLLAR FELLER) Folic acid >20.0 >=5.0 ng/mL Comment:Slightly Hemolyzed S pecimen. Results may be affected. Blood 07/23/2024 8:53 AM HANDSTITCHING MACHINE COLLAR FELLER 07/23/2024 10:51 AM HANDSTITCHING MACHINE COLLAR FELLER Michelle Obando NP LAB BLOOD ORDERABLES Fi nal Result Performing Organization Address City/[facility] Co de Phone Number [facility] ([place]) 1 [facility] [place] [address] * (ABNORMAL) Ferritin (07/23/2024 8:53 AM HANDSTITCHING MACHINE COLLAR FELLER) Ferritin 178(H) 15 - 150 ng/mL Blood 07/23/2024 8:53 AM HANDSTITCHING MACHINE COLLAR FELLER 07/23/2024 10:51 AM HANDSTITCHING MACHINE COLLAR FELLER Michelle Obando PHYSICIST NUCLEAR LAB BLOOD ORDERABLES Fi nal Result [facility] ([place]) 1 [facility] [place] [address] * Vitamin B12 (07/23/2024 8:53 AM HANDSTITCHING MACHINE COLLAR FELLER) Vitamin B12 585 230 - 1,250 pg/mL Blood 07/23/2024 8:53 AM HANDSTITCHING MACHINE COLLAR FELLER 07/23/2024 10:51 AM HANDSTITCHING MACHINE COLLAR FELLER Michelle Obando PHYSICIST NUCLEAR LAB BLOOD ORDERABLES Fi nal Result Performing Organization Address City/[facility] Co de Phone Number [facility] ([place]) 1 [facility] [place] [address] * (ABNORMAL) Lipid panel (07/23/2024 8:53 AM HANDSTITCHING MACHINE COLLAR FELLER) Cholesterol 262(H) 30 - 199 mg/dL Comment: [...] on 2018. Triglycerides 188(H) <=149 mg/dL [facility] ([place]) Comment: Interpretive Data Ages < or [...] on 2018. HDL 46 >=40 mg/dL [facility] ([place]) Comment: Interpretive Data [...] 2018. LDL, calculated 181(H) <=129 mg/dL [facility] ([place]) Comment: Interpretive Data [...] NCEP Expert Panel. Circulation 2004;110:227 3. Shlomo Shepherd et al. VITALY Cardiol. 2020 November 22;5(5):540-548. doi: [email or web address] Current Interpretive Data was last revised on 2024. Non-HDL Cholesterol 216 mg/dL [facility] ([facility]) Comment: Interpretive Data [...] [facility] ([facility]) Blood 07/23/2024 8:53 AM HANDSTITCHING MACHINE COLLAR FELLER 07/23/2024 10:51 AM HANDSTITCHING MACHINE COLLAR FELLER Narrative [facility] ([facility]) - 07/23/2024 11:23 AM HANDSTITCHING MACHINE COLLAR FELLER Has the patient been fasting for 8 hours or more?->Yes Michelle Obando NP LAB BLOOD ORDERABLES Fi nal Result [facility] ([facility]) 1 [facility] Department [place] [address] * (ABNORMAL) Comprehensive metabolic panel (07/23/2024 8:53 AM HANDSTITCHING MACHINE COLLAR FELLER) Sodium 139 135 - 145 mmol/L Potassium, [...] [facility] ([facility]) Blood 07/23/2024 8:53 AM HANDSTITCHING MACHINE COLLAR FELLER 07/23/2024 10:51 AM HANDSTITCHING MACHINE COLLAR FELLER Michelle Obando NP LAB BLOOD ORDERABLES Fi nal Result [facility] ([facility]) 1 [facility] Department [place] [address] * (ABNORMAL) Diagnostic Mammogram Bilateral W Laz (08/31/2023 9:30 AM HANDSTITCHING MACHINE COLLAR FELLER) Anatomical Region Laterality Modality Breast Bilateral Mammography 08/31/2023 10:4 9 AM HANDSTITCHING MACHINE COLLAR FELLER Impressions 08/31/2023 10:49 AM HANDSTITCHING MACHINE COLLAR FELLER Clustered microcalcifications at the 12 o'clock position [...] Jennifer Garza M.D. Narrative 08/31/2023 10:49 AM HANDSTITCHING MACHINE COLLAR FELLER EXAMINATION: DIAGNOSTIC MAMMOGRAM BILATERAL W LAZ, US [...] old F with given history of screening. Estate Planning Attorney/Model: [employer] (S/N [id number]) CLINICAL INFORMATION: Current height: 65 inches Maximum [...] Michael Decker M.D. MF: GRACIELA Report ID: [id number] Reading Location: [place] [address] Procedure Note Michael Decker MD - 12/07/2021 EXAM DESCRIPTION: DEXA AXIAL SKELETON BONE DENSITY 1 OR MORE SITES REASON FOR STUDY: 71 y/o year old F with given history ofscreening. 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 MF: GRACIELA Report ID: [id number] Reading Location: [place] [address] Emerson Clinton MD IMG DXA PROCEDURES Stephenie l Result * Hepatitis C antibody (10/30/2020 1:00 PM CDT) [facility] Hep C Ab <0.1 0.0 - 0.9 s/co ratio [facility] - 01 Comment: Negative: < 0.8 Indeterminate: 0.8 - 0.9 Positive: > 0.9 The CDC recommends that a positive HCV antibody result be followed up with a HCV Nucleic Acid Amplification test ([id number]). 10/30/2020 1:00 PM CDT 10/30/2020 Narrative [facility] - 10/31/2020 8:13 AM CDT Performed at: - [facility] [id number] Metal Wire Technician: Renzo Hamiltno PhD, Phone: [phone] Emerson Clinton MD LAB MICROBIOLOGY - GENE RAL ORDERABLES Final Result [facility] - from Last 3 Months or Most Recently Relevant to Health Maintenance Insurance IDPA HUMANA CHOICE MEDICARE PPO HUMANA CHOICE MEDICARE PPO IDPA Advance Directives For more information, please contact: [phone] Documents on File Type Date Recorded Patient Engraver Copperplate Expl anation ADVANCE DIRECTIVE 11/06/2020 12:51 PM Care Teams Embryology Teacher Relationship Specialty Start Date End Date Emerson Clinton MD PCP - General Family Medicine 10/27/20 Michael Chacon MD [address] [place] [address] [address] Consulting Physician Neurology 09/22/23 Linda Akbar MD PhD [address] [id number] [place] [address] Surgeon Surgical Oncology 10/13/23
--- OUTSIDE RECORDS SUMMARY | 2024-10-03 10:55 | XMS_ITS | Encounter Summary ---
Author Organization [facility] Healthcare Address [address] [place] [address] Care Team Providers Care Scale Tank Operator Name Role Phone Ervin Clark MD Primary Care Provider Michael Chacon MD Unavailable [phone] Linda Akbar MD PhD Unavaila ble Cecilia Harley LPN Unavailable [phone] Encounter Details Date Type Department Care Team (Late st Contact Info) Description 09/05/2023 Telephone [facility] [address] [place] [address] Cristine Obando RN Social History Tobacco Use [...] on filedocumented in this encounter Care Teams Scale Tank Operator Relationship Specialty Start Date End Date Ervin Clark MD PCP - General Family Medicine 10/27/20 Michael Chacon MD [address] [place] [address] [address] [place] [address] Consulting Physician Neurology 09/22/23 Linda Akbar MD PhD [address] [id number] [place] [address] Surgeon Surgical Oncology 10/13/23 Cecilia Harley, FILIPPO [address] [facility] [address] [place] [address] Career Law Clerk 03/30/24 04/01/24 documented as of this encounter
[2024-10-03 11:12] LABS: Basophils Absolute Auto 0.1 K/mm3 (0.0-0.1); Basophils Percent Auto 0.5 % (0.2-1.2); Eosinophils Percent Auto 0.1 % (0-4.4); Hematocrit 39.1 % (37.0-47.0); Hemoglobin 12.7 g/dL (12.0-15.0); Immature Granulocyte Absolute 0.04 K/mm3 (0.00-0.031); Immature Granulocyte Percent A 0.4 % (0-0.5); Lymphocytes Percent Auto 15.5 % (18.3-44.2); Mean Corpuscular HGB Conc 32.5 g/dl (32-36); Mean Corpuscular Hemoglobin 31.1 pg (26-34); Mean Corpuscular Volume 95.8 fl (80-100); Mean Platelet Volume 9.8 fl (7.4-10.4); Monocytes Absolute Auto 0.7 K/mm3 (0.1-0.6); Monocytes Percent Auto 6.3 % (2.6-8.5); Neutrophils Absolute Auto 8.5 K/mm3 (1.3-6.7); Neutrophils Percent Auto 77.2 % (45.5-73.1); Platelet Count Result 213 k/mm3 (150-375); Red Blood Count 4.08 M/mm3 (4.2-5.4); Red Cell Distribution Width 12.9 % (11.5-14.5)
[2024-10-03 11:23] LABS: Alanine Aminotransferase 39 U/L (6-35); Albumin Level 4.1 g/dL (3.5-5.1); Alkaline Phosphatase 108 U/L (38-126); Anion Gap 8 mmol/L (4-12); Aspartate Amino Transferase 41 U/L (14-36); Bilirubin,Total 0.3 mg/dL (0.2-1.3); Blood Urea Nitrogen 13 mg/dL (7-17); Calcium 9.1 mg/dL (8.4-10.2); Carbon Dioxide 27 mmol/L (22-30); Chloride 104 mmol/L (98-107); Estimated CRCL calculation 71 ml/min; Estimated Glomerular Filt Rate > 60; Ethanol < 10 mg/dL (<10); Glucose 139 mg/dL (65-110); Lipase 67 U/L (23-300); Magnesium 1.8 mg/dL (1.6-2.3); Phosphorus 2.4 mg/dL (2.5-4.5); Potassium 4.1 mmol/L (3.4-5.0); Prothrombin Time 13.8 Seconds (11.1-14.7); Sodium 139 mmol/L (137-145)
[2024-10-03 11:23] LABS: Lactic Acid Reflex 2.6 mmol/L (0.7-2.0)
[2024-10-03 11:24] LABS: Partial Thromboplastin Time 20.2 Seconds (22.3-36.8)
[2024-10-03 11:31] LABS: Amphetamine Screen Urine Negative (Negative); Barbiturate Screen Urine Negative (Negative); Benzodiazepines Screen Urine Negative (Negative); Cannabinoid Screen Urine Negative (Negative); Cocaine Screen Urine Negative (Negative); Methadone Screen Urine Negative (Negative); Opiate Screen Urine Negative (Negative); Phencyclidine Screen Urine Negative (Negative)
[2024-10-03 11:32] LABS: Add Urine Microscopic? YES; Appearance Urine Clear (Clear); Bacteria Urine None Seen /hpf; Bilirubin Urine Negative (Negative); Blood Urine Non-Hemolyzed Trace (Negative); Color Urine Yellow (Yellow); Glucose Urine UA Negative (Negative); Ketones Urine Trace mg/dL (Negative); Leukocyte Esterase Ur Negative LEU/UL (Negative); Need Manual Microscopic Reviewed; Nitrate Urine Negative (Negative); Non Pathogenic Casts 0-2; Protein Urine Trace mg/dL (Negative); Specific Grav Ur 1.018 (1.001-1.035); Squamous Epithelial Cell Urine None Seen /hpf (Few); WBC Urine 0-5 /hpf (0-3); pH Urine 7.5 (5.0-9.0)
[2024-10-03 11:39] LABS: Troponin I 0.036 ng/mL (0.000-0.034)
[2024-10-03 11:47] LABS: Influenza A QL RT-PCR Negative (Negative); Influenza B QL RT-PCR Negative (Negative); RSV RNA, RT-PCR Negative (Negative); SARS-CoV-2 RNA PCR Negative (Negative)
[2024-10-03 13:09] LABS: Reflex Lactic Acid Yes or No Add Lactic
[2024-10-03 13:32] LABS: Lactic Acid 1.8 mmol/L (0.7-2.0)
[2024-10-03 13:41] LABS: Troponin I 0.037 ng/mL (0.000-0.034)
--- NOTE | 2024-10-03 15:38 | ADMGEN ---
This patient, Sophia Sánchez, was admitted to IMU Room 232-01. Patient/family oriented to hospital policies and general routines including ID bracelet, bed and alarms, visiting hours, pain management, procedures, bathroom and other care routines, personal items, smoking policy, room service/diet, and visiting hours. Information on how to activate the Rapid Response Team has been discussed. Patient/Family are encouraged to report perceived risks to care and to ask questions if they do not understand what they are told or what they should do.
--- NOTE | 2024-10-03 15:50 | P.HP_ITS ---
H&P: HPI History of Present Illness Date/Time: 10/03/24 15:50 Chief Complaint: Altered mental status. Narrative: This is a 73-year-old female with history of dementia, hypertension, hyperlipidemia, sleep apnea, kidney stones, depression, and anxiety who presented to the emergency department via EMS from [facility] for evaluation of altered mental status. She is an inconsistent and unreliable historian and the vast majority of the following history is obtained via a review of her electronic medical records. She lives in her own apartment at [facility]. Staff have noticed that she has been more confused than usual for the last day or so. She was reportedly moving furniture around her apartment and without roaming the halls although the patient does not remember this at all and she thinks that is strange as she does not think she would even be able to lift her furniture. She has noticed that she is perhaps a bit more confused than usual but she cannot give specific examples. On arrival to the ED she complained of dysuria, nausea, vomiting, and crampy abdominal pain. She also mentioned having discomfort in the left side of her chest and left shoulder and perhaps a little bit of shortness of breath. She goes on to say that she has pain all over all the time so it is difficult to say. She denies headache, neck ache, visual changes, vertigo, focal weakness, paresthesi as, facial droop, difficulty speaking and swallowing, current chest pain, pleuritic pain, cough, current abdominal pain, back pain, and hematuria. No recent change in medications to her knowledge. In the ED: Blood pressure was 162/92 on arrival; the remainder of her vital signs were stable. Labs were significant for WBC count of 11.0, lactic acid 2.6, AST 41, ALT 39, troponin 0.036. Urinalysis is positive for trace ketones, non hemolyzed blood, 11 to 20 RBC. Urine drug screen was negative. Respiratory panel was negative. Head CT showed no significant abnormalities. CT of the abdomen and pelvis showed a 2 mm stone in the proximal left ureter with mild left hydronephrosis and bilateral nonobstructing kidney stones. Chest x-ray showed no acute cardiopulmonary disease. She was given 2 L normal saline bolus and is being admitted in this setting for close monitoring and further workup. Review of Systems Review of Systems: 12 systems were reviewed and are negativ e except for as per HPI. [facility] Past Medical History Medical History (Updated 10/03/24 @ 22:39 by Shirley Orta PA-C) Dementia Obstructive sleep apnea treated with BiPAP Polio Stress incontinence Hyperlipidemia Hypertension Gastroesophageal reflux disease Depression Vertigo Osteoporosis Arthritis Anxiety Surgical History Surgical History History of foot surgery Multiple foot and toe surgeries, reportedly related to polio. History of loop recorder History of open reduction and internal fixation (ORIF) procedure Repair left ankle fracture. History of esophagogastroduodenoscopy (01/2022) Reflux esophagitis, hiatal hernia, gastric retention, gastritis. History of colonoscopy (01/2022) Internal hemorrhoids. Family History Family History Father Hypertension Cerebrovascular accident Mother Depression Heart disease Cerebrovascular accident Grandparent Diabetes mellitus Sibling Lung cancer Social History Social History Social History: Surrogate medical decision maker: Sharron Vickers, daughter. Code status: Full code. Smoking status: Never smoker Second hand tobacco smoke exposure: No Alcohol intake: never Drinks per week: 1 Alcohol use details: very rare Substance use: never Substance use type: does not use Do You Feel Safe in your Home?: Yes Lack of Transportation: No Lack of Food: Never True Current Housing: I Have Housing Concerned About Future Housing: No Difficulty Paying Gas/Electric Bills: No Difficulty Paying for Meds: No Currently Unemployed: No Education: Trade/Vocational Certificate Difficulty w/ Childcare or Family Care: No Living arrangements: assisted living Additional living arrangements comments: [facility] Occupation/Education: retired Spiritual care concerns: No Meds Home Medications and Allergies Home Medications ?Medication ?Instructions ?Recorded ?Confirmed ?Type alendronate 70 mg tablet 70 mg PO WEEKLY 12/03/21 10/03/24 History atorvastatin 20 mg tablet 40 mg PO DAILY 12/03/21 10/03/24 History celecoxib 100 mg capsule 100 mg PO BID 12/03/21 10/03/24 History duloxetine 60 mg capsule,delayed 60 mg PO DAILY 12/03/21 10/03/24 History release gabapentin 300 mg capsule 300 mg PO TID 12/03/21 10/03/24 History oxybutynin chloride 15 mg 15 mg PO DAILY 12/03/21 10/03/24 History tablet,extended release 24 hr risperidone 1 mg tablet 1 mg PO HS 12/03/21 10/03/24 History tramadol 50 mg tablet 50 mg PO BID PRN Pain 12/03/21 10/03/24 History trazodone 150 mg tablet 150 mg PO HS PRN Sleep 01/21/22 10/03/24 History acetaminophen 325 mg tablet 650 mg PO QID PRN Pain (Scale 04/03/23 10/03/24 History Score 1-3) omeprazole 20 mg capsule,delayed 20 mg PO BID 04/03/23 10/03/24 History release tolnaftate 1 % topical powder 1 applic topical Q12HR #45 grams 04/06/23 10/03/24 Rx albuterol sulfate 90 mcg/actuation 2 puff inhalation Q6HRT PRN 07/20/23 10/03/24 Rx aerosol inhaler (Proventil HFA) shortness of breath or wheezing #8.5 grams calcium 600 mg (as 1 tablet PO BID 03/24/24 10/03/24 History carbonate)-vitamin D3 20 mcg (800 unit) tablet cyclobenzaprine 5 mg tablet 5 mg PO TID PRN Muscle Spasm 03/24/24 10/03/24 History donepezil 10 mg tablet 10 mg PO DAILY 03/24/24 10/03/24 History duloxetine 30 mg capsule,delayed 30 mg PO DAILY 03/24/24 10/03/24 History release ergocalciferol (vitamin D2) 1,250 1,250 mcg PO WEEKLY 03/24/24 10/03/24 History mcg (50,000 unit) capsule metoprolol tartrate 25 mg tablet 25 mg PO DAILY 03/24/24 10/03/24 History nitroglycerin 0.4 mg sublingual 0.4 mg sublingual Q5MIN 03/24/24 10/03/24 History tablet oxycodone-acetaminophen 5 mg-325 1 tablet PO Q4H PRN Pain 03/24/24 10/03/24 History mg tablet polyethylene glycol 3350 17 gram 17 g PO DAILY PRN Constipation 03/24/24 10/03/24 History oral powder packet pyridoxine (vitamin B6) 50 mg 25 mg PO DAILY 03/24/24 10/03/24 History tablet (Vitamin B-6) folic acid 1 mg tablet 1 mg PO DAILY 05/11/24 10/03/24 History bismuth subsalicylate 262 mg/15 mL 524 mg PO DAILY PRN indigestion 10/03/24 10/03/24 History oral suspension (Stomach Relief) Allergies Allergy/AdvReac Type Severity Reaction Status Date / Time No Known Allergies Allergy Verified 05/22/24 07:19 Vital Signs Vital Signs - 24 hr 10/03/24 09:36 10/03/24 09:44 10/03/24 11:26 Temperature 98.3 F Pulse Rate 95 82 Respiratory Rate 13 16 Blood Pressure 162/92 H 179/82 H Pulse Oximetry 93 93 94 Oxygen Delivery Room Air Room Air 10/03/24 12:15 10/03/24 13:57 10/03/24 15:38 Temperature 97.5 F L Pulse Rate 76 72 77 Respiratory Rate 19 13 18 Blood Pressure 124/83 154/88 H 155/63 H Pulse Oximetry 76 L 94 93 Oxygen Delivery Exam Narrative: General: Well-developed, nontoxic-appearing female sitting up in bed in no acute distress. Weight: 101.1 kg. BMI: 36.0. HEENT: Normocephalic, atraumatic. PERRL, EOMI. Sclera anicteric. Oral mucosa moist. Neck: Supple. No obvious carotid bruits or thyromegaly. Respiratory: Lungs are clear to auscultation bilaterally. Cardiovascular: Regular rate and rhythm with S1-S2. Gastrointestinal: Abdomen is soft, nontender, and nondistended with positive bowel sounds. No CVA tenderness. Skin: Warm and dry. Extremities: No cyanosis, clubbing, or edema. Radial and pedal pulses intact. Neurological: Alert and oriented to name, age, and date of . She is aware that she is at the hospital but does not remember wandering the halls are moving furniture in her prior apartment as detailed HPI. Cranial nerves 2-12 are grossly intact. Speech is clear. No facial asymmetry. Hand utility operator and foot pushes equal bilaterally. No gross focal deficits. Psychiatric: Pleasant and cooperative. Appropriate mood and affect. Evidence of short-term memory loss. H&P: Results Labs Labs: Short CBC 10/03/24 Range/Units 11:00 WBC 11.0 H (4.5-10.0) K/mm3 Hgb 12.7 (12.0-15.0) g/dL Hct 39.1 (37.0-47.0) % Plt Count 213 (150-375) k/mm3 BMP 10/03/24 11:00 Sodium 139 Potassium 4.1 Chloride 104 Carbon Dioxide 27 BUN 13 Creatinine 0.72 Glucose 139 H Calcium 9.1 Cardiac Enzymes 10/03/24 10/03/24 Range/Units 11:00 13:09 Troponin I 0.036 H* 0.037 H* (0.000-0.034) ng/mL Liver Function 10/03/24 Range/Units 11:00 Total Bilirubin 0.3 (0.2-1.3) mg/dL AST 41 H (14-36) U/L ALT 39 H (6-35) U/L Alkaline Phosphatase 108 (38-126) U/L Albumin 4.1 (3.5-5.1) g/dL Urine 10/03/24 Range/Units 11:04 Urine Color Yellow (Yellow) Urine Appearance Clear (Clear) Urine pH 7.5 (5.0-9.0) Ur Specific [place] 1.018 (1.001-1.035) Urine Protein Trace (Negative) mg/dL Urine Glucose (UA) Negative (Negative) mg/dL Impressions Head CT 10/03/24 10:25 Impression: 1. No significant abnormality seen. Abdomen/Pelvis CT 10/03/24 10:31 IMPRESSION: 1. 2 mm stone in proximal left ureter with mild left hydronephrosis. 2. Bilateral nonobstructing kidney stones. Chest X-Ray 10/03/24 10:34 IMPRESSION: 1. No acute cardiopulmonary disease. Assessment and Plan Assessment and plan (1) Altered mental status: Code(s): R41.82 - Altered mental status, unspecified Status: Acute (2) Elevated troponin: Code(s): R79.89 - Other specified abnormal findings of blood chemistry Status: Acute (3) Left ureteral calculus: Code(s): N20.1 - Calculus of ureter Status: Acute (4) Bilateral kidney stones: Code(s): N20.0 - Calculus of kidney Status: Acute (5) Hypertension: Code(s): I10 - Essential (primary) hypertension Status: Acute (6) Obstructive sleep apnea treated with BiPAP: Code(s): G47.33 - Obstructive sleep apnea (adult) (pediatric) Status: Acute Plan The patient presented to the emergency department for evaluation of altered mental status as detailed in HPI. Labs, imaging, EKG, and all reports were personally reviewed. She is alert and oriented x3 at the time my evaluation but does not remember wandering the halls at her assisted living facility or moving around furniture in her room. Etiology is not entirely clear. History and workup did not suggest underlying infection. Brain CT did not show acute findings in her neurologic exam was really unremarkable. She has chronic, mild CO2 retention and her blood gas does not show any significant change in that. She may just be having intermittent confusion from her underlying dementia without a specific cause. Consider brain MRI depending on her course. CT of the abdomen showed a small left proximal ureteral calculus with mild left hydronephrosis which I suppose could be playing a factor. Urology has been consulted for their opinion. She also has bilateral kidney stones which will need to be addressed at some point. Troponin is barely elevated above the upper limit of normal in is not likely to indicate acute coronary syndrome however will trend to peak and obtain an echocardiogram. Blood pressures are stable. Her home medications will be reviewed and resumed as appropriate. BiPAP will be provided for the patient to use while hospitalized. Findings and treatment plan were discussed with the patient. Questions were solicited and answered to satisfaction. The patient's medical management will be taken over by the hospitalist team in a.m. Quality VTE Prophylaxis VTE prophylaxis: mechanical ordered If No VTE Prophylaxis Answer both mechanical and pharmacologic: Reason no pharmacologic proph: medical contraindication (hold in case she requires a procedure) The patient has been admitted under observation status. Hospitalist MIPS Advance Care Plan I have confirmed that the patient's Advanced Care Plan is present, code status is documented, or surrogate decision maker is listed in patient medical record.: Yes Medication Reconciliation I have utilized all available resources to obtain, update and review the patients current medications (includes all prescriptions, OTC, herbals, cannabis, and nutritional supplements).: Yes
--- NOTE | 2024-10-03 17:10 | PC.NURSE ---
Spoke with Mark at [facility]. Will fax med list.
[2024-10-03 22:22] LABS: Ammonia < 9 umol/L (9-30)
[2024-10-03 22:34] LABS: Troponin I 0.018 ng/mL (0.000-0.034)
[2024-10-03] MEDS: FLUCONAZOLE 150 MG TABLET PO (23:01)
[2024-10-03] MEDS: traMADol HCL (*CRX) 50 MG TABLET PO (23:01)
[2024-10-03] MEDS: risperiDONE 1 MG TABLET PO (23:05)
[2024-10-04] VITALS (14 sets, daily range): BP systolic 124–155; BP diastolic 63–92; PULSE 59–97; RESP 14–18; TEMP 36.3–36.8; O2SAT 94–96
[2024-10-04 04:32] LABS: Hematocrit 35.7 % (37.0-47.0); Hemoglobin 11.5 g/dL (12.0-15.0); Mean Corpuscular HGB Conc 32.2 g/dl (32-36); Mean Corpuscular Hemoglobin 30.9 pg (26-34); Mean Platelet Volume 9.4 fl (7.4-10.4); Platelet Count Result 199 k/mm3 (150-375); Red Blood Count 3.72 M/mm3 (4.2-5.4); Red Cell Distribution Width 13.1 % (11.5-14.5); White Blood Count 8.2 K/mm3 (4.5-10.0)
[2024-10-04 04:42] LABS: Alanine Aminotransferase 35 U/L (6-35); Albumin Level 3.5 g/dL (3.5-5.1); Alkaline Phosphatase 96 U/L (38-126); Anion Gap 8 mmol/L (4-12); Aspartate Amino Transferase 40 U/L (14-36); Bilirubin,Total 0.8 mg/dL (0.2-1.3); Blood Urea Nitrogen 11 mg/dL (7-17); Calcium 8.6 mg/dL (8.4-10.2); Carbon Dioxide 27 mmol/L (22-30); Chloride 104 mmol/L (98-107); Cholesterol 127 mg/dL (0-200); Estimated CRCL calculation 69 ml/min; Estimated Glomerular Filt Rate > 60; Glucose 109 mg/dL (65-110); HDL Direct 43 mg/dL; Magnesium 1.8 mg/dL (1.6-2.3); Potassium 3.8 mmol/L (3.4-5.0); Sodium 139 mmol/L (137-145); Triglycerides 124 mg/dL (<150)
[2024-10-04 04:53] LABS: LDL Cholesterol Direct 59 mg/dL
[2024-10-04] MEDS: PANTOPRAZOLE 40 MG TABLET PO ×2 (08:17→20:09)
[2024-10-04] MEDS: DONEPEZIL HCL 10 MG TABLET PO (08:17)
[2024-10-04] MEDS: DULoxetine HCL 60 MG CAPSULE.DR PO (08:17)
[2024-10-04] MEDS: DULoxetine HCL 30 MG CAPSULE.DR PO (08:18)
[2024-10-04] MEDS: ATORVASTATIN 40 MG TABLET PO (08:18)
[2024-10-04] MEDS: GABAPENTIN 300 MG CAPSULE PO ×3 (08:18→17:36)
[2024-10-04] MEDS: CALCIUM/VITAMIN D 500 MG/5 MCG (200 I.U.) TABLET PO ×2 (08:18→17:35)
[2024-10-04] MEDS: FOLIC ACID 1 MG TABLET PO (08:19)
[2024-10-04] MEDS: METOPROLOL TARTRATE 25 MG TABLET PO (08:19)
[2024-10-04] MEDS: CELECOXIB 100 MG CAPSULE PO ×2 (08:20→17:36)
[2024-10-04] MEDS: PYRIDOXINE HCL 25 MG TABLET PO (08:20)
--- NOTE | 2024-10-04 11:15 | P.PNIM_ITS ---
Progress Note: A&P Assessment and Plan (1) Altered mental status: Code(s): R41.82 - Altered mental status, unspecified Status: Acute Assessment and Plan: * Uncertain Etiology * Blood cultures pending * Neuro checks * Obtain MRI w/wo contrast of brain * Continue to trend labs and VS. * Continue tele * Obtain ECHO (2) Elevated troponin: Code(s): R79.89 - Other specified abnormal findings of blood chemistry Status: Resolved Assessment and Plan: * Resolved this AM with normal trop. * Obtain ECHO * Tele (3) Left ureteral calculus: Code(s): N20.1 - Calculus of ureter Status: Acute Assessment and Plan: * Consult Urology. * Intake and output (4) Bilateral kidney stones: Code(s): N20.0 - Calculus of kidney Status: Acute Assessment and Plan: * Trend renal function * See #3 (5) Hypertension: Code(s): I10 - Essential (primary) hypertension Status: Acute Assessment and Plan: * Stable BPs. * Continue meds of Metoprolol tartrate 25 mg daily * Continue to trend and monitor. (6) Obstructive sleep apnea treated with BiPAP: Code(s): G47.33 - Obstructive sleep apnea (adult) (pediatric) Status: Acute Assessment and Plan: * BiPap at night. Time Spent With Patient Time with patient: 15 - 25 minutes Subjective Date/time seen: 10/04/24 11:15 Interval history: Care of pt was assumed today and she is resting at this time in no acute distress. She knows where she is, the year and the president. She is unsure of why she is here and she has no appetite this AM. She complains of pain all over. ECHO is still pending. Her troponin is normal this AM on third draw. As she does continue to seem to have some confusion and slow mental processing, an MRI is ordered of the brain. She is moved out of IMU and placed on med tele. Urology has been consulted for the findings of small stones in the kidneys and left ureter. Pt denies any MCALLISTER, CP, dyspnea or any other acute complaints. Review of Systems Review of Systems: All systems reviewed & are unremarkable except as noted in HPI and below Exam Narrative: General: Well-developed, nontoxic-appearing female sitting up in bed in no acute distress. She is not interested in eating any of her food she has in front of her. HEENT: Normocephalic, atraumatic. PERRL, EOMI. Sclera anicteric. dry mucosa. Neck: Supple. FROM without JVD or bruits. Respiratory: Lungs are clear to auscultation bilaterally. Cardiovascular: Regular rate and rhythm with S1-S2. No m,r,g,h Gastrointestinal: Abdomen is soft, nontender, and nondistended with positive bowel sounds. No CVA tenderness. Rotund appearing. Skin: Warm and dry. Extremities: No cyanosis, clubbing, or edema. Radial and pedal pulses intact. Neurological: Alert and oriented to name, age, and date of . She is aware that she is at the hospital but does not remember wandering the halls are moving furniture in her prior apartment as detailed HPI. Cranial nerves 2-12 are grossly intact. Speech is clear. No facial asymmetry. 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 No gross focal deficits. Psychiatric: Pleasant and cooperative. Appropriate mood and affect. Evidence of short-term memory loss. Objective Data Vital Signs Vital Signs: Vital Signs - 24 hr 10/03/24 11:26 10/03/24 12:15 10/03/24 13:57 Temperature Pulse Rate 82 76 72 Respiratory Rate 16 19 13 Blood Pressure 179/82 H 124/83 154/88 H Pulse Oximetry 94 76 L 94 Oxygen Delivery 10/03/24 15:38 10/03/24 16:00 10/03/24 16:00 Temperature 97.5 F L Pulse Rate 77 66 Respiratory Rate 18 Blood Pressure 155/63 H Pulse Oximetry 93 93 Oxygen Delivery Room Air 10/03/24 20:00 10/03/24 20:00 10/03/24 20:02 Temperature 98.1 F Pulse Rate 73 74 71 Respiratory Rate 16 18 Blood Pressure 126/64 Pulse Oximetry 95 93 Oxygen Delivery Room Air 10/03/24 23:20 10/03/24 23:27 10/04/24 00:00 Temperature 98.2 F Pulse Rate 69 69 97 Respiratory Rate 16 16 18 Blood Pressure 141/74 H Pulse Oximetry 98 98 96 Oxygen Delivery Room Air Room Air 10/04/24 00:00 10/04/24 00:00 10/04/24 02:00 Temperature Pulse Rate 97 75 71 Respiratory Rate Blood Pressure Pulse Oximetry 96 Oxygen Delivery Autopap 03/13/25 02:25 10/04/24 03:34 10/04/24 04:00 Temperature 97.3 F L Pulse Rate 71 94 Respiratory Rate 18 16 Blood Pressure 151/63 H Pulse Oximetry 96 95 Oxygen Delivery Autopap Autopap 10/04/24 04:00 10/04/24 06:00 10/04/24 08:00 Temperature Pulse Rate 70 64 83 Respiratory Rate 16 Blood Pressure Pulse Oximetry 96 Oxygen Delivery Room Air 10/04/24 08:00 10/04/24 08:00 10/04/24 08:08 Temperature 98.3 F Pulse Rate 65 68 88 Respiratory Rate 16 Blood Pressure 151/92 H Pulse Oximetry 94 96 Oxygen Delivery Room Air 10/04/24 08:08 10/04/24 08:19 10/04/24 10:00 Temperature Pulse Rate 83 65 Respiratory Rate Blood Pressure Pulse Oximetry 96 Oxygen Delivery Intake/Output Intake/Output: Intake & Output 10/01/24 10/02/24 10/03/24 10/04/24 23:59 23:59 23:59 23:59 Intake Total 3140 Output Total 650 Balance 2490 Meds/Results Medications: Active Medications Generic Name Dose Route Start Last Admin Trade Name Freq PRN Reason Stop Dose Admin Acetaminophen 650 mg 10/03/24 21:49 Acetaminophen 325 Mg Tablet PO QID PRN Pain (Scale Score 1-3) Albuterol 2 puff 10/03/24 21:49 Albuterol Sulfate (*Sp) Aerosol 1 Puff INHALATION Q6HRT PRN shortness of breath or wheezing Alendronate Sodium 70 mg 10/04/24 09:00 10/04/24 08:21 Alendronate Sodium 70 Mg Tablet PO Not Given We@0900 [facility] Atorvastatin Calcium 40 mg 10/04/24 09:00 10/04/24 08:18 Atorvastatin 40 Mg Tablet PO 40 mg DAILY ILDEFONSO Administration Bismuth Subsalicylate 524 mg 10/04/24 07:32 Bismuth Subsalicylate 262 Mg Chewable Tablet PO DAILY PRN indigestion Calcium Carbonate 500 mg 10/04/24 09:00 10/04/24 08:18 Calcium/Vitamin D 500 Mg/5 Mcg (200 I.U.) Tablet PO 500 mg BID ILDEFONSO Administration Celecoxib 100 mg 10/04/24 09:00 10/04/24 08:20 Celecoxib 100 Mg Capsule PO 100 mg BID ILDEFONSO Administration Cyclobenzaprine HCl 5 mg 10/04/24 07:22 Cyclobenzaprine Hcl 5 Mg Tablet PO TID PRN Muscle Spasm Donepezil HCl 10 mg 10/04/24 09:00 10/04/24 08:17 Donepezil Hcl 10 Mg Tablet PO 10 mg DAILY ILDEFONSO Administration Duloxetine HCl 30 mg 10/04/24 09:00 10/04/24 08:18 Duloxetine Hcl 30 Mg Capsule. PO 30 mg DAILY ILDEFONSO Administration Duloxetine HCl 60 mg 10/04/24 09:00 10/04/24 08:17 Duloxetine Hcl 60 Mg Capsule. PO 60 mg DAILY ILDEFONSO Administration Ergocalciferol 50,000 units 10/04/24 09:00 10/04/24 08:21 Ergocalciferol 50,000 Units Capsule PO Not Given We@0900 [facility] Folic Acid 1 mg 10/04/24 09:00 10/04/24 08:19 Folic Acid 1 Mg Tablet PO 1 mg DAILY [facility] Administration Gabapentin 300 mg 10/04/24 09:00 10/04/24 08:18 Gabapentin 300 Mg Capsule PO 300 mg TID [facility] Administration Metoprolol Tartrate 25 mg 10/04/24 09:00 10/04/24 08:19 Metoprolol Tartrate 25 Mg Tablet PO 25 mg DAILY [facility] Administration Miscellaneous Information 1 each 10/04/24 06:53 Central Supply Item XX 10/05/24 06:52 PRN PRN Informational Nitroglycerin 0.4 mg 10/04/24 07:25 Nitroglycerin Sl 0.4 Mg Tablet SUBLINGUAL Q5MIN [facility] Pantoprazole Sodium 40 mg 10/04/24 09:00 10/04/24 08:17 Pantoprazole 40 Mg Tablet PO 40 mg Q12HR ILDEFONSO Administration Perflutren Lipid Microsphere 0 ml 10/03/24 22:43 Perflutren Lipid Microspheres 1.5 Ml Vial Diluted To 10 Ml Total Volume IV PUSH 10/06/24 22:43 ONCE PRN adequate visualization Protocol Polyethylene Glycol 17 gm 10/04/24 07:22 Polyethylene Glycol 3350 17 Gm Powd.Pack PO DAILY PRN Constipation Pyridoxine HCl 25 mg 10/04/24 09:00 10/04/24 08:20 Pyridoxine Hcl 25 Mg Tablet PO 25 mg DAILY ILDEFONSO Administration Risperidone 1 mg 10/03/24 23:05 10/03/24 23:05 Risperidone 1 Mg Tablet PO 1 mg HS ILDEFONSO Administration Tramadol HCl 50 mg 10/03/24 21:49 10/03/24 23:01 Tramadol Hcl (*Crx) 50 Mg Tablet PO 50 mg BID PRN Administration Pain 4-10 Trazodone HCl 150 mg 10/04/24 07:22 Trazodone Hcl 50 Mg Tablet PO HS PRN Sleep Radiology Results: ITS Impressions Head CT 10/03/24 10:25 Impression: No significant abnormality seen. Abdomen/Pelvis CT 10/03/24 10:31 IMPRESSION: 1. 2 mm stone in proximal left ureter with mild left hydronephrosis. 2. Bilateral nonobstructing kidney stones. Chest X-Ray 10/03/24 10:34 IMPRESSION: 1. No acute cardiopulmonary disease. Labs Labs: Laboratory Results - last 24 hr 10/03/24 10/03/24 10/03/24 11:00 11:01 11:04 WBC 11.0 H RBC 4.08 L Hgb 12.7 Hct 39.1 MCV 95.8 MCH 31.1 MCHC 32.5 RDW 12.9 Plt Count 213 MPV 9.8 Immature Gran % (Auto) 0.4 Neut % (Auto) 77.2 H Lymph % (Auto) 15.5 L [place] % (Auto) 6.3 Eos % (Auto) 0.1 Baso % (Auto) 0.5 Lymph # (Auto) 1.70 [place] # (Auto) 0.7 H Eos # (Auto) 0.0 Baso # (Auto) 0.1 Abs Immat Gran (auto) 0.04 H Absolute Neuts (auto) 8.5 H Absolute Nucleated RBC 0.000 Nucleated RBC % 0.0 PT 13.8 INR 1.0 APTT 20.2 L Sodium 139 Potassium 4.1 Chloride 104 Carbon Dioxide 27 Anion Gap 8 BUN 13 Creatinine 0.72 Estim Creat Clear Calc 71 Estimated GFR > 60 Glucose 139 H Lactic Acid 2.6 H Calcium 9.1 Phosphorus 2.4 L Magnesium 1.8 Total Bilirubin 0.3 AST 41 H ALT 39 H Alkaline Phosphatase 108 Ammonia Troponin I 0.036 H* Total Protein 7.0 Albumin 4.1 Triglycerides Cholesterol LDL Cholesterol Direct HDL Direct Lipase 67 Vitamin B12 TSH (Reflex) 1.780 Urine Color Yellow Urine Appearance Clear Urine pH 7.5 Ur Specific [place] 1.018 Urine Protein Trace Urine Glucose (UA) Negative Urine Ketones Trace H Ur Blood (Man) Non-hemolyzed trace H Urine Nitrate Negative Urine Bilirubin Negative Urine Urobilinogen 1.0 Add Ur Microanalysis Reviewed Leukocyte Esterase Rfl Negative Urine RBC 11-20 H Urine WBC 0-5 Ur Squamous Epith Cells None seen Urine Bacteria None seen Urine Casts 0-2 Urine Opiates Screen Negative Urine Methadone Screen Negative Ur Barbiturates Screen Negative Ur Phencyclidine Scrn Negative Ur Amphetamine Screen Negative U Benzodiazepines Scrn Negative Urine Cocaine Screen Negative U Cannabinoids Screen Negative Ethyl Alcohol < 10 Influenza A (RT-PCR) Negative Influenza B (RT-PCR) Negative RSV (RT-PCR) Negative SARS-CoV-2 RNA (RT-PCR) Negative 10/03/24 10/03/24 10/03/24 13:09 13:18 22:03 WBC RBC Hgb Hct MCV MCH MCHC RDW Plt Count MPV Immature Gran % (Auto) Neut % (Auto) Lymph % (Auto) [place] % (Auto) Eos % (Auto) Baso % (Auto) Lymph # (Auto) [place] # (Auto) Eos # (Auto) Baso # (Auto) Abs Immat Gran (auto) Absolute Neuts (auto) Absolute Nucleated RBC Nucleated RBC % PT INR APTT Sodium Potassium Chloride Carbon Dioxide Anion Gap BUN Creatinine Estim Creat Clear Calc Estimated GFR Glucose Lactic Acid 1.8 Calcium Phosphorus Magnesium Total Bilirubin AST ALT Alkaline Phosphatase Ammonia < 9 L Troponin I 0.037 H* 0.018 Total Protein Albumin Triglycerides Cholesterol LDL Cholesterol Direct HDL Direct Lipase Vitamin B12 507.0 TSH (Reflex) Urine Color Urine Appearance Urine pH Ur Specific [place] Urine Protein Urine Glucose (UA) Urine Ketones Ur Blood (Man) Urine Nitrate Urine Bilirubin Urine Urobilinogen Add Ur Microanalysis Leukocyte Esterase Rfl Urine RBC Urine WBC Ur Squamous Epith Cells Urine Bacteria Urine Casts Urine Opiates Screen Urine Methadone Screen Ur Barbiturates Screen Ur Phencyclidine Scrn Ur Amphetamine Screen U Benzodiazepines Scrn Urine Cocaine Screen U Cannabinoids Screen Ethyl Alcohol Influenza A (RT-PCR) Influenza B (RT-PCR) RSV (RT-PCR) SARS-CoV-2 RNA (RT-PCR) 10/04/24 04:18 WBC 8.2 RBC 3.72 L Hgb 11.5 L Hct 35.7 L MCV 96.0 MCH 30.9 MCHC 32.2 RDW 13.1 Plt Count 199 MPV 9.4 Immature Gran % (Auto) Neut % (Auto) Lymph % (Auto) [place] % (Auto) Eos % (Auto) Baso % (Auto) Lymph # (Auto) [place] # (Auto) Eos # (Auto) Baso # (Auto) Abs Immat Gran (auto) Absolute Neuts (auto) Absolute Nucleated RBC Nucleated RBC % PT INR APTT Sodium 139 Potassium 3.8 Chloride 104 Carbon Dioxide 27 Anion Gap 8 BUN 11 Creatinine 0.75 Estim Creat Clear Calc 69 Estimated GFR > 60 Glucose 109 Lactic Acid Calcium 8.6 Phosphorus Magnesium 1.8 Total Bilirubin 0.8 AST 40 H ALT 35 Alkaline Phosphatase 96 Ammonia Troponin I Total Protein 6.0 L Albumin 3.5 Triglycerides 124 Cholesterol 127 LDL Cholesterol Direct 59 HDL Direct 43 Lipase Vitamin B12 TSH (Reflex) Urine Color Urine Appearance Urine pH Ur Specific [place] Urine Protein Urine Glucose (UA) Urine Ketones Ur Blood (Man) Urine Nitrate Urine Bilirubin Urine Urobilinogen Add Ur Microanalysis Leukocyte Esterase Rfl Urine RBC Urine WBC Ur Squamous Epith Cells Urine Bacteria Urine Casts Urine Opiates Screen Urine Methadone Screen Ur Barbiturates Screen Ur Phencyclidine Scrn Ur Amphetamine Screen U Benzodiazepines Scrn Urine Cocaine Screen U Cannabinoids Screen Ethyl Alcohol Influenza A (RT-PCR) Influenza B (RT-PCR) RSV (RT-PCR) SARS-CoV-2 RNA (RT-PCR) Quality VTE Prophylaxis VTE prophylaxis: mechanical ordered
--- NOTE | 2024-10-04 11:30 | PC.NURSE ---
Echo being done at this time. Will transfer patient once procedure is done. SEBASTIAN Panda [facility] updated.
--- NOTE | 2024-10-04 12:30 | PC.NURSE ---
This patient, Sophia Sánchez, was transferred via bed without issue to [facility] on 10/04/24 at 1230. Personal belongings sent with patient. Report given to SEBASTIAN Panda at 1109. Appropriate documentation sent with patient. Sharron, daughter, notified of transfer.
--- NOTE | 2024-10-04 14:34 | WPDURCON ---
Assessment and Plan Assessment and plan (1) Left ureteral calculus: Code(s): N20.1 - Calculus of ureter Status: Acute Assessment and Plan: - 10/04 CT AP WO CON 2mm proximal left ureteral stone, mild hydro Plan - UA negative for infection - Patient likely to pass stone without intervention - No need for ureteral stent at this time - HS tamsulosin x1 week, encourage oral fluid intake - Plan to follow-up in clinic [address] Palm with CT prior Urology Consult Note HPI Date Seen: 10/04/24 Requesting Physician: JACKI Arana Primary Care Provider: Ervin Clark, Consult Narrative Reason for consult: 2mm left proximal ureteral stone Narrative: Sophia Sánchez is a very pleasant 73 year old female known to our practice with a history of stones admitted with mental status changes. Urology was consulted for evaluation of 2mm left proximal ureteral stone. UA negative for infection. No leukocytosis. Renal function stable. Afebrile. Medical history significant for OAB, HTN, dementia. Patient is established with Dr. Palm for urology management s/p left ureteral stone s/p ureteroscopy with stent 05/2024. Patient comfortable on exam. Asymptomatic for stones. Patient denies left flank tenderness and abdominal pain. Reports bothersome left shoulder pain and weakness, otherwise denies complaints. Review of Systems Constitutional: Constitutional: Reports as per HPI Gastrointestinal: Gastrointestinal: Denies abdominal pain Genitourinary: Genitourinary: Denies hematuria, Denies dysuria, Denies pelvic pain and Denies flank pain Musculoskeletal: Musculoskeletal: Reports as per HPI [facility] Past Medical History Medical History (Updated 10/04/24 @ 11:20 by Katelin Mcfarlane APN-C) Dementia Obstructive sleep apnea treated with BiPAP Polio Stress incontinence Hyperlipidemia Hypertension Gastroesophageal reflux disease Depression Vertigo Osteoporosis Arthritis Anxiety Surgical History Surgical History History of foot surgery Multiple foot and toe surgeries, reportedly related to polio. History of loop recorder History of open reduction and internal fixation (ORIF) procedure Repair left ankle fracture. History of esophagogastroduodenoscopy (01/2022) Reflux esophagitis, hiatal hernia, gastric retention, gastritis. History of colonoscopy (01/2022) Internal hemorrhoids. Family History Family History Father Hypertension Cerebrovascular accident Mother Depression Heart disease Cerebrovascular accident Grandparent Diabetes mellitus Sibling Lung cancer Social History Social History Social History: Surrogate medical decision maker: Sharron Vickers, daughter. Code status: Full code. Smoking status: Never smoker Second hand tobacco smoke exposure: No Alcohol intake: never Drinks per week: 1 Alcohol use details: very rare Substance use: never Substance use type: does not use Do You Feel Safe in your Home?: Yes Lack of Transportation: No Lack of Food: Never True Current Housing: I Have Housing Concerned About Future Housing: No Difficulty Paying Gas/Electric Bills: No Difficulty Paying for Meds: No Currently Unemployed: No Education: Trade/Vocational Certificate Difficulty w/ Childcare or Family Care: No Living arrangements: assisted living Additional living arrangements comments: [facility] Occupation/Education: retired Spiritual care concerns: No Meds Home Medications and Allergies Home Medications ?Medication ?Instructions ?Recorded ?Confirmed ?Type alendronate 70 mg tablet 70 mg PO WEEKLY 12/03/21 10/03/24 History atorvastatin 20 mg tablet 40 mg PO DAILY 12/03/21 10/03/24 History celecoxib 100 mg capsule 100 mg PO BID 12/03/21 10/03/24 History duloxetine 60 mg capsule,delayed 60 mg PO DAILY 12/03/21 10/03/24 History release gabapentin 300 mg capsule 300 mg PO TID 12/03/21 10/03/24 History oxybutynin chloride 15 mg 15 mg PO DAILY 12/03/21 10/03/24 History tablet,extended release 24 hr risperidone 1 mg tablet 1 mg PO HS 12/03/21 10/03/24 History tramadol 50 mg tablet 50 mg PO BID PRN Pain 12/03/21 10/03/24 History trazodone 150 mg tablet 150 mg PO HS PRN Sleep 01/21/22 10/03/24 History acetaminophen 325 mg tablet 650 mg PO QID PRN Pain (Scale 04/03/23 10/03/24 History Score 1-3) omeprazole 20 mg capsule,delayed 20 mg PO BID 04/03/23 10/03/24 History release tolnaftate 1 % topical powder 1 applic topical Q12HR #45 grams 04/06/23 10/03/24 Rx albuterol sulfate 90 mcg/actuation 2 puff inhalation Q6HRT PRN 07/20/23 10/03/24 Rx aerosol inhaler (Proventil HFA) shortness of breath or wheezing #8.5 grams calcium 600 mg (as 1 tablet PO BID 03/24/24 10/03/24 History carbonate)-vitamin D3 20 mcg (800 unit) tablet cyclobenzaprine 5 mg tablet 5 mg PO TID PRN Muscle Spasm 03/24/24 10/03/24 History donepezil 10 mg tablet 10 mg PO DAILY 03/24/24 10/03/24 History duloxetine 30 mg capsule,delayed 30 mg PO DAILY 03/24/24 10/03/24 History release ergocalciferol (vitamin D2) 1,250 1,250 mcg PO WEEKLY 03/24/24 10/03/24 History mcg (50,000 unit) capsule metoprolol tartrate 25 mg tablet 25 mg PO DAILY 03/24/24 10/03/24 History nitroglycerin 0.4 mg sublingual 0.4 mg sublingual Q5MIN 03/24/24 10/03/24 History tablet oxycodone-acetaminophen 5 mg-325 1 tablet PO Q4H PRN Pain 03/24/24 10/03/24 History mg tablet polyethylene glycol 3350 17 gram 17 g PO DAILY PRN Constipation 03/24/24 10/03/24 History oral powder packet pyridoxine (vitamin B6) 50 mg 25 mg PO DAILY 03/24/24 10/03/24 History tablet (Vitamin B-6) folic acid 1 mg tablet 1 mg PO DAILY 05/11/24 10/03/24 History bismuth subsalicylate 262 mg/15 mL 524 mg PO DAILY PRN indigestion 10/03/24 10/03/24 History oral suspension (Stomach Relief) Allergies Allergy/AdvReac Type Severity Reaction Status Date / Time No Known Allergies Allergy Verified 05/22/24 07:19 Vital Signs Vital Signs - 24 hr 10/03/24 15:38 10/03/24 16:00 10/03/24 16:00 Temperature 97.5 F L Pulse Rate 77 66 Respiratory Rate 18 Blood Pressure 155/63 H Pulse Oximetry 93 93 Oxygen Delivery Room Air 10/03/24 20:00 10/03/24 20:00 10/03/24 20:02 Temperature 98.1 F Pulse Rate 73 74 71 Respiratory Rate 16 18 Blood Pressure 126/64 Pulse Oximetry 95 93 Oxygen Delivery Room Air 10/03/24 23:20 10/03/24 23:27 10/04/24 00:00 Temperature 98.2 F Pulse Rate 69 69 97 Respiratory Rate 16 16 18 Blood Pressure 141/74 H Pulse Oximetry 98 98 96 Oxygen Delivery Room Air Room Air 10/04/24 00:00 10/04/24 00:00 10/04/24 02:00 Temperature Pulse Rate 97 75 71 Respiratory Rate Blood Pressure Pulse Oximetry 96 Oxygen Delivery Autopap 10/04/24 02:25 10/04/24 03:34 10/04/24 04:00 Temperature 97.3 F L Pulse Rate 71 94 Respiratory Rate 18 16 Blood Pressure 151/63 H Pulse Oximetry 96 95 Oxygen Delivery Autopap Autopap 10/04/24 04:00 10/04/24 06:00 10/04/24 08:00 Temperature Pulse Rate 70 64 83 Respiratory Rate 16 Blood Pressure Pulse Oximetry 96 Oxygen Delivery Room Air 10/04/24 08:00 10/04/24 08:00 10/04/24 08:08 Temperature 98.3 F Pulse Rate 65 68 88 Respiratory Rate 16 Blood Pressure 151/92 H Pulse Oximetry 94 96 Oxygen Delivery Room Air 10/04/24 08:08 10/04/24 08:19 10/04/24 10:00 Temperature Pulse Rate 83 65 Respiratory Rate Blood Pressure Pulse Oximetry 96 Oxygen Delivery 10/04/24 12:00 10/04/24 12:00 Temperature 98.2 F Pulse Rate 70 78 Respiratory Rate 18 Blood Pressure 155/90 H Pulse Oximetry 95 Oxygen Delivery Exam Const: General: comfortable and no acute distress Resp: Effort & Inspection: normal respiratory effort Skin: General skin exam: normal color Neuro: Speech: normal speech Psych: Speech and movement: Normal speech and movement present Affect: normal affect Results Labs 10/04/24 04:18 10/04/24 04:18 Labs: Short CBC 10/04/24 Range/Units 04:18 WBC 8.2 (4.5-10.0) K/mm3 Hgb 11.5 L (12.0-15.0) g/dL Hct 35.7 L (37.0-47.0) % Plt Count 199 (150-375) k/mm3 BMP 10/04/24 04:18 Sodium 139 Potassium 3.8 Chloride 104 Carbon Dioxide 27 BUN 11 Creatinine 0.75 Glucose 109 Calcium 8.6 Cardiac Enzymes 10/03/24 Range/Units 22:03 Troponin I 0.018 (0.000-0.034) ng/mL Liver Function 10/04/24 Range/Units 04:18 Total Bilirubin 0.8 (0.2-1.3) mg/dL AST 40 H (14-36) U/L ALT 35 (6-35) U/L Alkaline Phosphatase 96 (38-126) U/L Albumin 3.5 (3.5-5.1) g/dL
[2024-10-04] MEDS: risperiDONE 1 MG TABLET PO (20:09)
[2024-10-04] MEDS: TAMSULOSIN HCL 0.4 MG CAPSULE PO (20:09)
[2024-10-04] MEDS: CYCLOBENZAPRINE HCL 5 MG TABLET PO (20:17)
[2024-10-04] MEDS: traMADol HCL (*CRX) 50 MG TABLET PO (20:18)
[2024-10-04] MEDS: traZODone HCL 50 MG TABLET 150 MG PO (20:19)
--- NOTE | 2024-10-04 22:43 | ECHO_ITS ---
Patient Info Name: Sopiha Sánchez Age: 73 years : 1950 Gender: Female Ht: 66 in Wt: 222 lbs BSA: 2.21 m2 HR: 64 bpm BP: 151 / 63 mmHg Heart Rhythm: Sinus Rhythm Technical Quality: Fair Exam Date: 10/04/2024 11:16 AM Exam Location: Echo Lab Patient Status: Inpatient Admit Date: 10/03/2024 Staff Ordering Physician: Shirley Orta PA-C Dress Cutter: Edel Julien RDCS Attending Provider: Katelin Mcfarlane Referring Physician: Marivel JACKSON; Exam Type: CA echo doppler color flow Study Info Indications - Elevated troponin Complete two-dimensional, color flow and Doppler transthoracic echocardiogram is performed. Summary 1. Complete two-dimensional, color flow and Doppler transthoracic echocardiogram is performed. 2. There is normal biventricular size and systolic function. 3. There is no significant valvular disease. Left Ventricle The left ventricle is normal in size and systolic function. The left ventricular ejection fraction is visually estimated to be 60-65%. Right Ventricle The right ventricle is normal in size and systolic function. Left Atria The left atrium is mildly dilated. Right Atria The right atrium is normal size. Atrial Septum The atrial septum is not well visualized. Aortic Valve The aortic valve is trileaflet and opens well. There is no aortic regurgitation. Pulmonic Valve Pulmonic valve is not well visualized. There is no pulmonic valve regurgitation. Mitral Valve The mitral valve is normal. There is trace mitral regurgitation. Tricuspid Valve The tricuspid valve is grossly normal. There is trace tricuspid regurgitation. Pericardium/Pleural There is no pericardial effusion in the available views. Inferior Vena Cava Inferior vena cava is not well visualized. Aorta The aortic root at the level of the sinus of Valsalva measures 3.3 cm in diameter. Left Ventricular Outflow Tract Name Value Normal LVOT 2D LVOT Diameter 2.1 cm LVOT Doppler LVOT Peak Gradient 5 mmHg LVOT Mean Gradient 2 mmHg LVOT VTI 26 cm LVOT VTI/AV VTI Ratio 1.1 LVOT Stroke Volume 87 ml LVOT CO 5.4 l/min LVOT CI 2.4 l/min/m2 Pulmonic Valve Name Value Normal RVOT Doppler RVOT Peak Gradient 2 mmHg PV Doppler PV Peak Gradient 2 mmHg Mitral Valve Name Value Normal MV Doppler MV Decel Liberty 293 cm/s2 MV PHT 67 ms MV Area (PHT) 3.3 cm2 4.0-5.0 MV Diastolic Function MV E Peak Velocity 67 cm/s MV A Peak Velocity 75 cm/s MV E/A 0.9 MV Decel Time 230 ms MV Annular TDI MV E/e' (Septal) 12.3 <=8.0 MV E/e' (Lateral) 10.0 <=8.0 MV E/e' (Average) 11.2 Tricuspid Valve Name Value Normal TV Regurgitation Doppler TR Peak Velocity 232 cm/s TR Peak Gradient 14 mmHg Aortic Valve Name Value Normal AV Doppler AV Peak Velocity 108 cm/s AV Peak Gradient 5 mmHg AV Mean Gradient 2 mmHg AV VTI 24 cm AV Area (Cont Eq VTI) 3.6 cm2 >=3.0 AV Area (Cont Eq Jack) 3.4 cm2 AV Regurgitation 2D LVOT Area 3.4 cm2 Ventricles Name Value Normal LV Dimensions 2D/MM IVS Diastolic Thickness (2D) 1.3 cm 0.6-1.0 LVID Diastole (2D) 4.0 cm 3.8-5.2 LVIW Diastolic Thickness (2D) 1.0 cm 0.6-0.9 LVID Systole (2D) 2.8 cm 2.2-3.5 LVOT Diameter 2.1 cm LV Mass (2D Cubed) 154.61 g 67.00-162.00 LV Mass Index (2D Cubed) 70 g/m2 43-95 Relative Wall Thickness (2D) 0.49 LV Fractional Shortening/Ejection Fraction 2D/MM LV Fractional Shortening (2D) 30 % 27-45 LV EF (2D Teicholz) 57 % 54-74 LV Diastolic Volume (4C MOD) 126 ml LV EF (4C MOD) 60 % LV Diastolic Volume (2C MOD) 131 ml LV EF (2C MOD) 49 % LV Diastolic Volume (BP MOD) 130 ml 46-106 LV Diastolic Volume Index (BP MOD) 59 ml/m2 29-61 LV Systolic Volume (BP MOD) 64 ml 14-42 LV Systolic Volume Index (BP MOD) 29 ml/m2 8-24 LV EF (BP MOD) 51 % 54-74 LV Diastolic Length (4C) 8.3 cm LV Systolic Length (4C) 7.2 cm LV Stroke Volume (4C MOD) 76 ml Atria Name Value Normal LA Dimensions LA Volume (4C A-L) 89 ml LA Volume (BP A-L) 76 ml RA Dimensions RA Area (4C) 20.7 cm2 <=18.0 Report Signatures
[2024-10-05] VITALS (10 sets, daily range): BP systolic 128–159; BP diastolic 58–78; PULSE 65–96; RESP 16–20; TEMP 36.3–36.5; O2SAT 91–97
--- NOTE | 2024-10-05 06:53 | P.PNUR_ITS ---
Progress Note: A&P Assessment and Plan (1) Left ureteral calculus: Code(s): N20.1 - Calculus of ureter Status: Acute (2) Bilateral kidney stones: Code(s): N20.0 - Calculus of kidney Status: Acute Assessment and Plan: * Tiny (2mm) left ureteral stone without UTI - should easily pass. No current plans for intervention * F/U 2-weeks with Dr. Palm to reimage. Subjective Subjective Date/Time Seen: 10/05/24 06:53 Interval history: Comfortable, slept well Review of Systems Cardiovascular: Cardiovascular: Denies chest pain, Denies lightheadedness, Denies palpitations and Denies dyspnea Respiratory: Respiratory: Denies dyspnea Gastrointestinal: Gastrointestinal: Denies diarrhea, Denies nausea and Denies vomiting Genitourinary: Genitourinary: Denies hematuria and Denies dysuria Endocrine: Endocrine: Denies palpitations Exam Const: General: no acute distress Resp: Effort & Inspection: normal respiratory effort GI: Inspection: non-distended GI Palp: No abdominal tenderness and No Guarding due to palpation present (GI) Auscultation: normal bowel sounds Objective Data Vital Signs Vital Signs: Vital Signs - 24 hr 10/04/24 08:00 10/04/24 08:00 10/04/24 08:00 Temperature 98.3 F Pulse Rate 83 65 68 Respiratory Rate 16 16 Blood Pressure 151/92 H Pulse Oximetry 96 94 Oxygen Delivery Room Air 10/04/24 08:08 10/04/24 08:08 10/04/24 08:19 Temperature Pulse Rate 88 83 Respiratory Rate Blood Pressure Pulse Oximetry 96 96 Oxygen Delivery Room Air 10/04/24 10:00 10/04/24 12:00 10/04/24 12:00 Temperature 98.2 F Pulse Rate 65 70 78 Respiratory Rate 18 Blood Pressure 155/90 H Pulse Oximetry 95 Oxygen Delivery 10/04/24 16:00 10/04/24 16:00 10/04/24 20:00 Temperature 97.9 F Pulse Rate 69 59 L 67 Respiratory Rate 18 Blood Pressure 124/79 Pulse Oximetry 96 Oxygen Delivery 10/04/24 21:23 10/04/24 23:10 10/05/24 00:00 Temperature 97.9 F Pulse Rate 70 62 82 Respiratory Rate 14 Blood Pressure 147/67 H Pulse Oximetry 94 95 Oxygen Delivery Autopap 10/05/24 02:30 10/05/24 04:00 10/05/24 06:05 Temperature 97.7 F Pulse Rate 91 83 Respiratory Rate 18 Blood Pressure 138/58 L Pulse Oximetry 95 95 Oxygen Delivery Autopap Intake/Output Intake/Output: Intake & Output 10/02/24 10/03/24 10/04/24 10/05/24 23:59 23:59 23:59 23:59 Intake Total 3140 710 400 Output Total 650 600 Balance 2490 110 400 Meds/Results Medications: Active Medications Generic Name Dose Route Start Last Admin Trade Name Freq PRN Reason Stop Dose Admin Acetaminophen 650 mg 10/03/24 21:49 Acetaminophen 325 Mg Tablet PO QID PRN Pain (Scale Score 1-3) Albuterol 2 puff 10/03/24 21:49 Albuterol Sulfate (*Sp) Aerosol 1 Puff INHALATION Q6HRT PRN shortness of breath or wheezing Alendronate Sodium 70 mg 10/04/24 09:00 10/04/24 08:21 Alendronate Sodium 70 Mg Tablet PO Not Given We@0900 [facility] Atorvastatin Calcium 40 mg 10/04/24 09:00 10/04/24 08:18 Atorvastatin 40 Mg Tablet PO 40 mg DAILY ILDEFONSO Administration Bismuth Subsalicylate 524 mg 10/04/24 07:32 Bismuth Subsalicylate 262 Mg Chewable Tablet PO DAILY PRN indigestion Calcium Carbonate 500 mg 10/04/24 09:00 10/04/24 17:35 Calcium/Vitamin D 500 Mg/5 Mcg (200 I.U.) Tablet PO 500 mg BID ILDEFONSO Administration Celecoxib 100 mg 10/04/24 09:00 10/04/24 17:36 Celecoxib 100 Mg Capsule PO 100 mg BID ILDEFONSO Administration Cyclobenzaprine HCl 5 mg 10/04/24 07:22 10/04/24 20:17 Cyclobenzaprine Hcl 5 Mg Tablet PO 5 mg TID PRN Administration Muscle Spasm Donepezil HCl 10 mg 10/04/24 09:00 10/04/24 08:17 Donepezil Hcl 10 Mg Tablet PO 10 mg DAILY ILDEFONSO Administration Duloxetine HCl 30 mg 10/04/24 09:00 10/04/24 08:18 Duloxetine Hcl 30 Mg Capsule.Dr PO 30 mg DAILY ILDEFONSO Administration Duloxetine HCl 60 mg 10/04/24 09:00 10/04/24 08:17 Duloxetine Hcl 60 Mg Capsule.Dr PO 60 mg DAILY ILDEFONSO Administration Ergocalciferol 50,000 units 10/04/24 09:00 10/04/24 08:21 Ergocalciferol 50,000 Units Capsule PO Not Given We@0900 [facility] Folic Acid 1 mg 10/04/24 09:00 10/04/24 08:19 Folic Acid 1 Mg Tablet PO 1 mg DAILY ILDEFONSO Administration Gabapentin 300 mg 10/04/24 09:00 10/04/24 17:36 Gabapentin 300 Mg Capsule PO 300 mg TID ILDEFONSO Administration Metoprolol Tartrate 25 mg 10/04/24 09:00 10/04/24 08:19 Metoprolol Tartrate 25 Mg Tablet PO 25 mg DAILY ILDEFONSO Administration Nitroglycerin 0.4 mg 10/04/24 07:25 Nitroglycerin Sl 0.4 Mg Tablet SUBLINGUAL Q5MIN ILDEFONSO Pantoprazole Sodium 40 mg 10/04/24 09:00 10/04/24 20:09 Pantoprazole 40 Mg Tablet PO 40 mg Q12HR ILDEFONSO Administration Perflutren Lipid Microsphere 0 ml 10/03/24 22:43 Perflutren Lipid Microspheres 1.5 Ml Vial Diluted To 10 Ml Total Volume IV PUSH 10/06/24 22:43 ONCE PRN adequate visualization Protocol Polyethylene Glycol 17 gm 10/04/24 07:22 Polyethylene Glycol 3350 17 Gm Powd.Pack PO DAILY PRN Constipation Pyridoxine HCl 25 mg 10/04/24 09:00 10/04/24 08:20 Pyridoxine Hcl 25 Mg Tablet PO 25 mg DAILY ILDEFONSO Administration Risperidone 1 mg 10/03/24 23:05 10/04/24 20:09 Risperidone 1 Mg Tablet PO 1 mg HS ILDEFONSO Administration Tamsulosin HCl 0.4 mg 10/04/24 21:00 10/04/24 20:09 Tamsulosin Hcl 0.4 Mg Capsule PO 10/11/24 21:00 0.4 mg HS ILDEFONSO Administration Tramadol HCl 50 mg 10/03/24 21:49 10/04/24 20:18 Tramadol Hcl (*Crx) 50 Mg Tablet PO 50 mg BID PRN Administration Pain 4-10 Trazodone HCl 150 mg 10/04/24 07:22 10/04/24 20:19 Trazodone Hcl 50 Mg Tablet PO 150 mg HS PRN Administration Sleep Radiology Results: ITS Impressions Head CT 10/03/24 10:25 Impression: No significant abnormality seen. Abdomen/Pelvis CT 10/03/24 10:31 IMPRESSION: 1. 2 mm stone in proximal left ureter with mild left hydronephrosis. 2. Bilateral nonobstructing kidney stones. Chest X-Ray 10/03/24 10:34 IMPRESSION: 1. No acute cardiopulmonary disease.
--- NOTE | 2024-10-05 08:17 | PM.IMPN ---
Progress Note: A&P Assessment and Plan (1) Altered mental status: Code(s): R41.82 - Altered mental status, unspecified Status: Acute Assessment and Plan: Uncertain Etiology Blood cultures prelim- no growth Neuro checks Obtain MRI w/wo contrast of brain- pending Continue to trend labs and VS. Continue tele Obtain ECHO- 10/04- There is trace tricuspid regurgitation. The left atrium is mildly dilated. EF 60-65% improving (2) Elevated troponin: Code(s): R79.89 - Other specified abnormal findings of blood chemistry Status: Resolved Assessment and Plan: Resolved this AM with normal trop. Obtain ECHO- see above Tele (3) Left ureteral calculus: Code(s): N20.1 - Calculus of ureter Status: Acute Assessment and Plan: Consult Urology- saw DR Garner: Tiny (2mm) left ureteral stone without UTI - should easily pass. No current plans for intervention F/U 2-weeks with Dr. Palm to reimage Intake and output (4) Bilateral kidney stones: Code(s): N20.0 - Calculus of kidney Status: Acute Assessment and Plan: Trend renal function See #3 (5) Hypertension: Code(s): I10 - Essential (primary) hypertension Status: Acute Assessment and Plan: Stable BPs. Continue meds of Metoprolol tartrate 25 mg daily Continue to trend and monitor. (6) Obstructive sleep apnea treated with BiPAP: Code(s): G47.33 - Obstructive sleep apnea (adult) (pediatric) Status: Acute Assessment and Plan: BiPap at night. Time Spent With Patient Time with patient: 25 - 35 minutes Subjective Date/time seen: 10/05/24 08:17 Interval history: assuming care. Pt is seen and examined. uneventful night. VS reviewed. labs ordered and pending. MRI today. PT/OT. Review of Systems Review of Systems: 12 systems were reviewed and are negative except for as per HPI. All systems reviewed & are unremarkable except as noted in HPI and below Exam Narrative: General: Well-developed, nontoxic-appearing female sitting up in bed in no acute distress. She is not interested in eating any of her food she has in front of her. HEENT: Normocephalic, atraumatic. PERRL, EOMI. Sclera anicteric. dry mucosa. Neck: Supple. FROM without JVD or bruits. Respiratory: Lungs are clear to auscultation bilaterally. Cardiovascular: Regular rate and rhythm with S1-S2. No m,r,g,h Gastrointestinal: Abdomen is soft, nontender, and nondistended with positive bowel sounds. No CVA tenderness. Rotund appearing. Skin: Warm and dry. Extremities: No cyanosis, clubbing, or edema. Radial and pedal pulses intact. Neurological: Alert and oriented to name, age, and date of . She is aware that she is at the hospital but does not remember wandering the halls are moving furniture in her prior apartment as detailed HPI. Cranial nerves 2-12 are grossly intact. Speech is clear. No facial asymmetry. Hand taper machine and foot pushes equal bilaterally. No gross focal deficits. Psychiatric: Pleasant and cooperative. Appropriate mood and affect. Evidence of short-term memory loss. Objective Data Vital Signs Vital Signs: Vital Signs - 24 hr 10/04/24 08:19 10/04/24 10:00 10/04/24 12:00 Temperature 98.2 F Pulse Rate 83 65 70 Respiratory Rate 18 Blood Pressure 155/90 H Pulse Oximetry 95 Oxygen Delivery 10/04/24 12:00 10/04/24 16:00 10/04/24 16:00 Temperature 97.9 F Pulse Rate 78 69 59 L Respiratory Rate 18 Blood Pressure 124/79 Pulse Oximetry 96 Oxygen Delivery 10/04/24 20:00 10/04/24 21:23 10/04/24 23:10 Temperature 97.9 F Pulse Rate 67 70 62 Respiratory Rate 14 Blood Pressure 147/67 H Pulse Oximetry 94 95 Oxygen Delivery Autopap 10/05/24 00:00 10/05/24 02:30 10/05/24 04:00 Temperature Pulse Rate 82 91 Respiratory Rate Blood Pressure Pulse Oximetry 95 Oxygen Delivery Autopap 10/05/24 06:05 Temperature 97.7 F Pulse Rate 83 Respiratory Rate 18 Blood Pressure 138/58 L Pulse Oximetry 95 Oxygen Delivery Intake/Output Intake/Output: Intake & Output 10/02/24 10/03/24 10/04/24 10/05/24 23:59 23:59 23:59 23:59 Intake Total 3140 710 400 Output Total 650 600 Balance 2490 110 400 Meds/Results Medications: Active Medications Generic Name Dose Route Start Last Admin Trade Name Freq PRN Reason Stop Dose Admin Acetaminophen 650 mg 10/03/24 21:49 Acetaminophen 325 Mg Tablet PO QID PRN Pain (Scale Score 1-3) Albuterol 2 puff 10/03/24 21:49 Albuterol Sulfate (*Sp) Aerosol 1 Puff INHALATION Q6HRT PRN shortness of breath or wheezing Alendronate Sodium 70 mg 10/04/24 09:00 10/04/24 08:21 Alendronate Sodium 70 Mg Tablet PO Not Given We@0900 [facility] Atorvastatin Calcium 40 mg 10/04/24 09:00 10/04/24 08:18 Atorvastatin 40 Mg Tablet PO 40 mg DAILY ILDEFONSO Administration Bismuth Subsalicylate 524 mg 10/04/24 07:32 Bismuth Subsalicylate 262 Mg Chewable Tablet PO DAILY PRN indigestion Calcium Carbonate 500 mg 10/04/24 09:00 10/04/24 17:35 Calcium/Vitamin D 500 Mg/5 Mcg (200 I.U.) Tablet PO 500 mg BID ILDEFONSO Administration Celecoxib 100 mg 10/04/24 09:00 10/04/24 17:36 Celecoxib 100 Mg Capsule PO 100 mg BID ILDEFONSO Administration Cyclobenzaprine HCl 5 mg 10/04/24 07:22 10/04/24 20:17 Cyclobenzaprine Hcl 5 Mg Tablet PO 5 mg TID PRN Administration Muscle Spasm Donepezil HCl 10 mg 10/04/24 09:00 10/04/24 08:17 Donepezil Hcl 10 Mg Tablet PO 10 mg DAILY ILDEFONSO Administration Duloxetine HCl 30 mg 10/04/24 09:00 10/04/24 08:18 Duloxetine Hcl 30 Mg Capsule.Dr PO 30 mg DAILY ILDEFONSO Administration Duloxetine HCl 60 mg 10/04/24 09:00 10/04/24 08:17 Duloxetine Hcl 60 Mg Capsule.Dr PO 60 mg DAILY ILDEFONSO Administration Ergocalciferol 50,000 units 10/04/24 09:00 10/04/24 08:21 Ergocalciferol 50,000 Units Capsule PO Not Given We@0900 [facility] Folic Acid 1 mg 10/04/24 09:00 10/04/24 08:19 Folic Acid 1 Mg Tablet PO 1 mg DAILY ILDEFONSO Administration Gabapentin 300 mg 10/04/24 09:00 10/04/24 17:36 Gabapentin 300 Mg Capsule PO 300 mg TID ILDEFONSO Administration Metoprolol Tartrate 25 mg 10/04/24 09:00 10/04/24 08:19 Metoprolol Tartrate 25 Mg Tablet PO 25 mg DAILY ILDEFONSO Administration Nitroglycerin 0.4 mg 10/04/24 07:25 Nitroglycerin Sl 0.4 Mg Tablet SUBLINGUAL Q5MIN ILDEFONSO Pantoprazole Sodium 40 mg 10/04/24 09:00 10/04/24 20:09 Pantoprazole 40 Mg Tablet PO 40 mg Q12HR ILDEFONSO Administration Perflutren Lipid Microsphere 0 ml 10/03/24 22:43 Perflutren Lipid Microspheres 1.5 Ml Vial Diluted To 10 Ml Total Volume IV PUSH 10/06/24 22:43 ONCE PRN adequate visualization Protocol Polyethylene Glycol 17 gm 10/04/24 07:22 Polyethylene Glycol 3350 17 Gm Powd.Pack PO DAILY PRN Constipation Pyridoxine HCl 25 mg 10/04/24 09:00 10/04/24 08:20 Pyridoxine Hcl 25 Mg Tablet PO 25 mg DAILY ILDEFONSO Administration Risperidone 1 mg 10/03/24 23:05 10/04/24 20:09 Risperidone 1 Mg Tablet PO 1 mg HS ILDEFONSO Administration Tamsulosin HCl 0.4 mg 10/04/24 21:00 10/04/24 20:09 Tamsulosin Hcl 0.4 Mg Capsule PO 10/11/24 21:00 0.4 mg HS ILDEFONSO Administration Tramadol HCl 50 mg 10/03/24 21:49 10/04/24 20:18 Tramadol Hcl (*Crx) 50 Mg Tablet PO 50 mg BID PRN Administration Pain 4-10 Trazodone HCl 150 mg 10/04/24 07:22 10/04/24 20:19 Trazodone Hcl 50 Mg Tablet PO 150 mg HS PRN Administration Sleep Radiology Results: ITS Impressions Head CT 10/03/24 10:25 Impression: No significant abnormality seen. Abdomen/Pelvis CT 10/03/24 10:31 IMPRESSION: 1. 2 mm stone in proximal left ureter with mild left hydronephrosis. 2. Bilateral nonobstructing kidney stones. Chest X-Ray 10/03/24 10:34 IMPRESSION: 1. No acute cardiopulmonary disease. Quality VTE Prophylaxis VTE prophylaxis: mechanical ordered
[2024-10-05 08:36] LABS: Hematocrit 36.8 % (37.0-47.0); Hemoglobin 11.8 g/dL (12.0-15.0); Mean Corpuscular HGB Conc 32.1 g/dl (32-36); Mean Corpuscular Hemoglobin 30.7 pg (26-34); Mean Corpuscular Volume 95.8 fl (80-100); Mean Platelet Volume 9.4 fl (7.4-10.4); Platelet Count Result 194 k/mm3 (150-375); Red Blood Count 3.84 M/mm3 (4.2-5.4); White Blood Count 7.3 K/mm3 (4.5-10.0)
[2024-10-05 08:44] LABS: Anion Gap 8 mmol/L (4-12); Blood Urea Nitrogen 13 mg/dL (7-17); Calcium 9.1 mg/dL (8.4-10.2); Carbon Dioxide 27 mmol/L (22-30); Chloride 103 mmol/L (98-107); Estimated CRCL calculation 76 ml/min; Estimated Glomerular Filt Rate > 60; Glucose 108 mg/dL (65-110); Potassium 3.9 mmol/L (3.4-5.0); Sodium 138 mmol/L (137-145)
[2024-10-05] MEDS: GABAPENTIN 300 MG CAPSULE PO ×3 (08:52→17:11)
[2024-10-05] MEDS: DULoxetine HCL 30 MG CAPSULE.DR PO (08:52)
[2024-10-05] MEDS: PANTOPRAZOLE 40 MG TABLET PO ×2 (08:52→20:11)
[2024-10-05] MEDS: ATORVASTATIN 40 MG TABLET PO (08:52)
[2024-10-05] MEDS: DULoxetine HCL 60 MG CAPSULE.DR PO (08:52)
[2024-10-05] MEDS: CELECOXIB 100 MG CAPSULE PO ×2 (08:52→17:11)
[2024-10-05] MEDS: CALCIUM/VITAMIN D 500 MG/5 MCG (200 I.U.) TABLET PO ×2 (08:52→17:11)
[2024-10-05] MEDS: FOLIC ACID 1 MG TABLET PO (08:52)
[2024-10-05] MEDS: PYRIDOXINE HCL 25 MG TABLET PO (08:52)
[2024-10-05] MEDS: DONEPEZIL HCL 10 MG TABLET PO (08:52)
[2024-10-05] MEDS: METOPROLOL TARTRATE 25 MG TABLET PO (08:53)
[2024-10-05] MEDS: TAMSULOSIN HCL 0.4 MG CAPSULE PO (20:11)
[2024-10-05] MEDS: risperiDONE 1 MG TABLET PO (20:11)
[2024-10-05] MEDS: traZODone HCL 50 MG TABLET 150 MG PO (20:13)
[2024-10-05] MEDS: traMADol HCL (*CRX) 50 MG TABLET PO (20:13)
[2024-10-06] VITALS (7 sets, daily range): BP systolic 129–149; BP diastolic 68–75; PULSE 66–90; RESP 19–20; TEMP 36.5–36.7; O2SAT 91–93
--- NOTE | 2024-10-06 08:49 | P.DS_ITS ---
DS: Admitting Diagnosis Discharge Date 10/06 Admitting Diagnosis ams DS: Discharge Diagnosis Discharge Diagnosis (1) Altered mental status: Code(s): R41.82 - Altered mental status, unspecified Status: Acute (2) Elevated troponin: Code(s): R79.89 - Other specified abnormal findings of blood chemistry Status: Resolved (3) Left ureteral calculus: Code(s): N20.1 - Calculus of ureter Status: Acute (4) Bilateral kidney stones: Code(s): N20.0 - Calculus of kidney Status: Acute (5) Hypertension: Code(s): I10 - Essential (primary) hypertension Status: Acute (6) Obstructive sleep apnea treated with BiPAP: Code(s): G47.33 - Obstructive sleep apnea (adult) (pediatric) Status: Acute DS: Summary Hospital Course Hospital Course: this is a 73-year-old female with history of dementia, hypertension, hyperlipidemia, sleep apnea, kidney stones, depression, and anxiety who presented to the emergency department via EMS from [facility] for evaluation of altered mental status. PT/OT worked with her and she did great. Alert, oriented today, with no deficit. several issues were addressed: # AMS * Uncertain Etiology * Blood cultures prelim- no growth * Neuro checks * Obtain MRI w/wo contrast of brain- IMPRESSION: 1. Small old infarct in right cerebellum. 2. Mild nonspecific cerebral white matter disease, which likely represents chronic small vessel ischemic disease. * Continue to trend labs and VS. * Continue tele * Obtain ECHO- 10/04- There is trace tricuspid regurgitation. The left atrium is mildly dilated. EF 60-65% * resolved # Left ureteral calculus: * Tiny (2mm) left ureteral stone without UTI - should easily pass. No current plans for intervention * F/U 2-weeks with Dr. Palm to reimage. # elevated trop -resolved echo done- see above asymptomatic-no chest pain # Hypertension: * Stable BPs. * Continue meds of Metoprolol tartrate 25 mg daily #Obstructive sleep apnea treated with BiPAP: * BiPap at night. Status at Discharge Functional status at discharge: independent ambulation Overall status at discharge: patient is progressing back to baseline Time Spent with Patient Time attestation: Total time spent providing and/or coordinating discharge services: Time spent: Greater than 30 minutes Exam Narrative: General: Well-developed, nontoxic-appearing female sitting up in bed in no acute distress. she is alert and oriented. HEENT: Normocephalic, atraumatic. PERRL, EOMI. Sclera anicteric. dry mucosa. Neck: Supple. FROM without JVD or bruits. Respiratory: Lungs are clear to auscultation bilaterally. Cardiovascular: Regular rate and rhythm with S1-S2. No m,r,g,h Gastrointestinal: Abdomen is soft, nontender, and nondistended with positive bowel sounds. No CVA tenderness. Rotund appearing. Skin: Warm and dry. Extremities: No cyanosis, clubbing, or edema. Radial and pedal pulses intact. Neurological: Alert and oriented x 4. Cranial nerves 2-12 are grossly intact. Speech is clear. No facial asymmetry. Hand financial foundations associate and foot pushes equal bi laterally. No gross focal deficits. Psychiatric: Pleasant and cooperative. Appropriate mood and affect. Evidence of short-term memory loss. Const: General: comfortable DS: Data Data Completed and Pending Completed studies during hospitalization: brain mri Labs on day of discharge: Preliminary micro results at discharge 10/03/24 10:53 Blood Culture - Preliminary Blood 10/03/24 11:00 Blood Culture - Preliminary Blood Discharge Plan Discharge Attending physician on discharge: Mello Tripp Consulting providers: Varinder Garner Discharging Clinician: Susan Morales Patient Disposition: [facility] Activity: november show Diet: heart healthy Discharge Instructions: Per Care Coordination, patient to return to [facility] ([phone]) at discharge. Please fax discharge instructions and medication sheets to [phone] at discharge. Patient Instructions: Antibiotic Form Patient Language: Kinyarwanda Stand Alone Forms: General Discharge Information Follow-up/Referrals: Eduardo,Ervin Johnson MD [Primary Care Provider] - 2 Weeks Wilder Palm MD [Physician] - 2 Weeks (CT abdomen pelvis at [facility] prior to office visit) Discharge Medications: New tamsulosin 0.4 mg Capsule 0.4 mg PO HS Qty: 30 0RF Continued alendronate 70 mg tablet 70 mg PO WEEKLY Rx Instructions: Take on Wednesdays atorvastatin 20 mg tablet 40 mg PO DAILY celecoxib 100 mg capsule 100 mg PO BID duloxetine 60 mg capsule,delayed release(DR/EC) 60 mg PO DAILY Rx Instructions: Take with 30mg capsule to equal 90mg daily. gabapentin 300 mg capsule 300 mg PO TID risperidone 1 mg tablet 1 mg PO HS tramadol 50 mg tablet 50 mg PO BID PRN (Reason: Pain) acetaminophen 325 mg tablet 650 mg PO QID PRN (Reason: Pain (Scale Score 1-3)) omeprazole 20 mg capsule,delayed release(DR/EC) 20 mg PO BID tolnaftate 1 % Powder 1 applic topical Q12HR Qty: 45 3RF Rx Instructions: To affected areas. albuterol sulfate [Proventil HFA] 90 mcg/actuation Hfa Aerosol Inhaler 2 puff inhalation Q6HRT PRN (Reason: shortness of breath or wheezing) Qty: 8.5 0RF polyethylene glycol 3350 17 gram Powder In Packet 17 g PO DAILY PRN (Reason: Constipation) donepezil 10 mg tablet 10 mg PO DAILY nitroglycerin 0.4 mg tablet, sublingual 0.4 mg sublingual Q5MIN Rx Instructions: Dissolve 1 tab under the tongue every 5 minutes up to 3 times as needed for chest pain. pyridoxine (vitamin B6) [Vitamin B-6] 50 mg tablet 25 mg PO DAILY Rx Instructions: Take 1/2 tablet daily. ergocalciferol (vitamin D2) 1,250 mcg (50,000 unit) capsule 1,250 mcg PO WEEKLY Rx Instructions: Take on Tuesday cyclobenzaprine 5 mg Tablet 5 mg PO TID PRN (Reason: Muscle Spasm) metoprolol tartrate 25 mg tablet 25 mg PO DAILY duloxetine 30 mg capsule,delayed release(DR/EC) 30 mg PO DAILY Rx Instructions: Take with 60mg for a total dose of 90mg. calcium carbonate-vitamin D3 600 mg-20 mcg (800 unit) tablet 1 tablet PO BID trazodone 150 mg Tablet 150 mg PO HS PRN (Reason: Sleep) folic acid 1 mg tablet 1 mg PO DAILY bismuth subsalicylate [Stomach Relief] 262 mg/15 mL suspension 524 mg PO DAILY PRN (Reason: indigestion) Discontinued oxybutynin chloride 15 mg tablet extended release 24 hr 15 mg PO DAILY oxycodone-acetaminophen 5-325 mg tablet 1 tablet PO Q4H PRN (Reason: Pain) Other Ambulatory Orders: CT abdomen pelvis wo con (Routine) Timeframe: 2 Weeks Facility: [facility] - Location: [facility] Ordered By: Lou Laird Date of admission: 10/03/24 13:04 Primary Care Provider: Eduardo,Ervin Johnson Admitting Provider: Mello Tripp Attending physician on admission: Katelin Mcfarlane Condition: Stable Quality VTE Prophylaxis VTE prophylaxis: mechanical ordered
[2024-10-06] MEDS: CELECOXIB 100 MG CAPSULE PO (10:24)
[2024-10-06] MEDS: GABAPENTIN 300 MG CAPSULE PO ×2 (10:24→12:38)
[2024-10-06] MEDS: CALCIUM/VITAMIN D 500 MG/5 MCG (200 I.U.) TABLET PO (10:24)
[2024-10-06] MEDS: ATORVASTATIN 40 MG TABLET PO (10:24)
[2024-10-06] MEDS: DONEPEZIL HCL 10 MG TABLET PO (10:24)
[2024-10-06] MEDS: FOLIC ACID 1 MG TABLET PO (10:24)
[2024-10-06] MEDS: DULoxetine HCL 30 MG CAPSULE.DR PO (10:24)
[2024-10-06] MEDS: METOPROLOL TARTRATE 25 MG TABLET PO (10:25)
[2024-10-06] MEDS: DULoxetine HCL 60 MG CAPSULE.DR PO (10:25)
[2024-10-06] MEDS: PANTOPRAZOLE 40 MG TABLET PO (10:26)
[2024-10-06] MEDS: PYRIDOXINE HCL 25 MG TABLET PO (10:26)
--- OUTSIDE RECORDS SUMMARY | 2024-10-08 08:02 | XMS_ITS | Referral Summary ---
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 [facility] [place] [address] * Vitamin B12 (07/23/2024 8:53 AM SENIOR ESCROW OFFICER) Vitamin B12 585 230 - 1,250 pg/mL Blood 07/23/2024 8:53 AM SENIOR ESCROW OFFICER 07/23/2024 10:51 AM SENIOR ESCROW OFFICER Michelle Obando TEXTILE MACHINE MAINTENANCE MECHANIC LAB BLOOD ORDERABLES Fi nal Result Performing Organization Address [facility] Co de Phone Number MICHAEL [facility] ([place]) 1 [facility] [place] [address] * (ABNORMAL) Lipid panel (07/23/2024 8:53 AM SENIOR ESCROW OFFICER) Cholesterol 262(H) 30 - 199 mg/dL Comment: [...] 2018. Triglycerides 188(H) <=149 mg/dL MICHAEL [facility] ([place]) Comment: Interpretive Data Ages < or = [...] last revised on 2018. Chol/HDL ratio 6 DARIANNE [facility]par[facility] ([place]) Blood 07/23/2024 8:53 AM SENIOR ESCROW OFFICER 07/23/2024 10:51 AM SENIOR ESCROW OFFICER Narrative MICHAEL [facility] ([place]) - 07/23/2024 11:23 AM SENIOR ESCROW OFFICER Has the patient been fasting for 8 hours or more?->Yes us Michelle Obando NP LAB BLOOD ORDERABLES nal Result IMCHAEL [facility] ([place]) 1 [facility] Department [place] [address] * (ABNORMAL) Comprehensive metabolic panel (07/23/2024 8:53 AM SENIOR ESCROW OFFICER) Sodium 139 135 - 145 mmol/L Potassium, [...] ([place]) Glucose 112 70 - 199 mg/dL MICHAEL [facility] ([place]) Comment: Interpretive Data Fasting glucose [...] CERNER [facility] ([place]) Blood 07/23/2024 8:53 AM SENIOR ESCROW OFFICER 07/23/2024 10:51 AM SENIOR ESCROW OFFICER Michelle Obando NP LAB BLOOD ORDERABLES nal Result MICHAEL [facility] ([place]) 1 [facility] Department [place] [address] * (ABNORMAL) Diagnostic Mammogram Bilateral W Laz (08/31/2023 9:30 AM SENIOR ESCROW OFFICER) Anatomical Region Laterality Modality Breast Bilateral Mammography 08/31/2023 10:4 9 AM SENIOR ESCROW OFFICER Impressions 08/31/2023 10:49 AM SENIOR ESCROW OFFICER Clustered microcalcifications at the 12 o'clock position [...] Jennifer Garza M.D. Narrative 08/31/2023 10:49 AM SENIOR ESCROW OFFICER EXAMINATION: DIAGNOSTIC MAMMOGRAM BILATERAL W LAZ, US [...] * COLONOSCOPY (02/09/2022) Scribed Colonoscopy Normal 02/09/2022 us Historical Provider HEALTH MAINTENANCE Final Result * Dexa Axial Skeleton Bone Density 1 or 2 Site (12/07/2021 8:26 AM CDT) Anatomical Region Laterality Modality Body N/A Other 12/07/2021 9:40 AM CDT Narrative 12/07/2021 9:41 AM CDT EXAM DESCRIPTION: DEXA AXIAL SKELETON BONE DENSITY 1 OR MORE SITES REASON FOR STUDY: 71 y/o year old F with given history of screening. Special Education Paraeducator/Model: BoatSetter (S/N [id number]) CLINICAL INFORMATION: Current height: 65 inches Maximum [...] Michael Decker M.D. MF: GRACIELA Report ID: [id number] Reading Location: [id number] Procedure Note Michael Decker MD - 12/07/2021 EXAM DESCRIPTION: DEXA AXIAL SKELETON BONE DENSITY 1 OR MORE SITES REASON FOR STUDY: 71 y/o year old F with given history ofscreening. Special Education Paraeducator/Model: Vericept SL (S/N [id number]) CLINICAL INFORMATION: Current height: 65 inches Maximum [...] Michael Decker M.D. MF: GRACIELA Report ID: [id number] Reading Location: [place] [address] Emerson Clinton MD IMG DXA PROCEDURES Stephenie l Result * Hepatitis C antibody (10/30/2020 1:00 PM CDT) [facility] Hep C Ab <0.1 0.0 - 0.9 s/co ratio [facility] - 01 Comment: Negative: < 0.8 Indeterminate: 0.8 - 0.9 Positive: > 0.9 The CDC recommends that a positive HCV antibody result be followed up with a HCV Nucleic Acid Amplification test (921121). 10/30/2020 1:00 PM CDT 10/30/2020 Narrative [facility] - 10/31/2020 8:13 AM CDT Performed at: [facility] [id number] Stablehand: Renzo Hamilton PhD, Phone: [phone] Emerson Clinton MD LAB MICROBIOLOGY - GENE RAL ORDERABLES Final Result [facility] - 01 from Last 3 Months or Most Recently Relevant to Health Maintenance Insurance IDPA HUMANA CHOICE MEDICARE PPO HUMANA CHOICE MEDICARE PPO IDPA Advance Directives For more information, please contact: [phone] Documents on File Type Date Recorded Patient Library Assistant Expl anation ADVANCE DIRECTIVE 11/06/2020 12:51 PM Care Teams Manager Oracle Relationship Specialty Start Date End Date Emerson Clinton MD PCP - General Family Medicine 10/27/20 Michael Chacon MD [address] [facility] [address] [place] [address] Consulting Physician Neurology 09/22/23 Linda Akbar MD PhD [address] [id number] [place] [address] Surgeon Surgical Oncology 10/13/23
--- OUTSIDE RECORDS SUMMARY | 2024-10-08 08:02 | XMS_ITS | Encounter Summary ---
Author Organization [facility] Healthcare Address [address] [place] [address] Care Team Providers Care Remote Computer Terminal Operator Name Role Phone Ervin Clark MD Primary Care Provider Michael Chacon MD Unavailable [phone] Linda Akbar MD PhD Unavaila ble Cecilia Harley LPN Unavailable [phone] Encounter Details Date Type Department Care Team (Late st Contact Info) Description 09/05/2023 Telephone [facility] [address] [place] [address] Cristine Obando RN Social History Tobacco Use [...] on filedocumented in this encounter Care Teams Remote Computer Terminal Operator Relationship Specialty Start Date End Date Ervin Clark MD PCP - General Family Medicine 10/27/20 Michael Chacon MD [address] [place] [address] [address] [place] [address] Consulting Physician Neurology 09/22/23 Linda Akbar MD PhD [address] [id number] [place] [address] Surgeon Surgical Oncology 10/13/23 Cecilia Harley, FILIPPO [address] [facility] [address] [facility] [address] [place] [address] Souvenir And Novelty Maker 03/30/24 04/01/24 documented as of this encounter
--- OUTSIDE RECORDS SUMMARY | 2024-10-08 08:02 | XMS_ITS | Encounter Summary ---
Author Organization [facility] Healthcare Address [address] [place] [address] Care Team Providers Care Director Of Women'S Services Name Role Phone Ervin Clark MD Primary Care Provider Michael Chacon MD Unavailable [phone] Linda Akbar MD PhD Unavaila ble Reason for Visit * Reason Onset Date Comments Medical Question/Miscellaneous 10/05/2024 Encounter Details Date Type Department Care Team (Late st Contact Info) Description 10/05/2024 Telephone [facility] Primary Care at [address] [place] [address] Ervin Clark MD [address] [place] [address] [address] [place] [address] Medical Question/Miscellaneous Social History Tobacco Use Types Packs/Day Years Used Date Smoking Tobacco: Never Smokeless Tobacco: Never AUDIT-C Answer Date Recorded Q1: How often [...] on file documented as of this encounter Miscellaneous Notes * Telephone Encounter - Edda Reeves - 10/05/2024 11:48 AM CDT Medical Question/Miscellaneous Caller???s Concern: Corrie from [facility] is calling back in regards to an MRI for the patient. She spoke to the office yesterday and got a verbal on a loop recording. Corrie stating that insurance requires a hard copy. Warm transferred to office. Does message need to be routed? No Reason for Warm Transfer: Provider to Provider Calls Practice Accepted the Warm Transfer? Yes Additional Comments If YES above, and no barriers. documented in this encounter Plan of Treatment Not on file documented as of this encounter Visit Diagnoses Not on filedocumented in this encounter Care Teams Director Of Women'S Services Relationship Specialty Start Date End Date Ervin Clark MD PCP - General Family Medicine 10/27/20 Michael Chacon MD [address] [facility] [address] [place] [address] Consulting Physician Neurology 09/22/23 Linda Akbar MD PhD [address] [id number] [place] [address] Surgeon Surgical Oncology 10/13/23 documented as of this encounter
--- OUTSIDE RECORDS SUMMARY | 2024-10-08 08:02 | XMS_ITS | Encounter Summary ---
Author Organization [facility] Healthcare Address [address] [place] [address] Care Team Providers Care Dumper Mold Cleaner Name Role Phone Ervin Clark MD Primary Care Provider Michael Chacon MD Unavailable [phone] Linda Akbar MD PhD Unavaila ble Cecilia Harley LPN Unavailable [phone] Encounter Details Date Type Department Care Team (Late st Contact Info) Description 09/02/2023 Telephone [facility] [address] [place] [address] Cristine Obando RN Social History Tobacco Use [...] on filedocumented in this encounter Care Teams Dumper Mold Cleaner Relationship Specialty Start Date End Date Ervin Clark MD PCP - General Family Medicine 10/27/20 Michael Chacon MD [address] [place] [address] [address] [place] [address] Consulting Physician Neurology 09/22/23 Linda Akbar MD PhD [address] [phone] [place] [address] Surgeon Surgical Oncology 10/13/23 Cecilia Harley, FILIPPO [address] [facility] [address] [place] [address] Comparative Sociology Professor 03/30/24 04/01/24 documented as of this encounter
--- OUTSIDE RECORDS SUMMARY | 2024-10-08 08:02 | XMS_ITS | Clinical Summary ---
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 1:00 PM CDT) [facility] Hep C Ab <0.1 0.0 - 0.9 s/co ratio [facility] - 01 Comment: Negative: < 0.8 Indeterminate: 0.8 - 0.9 Positive: > 0.9 The CDC recommends that a positive HCV antibody result be followed up with a HCV Nucleic Acid Amplification test (408475). 10/30/2020 1:00 PM CDT 10/30/2020 Narrative [facility] - 10/31/2020 8:13 AM CDT Performed at: 01 - [facility] [address] [id number] Treating And Pumping Supervisor: Renzo Hamilton PhD, Phone: [phone] Emerson Clinton MD LAB MICROBIOLOGY - GENE RAL ORDERABLES Final Result [facility] - 01 from Last 3 Months or Most Recently Relevant to Health Maintenance Insurance IDPA [employer] CHOICE MEDICARE PPO [employer] CHOICE MEDICARE PPO IDPA Advance Directives For more information, please contact: [phone] Documents on File Type Date Recorded Patient Chyron Operator Expl anation ADVANCE DIRECTIVE 11/06/2020 12:51 PM Care Teams Special Skills Officer Relationship Specialty Start Date End Date Emerson Clinton MD PCP - General Family Medicine 10/27/20 Michael Chacon MD [address] [place] [address] [place] [address] Consulting Physician Neurology 09/22/23 Linda Akbar MD PhD [address] [id number] [place] [address] Surgeon Surgical Oncology 10/13/23
--- OUTSIDE RECORDS SUMMARY | 2024-10-08 08:02 | XMS_ITS | Encounter Summary ---
Author Organization [facility] Healthcare Address [address] [place] [address] Care Team Providers Care Biodiesel Plant Manager Name Role Phone Ervin Clark MD Primary Care Provider Michael Chacon MD Unavailable Linda Akbar MD PhD Unavaila ble Encounter Details Date Type Department Care Team (Late st Contact Info) Description 10/03/2024 Orders Only [facility] Health Information Management [address] [place] [address] Ervin Clark MD [address] [place] [address] [place] [address] Social History Tobacco Use Types Packs/Day Years [...] on file documented as of this encounter Procedures Procedure Name Priority Date/Time Associated Diagnosis Comments SCAN - RADIOLOGY/IMAGING 10/03/2024 documented in this encounter Results * SCAN - RADIOLOGY/IMAGING (10/03/2024) Anatomical Region Laterality Modality Other us Ervin Clark MD Edited Result - Final documented in this encounter Visit Diagnoses Not on filedocumented in this encounter Care Teams Biodiesel Plant Manager Relationship Specialty Start Date End Date Ervin Clark MD PCP - General Family Medicine 10/27/20 Michael Chacon MD [address] [facility] [address] [place] [id number] Consulting Physician Neurology 09/22/23 Linda Akbar MD PhD [address] [id number] [place] [address] Surgeon Surgical Oncology 10/13/23 documented as of this encounter
== END 2024-10-06 15:17 ==
LOC: ANHED 12:54 → ANHIMU 10-04 06:44 → ANH2MED 10-04 14:45 → ANHIMU 10-08 07:55 → ANH2MED 10-08 07:55
PROVIDERS: Nurse Practitioner; Physician Assistant; Admitting Provider General Practice; Emergency Provider Emergency Medicine; PCP Family Medicine; Visit Provider Nurse Practitioner Adult Health
DX: R41.82 Altered mental status, unspecified (principal); R79.89 Other specified abnormal findings of blood chemistry; N13.2 Hydronephrosis with renal and ureteral calculous obstruction; N32.81 Overactive bladder; N39.3 Stress incontinence (female) (male); I10 Essential (primary) hypertension; G47.33 Obstructive sleep apnea (adult) (pediatric); E78.5 Hyperlipidemia, unspecified; K21.9 Gastro-esophageal reflux disease without esophagitis; F03.90 Unspecified dementia, unspecified severity, without behavioral disturbance, psychotic disturbance, mood disturbance, and anxiety; F32.A Depression, unspecified; F41.9 Anxiety disorder, unspecified; M81.0 Age-related osteoporosis without current pathological fracture; Z20.822 Contact with and (suspected) exposure to COVID-19; Z79.899 Other long term (current) drug therapy; Z79.51 Long term (current) use of inhaled steroids; Z86.12 Personal history of poliomyelitis; Z99.89 Dependence on other enabling machines and devices
CPT/HCPCS: 36415; 36600; 70450; 70553; 71045; 74176; 80048; 80053; 80061; 80307; 81001; 82077; 82140; 82607; 82805; 83605; 83690; 83735; 84100; 84443; 84484; 85018; 85025; 85027; 85610; 85730; 87040; 87637; 93005; 93306; 94002; 96360; 96361; 97161; 97165; 99285; A9270; A9579; G0378; J7030

== ENCOUNTER 2024-10-16 15:05 | Outpatient (CLI) | payer MEDICARE, MEDICAID, SELFPAY ==
--- NOTE | ~2024-10-16 | CT_ITS ---
EXAMINATION: CT abdomen pelvis wo con DATE: 10/16/2024 15:41 INDICATION: Calculus of ureter. TECHNIQUE: Computed tomography (CT) of the abdomen and pelvis was performed without intravenous contr ast. Automated exposure control and iterative reconstruction technique were employed. The dose-length product was 536.95 mGy-cm. COMPARISON: CT abdomen and pelvis 10/03/2024 FINDINGS: The visualized portions of the lung bases demonstrate mild atelectasis. No pleural effusion . The heart size is normal. There are coronary artery calcifications. No pericardial effusion. There is a small sliding hiatal hernia. The liver and spleen are normal. There are gallstones in the gallbl adder, which is normal in size. The pancreas and adrenal glands are normal. There are 4 stones in rig ht kidney measuring up to 7 mm. There is a 1 mm stone in left kidney. There is diverticulosis of the colon without evidence of diverticulitis. There are no dilated loops of bowel. The appendix is not vi sualized. There are no pathologically enlarged lymph nodes. There is no free intraperitoneal fluid. T here is a chronic burst fracture of L1. There is severe lumbar spondylosis. IMPRESSION: 1. Bilateral nonobstructing kidney stones. Reviewed, dictated and finalized at location A.
--- OUTSIDE RECORDS SUMMARY | 2024-10-16 17:44 | XMS_ITS | Encounter Summary ---
Author Organization [facility] Healthcare Address [address] [place] [address] Care Team Providers Care Project Construction Manager Name Role Phone Ervin Clark MD Primary Care Provider Michael Chacon MD Unavailable [phone] Linda Akbar MD PhD Unavaila ble Reason for Visit * Reason Onset Date Comments Medical Question/Miscellaneous 10/05/2024 Encounter Details Date Type Department Care Team (Late st Contact Info) Description 10/05/2024 Telephone [facility] Primary Care at [address] [place] [address] Ervin Clark MD [address] [place] [place] [address] [address] [place] [address] Medical Question/Miscellaneous Social History Tobacco [...] CDT Medical Question/Miscellaneous Caller???s Concern: Corrie from [facility] is calling back in regards to an [...] on filedocumented in this encounter Care Teams Project Construction Manager Relationship Specialty Start Date End Date Ervin Clark MD PCP - General Family Medicine 10/27/20 Michael Chacon MD [address] [facility] [address] [place] [address] Consulting Physician Neurology 09/22/23 Linda Akbar MD PhD [address] [phone] [place] [address] Surgeon Surgical Oncology 10/13/23 documented as of this encounter
--- OUTSIDE RECORDS SUMMARY | 2024-10-16 17:45 | XMS_ITS | Encounter Summary ---
Author Organization [facility] Healthcare Address [address] [place] [address] Care Team Providers Care News Photographer Name Role Phone Ervin Clark MD Primary Care Provider Michael Chacon MD Unavailable [phone] Linda Akbar MD PhD Unavaila ble Cecilia Harley LPN Unavailable [phone] Encounter Details Date Type Department Care Team (Late st Contact Info) Description 09/02/2023 Telephone [facility] [address] [place] [address] Cristine Obando RN Social History Tobacco Use [...] on filedocumented in this encounter Care Teams News Photographer Relationship Specialty Start Date End Date Ervin Clark MD PCP - General Family Medicine 10/27/20 Michael Chacon MD [address] [place] [address] [address] [place] [address] Consulting Physician Neurology 09/22/23 Linda Akbar MD PhD [address] [phone] [place] [address] Surgeon Surgical Oncology 10/13/23 Cecilia Harley, FILIPPO [address] [facility] [address] [place] [address] Certified Low Vision Therapist 03/30/24 04/01/24 documented as of this encounter
--- OUTSIDE RECORDS SUMMARY | 2024-10-16 17:45 | XMS_ITS | Referral Summary ---
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 Expl anation ADVANCE DIRECTIVE 11/06/2020 12:51 PM Care Teams Glass Unloading Equipment Tender Relationship Specialty Start Date End Date Emerson Clinton MD PCP - General Family Medicine 10/27/20 Michael Chacon MD [address] [place] [address] [address] [place] [id number] Consulting Physician Neurology 09/22/23 Linda Akbar MD PhD [address] [id number] [place] [address] Surgeon Surgical Oncology 10/13/23
--- OUTSIDE RECORDS SUMMARY | 2024-10-16 17:45 | XMS_ITS | Encounter Summary ---
Author Organization [facility] Healthcare Address [address] [place] [address] Care Team Providers Care Registration Clerk Name Role Phone Ervin Clark MD Primary Care Provider Michael Chacon MD Unavailable [phone] Linda Akbar MD PhD Unavaila ble Cecilia Harley LPN Unavailable [phone] Encounter Details Date Type Department Care Team (Late st Contact Info) Description 09/05/2023 Telephone [facility] [address] [place] [address] Cristine Obando RN Social History Tobacco Use [...] on filedocumented in this encounter Care Teams Registration Clerk Relationship Specialty Start Date End Date Ervin Clark MD PCP - General Family Medicine 10/27/20 Michael Chacon MD [address] [place] [address] [address] [place] [address] Consulting Physician Neurology 09/22/23 Linda Akbar MD PhD [address] [id number] [place] [address] Surgeon Surgical Oncology 10/13/23 Cecilia Harley, FILIPPO [address] [facility] [address] [place] [address] Test Automation Architect 03/30/24 04/01/24 documented as of this encounter
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
== END 2024-10-16 15:06 | disposition home or self-care (01) ==
PROVIDERS: PCP Family Medicine; Visit Provider Nurse Practitioner
DX: N20.0 Calculus of kidney (principal); N20.1 Calculus of ureter
CPT/HCPCS: 74176